=== PATIENT | male | born 1950 | race Caucasian/White ===

== ENCOUNTER → 2017-05-29 15:19 | Outpatient (CLI) | payer MEDICARE, OTHER, SELFPAY ==
[2017-05-29 15:28] LABS: Bacteria 0 SEEN /hpf (None Seen); Mucous, Urine 0 SEEN /hpf (<or=2+); Red Blood Cells-Urine 0 SEEN /hpf (0-5); Squamous Epithelial Cells - UA 0 SEEN /hpf (0-5); White Blood Cells 0 SEEN /hpf (0-5)
[2017-05-29 18:19] LABS: Absolute Lymphocyte Count 1.41 X10^3/ul (0.83-4.51); Absolute Neutrophil Count 3.8 X10^3/uL (2.0-7.7); Basophil# 0.02 X10^3/uL; Basophil% 0.3 % (0-1); Color, Urine Yellow (Yellow); Eosinophil# 0.41 X10^3/uL; Eosinophils% 6.4 % (0-5); Glucose, Dipstick Normal (Normal); Hemoglobin 14.5 g/dl (13.0-16.5); Ketone-Dipstick Negative (Negative); Leukocyte Esterase-Dipstick Negative /ul (Negative); Lymphocyte # 1.41 X10^3/ul (4.0); Lymphocyte % 22.1 % (19-41); Mean Corpuscular Hgb 32.4 pg (27.0-32.0); Mean Corpuscular Volume 98.4 fL (80-94); Mean Platelet Vol. 11.4 fl (6.2-12.0); Monocyte# 0.72 X10^3/uL; Monocyte% 11.3 % (0-10); Neutrophil # 3.81 X10^3/uL (2.7-7.7); Neutrophil % 59.9 % (47-70); Nitrite-Dipstick Negative (Negative); Occult Blood-Urine Negative /ul (Negative); Platelet Count 202 K/mm3 (150-450); Protein-Dipstick Negative (Negative); RBC Distribution Width CV 13.3 % (11.6-14.6); RBC Distribution Width SD 47.9 fl (35.1-43.9); Red Blood Count 4.47 M/mm3 (4.6-6.2); Urine Bilirubin Dipstick Negative (Negative); Urine Clarity Clear (Clear); Urine Urobilinogen Normal (Normal); White Blood Count 6.4 K/mm3 (4.4-11.0)
[2017-05-29 18:20] LABS: POSITIVE COUNT NO; POSITIVE DIFFERENTIAL NO; POSITIVE MORPHOLOGY NO
[2017-05-29 18:39] LABS: Hemoglobin A1c 5.4 % (4.2-6.3)
[2017-05-29 18:44] LABS: AST(SGOT) 35 U/L (15-37); Alanine Aminotransfer ALT/SGPT 39 U/L (16-61); Alkaline Phosphatase 79 U/L (45-117); Anion Gap 8 (5-15); BUN 19 mg/dL (7-18); BUN/Creat Ratio 15.8 RATIO (10-20); Calcium,Total 8.7 mg/dL (8.5-10.1); Chloride 100 mmol/L (98-107); Cholesterol 187 mg/dL (200); EST Glomerular Filtration Rate 65 mL/min (>60); Est Glom Filt Rate - Afr Amer 78 mL/min (>60); Glucose 112 mg/dL (74-106); High Density Lipoprotein 47 mg/dL; Sodium Level 135 mmol/L (136-145); Thyroid Stim Hormone (TSH) 3.41 uIU/mL (0.358-3.74); Triglycerides 184 mg/dL; Very Low Density Lipoprotein 37 mg/dL (5-40)
== END ==
PROVIDERS: Family Provider Family Medicine; PCP Family Medicine; Visit Provider Family Medicine
DX: I10 Essential (primary) hypertension (principal); F17.200 Nicotine dependence, unspecified, uncomplicated; Z83.3 Family history of diabetes mellitus; Z13.220 Encounter for screening for lipoid disorders
CPT/HCPCS: 36415; 80053; 80061; 81001; 83036; 84443; 85025

== ENCOUNTER → 2017-06-01 14:29 | Outpatient (CLI) | payer MEDICARE, OTHER, SELFPAY ==
[2017-06-01 16:00] LABS: Anion Gap 7 (5-15); BUN 15 mg/dL (7-18); BUN/Creat Ratio 12.7 RATIO (10-20); Calcium,Total 9.1 mg/dL (8.5-10.1); Chloride 102 mmol/L (98-107); Creatinine, Serum 1.18 mg/dL (0.70-1.30); EST Glomerular Filtration Rate 66 mL/min (>60); Est Glom Filt Rate - Afr Amer 80 mL/min (>60); Glucose 89 mg/dL (74-106); Sodium Level 136 mmol/L (136-145)
== END ==
PROVIDERS: Family Provider Family Medicine; PCP Family Medicine; Visit Provider Family Medicine
DX: I10 Essential (primary) hypertension (principal)
CPT/HCPCS: 36415; 80048

== ENCOUNTER → 2017-06-20 06:53 | Outpatient (CLI) | payer MEDICARE, OTHER, SELFPAY ==
--- NOTE | 2017-06-20 13:07 | PFT ---
INTRODUCTION: The patient is a 67-year-old male currently under the care of Dr. Diamond the presents for pulmonary function testing secondary to a diagnosis of chronic cough. Respiratory therapy reports good patient effort reports no other concerns. Bronchodilators were used during testing. INTERPRETATION: Forced expiration spirometry demonstrates no evidence of a large airways obstructive ventilatory defect. There was no significant response to aerosolized bronchodilators, based upon strict ATS criteria. Spirograms are of fair quality and plateau normally. Body plethysmography was performed and reveals lung volumes to be within normal limits. Diffusing capacity by single breath CO is within normal limits at 93% of predicted. IMPRESSION: These pulmonary function studies are essentially within normal limits. There are no previous PFTs available for comparison.
== END ==
PROVIDERS: Family Provider Family Medicine; PCP Family Medicine; Visit Provider Family Medicine
DX: R05 Cough (principal)
CPT/HCPCS: 94060; 94726; 94729

== ENCOUNTER → 2017-07-27 15:44 | Outpatient (CLI) | payer MEDICARE, OTHER, SELFPAY ==
[2017-07-27 18:39] LABS: PSA,Total - Annual Screen 1.53 ng/mL (0.00-4.00)
== END ==
PROVIDERS: Family Provider Family Medicine; PCP Family Medicine; Visit Provider Family Medicine
DX: Z12.5 Encounter for screening for malignant neoplasm of prostate (principal)
CPT/HCPCS: 36415; 84153; G0103

== ENCOUNTER 2018-04-18 21:23 | Observation (INO) | payer MEDICARE, SELFPAY ==
[2018-04-18 21:25] VITALS: BP 128/79; BP 131/87; PULSE 69; RESP 17; RESP 18; TEMP 36.8; O2SAT 95; O2SAT 96; BMI 32.3
--- NOTE | 2018-04-18 21:50 | EKG12_ITS ---
Test Reason : CP Blood Pressure : / mmHG Vent. Rate : 071 BPM Atrial Rate : 071 BPM P-R Int : 166 ms QRS Dur : 096 ms QT Int : 400 ms P-R-T Axes : 056 040 051 degrees QTc Int : 434 ms Normal sinus rhythm Septal infarct , age undetermined Abnormal ECG Confirmed by GONZALES BARBA, LOW ([id number]), web editor VELVET DICK ([id number]) on 04/22/2018 10:39:16 AM Referred By: STARLA Confirmed By:LOW ROLON MD
--- NOTE | 2018-04-18 21:50 | RAD_ITS ---
STUDY: X-RAY CHEST REASON FOR EXAM: Male, 67 years old. Chest pain. TECHNIQUE: Single AP portable view of the chest. COMPARISON: 04/24/2016. FINDINGS: The lungs are clear and expanded. There is no demonstrated pleural abnormality. Normal size heart. Normal mediastinum and iglesia. Normal visualized pulmonary arteries. There is atherosclerotic tortuosity of the aortic arch and descending thoracic aorta. The thoracic spine is suboptimally visualized. There are surgical pins overlying the right humeral head. There is no demonstrated abnormality of the visualized soft tissue structures of the upper abdomen. RAD/Chest 1 View (Portable) IMPRESSION: No active pulmonary disease. Electronically Signed: Gustavo Evans MD at 22:13 EST Tel , Service support ,
[2018-04-18] MEDS: Aspirin 81 MG TAB.CHEW 324 MG PO (22:05)
[2018-04-18] MEDS: Ondansetron 4 MG/2 ML Vial IV (22:05)
[2018-04-18] MEDS: Morphine 4 MG/ML Syringe IV (22:05)
[2018-04-18 22:25] LABS: Absolute Lymphocyte Count 2.07 X10^3/ul (0.83-4.51); Absolute Neutrophil Count 4.8 X10^3/uL (2.0-7.7); Basophil# 0.02 X10^3/uL; Basophil% 0.2 % (0-1); Eosinophil# 0.32 X10^3/uL; Eosinophils% 3.8 % (0-5); Hematocrit 42.5 % (40-54); Hemoglobin 14.4 g/dl (13.0-16.5); Lymphocyte # 2.07 X10^3/ul (4.0); Lymphocyte % 24.9 % (19-41); Mean Corp Hgb Conc 33.9 g/gl (32-36); Mean Corpuscular Hgb 32.4 pg (27.0-32.0); Mean Corpuscular Volume 95.5 fL (80-94); Mean Platelet Vol. 11.4 fl (6.2-12.0); Monocyte# 1.07 X10^3/uL; Monocyte% 12.9 % (0-10); Neutrophil # 4.83 X10^3/uL (2.7-7.7); Neutrophil % 58.1 % (47-70); POSITIVE COUNT NO; POSITIVE DIFFERENTIAL NO; POSITIVE MORPHOLOGY NO; Platelet Count 176 K/mm3 (150-450); RBC Distribution Width CV 13.3 % (11.6-14.6); RBC Distribution Width SD 46.7 fl (35.1-43.9); Red Blood Count 4.45 M/mm3 (4.6-6.2); White Blood Count 8.3 K/mm3 (4.4-11.0)
[2018-04-18 22:40] LABS: D-Dimer Quantitative (DVT/PE) 0.84 FEU/ug/m (0.27-0.49)
--- NOTE | 2018-04-18 22:40 | ED.RN ---
dr. solares aware of elevated ddimer 0.84
[2018-04-18 22:52] LABS: AST(SGOT) 28 U/L (15-37); Alanine Aminotransfer ALT/SGPT 36 U/L (16-61); Alkaline Phosphatase 60 U/L (45-117); Anion Gap 10 (5-15); BUN 11 mg/dL (7-18); BUN/Creat Ratio 9.6 RATIO (10-20); Bilirubin, Direct 0.17 mg/dL (0.00-0.30); Calcium,Total 8.5 mg/dL (8.5-10.1); Chloride 101 mmol/L (98-107); Creatinine, Serum 1.15 mg/dL (0.70-1.30); EST Glomerular Filtration Rate 68 mL/min (>60); Est Glom Filt Rate - Afr Amer 82 mL/min (>60); Estimated Creatinine Clearance 57.79 ml/min; Globulin 3.8 g/dL (2.2-4.2); Glucose 97 mg/dL (74-106); Lipase 299 U/L (73-393); Potassium 3.5 mmol/L (3.5-5.1); Protein, Total 7.8 g/dL (6.4-8.2); Sodium Level 132 mmol/L (136-145)
--- NOTE | 2018-04-18 22:59 | CT_ITS ---
STUDY: CTA CHEST REASON FOR EXAM: Male, 67 years old. Shortness of breath and elevated d-dimer. RADIATION DOSAGE (If Supplied By Facility): CTDIvol = ( 17.83 ) mGy, DLP = ( 728.39 ) mGycm TECHNIQUE: The examination was performed with the intravenous administration of 100 ml of Isovue 370 contrast material. Post-processing of the angiographic images was performed, with multiplanar reformation and 3D reconstruction. Individualized dose optimization techniques were used for this CT. COMPARISON: None. FINDINGS: Normal enhancement of the main pulmonary artery and right and left pulmonary arteries. Normal enhancement of the bilateral peripheral pulmonary arteries. There is no demonstrated pulmonary embolism. There is atherosclerotic calcification of the aortic arch with tortuosity. There is no demonstrated aortic dissection however there is suboptimal enhancement of the thoracic aorta.. Normal heart and pericardium. Normal mediastinum. Normal hilar regions. Normal visualized trachea and bronchi. The lungs are well expanded. There are no pulmonary infiltrates. There is minimal central bronchiectatic changes. There are no pleural effusions. Normal chest wall structures. There are healing fractures of the right sixth and seventh ribs. There are degenerative changes in the thoracic spine and Schmorl's nodes in the midthoracic vertebra. There is a lucency in the inferior aspect of T6 vertebra probably representing Schmorl's node. The visualized portions of the upper abdomen demonstrate no acute process. CT/CTA Chest W/WO Contrast IMPRESSION: 1. No evidence of pulmonary embolism. 2. No infiltrate is seen. Electronically Signed: Gustavo Evans MD at 23:48 EST Tel , Service support ,
[2018-04-18] MEDS: LORazepam 0.5 MG Tablet PO ×2 (23:06→23:59)
--- NOTE | 2018-04-18 23:36 | ED.VISSUMM ---
- ER Visit Summary Date of Service: 04/18/18 Chief Complaint: Chest pain History of Present Illness: The patient is a 67 M presenting with chest pain. Patient states this started 2 hours prior to arrival. It woke him from sleep. He has associated shortness of breath. He denies nausea or vomiting. Denies diaphoresis. He has not had these symptoms in the past. He has a history of hypertension. Denies PE/DVT risk factors. He is a smoker. Physical Examination: Vitals are stable. Patient is afebrile. Alert no acute distress. HEENT exam is unremarkable. Neck is supple. Lungs are clear and equal bilaterally. Heart is regular rate and rhythm. Abdomen is soft nontender nondistended. Extremities are unremarkable. Skin is warm and dry. No focal neurologic deficit. Remainder of exam is unremarkable. Emergency Department Course and Treatment: Patient was given aspirin, morphine, Zofran. EKG is sinus rate of 71. Chest x-ray shows no acute process. CBC, chemistries unremarkable. Liver lipase are normal. Troponin is negative. D-dimer elevated at 0.84. Due to elevated d-dimer, CTA chest is obtained and shows no PE. Patient is chest pain free on re-evaluation. Discussed with the hospitalist for observation. Disposition: Observation Impression: Chest pain This note was generated with simfy dictation software. It may contain incorrect words, spelling, and punctuation that were not noted in review of the chart prior to signing ED Disposition - Plan for ED Patient: Referrals: Artie Galvan MD [Primary Care Provider] -
--- NOTE | 2018-04-18 23:39 | ED.DCSUM_ITS ---
- ER Visit Summary Date of Service: 04/18/18 Chief Complaint: Chest pain History of Present Illness: The patient is a 67 M presenting with chest pain. Patient states this started 2 hours prior to arrival. It woke him from sleep. He has associated shortness of breath. He denies nausea or vomiting. Denies diaphoresis. He has not had these symptoms in the past. He has a history of hypertension. Denies PE/DVT risk factors. He is a smoker. Physical Examination: Vitals are stable. Patient is afebrile. Alert no acute distress. HEENT exam is unremarkable. Neck is supple. Lungs are clear and equal bilaterally. Heart is regular rate and rhythm. Abdomen is soft nontender nondistended. Extremities are unremarkable. Skin is warm and dry. No focal neurologic deficit. Remainder of exam is unremarkable. Emergency Department Course and Treatment: Patient was given aspirin, morphine, Zofran. EKG is sinus rate of 71. Chest x-ray shows no acute process. CBC, chemistries unremarkable. Liver lipase are normal. Troponin is negative. D- dimer elevated at 0.84. Due to elevated d-dimer, CTA chest is obtained and shows no PE. Patient is chest pain free on re-evaluation. Discussed with the hospitalist for observation. Disposition: Observation Impression: Chest pain This note was generated with Go[employer]arden dictation software. It may contain incorrect words, spelling, and punctuation that were not noted in review of the chart prior to signing ED Disposition - Plan for ED Patient: Referrals: Artie Galvan MD [Primary Care Provider] -
[2018-04-18 23:43] VITALS: BP 113/78; PULSE 67; RESP 18; O2SAT 94
--- NOTE | 2018-04-18 23:55 | PCM.HP.STD ---
Problem List (1) Chest pain Status: Acute (2) Alcohol use disorder Status: Acute (3) Tobacco abuse Status: Acute (4) Hyponatremia Status: Acute History of Present Illness Date of Admission: 04/18/18 Chief Complaint: chest pain The patient is a 67 year old M with a significant history of hypertension; alcohol use disorder; tobacco abuse who presented with excruciating episodic right-sided chest pain that started few hours before his admission. Patient reported that his chest pain woke him up from his sleep. His Chest pain is nonradiating. He denies any aggravating factor. He reported that walking helps improve his chest pain. Associated with symptoms is shortness of breath he denied any associated' nausea, vomiting or diaphoresis. At the emergency department d-dimer was elevated. Follow-up CTPA was unremarkable. His troponin was negative. His EKG showed Q waves in anterior leads. His mother had a triple bypass at age 66;and his father from massive heart attack at age 77. At emergency department patient was given full dose aspirin; Ativan; morphine; Zofran and nicotine patch. Patient reports stress test within the last year but he is unable to elaborate further. Past Medical History Medical History: Medical History (Last Updated 04/19/18 @ 01:18 by Fer Hernandez MD) HTN (hypertension) I10 Allergies No Known Allergies Allergy (Verified 04/18/18 21:24) Home Medications: Ambulatory Orders Medication Instructions Recorded Amlodipine [Norvasc] 10 mg PO DAILY 04/18/18 Lisinopril [Zestril] 20 mg PO DAILY 04/18/18 Surgical History: appendectomy, - - Rotator cuff surgery on the right Lives: Alone Smoking Status: Current every day smoker Alcohol: Heavy - *Family History Maternal Family History: Family History (Last Updated 04/19/18 @ 01:20 by Fer Hernandez MD) Other Bleeding ulcer Diabetes Hx of CABG Myocardial infarction Poliomyelitis Review of Systems Constitutional: Denies: Chills, Fever, Weight Change HEENT: Denies: Head Aches, Sinus Congestion, Sinus Drainage Cardiovascular: Reports: Chest Pain. Denies: Palpitations Respiratory: Reports: Shortness of Breath. Denies: Cough Gastrointestinal: Denies: Abdominal Pain, Nausea, Vomiting Genitourinary: Denies: Dysuria Musculoskeletal: Denies: Joint Pain, Joint Tenderness Skin: Denies: Rash, Wounds Neurological: Denies: Numbness, Tingling, Focal weakness Psychiatric: Denies: Anxiety, Depression, Homicidal Ideations, Suicidal Ideations Hematologic/ Lymphatic: Denies: Easy Bruising, Easy Bleeding VTE Information - Inpt Only VTE Present on Admission: No VTE Mechan Device Prophylaxis: None VTE Pharm Prophylaxis ordered?: Yes Patient Problems: Active and Suspected Problems Chest pain (Acute) Alcohol use disorder (Acute) Tobacco abuse (Acute) Hyponatremia (Acute) - Physical Exam General: Alert, Oriented x3, - - Reluctant to provide information HEENT: Atraumatic, PERRLA, EOMI, Normocephalic Neck: Supple, No JVD, Negative Carotid Bruits Lungs: - - Coarse -right upper posterior lung godfrey Cardiovascular: Regular rate, No murmurs Abdomen: Bowel Sounds Present, Soft, Non Tender Extremities: No edema, Capillary Refill Less than 3 Seconds Skin: No rashes, No breakdown Musculoskeletal: No Tenderness to Palpation of Joints or Extremities Neurological: Neuro grossly intact Psych/Mental Status: Normal Affect, Appropriate Vital Signs Temp Pulse Resp BP Pulse Ox 98.2 F 69 18 131/87 H 96 04/18/18 21:25 04/18/18 21:25 04/18/18 21:25 04/18/18 21:25 04/18/18 21:25 Oxygen Delivery Method Nasal Cannula Weight: 90.718 kg Body Mass Index (BMI) 32.3 Laboratory Tests Past 24 Hrs 04/18/18 04/18/18 04/18/18 21:45 21:45 21:45 WBC 8.3 RBC 4.45 L Hgb 14.4 Hct 42.5 MCV 95.5 H MCH 32.4 H MCHC 33.9 RDW 13.3 RDW Differential 46.7 H Plt Count 176 MPV 11.4 Immature Gran % (Auto) 0.100 Neut % (Auto) 58.1 Lymph % (Auto) 24.9 [place] % (Auto) 12.9 H Eos % (Auto) 3.8 Baso % (Auto) 0.2 Absolute Neuts (auto) 4.8 Absolute Lymphs (auto) 2.07 Total Counted Not Reportable D-Dimer Quant (PE/DVT) 0.84 H* Sodium 132 L Potassium 3.5 Chloride 101 Carbon Dioxide 21.0 Anion Gap 10 BUN 11 Creatinine 1.15 Estim Creat Clear Calc 57.79 Est GFR (MDRD) Af Amer 82 Est GFR (MDRD) Non-Af 68 BUN/Creatinine Ratio 9.6 L Glucose 97 Calcium 8.5 Total Bilirubin 0.60 Direct Bilirubin 0.17 AST 28 ALT 36 Alkaline Phosphatase 60 Troponin I < 0.015 Total Protein 7.8 Albumin 4.0 Globulin 3.8 Lipase 299 Assessment/Plan All Active Problems Chest pain (Acute) Alcohol use disorder (Acute) Tobacco abuse (Acute) Hyponatremia (Acute) The patient is a 67 year old M with a significant history of hypertension; alcohol use disorder; tobacco abuse who presented with excruciating episodic right-sided chest pain that started few hours before his admission. Chest pain Heart score is 4 points; moderate score (slightly suspicious; age 67; 3 risk factors of BMI more than 30; smoker and hypertension) Admit to a monitored bed on PCU CXR independently reviewed confirms no acute cardiopulmonary process. EKG independently reviewed confirms no ST or T wave abnormalities but with Q waves in leads V1 and V2. Old records reviewed showed Q waves in leads V1 and V2 on October 11, 2005. ASA 81 mg p.o. daily SL NTG 0.4 mg prn as needed for chest pain Morphine as needed for pain We will check lipid panel. High intensity statin x1 dose ordered. Serial cardiac enzymes Stat EKG as needed for chest pain Patient report that he is unable to run. Chemical Stress test in the AM if the cardiac enzymes are negative Differential diagnosis include musculoskeletal source of chest pain. Patient reports that in the past he had rotator cuff surgery on the right side. Tobacco abuse He reported that he smokes 2 packs/day. Received nicotine patch at emergency department. Nicotine patch continue. Emergency department doctor also ordered nicotine gum. The patient reported that he has dentures and he can not chew. Will not order nicotine gum. Patient was counseled Hyponatremia Likely due to be able to jose from drinking. Trend BMP. Alcohol use disorder Patient reports drinking 2-3 beers per day. Can not rule out minimization at this time. Patient appears apathetic and his reluctant to release information Will place patient on seizure protocol with Ativan, thiamine, folic acid and multivitamins. Ethanol level ordered. DVT prophylaxis: Subcutaneous ordered. Code Visit OBSV E&M: 28179 Initial observation care L3
[2018-04-19] VITALS (10 sets, daily range): BP systolic 120–152; BP diastolic 72–93; PULSE 65–88; RESP 16–18; TEMP 36.5–37.2; O2SAT 92–98; BMI 30.7; BMI 32.3
--- NOTE | 2018-04-19 00:56 | EKG12_ITS ---
Test Reason : ADMIT Blood Pressure : / mmHG Vent. Rate : 074 BPM Atrial Rate : 074 BPM P-R Int : 144 ms QRS Dur : 102 ms QT Int : 400 ms P-R-T Axes : 055 042 060 degrees QTc Int : 444 ms Normal sinus rhythm Normal ECG Confirmed by GONZALES BARBA, LOW ([id number]), book or script editor VELVET DICK ([id number]) on 04/25/2018 11:49:34 AM Referred By: ABELARDO Confirmed By:LOW ROLON MD
[2018-04-19] MEDS: Atorvastatin Calcium 80 MG Tablet PO (02:17)
[2018-04-19 04:47] LABS: Absolute Neutrophil Count 3.9 X10^3/uL (2.0-7.7); Basophil# 0.02 X10^3/uL; Basophil% 0.3 % (0-1); Eosinophils% 4.7 % (0-5); Hemoglobin 14.5 g/dl (13.0-16.5); Lymphocyte % 20.3 % (19-41); Mean Corp Hgb Conc 35.4 g/gl (32-36); Mean Corpuscular Hgb 33.9 pg (27.0-32.0); Mean Corpuscular Volume 95.8 fL (80-94); Mean Platelet Vol. 11.1 fl (6.2-12.0); Monocyte# 0.85 X10^3/uL; Monocyte% 13.3 % (0-10); Neutrophil # 3.92 X10^3/uL (2.7-7.7); Neutrophil % 61.2 % (47-70); Platelet Count 168 K/mm3 (150-450); RBC Distribution Width CV 13.3 % (11.6-14.6); RBC Distribution Width SD 44.7 fl (35.1-43.9); Red Blood Count 4.28 M/mm3 (4.6-6.2); White Blood Count 6.4 K/mm3 (4.4-11.0)
[2018-04-19 04:53] LABS: International Normalized Ratio 1.1; Prothrombin Time (Protime)PT. 13.8 SECONDS (11.7-14.9)
[2018-04-19 04:56] LABS: POSITIVE COUNT NO; POSITIVE DIFFERENTIAL NO; POSITIVE MORPHOLOGY NO
[2018-04-19 05:06] LABS: Anion Gap 12 (5-15); BUN 11 mg/dL (7-18); BUN/Creat Ratio 8.7 RATIO (10-20); Calcium,Total 8.5 mg/dL (8.5-10.1); Chloride 105 mmol/L (98-107); Cholesterol 157 mg/dL (200); Creatinine, Serum 1.26 mg/dL (0.70-1.30); EST Glomerular Filtration Rate 61 mL/min (>60); Est Glom Filt Rate - Afr Amer 74 mL/min (>60); Estimated Creatinine Clearance 52.74 ml/min; Glucose 93 mg/dL (74-106); High Density Lipoprotein 45 mg/dL; Potassium 3.8 mmol/L (3.5-5.1); Sodium Level 141 mmol/L (136-145); Triglycerides 167 mg/dL; Very Low Density Lipoprotein 33 mg/dL (5-40)
[2018-04-19] MEDS: Lisinopril 20 MG Tablet PO (06:16)
[2018-04-19] MEDS: Aspirin E.C. 81 MG Tablet PO (06:16)
[2018-04-19] MEDS: Thiamine Hydrochloride 100 MG Tablet PO (08:49)
[2018-04-19] MEDS: Multivitamins,Ther W-Minerals Tablet 1 TABLET PO (08:49)
[2018-04-19] MEDS: Folic Acid 1 MG Tablet PO (08:49)
[2018-04-19] MEDS: amLODIPine 10 MG Tablet PO (08:50)
[2018-04-19] MEDS: Morphine 2 MG/ML Syringe IV (08:50)
[2018-04-19] MEDS: 0.9% NaCl Peripheral Flush Adult/Peds IV (08:50)
--- NOTE | 2018-04-19 09:01 | STRESSREP ---
Stress Test Report Pharmacologic myocardial perfusion stress test. 67-year-old man with a history of atypical right-sided chest pain. Stress protocol: Resting EKG demonstrates normal sinus rhythm with a rate of 69 bpm normal intervals are noted nonspecific ST-T wave changes are noted resting blood pressure 148/84 mmHg. 0.4 mg of regadenoson was infused per usual protocol followed by rapid intravenous saline flush injection. Continuous EKG monitoring was performed. The patient maintained sinus rhythm throughout the recording. At rest there were nonspecific ST-T wave changes noted with mildly downsloping ST depression noted in lead II. At peak infusion the above changes persisted. The above does not appear to be suggestive of ischemia. The resting blood pressure 148/84 with a final blood pressure 138/80. Myocardial perfusion protocol. 14.1 mCi of technetium 99m sestamibi was injected at rest. 0.4 mg of regadenoson was infused per usual protocol. At peak infusion 44.4 mCi of technetium 99m sestamibi was injected stress images were obtained stress and rest images were reconstructed and compared in the short axis vertical long horizontal long axis. Gated images were also obtained Perfusion SPECT analysis: Review of the stress images demonstrate normal uptake of tracer noted in all areas of myocardium. There is mild inferior diaphragmatic attenuation noted. No obvious areas of reversibility are noted suggest ischemia. No obvious infarct is noted. Gated SPECT analysis: The gated ejection fraction is noted to be 58%. Conclusion: Normal pharmacologic myocardial perfusion stress test. Preserved ejection fraction.
--- NOTE | 2018-04-19 10:09 | DCINST_ITS ---
- Discharge Diagnoses Current Active Problems: Current Active and Chronic Problems (Last Updated 04/19/18 @ 01:18 by Fer Hernandez MD) Chest pain (Acute) Alcohol use disorder (Acute) Tobacco abuse (Acute) Hyponatremia (Acute) You will use the following diet at home:: Cardiac Your food should be the consistency of: Regular Discharge Activity: Return to Normal Activity Weight Bearing Status: Full weight bearing Call your doctor if you observe: Fever of 101 or Higher, Shortness of breath, Dizziness, Fainting spells, Chest pain, Increased palpitations (irregular heartbeat), Uncontrolled pain Allergies/Adverse Reactions: Allergies No Known Allergies Allergy (Verified 04/19/18 01:08) Medications to take at Discharge Amlodipine [Norvasc] 10 mg PO DAILY 04/18/18 Lisinopril [Zestril] 20 mg PO DAILY 04/18/18 Aspirin E.C. [Ecotrin] 81 mg PO DAILY@0800 #90 tab 04/19/18 The following prescriptions were given: Aspirin E.C. [Ecotrin] 81 mg PO DAILY@0800 #90 tab Primary Care Physician: Artie Galvan MD [Primary Care Provider] - Please follow up with your Primary Care Physician in: 2 weeks. Test Results: Test results from this visit will be discussed in further detail at your follow- up appointment, if applicable.
--- NOTE | 2018-04-19 15:55 | DS.PCM_ITS ---
Discharge Date and Diagnosis Date of Admission: 04/18/18 Date of Discharge: 04/19/18 - Primary Discharge Diagnosis Chest pain, ACS ruled out, likely due to musculoskeletal pain. Hospital Course and Treatment Imaging Results: Clinical Impression(s) from Imaging Studies Chest X-Ray 04/18/18 21:50 IMPRESSION: No active pulmonary disease. Electronically Signed: Gustavo Evans MD at 22:13 EST Tel , Service support , Chest CTA 04/18/18 22:59 IMPRESSION: 1. No evidence of pulmonary embolism. 2. No infiltrate is seen. Electronically Signed: Gustavo Evans MD at 23:48 EST Tel , Service support , Operations: None Procedures: EKG, Stress test Summary of Care Provided: Patient seen and examined on the day of discharge and appeared to be stable to be discharged home. He mentioned that his chest pain improved but still having intermittent discomfort upon movement. Denies shortness of breath, palpitation, dizziness or lightheadedness. His vital signs are stable. The patient is a 67 year old M admitted because of chest pain for evaluation. His initial EKG revealed no acute ischemic changes. Troponin was negative x3. Chest x-ray showed no acute findings. D-dimer was elevated for which CTA chest done and showed no PE or dissection. Routine blood work was unremarkable. His vital signs were stable, blood pressure was stable. Patient underwent nuclear stress test that showed no evidence of stress-induced myocardial ischemia with preserved ejection fraction. ACS ruled out. His pain is likely due to musculoskeletal pain. Patient discharged home in a stable medical condition, discharged on his home medications without any changes, started the baby aspirin, recommended follow-up with PCP in 2 weeks - Physical Exam General: Alert, Oriented x3, Cooperative, No apparent distress HEENT: Atraumatic, PERRLA, EOMI, Normocephalic Oral: Moist Mucosa, No Gingival or Mucosal Lesions/ Ulcerations Neck: Supple, No JVD, Negative Carotid Bruits, Trachea Midline, Thyroid Normal Size and Texture Lungs: Clear to auscultation, No rhonchi, No wheeze, No rales, Diminished Cardiovascular: Regular rate, Regular Rhythm, Normal S1, Normal S2, PMI Normal Abdomen: Bowel Sounds Present, Soft, Non Tender, Non-Distended, No Hepato- splenomegaly Extremities: No clubbing, No cyanosis, No edema Skin: No rashes, No breakdown Lymphatic: No Cervical, Supraclavicular, or Inguinal Adenopathy Neurological: Cranial nerves II-XII grossly intact, Neuro grossly intact Psych/Mental Status: Normal Affect, Appropriate Vital Signs Temp Pulse Resp BP Pulse Ox 97.7 F L 82 18 127/93 H 92 04/19/18 10:08 04/19/18 10:50 04/19/18 10:08 04/19/18 10:08 04/19/18 10:45 Oxygen Delivery Method Room Air Weight: 190 lb 4.143 oz Body Mass Index (BMI) 30.7 Laboratory Tests Past 24 Hrs 04/18/18 04/18/18 04/18/18 21:45 21:45 21:45 WBC 8.3 RBC 4.45 L Hgb 14.4 Hct 42.5 MCV 95.5 H MCH 32.4 H MCHC 33.9 RDW 13.3 RDW Differential 46.7 H Plt Count 176 MPV 11.4 Immature Gran % (Auto) 0.100 Neut % (Auto) 58.1 Lymph % (Auto) 24.9 [place] % (Auto) 12.9 H Eos % (Auto) 3.8 Baso % (Auto) 0.2 Absolute Neuts (auto) 4.8 Absolute Lymphs (auto) 2.07 Total Counted Not Reportable PT INR APTT D-Dimer Quant (PE/DVT) 0.84 H* Sodium 132 L Potassium 3.5 Chloride 101 Carbon Dioxide 21.0 Anion Gap 10 BUN 11 Creatinine 1.15 Estim Creat Clear Calc 57.79 Est GFR (MDRD) Af Amer 82 Est GFR (MDRD) Non-Af 68 BUN/Creatinine Ratio 9.6 L Glucose 97 Calcium 8.5 Total Bilirubin 0.60 Direct Bilirubin 0.17 AST 28 ALT 36 Alkaline Phosphatase 60 Troponin I < 0.015 Total Protein 7.8 Albumin 4.0 Globulin 3.8 Triglycerides Cholesterol LDL Cholesterol VLDL Cholesterol HDL Cholesterol Lipase 299 Ethyl Alcohol 04/18/18 04/19/18 04/19/18 21:45 01:13 04:22 WBC RBC Hgb Hct MCV MCH MCHC RDW RDW Differential Plt Count MPV Immature Gran % (Auto) Neut % (Auto) Lymph % (Auto) [place] % (Auto) Eos % (Auto) Baso % (Auto) Absolute Neuts (auto) Absolute Lymphs (auto) Total Counted PT 13.8 INR 1.1 APTT 32.0 D-Dimer Quant (PE/DVT) Sodium Potassium Chloride Carbon Dioxide Anion Gap BUN Creatinine Estim Creat Clear Calc Est GFR (MDRD) Af Amer Est GFR (MDRD) Non-Af BUN/Creatinine Ratio Glucose Calcium Total Bilirubin Direct Bilirubin AST ALT Alkaline Phosphatase Troponin I < 0.015 Total Protein Albumin Globulin Triglycerides Cholesterol LDL Cholesterol VLDL Cholesterol HDL Cholesterol Lipase Ethyl Alcohol 197.0 04/19/18 04/19/18 04:22 04:22 WBC 6.4 RBC 4.28 L Hgb 14.5 Hct 41.0 MCV 95.8 H MCH 33.9 H MCHC 35.4 RDW 13.3 RDW Differential 44.7 H Plt Count 168 MPV 11.1 Immature Gran % (Auto) 0.200 Neut % (Auto) 61.2 Lymph % (Auto) 20.3 [place] % (Auto) 13.3 H Eos % (Auto) 4.7 Baso % (Auto) 0.3 Absolute Neuts (auto) 3.9 Absolute Lymphs (auto) 1.30 Total Counted Not Reportable PT INR APTT D-Dimer Quant (PE/DVT) Sodium 141 Potassium 3.8 Chloride 105 Carbon Dioxide 24.0 Anion Gap 12 BUN 11 Creatinine 1.26 Estim Creat Clear Calc 52.74 Est GFR (MDRD) Af Amer 74 Est GFR (MDRD) Non-Af 61 BUN/Creatinine Ratio 8.7 L Glucose 93 Calcium 8.5 Total Bilirubin Direct Bilirubin AST ALT Alkaline Phosphatase Troponin I < 0.015 Total Protein Albumin Globulin Triglycerides 167 Cholesterol 157 LDL Cholesterol 79 VLDL Cholesterol 33 HDL Cholesterol 45 Lipase Ethyl Alcohol Discharge Activity: Return to Normal Activity Weight Bearing Status: Full weight bearing Call your doctor if you observe: Fever of 101 or Higher, Shortness of breath, Dizziness, Fainting spells, Chest pain, Increased palpitations (irregular heartbeat), Uncontrolled pain Home Medications: Medications to take at Discharge Amlodipine [Norvasc] 10 mg PO DAILY 04/18/18 Lisinopril [Zestril] 20 mg PO DAILY 04/18/18 Aspirin E.C. [Ecotrin] 81 mg PO DAILY@0800 #90 tab 04/19/18 Following Prescrptions Were Given to Patient: Aspirin E.C. [Ecotrin] 81 mg PO DAILY@0800 #90 tab Primary Care Physician: Artie Galvan MD [Primary Care Provider] - Please follow up with your Primary Care Physician in: 2 weeks. Disposition: Home Minutes spent on discharge:: 24 Patient Condition:: Stable Medical Necessity - Tobacco Use Smoking Status: Current every day smoker Meaningful Use Info Meaningful Use Diagnoses (Choose all that apply): None applicable Code Visit OBSV E&M: 11097 Observation care discharge
== END 2018-04-19 10:08 | disposition home or self-care (01) ==
LOC: ED 04-19 00:10 → PCU 04-19 00:19
PROVIDERS: Admitting Provider Hospitalist; Emergency Provider Emergency Medicine; Family Provider Family Medicine; PCP Family Medicine; Visit Provider Hospitalist
DX: R07.89 Other chest pain (principal); R06.02 Shortness of breath; I10 Essential (primary) hypertension; Z79.899 Other long term (current) drug therapy; E87.1 Hypo-osmolality and hyponatremia; F10.10 Alcohol abuse, uncomplicated; R94.31 Abnormal electrocardiogram [ECG] [EKG]; F17.210 Nicotine dependence, cigarettes, uncomplicated
CPT/HCPCS: 36415; 71045; 71275; 78452; 80048; 80061; 80076; 80320; 83690; 84484; 85025; 85379; 85610; 85730; 93005; 93017; 96374; 96375; 96376; 97802; 99218; 99285; 99406; A9500; Q9967; A4216; G0378; G0480; J2405; J2785

== ENCOUNTER 2018-09-17 19:30 | Emergency (ER) | payer OTHER, SELFPAY ==
[2018-04-19 01:06] VITALS: BMI 30.7
[2018-09-17 19:31] VITALS: BP 137/83; PULSE 76; RESP 18; TEMP 37.1; O2SAT 96; BMI 29.9
--- NOTE | 2018-09-17 19:53 | ED.DCSUM_ITS ---
- ER Visit Summary Date of Service: 09/17/18 Chief Complaint: Right shoulder pain History of Present Illness: The patient is a 68 M who presents with right shoulder pain that has been getting worse over the past 2 to 3 weeks. 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 Patient states that later in the week he tried to push something up and felt sharp pain in his shoulder. Patient has a history of a prior rotator cuff surgery. Patient thinks he messed up his rotator cuff. Patient describes the pain is aching and is worse with movement. Patient denies any paresthesias or weakness. Patient denies any other injuries. Physical Examination: Vital signs are stable. Patient is afebrile. Patient is in no acute distress. Muscular skeletal exam reveals tenderness over the right shoulder. Range of motion was limited in all motions of the right shoulder secondary to pain. There is no deformity noted. There is no edema or ecchymosis. Sensation was intact to light touch in the radial, median, ulnar, and axillary areas. Radial pulses are equal bilaterally. Strength is 5/5 in the radial, median, and ulnar areas. Test Results: X-rays of the right shoulder were obtained. There is no acute fr acture. There are some degenerative changes. There are bone anchors noted in the humeral head. Emergency Department Course and Treatment: Patient was given an injection of Toradol here. Patient was instructed to ice and elevate the right shoulder. Patient was instructed to follow-up with his primary care physician or [facility] in 5 to 7 days. Patient was given a prescription for a short course of [place]. Patient understood and was agreeable with the plan. All questions were answered. Disposition: Discharge home Impression: Right shoulder strain This note was generated with [employer] dictation software. It may contain incorrect words, spelling, and punctuation that were not noted in review of the chart prior to signing ED Disposition - Plan for ED Patient: Disposition: Home or Assisted Living Diagnosis: Right shoulder strain Instructions: Shoulder Sprain Prescriptions: Hydrocodone Bitart/Apap 5-325 [[facility] [place] 5MG-325MG] 1 tab PO Q6H PRN PRN 3 Days #10 tab PRN Reason: Pain Prescription Printed Referrals: Artie Galvan MD [Primary Care Provider] - 5-7 Days [facility] [GROUP OF PHYSICIANS] - 5-7 Days
--- NOTE | 2018-09-17 19:58 | RAD_ITS ---
STUDY: X-RAY - RIGHT SHOULDER REASON FOR EXAM: Male, 68 years old. Pain TECHNIQUE: 4 view(s) of the shoulder. COMPARISON: None. FINDINGS: There is no evidence of fracture or dislocation. Moderate degenerative changes of the right glenohumeral joint are present. Right shoulder anchors are present. There are no radiodense foreign bodies. RAD/Shoulder min 2 Views IMPRESSION: No fracture or dislocation. Moderate degenerative changes of the glenohumeral joint. Electronically Signed: Jadon Cruz, at 20:13 EDT Tel , Service support ,
[2018-09-17] MEDS: Ketorolac 30 MG/ML Syringe IM (20:05)
== END 2018-09-17 22:10 | disposition home or self-care (01) ==
PROVIDERS: Emergency Provider Emergency Medicine; Family Provider Family Medicine; PCP Family Medicine
DX: S46.911A Strain of unspecified muscle, fascia and tendon at shoulder and upper arm level, right arm, initial encounter (principal); X50.9XXA Other and unspecified overexertion or strenuous movements or postures, initial encounter; Y93.9 Activity, unspecified; Y92.89 Other specified places as the place of occurrence of the external cause; Y99.8 Other external cause status; I10 Essential (primary) hypertension; F17.210 Nicotine dependence, cigarettes, uncomplicated
CPT/HCPCS: 73030; 96372; 99283

== ENCOUNTER 2018-11-18 18:28 | Emergency (ER) | payer MEDICARE, SELFPAY ==
[2018-11-18 18:29] VITALS: BP 116/68; PULSE 89; RESP 16; TEMP 36.1; O2SAT 97; BMI 31.3
--- NOTE | 2018-11-18 19:01 | CT_ITS ---
STUDY: CT ABDOMEN AND PELVIS WITH CONTRAST REASON FOR EXAM: Male, 68 years old. RADIATION DOSAGE (If Supplied By Facility): CTDIvol = ( 18.65 ) mGy, DLP = ( 960.79 ) mGycm TECHNIQUE: Transaxial images were obtained from the dome of the diaphragm to the symphysis pubis without oral contrast. 100 IV Isovue 300 was administered. Sagittal and coronal images were reconstructed. Individualized dose optimization techniques were used for this CT. COMPARISON: None. FINDINGS: Minor atelectasis within the dependent portion of the lungs.. The visualized portions of the heart are within normal limits. Liver is fatty infiltrated. There is a small cyst in the right lobe. Bile ducts are not dilated. Normal gallbladder and extrahepatic biliary system. Normal spleen. Normal pancreas. Normal bilateral adrenal glands. No evidence for hydronephrosis or ureteral calculus. Tiny cortical cyst in the right kidney Normal visualized stomach. Normal small intestine. Normal colon. No evidence for acute appendicitis. Mild atherosclerotic changes of the aorta with focal aneurysm measuring 3.15 x 2.35 cm. There also appears to be an aneurysm of the right common iliac. Normal inferior vena cava. Normal retroperitoneum. Incompletely distended mildly thick-walled bladder. Small fat-containing umbilical hernia.. Lumbar spine demonstrates moderate spondylosis. Grade 1 spondylolisthesis at L4-[address]/Abdomen/Pelvis WITH Contrast IMPRESSION: Nonspecific fatty infiltration of the liver.. Atherosclerotic changes of the aorta with focal aneurysm measuring approximately 3.5 x 2.35 cm and mild aneurysmal dilatation of the right common iliac. No acute abnormalities Electronically Signed: Jadon Hickman MD at 20:33 EDT , Service support ,
--- NOTE | 2018-11-18 19:01 | CT_ITS ---
STUDY: CT CHEST WITH CONTRAST REASON FOR EXAM: Male, 68 years old. Trauma RADIATION DOSAGE (If Supplied By Facility): CTDIvol = ( 16.11 ) mGy, DLP = ( 577.33 ) mGycm TECHNIQUE: Transaxial imaging was performed following intravenous administration of 100 IV Isovue 300. Individualized dose optimization techniques were used for this CT. COMPARISON: None. FINDINGS: Mild nonspecific interstitial thickening.. There is mild atelectasis within the dependent portion of the lungs. There is no focal infiltration or pulmonary nodule There is no demonstrated pleural abnormality. Normal heart and pericardium. Normal mediastinum. Normal hilar regions. Normal enhanced pulmonary arteries. Normal aorta arch and descending thoracic aorta. Dorsal spine demonstrates moderate spondylosis There appears to be a hairline fracture of the axillary aspect of the left ninth rib only seen on the sagittal projection. Old healed fractures of the right sixth and seventh ribs. No definitive evidence for other acute fractures Nonspecific fatty infiltration of the liver. CT/Chest WITH Contrast IMPRESSION: Nonspecific interstitial thickening and minor atelectasis within the dependent portion of the lungs. Apparent hairline fracture of the axillary aspect of the left ninth rib only seen on sagittal projections. No other definite fractures are identified Electronically Signed: Jadon Hickman MD at 20:25 EDT , Service support ,
[2018-11-18] MEDS: Ondansetron 4 MG/2 ML Vial IV (19:16)
[2018-11-18] MEDS: Morphine 4 MG/ML Syringe IV (19:17)
[2018-11-18] MEDS: HYDROmorphone 1 MG/ML Syringe IV (21:00)
[2018-11-18 21:03] VITALS: BP 107/89; PULSE 74; RESP 20; O2SAT 97
--- NOTE | 2018-11-18 22:11 | ED.VISSUMM ---
- ER Visit Summary Date of Service: 11/18/18 Chief Complaint: Left side pain History of Present Illness: The patient is a 68 M presenting with left side pain. Patient states that he was pressure washing his house yesterday. He tripped over a hose and the nozzle went into his left side. He did not hit his head or lose consciousness. He is not on anticoagulants. He complains of persistent pain in his left side. Denies other complaints. Physical Examination: Vitals are stable. Patient is afebrile. Alert no acute distress. HEENT exam is unremarkable. Neck is nontender Lungs are clear and equal bilaterally. Left lower chest tenderness with no crepitus Heart is regular rate and rhythm. Abdomen is soft left upper quadrant tenderness with no rebound or guarding Extremities are unremarkable. Skin is warm and dry. No focal neurologic deficit. Remainder of exam is unremarkable. Emergency Department Course and Treatment: Patient was given morphine, Zofran IV. He continued to have pain was given Dilaudid. CT chest shows nonspecific interstitial thickening and minor atelectasis within the dependent portion of the lungs. Apparent hairline fracture of the axillary aspect of the left ninth rib only seen on sagittal projections. No other definite fractures are identified. CT abdomen/pelvis shows Nonspecific fatty infiltration of the liver. Atherosclerotic changes of the aorta with focal aneurysm measuring approximately 3.5 x 2.35 cm and mild aneurysmal dilatation of the right common iliac. No acute abnormalities. Patient was advised CT findings and need for follow-up. Patient was given an incentive spirometer. His pain is improved. He is given a prescription for short course of Percocet. Advised to follow-up with primary care physician. Advised return to ED for worsening complaints. Disposition: Discharge home Impression: Left ninth rib fracture This note was generated with [employer] dictation software. It may contain incorrect words, spelling, and punctuation that were not noted in review of the chart prior to signing ED Disposition - Plan for ED Patient: Instructions: FRACTURE, Rib Prescriptions: Oxycodone HCl/Acetaminophen [Percocet 5/325] 1 tab PO Q6H PRN PRN 3 Days #12 tab PRN Reason: Pain Prescription Printed Referrals: Artie Galvan MD [Primary Care Provider] -
--- NOTE | 2018-11-18 22:29 | ED.DEP ---
ED Disposition - Plan for ED Patient: Instructions: FRACTURE, Rib Prescriptions: Oxycodone HCl/Acetaminophen [Percocet 5/325] 1 tablet PO Q6H PRN PRN 3 Days #12 tablet PRN Reason: Pain Referrals: Artie Galvan MD [Primary Care Provider] -
[2018-11-18 22:56] VITALS: BP 117/69; PULSE 71; RESP 17; O2SAT 98
--- NOTE | 2018-11-18 22:56 | ED.RN ---
PT GIVEN WRITTEN AND VERBAL DISCHARGE INSTRUCTIONS AND HOME GOING PRESCRIPTIONS. PT EDUCATE NOT TO DRIVE WHEN TAKING NARCOTIC MEDICATION. PT VERBALIZES UNDERSTANDING. 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 PT AWAITING PRESCRIPTIONS FROM PHARMACY. IV D/C AND COVERED WITH 2X2 GAUZE AND PAPER TAPE.
== END 2018-11-18 22:58 | disposition home or self-care (01) ==
LOC: ED 19:07
PROVIDERS: Emergency Provider Emergency Medicine; Family Provider Family Medicine; PCP Family Medicine
DX: S22.32XA Fracture of one rib, left side, initial encounter for closed fracture (principal); W18.09XA Striking against other object with subsequent fall, initial encounter; Y93.9 Activity, unspecified; Y92.007 Garden or yard of unspecified non-institutional (private) residence as the place of occurrence of the external cause; Y99.9 Unspecified external cause status; I70.0 Atherosclerosis of aorta; I10 Essential (primary) hypertension; K76.0 Fatty (change of) liver, not elsewhere classified; Z72.0 Tobacco use
CPT/HCPCS: 71260; 74177; 99284; Q9967; A4216; J2405

== ENCOUNTER 2018-11-19 20:52 | Emergency (ER) | payer MEDICARE, SELFPAY ==
[2018-11-18 18:29] VITALS: BMI 31.3
[2018-11-19 20:52] VITALS: BP 127/68; PULSE 83; RESP 22; TEMP 36.9; O2SAT 98; BMI 31.3
[2018-11-19] MEDS: Ondansetron 4 MG/2 ML Vial IV (21:42)
[2018-11-19] MEDS: morphine 8 MG/ML Syringe IV (21:42)
--- NOTE | 2018-11-19 22:14 | ED.VIS.GEN ---
History of Present Illness Chief Complaint: Chest Other Detail of Chief Complaint: Rib pain secondary to fracture Informant: Patient Onset: Yesterday Context: Sudden Onset Timing: Continuous Quality: Pain Location: Left anterior/axillary lower ribs Current Severity: Mild Maximum Severity: Severe Worsened by: Breathing and movement Relieved by: Nothing Associated Symptoms: Nothing other than pain Narrative: 68-year-old male who was seen yesterday and diagnosed with fractured rib. Was discharged with Percocet. States the Percocet makes him nauseous. Has not taken Percocet since early this morning. He was asking for morphine and Dilaudid. Patient was informed all opiates make you nauseous. The reason he did was not nauseous yesterday he was given an antiemetic. He was informed what this meant. He was given antiemetic in the [facility] department as well as morphine. Will discharge with Zofran if his pain is under control. Prior similar symptoms: Yes Recent Illness/Hospitalization: Yes - Past Medical History (1) Left rib fracture Status: Acute (2) Alcohol use disorder Status: Acute (3) Chest pain Status: Acute (4) Hyponatremia Status: Acute (5) Tobacco abuse Status: Acute Past Medical History - Allergies and Home Meds Allergies/Adverse Reactions: Allergies acetaminophen [From Percocet] Adverse Reaction (Verified 11/19/18 20:56) Nausea oxycodone [From Percocet] Adverse Reaction (Verified 11/19/18 20:56) Nausea Primary Care Physician: Artie Galvan MD [Primary Care Provider] - Prior records reviewed: Yes Surgical History: appendectomy, - - Rotator cuff surgery on the right Lives: Spouse/ Significant Other Smoking Status: Current every day smoker Alcohol: Heavy Drugs: None Review of Systems General: Denies: Chills, Fever, Subjective, Sweats Cardiovascular: Reports: Chest pain. Denies: Palpitations, Heart racing Respiratory: Denies: Dyspnea, Cough, Dyspnea on exertion Gastrointestinal: Denies: Abdominal pain, Nausea, Vomiting, Diarrhea, Melena, Hematochezia Genitourinary: Denies: Dysuria, Hematuria, Frequency Musculoskeletal: Denies: Myalgias, Arthralgias, Neck pain, Back pain, Swelling, Extremity Pain Skin: Denies: Rash, Wounds Hematologic: Denies: Easy bruising, Easy bleeding Allergy: Denies: Uticaria, Swelling of the mouth Physical Exam Vital Signs/Narrative: Vital Signs Temp Pulse Resp BP Pulse Ox 11/19/18 20:52 98.5 F 83 22 H 127/68 H 98 Inital Vital Signs reviewed: Yes General: Well nourished, Well developed, Acute Distress Head: Normocephalic, Atraumatic Eyes: Perrl, EOMI ENT: Moist mucous membranes Neck: Supple, Nontender, No lymphadenopathy, No JVD Cardiovascular: Regular rate, Regular rhythm, No murmurs, Normal S1, Normal S2 Respiratory: No distress, CTA bilaterally, Chest tenderness. Negative for: Chest nontender Abdomen: Soft, Nontender, Nondistended, Normal bowel sounds. Negative for: Hepatomegaly, Splenomegaly Back: Nontender, Normal Inspection. Negative for: CVA tenderness Skin: Normal color, No rash Neurological: Alert, Oriented x3, Cranial nerves II-XII grossly intact, Normal Strength, Normal Sensation Psychological: Normal affect, Normal Mood Diagnostic/Tx/Re-eval - Medical Decision Making He was medicated with 8 mg of morphine IV push and 4 mg of Zofran IV push. He will be discharged prescription for Zofran. Patient requested different pain medicine. He was informed of opiate analgesia cause nausea. The medicine he was prescribed is appropriate analgesic for fractured ribs. He was given a prescription for Zofran. ED Disposition - Plan for ED Patient: Disposition: Home or Assisted Living Diagnosis: Left rib fracture, Adverse reaction to drug Instructions: FRACTURE, Rib Prescriptions: Ondansetron [Zofran Odt] 4 mg PO Q8H PRN PRN #10 tab PRN Reason: Nausea Prescription Printed Referrals: Artie Galvan MD [Primary Care Provider] - 3-5 Days
== END 2018-11-19 22:30 | disposition home or self-care (01) ==
PROVIDERS: Emergency Provider Emergency Medicine; Family Provider Family Medicine; PCP Family Medicine
DX: S22.32XG Fracture of one rib, left side, subsequent encounter for fracture with delayed healing (principal); F17.200 Nicotine dependence, unspecified, uncomplicated; Z88.5 Allergy status to narcotic agent; T50.995A Adverse effect of other drugs, medicaments and biological substances, initial encounter
CPT/HCPCS: 96374; 96375; 99283; A4216; J2405

== ENCOUNTER → 2019-02-15 08:47 | Outpatient (CLI) | payer MEDICARE, SELFPAY ==
--- NOTE | 2019-02-15 08:49 | CT_ITS ---
STUDY: LOW DOSE CT LUNG CANCER SCREENING REASON FOR EXAM: Male, 68 years old. 75 pack-year smoking history RADIATION DOSAGE (If Supplied By Facility): CTDIvol = ( 3.02 ) mGy, DLP = ( 100.43 ) mGycm TECHNIQUE: No contrast was administered. Low dose technique was utilized (average mAS-38 and kVp 120). 1.25 mm axial source images with a slice interval of 1.25-mm were reconstructed in lung windows. 2.5 mm axial source images with a slice interval of 2.5-mm were reconstructed in lung windows. 5.0 mm axial source images with a slice interval of 5.0-mm were reconstructed in soft tissue windows. Nodule measured using lung windows on PACS and/or independent workstation with automated measurement of minimum and maximum diameter. Nodule measurement reported as average diameter rounded to the nearest whole number. Growth is defined as an increase ins size of greater than 1.5 mm. COMPARISON: CT of the chest, November 18, 2018. NODULES: Total lung nodules (excluding granulomas): 0 Emphysema: None Endobronchial lesion: None Aorta: There is mild atherosclerotic tortuosity of the thoracic aorta without aneurysm. Coronary arteries: Coronary artery calcifications. Heart: Normal in size Pulmonary artery: Normal in size Mediastinal nodes: None Other chest and abdominal findings: Minimal degenerative changes of the thoracic spine. CT/Low Dose CT Lung Screening IMPRESSION: Lung-RADS category 1 - Continue annual screening with LDCT in 12 months. IMPORTANT NOTES FOR USE: ACR Lung-RADS Version 1.0 Assessment Categories Release Date: July 07, 2013 Category: Coded 0-4 bases on nodule(s) with highest degree of suspicion. Negative screen is defined as categories 1 and 2; a positive screen is defined as categories 3 and 4. Category 3 and 4A nodules that are unchanged on interval CT should be coded as category 2, and individuals returned to screening in 12 months. Category 4X: Category 3 or 4 nodules with additional imaging findings that increase the suspicion of lung cancer, such as spiculation, GGN that doubles in size in 1 year, enlarged lymph notes, etc. Category Modifiers: S (significant finding unrelated to lung cancer) and C (prior history of treated lung cancer) may be added to the 0-4 Lung-RADS Electronically Signed: Tadeo Cummings DO at 20:39 EST Tel [phone], Service support ,
== END ==
PROVIDERS: Family Provider Family Medicine; PCP Family Medicine; Referring Provider Family Medicine; Visit Provider Family Medicine
DX: F17.210 Nicotine dependence, cigarettes, uncomplicated (principal); Z12.2 Encounter for screening for malignant neoplasm of respiratory organs
CPT/HCPCS: G0297

== ENCOUNTER 2019-08-06 20:50 | Emergency (ER) | payer MEDICARE, SELFPAY ==
[2019-07-25 10:59] VITALS: BMI 31.3
[2019-08-06 20:52] VITALS: BP 143/112; PULSE 81; RESP 16; TEMP 36.1; O2SAT 96
--- NOTE | 2019-08-06 21:40 | RAD_ITS ---
STUDY: X-RAY - RIGHT FOOT CLINICAL: Male, 69 years old. Nontraumatic right foot pain. TECHNIQUE: 3 view(s) of the foot. COMPARISON: None. FINDINGS: Normal talus, calcaneus, and tarsal bones. Normal visualized subtalar, talonavicular, calcaneocuboid, tarsal and tarsometatarsal articulations. Normal metatarsi. There is degenerative arthrosis of the metatarsophalangeal joint of the hallux . Normal tibial and fibular sesamoid bones. Normal interphalangeal joint of the great toe. Normal phalanges of the great toe. Normal second through fifth metatarsophalangeal joints. Normal interphalangeal joints and phalanges of the lesser toes. The soft tissue structures are unremarkable. RAD/Foot min 3 Views IMPRESSION: Degenerative changes of the first metatarsophalangeal joint. Electronically Signed: Tadeo Cummings DO at 21:53 EDT Tel [phone], Service support ,
[2019-08-06] MEDS: Ibuprofen 600 MG Tablet PO (21:41)
[2019-08-06] MEDS: Morphine 4 MG/ML Syringe IM (21:41)
--- NOTE | 2019-08-06 22:28 | ED.DCSUM_ITS ---
History of Present Illness Chief Complaint: Lower Extremity Injury Informant: Patient Occurred: Weeks Onset: Weeks Context: Sudden Onset Timing: Intermittent Quality of Pain: Sharp, Burning Associated Symptoms: Negative for: Parasthesia, Weakness, Loss of Funtion Narrative: Patient is a 69-year-old male presenting with 3 weeks of intermittent right leg pain. He states it starts at the base of his right foot goes up his ankle and sometimes radiates all the way up his groin. He had a particularly bad episode tonight that kept him from sleeping. He is not training for pain prior to arrival. Patient states he has been having intermittent episodes over the past 3 weeks. 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 He also notes that he has had an ingrown toenail on his left great toe that is been bothering him for some time. He denies associated redness or drainage with it. Patient denies any other complaints at this time. He denies any symptoms consistent with cauda equina syndrome. He denies any associated back pain. He denies any urinary symptoms. He denies any associated weakness or numbness. No associated rash. Past Medical History - Allergies and Home Meds Allergies/Adverse Reactions: Allergies acetaminophen [From Percocet] Adverse Reaction (Verified 08/06/19 20:51) Nausea oxycodone [From Percocet] Adverse Reaction (Verified 08/06/19 20:51) Nausea Primary Care Physician: Artie Galvan MD [Primary Care Provider] - Jadon Freedman DPM [STAFF PHYSICIAN] - Past Medical History: - - Hypertension Surgical History: appendectomy, - - Rotator cuff surgery on the right Smoking Status: Current every day smoker Review of Systems General: Denies: Chills, Fever, Sweats Cardiovascular: Denies: Chest pain, Palpitations Respiratory: Denies: Dyspnea, Cough Gastrointestinal: Denies: Abdominal pain, Nausea, Vomiting, Diarrhea Genitourinary: Denies: Dysuria, Hematuria, Frequency Musculoskeletal: Reports: Extremity Pain - right foot. Denies: Back pain, Swelling Skin: Reports: - - IN Grown toenail?left great toe. Denies: Rash, Wounds Neurological: Denies: Headache, Weakness, Numbness Physical Exam Vital Signs/Narrative: Vital Signs Temp Pulse Resp BP Pulse Ox 08/06/19 20:52 97.0 F L 81 16 143/112 H 96 Inital Vital Signs reviewed: Yes - Extremity Exam Right Pelvis: Negative for: Deformity, Limited ROM Right Hip: Negative for: Deformity, Limited ROM Right Femur: Negative for: Deformity, Limited ROM Right Knee: Negative for: Deformity, Edema, Limited ROM Right Tib fib: Negative for: Deformity, Edema, Limited ROM Right Ankle: Negative for: Deformity, Edema, Limited ROM Right Foot: - - Pain to palpation of the medial midfoot, no tenderness over the plantar fascia. No associated rash. Negative for: Deformity, Edema, Limited ROM Left Foot: Negative for: Deformity, Edema, Limited ROM Right Toe: Negative for: Deformity, Edema, Limited ROM Left Toe: - - Tenderness to palpation of the medial aspect of the left great toenail. Mild ingrown toenail but no associated abscess or cellulitis.. Negative for: Deformity, Limited ROM General: Well nourished, Well developed, Unkempt, - - Patient pacing around the room Head: Normocephalic, Atraumatic Eyes: Perrl, EOMI ENT: No Trauma, Moist Mucous Membranes Neck: Nontender, Full ROM Cardiovascular: Regular rate, Regular rhythm, No murmurs Respiratory: No distress, CTA bilaterally, Chest nontender Back: Nontender. Negative for: CVA Tenderness - Right, CVA Tenderness - Left, Spinal Tenderness, Paraspinal Tenderness Skin: Normal color, No rash Neurological: Alert, Oriented x3, Cranial nerves II-XII grossly intact, Normal Strength, Normal Sensation Psychological: Normal affect Diagnostic/Tx/Re-eval Clinical Impression(s) from Imaging Studies Foot X-Ray 08/06/19 21:40 IMPRESSION: Degenerative changes of the first metatarsophalangeal joint. Electronically Signed: Tadeo Cummings DO at 21:53 EDT Tel [phone], Service support , - Medical Decision Making Patient evaluated for atraumatic pain of his right foot. It radiates intermittently all the way up to his groin. He insisted the pain is coming from his foot I am not his back. No obvious signs of trauma or deformity. X-ray does show some mild arthritic changes at the first metatarsal joint but this is not consistent with his pain. Patient is given 1 dose of morphine for pain control in the emergency room. As I suspect there might be some formation going on he started on NSAIDs and a short burst of steroids. He is given podiatry to follow-up with. Patient does have an ingrown toenail on the left side but does not require an emergent removal. There is no signs of infection. Podiatry can also follow-up with this as well. ED Disposition - Plan for ED Patient: Disposition: Home or Assisted Living Diagnosis: Right foot pain, Ingrown nail of great toe of left foot Instructions: ED FOOT CONTUSION, ED Ingrown Toenail Not Infected Home Treatment Prescriptions: Prednisone [Deltasone] 40 mg PO DAILY #10 tab Transmission Status: Received by [id number] Ibuprofen [Motrin] 800 mg PO TID PRN PRN #20 tab PRN Reason: Pain/Inflammation Transmission Status: Received by [id number] Referrals: Artie Galvan MD [Primary Care Provider] - Jadon Freedman DPM [STAFF PHYSICIAN] - Additional Instructions: You might have inflammation of the foot or arthritis that is causing your pain. No signs of infection. Please follow-up with podiatry for the foot pain as well as ingrown toenail. You been given an information today. Please take the medications prescribed.
== END 2019-08-06 22:35 | disposition home or self-care (01) ==
PROVIDERS: Emergency Provider Emergency Medicine; PCP Family Medicine
DX: L60.0 Ingrowing nail (principal); M79.671 Pain in right foot; I10 Essential (primary) hypertension; F17.200 Nicotine dependence, unspecified, uncomplicated; Z88.5 Allergy status to narcotic agent
CPT/HCPCS: 73630; 96372; 99282

== ENCOUNTER 2019-08-30 20:37 | Emergency (ER) | payer MEDICARE, SELFPAY ==
[2019-08-30 20:38] VITALS: BP 97/66; PULSE 81; RESP 16; TEMP 36.2; O2SAT 96; BMI 29.1
[2019-08-30 20:44] VITALS: BP 97/66; PULSE 81; RESP 16; RESP 18; TEMP 36.2; O2SAT 96
--- NOTE | 2019-08-30 20:57 | CT_ITS ---
HISTORY: PAIN AND SWELLING RIGHT ANKLE X 2 WEEKS, UNABLE TO WALK PROPERLY, HX HTN TECHNIQUE: CT angiogram images of the abdomen, pelvis and lower extremities were obtained with ml 100mL Isovue-370 IV contrast. Enteric contrast was not administered. 3D MIP images reviewed to aid in vascular evaluation. Number of images including paperwork: [phone]. A radiation dose optimization technique was used for this scan. COMPARISON: CT abdomen and pelvis 11/18/2018 FINDINGS: AORTA: Small saccular aneurysm is present arising from the right side of the aorta measuring approximately 1.2 x 1.5 cm, series 2 images 53 through 54. The aorta measures 2.5 x 3.0 cm in toto at this level. Ectatic distal abdominal aorta measuring 2.6 cm. VISCERAL ARTERIES: Unremarkable. 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 Small saccular aneurysm of the distal right common iliac artery measuring approximately 7 x 9 mm. Mild to moderate atherosclerotic plaque of the right lower extremity arteries. Multifocal stenosis of the right anterior tibial artery which is overall small in caliber but remains patent to the level of the ankle. No significant focal stenosis otherwise. 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 Mild to moderate atherosclerotic plaque of the left lower extremity arteries. Small caliber diffusely diseased left anterior tibial artery with opacification of the distal left anterior tibial artery and dorsalis pedis artery. VENOUS STRUCTURES: Limited evaluation due to phase of contrast but grossly unremarkable. CHEST BASE: No consolidation or pleural effusion. Minimal dependent atelectasis. LIVER AND BILIARY TRACT: Right lobe hepatic cyst. Decreased hepatic density compatible steatosis. No radiopaque calculi or biliary dilatation. SPLEEN: Unremarkable. PANCREAS: Unremarkable. ADRENAL GLANDS: Unremarkable. KIDNEYS/URETERS: 1.2 cm similar appearing right renal cyst. No further evaluation warranted based upon consensus guidelines. BOWEL: Unremarkable. LYMPH NODES: Unremarkable. FREE FLUID: No significant free fluid. FREE AIR: None. PELVIS: Unremarkable bladder. Mild prostate enlargement. OSSEOUS AND SOFT TISSUE STRUCTURES: No acute skeletal findings. CT/CTA Abd w/Runoff W/WO Contrast IMPRESSION: 1. No acute vascular abnormality. 2. No gross change in appearance of aortic and iliac artery aneurysms, as described above. 3. Diseased anterior tibial arteries bilaterally. Mild to moderate atherosclerotic disease of the lower extremities otherwise. 4. Additional findings above. Individualized dose optimization techniques were used for this CT. at 2253 Reported and signed by: Shahnaz Estrella MD Electronically Signed: Shahnaz Estrella MD at 22:52 EDT Tel , Service support ,
[2019-08-30 21:21] LABS: Absolute Lymphocyte Count 1.75 X10^3/uL (0.83-4.51); Absolute Neutrophil Count 3.6 X10^3/uL (2.0-7.7); Basophil# 0.04 X10^3/uL; Basophil% 0.6 % (0-1); Eosinophil# 0.41 X10^3/uL; Eosinophils% 6.1 % (0-5); Hematocrit 38.6 % (40-54); Hemoglobin 13.2 g/dL (13.0-16.5); Lymphocyte # 1.75 X10^3/ul (4.0); Lymphocyte % 26.2 % (19-41); Mean Corp Hgb Conc 34.2 g/dL (32-36); Mean Corpuscular Hgb 32.2 pg (27.0-32.0); Mean Corpuscular Volume 94.1 fL (80-94); Monocyte# 0.91 X10^3/uL; Monocyte% 13.6 % (0-10); NRBC Flagged by Analyzer 0 % (0-5); Neutrophil # 3.56 X10^3/uL (2.7-7.7); Neutrophil % 53.4 % (47-70); Platelet Count 252 K/mm3 (150-450); RBC Distribution Width CV 13.1 % (11.6-14.6); RBC Distribution Width SD 45.1 fl (35.1-43.9); White Blood Count 6.7 K/mm3 (4.4-11.0)
[2019-08-30] MEDS: Ondansetron 4 MG/2 ML Vial IV (21:22)
[2019-08-30] MEDS: 0.9% Normal Saline 1,000 ML 1000 ML IV (21:22)
[2019-08-30] MEDS: Morphine 4 MG/ML Syringe IV (21:22)
[2019-08-30 21:28] LABS: International Normalized Ratio 1.1; Prothrombin Time (Protime)PT. 13.3 SECONDS (11.7-14.9)
[2019-08-30 21:29] LABS: Partial Thromboplast Time 34.9 Seconds (24.1-36.2)
[2019-08-30 21:35] LABS: Anion Gap 9 (5-15); BUN 18 mg/dL (7-18); BUN/Creat Ratio 13.6 RATIO (10-20); Calcium,Total 8.4 mg/dL (8.5-10.1); Chloride 102 mmol/L (98-107); Creatinine, Serum 1.32 mg/dL (0.70-1.30); EST Glomerular Filtration Rate 58 mL/min (>60); Est Glom Filt Rate - Afr Amer 70 mL/min (>60); Estimated Creatinine Clearance 50.77 ml/min; Glucose 92 mg/dL (74-106); Potassium 3.9 mmol/L (3.5-5.1); Sodium Level 134 mmol/L (136-145)
[2019-08-30 21:43] LABS: Lactic Acid 1.5 mmol/L (0.4-1.9)
--- NOTE | 2019-08-30 22:32 | ED.DCSUM_ITS ---
- ER Visit Summary Date of Service: 08/30/19 Chief Complaint: Right foot pain History of Present Illness: The patient is a [address] Guerrero. He reports his right foot pain that began 3 weeks ago. It is an intermittent sharp pain is 1010 at worst 9-10 currently. Is worsened by nothing. Is relieved by walking. Denies any numbness or weakness. He denies any recent trauma. No fall, MVA, or change in activity. Review of systems: General: No fever, chills, cold sweats. Cardiovascular: No chest pain, palpitations. Respiratory: No cough, shortness of breath, dyspnea on exertion. Gastrointestinal: No abdominal pain, nausea, vomiting, diarrhea, melena, or hematochezia. Genitourinary: No dysuria, frequency, hematuria. Skin: No rash. Neuro: No headache, numbness, weakness. Physical Examination: Vitals: Stable. Afebrile. General: Well-nourished and well-developed. Head: Normocephalic atraumatic. Neck: Supple, no lymphadenopathy. No JVD. Nontender. Cardiovascular: Regular rate and rhythm. No murmurs. Respiratory: No respiratory distress. Clear to auscultation bilaterally. Abdominal: Soft, nontender, nondistended, normal bowel sounds. No guarding, rebound, or peritoneal signs. Back: Nontender. Extremities: Mild soft tissue swelling over his right foot. There is diffuse tenderness palpation that is moderate in severity over the entire top and bottom of his foot. He has 3 to 4-second capillary refill bilaterally. His foot is not cold or pale. However, he does not have a palpable or dopplerable DP dorsalis pedis pulse bilaterally. Is a 2+ femoral pulse bilaterally. He has minimal pain with movement of his ankle. Skin: Normal color, no rash. Neurologic: Alert and oriented ?3. Cranial nerves II through XII are intact. Normal strength and sensation. Psych: Normal affect. Test Results: CBC shows monocytes 14. Chem-7 shows a sodium 134, creatinine 1.32, calcium of 8.4. Coags are normal. Lactic acid is 1.5. Alcohol is 241. Clinical Impression(s) from Imaging Studies Abdomen/Pelvis CTA 08/30/19 20:57 IMPRESSION: 1. No acute vascular abnormality. 2. No gross change in appearance of aortic and iliac artery aneurysms, as described above. 3. Diseased anterior tibial arteries bilaterally. Mild to moderate atherosclerotic disease of the lower extremities otherwise. 4. Additional findings above. Individualized dose optimization techniques were used for this CT. at 2253 Reported and signed by: Shahnaz Estrella MD Electronically Signed: Shahnaz Estrella MD at 22:52 EDT Tel , Service support , Emergency Department Course and Treatment: Patient was treated morphine and Zof ran IV. He is resting comfortably. Treatment Plan: Discussed with the patient at this time I do not have an explanation for his pain. There is the possibility of gout. However this is certainly not a classic exam for this. He will be discharged instructions to follow-up with his primary care physician and Dr. Avila, who is on-call for podiatry, in 3 to 5 days for another exam. She given prescription for 10 Choudrant. Disposition: To home in improved and stable condition. Impression: 1. Right foot pain, uncertain cause. This note was generated with [employer] dictation software. It may contain incorrect words, spelling, and punctuation that were not noted in review of the chart prior to signing ED Disposition - Plan for ED Patient: Disposition: Home or Assisted Living Instructions: ED Sprain Foot Prescriptions: Hydrocodone Bitart/Apap 5-325 [Choudrant 5MG-325MG] 1 tab PO Q4H PRN PRN 2 Days #10 tab PRN Reason: Pain Prescription Printed Referrals: Artie Galvan MD [Primary Care Provider] - 3-5 Days Jaye Perez DPM [STAFF PHYSICIAN] - 3-5 Days
[2019-08-30 23:03] VITALS: BP 98/40; PULSE 71; RESP 16; O2SAT 98
== END 2019-08-30 23:04 | disposition home or self-care (01) ==
LOC: ED 21:13
PROVIDERS: Emergency Provider Emergency Medicine; PCP Family Medicine
DX: M79.671 Pain in right foot (principal); I10 Essential (primary) hypertension; F17.210 Nicotine dependence, cigarettes, uncomplicated; F10.20 Alcohol dependence, uncomplicated; Y90.8 Blood alcohol level of 240 mg/100 ml or more; M79.89 Other specified soft tissue disorders
CPT/HCPCS: 75635; 80048; 80320; 83605; 85025; 85610; 85730; 96361; 96374; 96375; 99282; J7030; Q9967; A4216; G0480; J2405

== ENCOUNTER → 2020-04-27 13:24 | Outpatient (CLI) | payer MEDICARE, SELFPAY ==
[2020-04-27 13:29] LABS: Mucous, Urine 0 SEEN /hpf (<or=2+); Red Blood Cells-Urine 0 SEEN /hpf (0-5); Squamous Epithelial Cells - UA 0 SEEN /hpf (0-5); White Blood Cells 0 SEEN /hpf (0-5)
[2020-04-27 15:19] LABS: Absolute Lymphocyte Count 1.04 X10^3/uL (0.83-4.51); Basophil# 0.04 X10^3/uL; Basophil% 0.8 % (0-1); Eosinophil# 0.21 X10^3/uL; Eosinophils% 4.2 % (0-5); Hemoglobin 14.7 g/dL (13.0-16.5); Lymphocyte # 1.04 X10^3/ul (4.0); Lymphocyte % 20.8 % (19-41); Mean Corp Hgb Conc 33.4 g/dL (32-36); Mean Corpuscular Hgb 32.2 pg (27.0-32.0); Mean Corpuscular Volume 96.5 fL (80-94); Monocyte# 0.73 X10^3/uL; Monocyte% 14.6 % (0-10); NRBC Flagged by Analyzer 0 % (0-5); Neutrophil # 2.98 X10^3/uL (2.7-7.7); Neutrophil % 59.4 % (47-70); Platelet Count 153 K/mm3 (150-450); RBC Distribution Width SD 49.5 fl (35.1-43.9); Red Blood Count 4.56 M/mm3 (4.6-6.2)
[2020-04-27 15:22] LABS: Color, Urine Yellow (Yellow); Glucose, Dipstick Normal (Normal); Ketone-Dipstick Negative (Negative); Leukocyte Esterase-Dipstick 25 /ul (Negative); Nitrite-Dipstick Negative (Negative); Occult Blood-Urine Negative /ul (Negative); Protein-Dipstick Negative (Negative); Urine Bilirubin Dipstick Negative (Negative); Urine Clarity Clear (Clear); Urine Urobilinogen 1 mg/dl (Normal)
[2020-04-27 15:36] LABS: Bacteria 1+ /hpf (None Seen)
[2020-04-27 15:39] LABS: ALB/GLOB Ratio 0.9 RATIO (0.9-2.4); AST(SGOT) 44 U/L (15-37); Alanine Aminotransfer ALT/SGPT 48 U/L (16-61); Alkaline Phosphatase 80 U/L (45-117); Anion Gap 6 (5-15); BUN 12 mg/dL (7-18); Calcium,Total 9.1 mg/dL (8.5-10.1); Chloride 103 mmol/L (98-107); Cholesterol 216 mg/dL (200); Creatinine, Serum 1.33 mg/dL (0.70-1.30); EST Glomerular Filtration Rate 57 mL/min (>60); Est Glom Filt Rate - Afr Amer 69 mL/min (>60); Globulin 4.4 g/dL (2.2-4.2); Glucose 100 mg/dL (74-106); High Density Lipoprotein 59 mg/dL; Potassium 3.9 mmol/L (3.5-5.1); Protein, Total 8.4 g/dL (6.4-8.2); Sodium Level 135 mmol/L (136-145); Thyroid Stim Hormone (TSH) 2.57 uIU/mL (0.358-3.74); Triglycerides 95 mg/dL; Very Low Density Lipoprotein 19 mg/dL (5-40)
== END ==
PROVIDERS: PCP Family Medicine; Referring Provider Family Medicine; Visit Provider Family Medicine
DX: I10 Essential (primary) hypertension (principal)
CPT/HCPCS: 36415; 80053; 80061; 81001; 84443; 85025

== ENCOUNTER → 2020-08-27 15:07 | Outpatient (CLI) | payer MEDICARE, SELFPAY ==
[2020-07-19 15:18] VITALS: BMI 29.1
[2020-08-27 15:11] LABS: Bacteria 0 SEEN /hpf (None Seen); Mucous, Urine 0 SEEN /hpf (<or=2+); Red Blood Cells-Urine 0 SEEN /hpf (0-5); Squamous Epithelial Cells - UA 0 SEEN /hpf (0-5); White Blood Cells 0 SEEN /hpf (0-5)
[2020-08-27 17:25] LABS: Absolute Lymphocyte Count 1.24 X10^3/uL (0.83-4.51); Basophil# 0.03 X10^3/uL; Basophil% 0.5 % (0-1); Eosinophil# 0.29 X10^3/uL; Eosinophils% 4.5 % (0-5); Hematocrit 40.8 % (40-54); Hemoglobin 13.5 g/dL (13.0-16.5); Lymphocyte # 1.24 X10^3/ul (0.83-4.51); Lymphocyte % 19.2 % (19-41); Mean Corp Hgb Conc 33.1 g/dL (32-36); Mean Corpuscular Hgb 30.7 pg (27.0-32.0); Mean Corpuscular Volume 92.7 fL (80-94); Mean Platelet Vol. 12.5 fl (6.2-12.0); Monocyte# 0.83 X10^3/uL; Monocyte% 12.9 % (0-10); NRBC Flagged by Analyzer 0 % (0-5); Neutrophil # 4.04 X10^3/uL (2.7-7.7); Neutrophil % 62.6 % (47-70); Platelet Count 179 K/mm3 (150-450); RBC Distribution Width CV 15.1 % (11.6-14.6); RBC Distribution Width SD 51.7 fl (35.1-43.9); White Blood Count 6.5 K/mm3 (4.4-11.0)
[2020-08-27 17:31] LABS: Color, Urine Yellow (Yellow); Glucose, Dipstick Normal (Normal); Ketone-Dipstick Negative (Negative); Leukocyte Esterase-Dipstick Negative /ul (Negative); Nitrite-Dipstick Negative (Negative); Occult Blood-Urine Negative /ul (Negative); Protein-Dipstick Negative (Negative); Specific Gravity, Urine 1.005 (1.002-1.030); Urine Bilirubin Dipstick Negative (Negative); Urine Clarity Clear (Clear); Urine Urobilinogen Normal (Normal)
[2020-08-27 17:41] LABS: Vitamin D,25 Hydroxy 24.8 ng/mL
[2020-08-27 17:44] LABS: ALB/GLOB Ratio 0.8 RATIO (0.9-2.4); AST(SGOT) 27 U/L (15-37); Alanine Aminotransfer ALT/SGPT 39 U/L (16-61); Albumin, Serum 3.7 g/dL (3.2-5.0); Alkaline Phosphatase 100 U/L (45-117); Anion Gap 7 (5-15); BUN 19 mg/dL (7-18); Calcium,Total 9.2 mg/dL (8.5-10.1); Chloride 101 mmol/L (98-107); Cholesterol 152 mg/dL (200); Creatinine, Serum 1.36 mg/dL (0.70-1.30); EST Glomerular Filtration Rate 55 mL/min (>60); Est Glom Filt Rate - Afr Amer 67 mL/min (>60); Globulin 4.4 g/dL (2.2-4.2); Glucose 80 mg/dL (74-106); High Density Lipoprotein 53 mg/dL; Phosphorus 3.2 mg/dL (2.5-4.9); Potassium 4.3 mmol/L (3.5-5.1); Protein, Total 8.1 g/dL (6.4-8.2); Sodium Level 134 mmol/L (136-145); Triglycerides 66 mg/dL; Very Low Density Lipoprotein 13 mg/dL (5-40)
[2020-08-27 17:49] LABS: Protein, Urine (Random) < 6.0 mg/dL (<11.9)
[2020-08-30 07:58] LABS: PTHIN 40.6 pg/mL (18.4-80.1)
== END ==
PROVIDERS: PCP Family Medicine; Referring Provider Family Medicine; Visit Provider Family Medicine
DX: I12.9 Hypertensive chronic kidney disease with stage 1 through stage 4 chronic kidney disease, or unspecified chronic kidney disease (principal); N18.30 Chronic kidney disease, stage 3 unspecified
CPT/HCPCS: 80053; 80061; 81001; 82306; 82570; 83970; 84100; 84156; 85025

== ENCOUNTER → 2020-08-31 13:25 | Outpatient (CLI) | payer MEDICARE, SELFPAY ==
[2020-07-19 15:18] VITALS: BMI 29.1
--- NOTE | 2020-08-31 13:27 | RAD_ITS ---
STUDY: X-RAY - RIGHT SHOULDER REASON FOR EXAM: Male, 70 years old. PAIN TECHNIQUE: 4 view(s) of the shoulder. COMPARISON: 09/17/2018. FINDINGS: Previous rotator cuff repair. No acute fracture, dislocation or osseous destruction. Healed right rib fractures. Severe glenohumeral joint arthrosis. Mild acromioclavicular joint arthrosis. No significant soft tissue swelling. RAD/Shoulder min 2 Views IMPRESSION: Right shoulder intact Severe glenohumeral arthrosis Electronically Signed: David Clark DO at 9:06 EDT Tel , Service support ,
== END ==
PROVIDERS: PCP Family Medicine; Referring Provider Family Medicine; Visit Provider Family Medicine
DX: S46.009A Unspecified injury of muscle(s) and tendon(s) of the rotator cuff of unspecified shoulder, initial encounter (principal)
CPT/HCPCS: 73030

== ENCOUNTER → 2021-02-18 11:04 | Outpatient (CLI) | payer MEDICARE, SELFPAY ==
--- NOTE | 2021-02-18 11:07 | RAD_ITS ---
STUDY: X-RAY - LEFT SHOULDER REASON FOR EXAM: Male, 70 years old. Left shoulder pain. TECHNIQUE: 4 view(s) of the shoulder. COMPARISON: None. FINDINGS: Osteopenia. Mild arthrosis of the glenohumeral joint. Mild arthrosis of the AC joint. Normal acromion. Normal humeral head and visualized proximal humerus. Left carotid calcification. Normal visualized pulmonary apex. RAD/Shoulder min 2 Views IMPRESSION: Osteopenia with mild arthrosis of the glenohumeral and acromioclavicular joints. No acute abnormality or erosive changes. Electronically Signed: Royce Cade MD at 11:48 EST , Service support ,
== END ==
PROVIDERS: PCP Family Medicine; Referring Provider Family Medicine; Visit Provider Family Medicine
DX: M19.019 Primary osteoarthritis, unspecified shoulder (principal)
CPT/HCPCS: 73030

== ENCOUNTER 2021-05-02 09:45 | Outpatient (CLI) | payer MEDICARE, SELFPAY ==
[2021-05-02 09:49] LABS: Bacteria 0 SEEN /hpf (None Seen); Mucous, Urine 0 SEEN /hpf (<or=2+); Red Blood Cells-Urine 0 SEEN /hpf (0-5); Squamous Epithelial Cells - UA 0 SEEN /hpf (0-5); White Blood Cells 0 SEEN /hpf (0-5)
[2021-05-02 12:12] LABS: Absolute Lymphocyte Count 0.94 X10^3/uL (0.83-4.51); Absolute Neutrophil Count 2.7 X10^3/uL (2.0-7.7); Basophil# 0.04 X10^3/uL; Basophil% 0.8 % (0-1); Eosinophil# 0.31 X10^3/uL; Eosinophils% 6.6 % (0-5); Hematocrit 39.6 % (40-54); Hemoglobin 12.8 g/dL (13.0-16.5); Lymphocyte # 0.94 X10^3/ul (0.83-4.51); Lymphocyte % 19.9 % (19-41); Mean Corp Hgb Conc 32.3 g/dL (32-36); Mean Corpuscular Volume 89.6 fL (80-94); Mean Platelet Vol. 11.8 fl (6.2-12.0); Monocyte# 0.69 X10^3/uL; Monocyte% 14.6 % (0-10); NRBC Flagged by Analyzer 0 % (0-5); Neutrophil # 2.72 X10^3/uL (2.7-7.7); Neutrophil % 57.5 % (47-70); Platelet Count 174 K/mm3 (150-450); RBC Distribution Width CV 17.9 % (11.6-14.6); RBC Distribution Width SD 58.7 fl (35.1-43.9); Red Blood Count 4.42 M/mm3 (4.6-6.2); White Blood Count 4.7 K/mm3 (4.4-11.0)
[2021-05-02 12:13] LABS: Color, Urine Yellow (Yellow); Glucose, Dipstick Normal (Normal); Ketone-Dipstick Negative (Negative); Leukocyte Esterase-Dipstick 25 /ul (Negative); Nitrite-Dipstick Negative (Negative); Occult Blood-Urine Negative /ul (Negative); Protein-Dipstick 30 mg/dl (Negative); Specific Gravity, Urine 1.015 (1.002-1.030); Urine Bilirubin Dipstick Negative (Negative); Urine Clarity Clear (Clear); Urine Urobilinogen Normal (Normal); Urine pH 6.5 (5.0 - 8.0)
[2021-05-02 12:31] LABS: ALB/GLOB Ratio 0.8 RATIO (0.9-2.4); AST(SGOT) 44 U/L (15-37); Alanine Aminotransfer ALT/SGPT 48 U/L (16-61); Albumin, Serum 3.5 g/dL (3.2-5.0); Alkaline Phosphatase 74 U/L (45-117); Anion Gap 5 (5-15); BUN 13 mg/dL (7-18); Chloride 105 mmol/L (98-107); Cholesterol 177 mg/dL (200); EST Glomerular Filtration Rate 58 mL/min (>60); Est Glom Filt Rate - Afr Amer 70 mL/min (>60); Globulin 4.4 g/dL (2.2-4.2); Glucose 93 mg/dL (74-106); High Density Lipoprotein 54 mg/dL; Phosphorus 3.2 mg/dL (2.5-4.9); Potassium 4.7 mmol/L (3.5-5.1); Protein, Total 7.9 g/dL (6.4-8.2); Sodium Level 134 mmol/L (136-145); Thyroid Stim Hormone (TSH) 1.77 uIU/mL (0.358-3.74); Triglycerides 93 mg/dL; Very Low Density Lipoprotein 19 mg/dL (5-40)
[2021-05-02 12:34] LABS: Vitamin D,25 Hydroxy 14.6 ng/mL
[2021-05-02 12:47] LABS: PTHIN 43.4 pg/mL (18.4-80.1)
[2021-05-02 12:51] LABS: Protein, Urine (Random) 9.9 mg/dL (<11.9); Protein:Creat Ratio 196 mg/g CRE (0-200)
[2021-05-03 09:24] LABS: Ferritin 23 ng/mL (26-388); Iron 32 ug/dL (65-175); Iron Binding Capacity,Total 416 ug/dL (250-450); PERCENT IRON SATURATION 7.7 % (15.0-55.0)
[2021-05-03 09:35] LABS: Vitamin B12 240 pg/mL (211-911)
== END 2021-05-02 23:59 | disposition home or self-care (01) ==
LOC: MFPLAB 09:45
PROVIDERS: PCP Family Medicine; Visit Provider Family Medicine
DX: I12.9 Hypertensive chronic kidney disease with stage 1 through stage 4 chronic kidney disease, or unspecified chronic kidney disease (principal); N18.30 Chronic kidney disease, stage 3 unspecified
CPT/HCPCS: 36415; 80053; 80061; 81001; 82306; 82570; 82607; 82728; 83540; 83550; 83970; 84100; 84156; 84443; 85025

== ENCOUNTER 2021-05-27 08:13 | Outpatient (CLI) | payer MEDICARE, SELFPAY ==
--- NOTE | 2021-05-27 08:16 | CT_ITS ---
STUDY: LOW DOSE CT LUNG CANCER SCREENING REASON FOR EXAM: Male, 70 years old. SMOKER. 1.5 PPD X 54 YEARS RADIATION DOSAGE (If Supplied By Facility): CTDIvol = ( 2.39 ) mGy, DLP = ( 71.17 ) mGycm TECHNIQUE: No contrast was administered. Low dose technique was utilized (average mAS-38 and kVp 120). 1.25 mm axial source images with a slice interval of 1.25-mm were reconstructed in lung windows. 2.5 mm axial source images with a slice interval of 2.5-mm were reconstructed in lung windows. 5.0 mm axial source images with a slice interval of 5.0-mm were reconstructed in soft tissue windows. Nodule measured using lung windows on PACS and/or independent workstation with automated measurement of minimum and maximum diameter. Nodule measurement reported as average diameter rounded to the nearest whole number. Growth is defined as an increase ins size of greater than 1.5 mm. COMPARISON: 02/15/2019 NODULES: Total lung nodules (excluding granulomas): 0 Emphysema: None Endobronchial lesion: None Aorta: Atherosclerosis Coronary arteries: Moderate atherosclerosis Heart: Normal size Pulmonary artery: Unremarkable for unopacified technique Mediastinal nodes: No adenopathy Other chest and abdominal findings: None requiring additional follow-up CT/Low Dose CT Lung Screening IMPRESSION: Lung-RADS category 1 - Continue annual screening with LDCT in 12 months. IMPORTANT NOTES FOR USE: ACR Lung-RADS Version 1.1 Assessment Categories Release Date: 2018 Category: Coded 0-4 bases on nodule(s) with highest degree of suspicion. Negative screen is defined as categories 1 and 2; a positive screen is defined as categories 3 and 4. Category 3 and 4A nodules that are unchanged on interval CT should be coded as category 2, and individuals returned to screening in 12 months. Category 4X: Category 3 or 4 nodules with additional imaging findings that increase the suspicion of lung cancer, such as spiculation, GGN that doubles in size in 1 year, enlarged lymph notes, etc. Category Modifiers: S (significant finding unrelated to lung cancer) Electronically Signed: Adilson Mora MD ([place]) at 9:17 EDT ,
== END 2021-05-27 23:59 | disposition home or self-care (01) ==
LOC: CT 08:14
PROVIDERS: PCP Family Medicine; Visit Provider Family Medicine
DX: Z87.891 Personal history of nicotine dependence (principal)
CPT/HCPCS: 71271

== ENCOUNTER 2021-06-14 15:32 | Outpatient (CLI) | payer MEDICARE, SELFPAY ==
--- NOTE | 2021-06-14 11:15 | LES_PTH ---
PATIENT: MARGO DODD LOC: [facility] U#:[id number] AGE/SX: 71/M ROOM: RE06/14/[address]: Dr. Adán Rucker MD : 1950 BED: DIS: 06/14/2021 SPEC #: [id number] RECD: 06/14/21 14:56 STATUS: IRMA TOMLINSON #: [id number] FRED: 06/14/21 11:[address]: Adán Rucker DEPT: SURGICAL PATHOLOGY RECD BY: Erin Mcclellan ENTERED: 06/15/21 11:06 SP TYPE: Lesion OTHR DR: Dr. Artie Galvan MD [facility] Tissues: A - Skin of external ear, NOS B - Skin of external ear, NOS Procedures: Surgery Specimen Level III Surgery Specimen Level IV HEADER OPERATION: Excision left ear lesions PRE-OP DIAGNOSIS: Neoplasm of skin TISSUE SUBMITTED: A ? Left superior helical lesion, B ? Left lower ear lesion MICROSCOPIC DIAGNOSIS A. Left superior helical lesion, shave biopsy: Acanthosis, hyperkeratosis and parakeratosis, suggestive of verrucous keratosis. Negative for malignancy. B. Left lower ear lesion, biopsy: Epidermal inclusion cyst. SAMARIA:vicki 06/16/2021 MICROSCOPIC DESCRIPTION Slides are reviewed. GROSS DESCRIPTION A - Received in fixative is one container labeled with the patient's name and designated left superior helical lesion. The specimen consists of a shave biopsy of nguyen-white skin measuring 0.5 x 0.5 x 0.1 cm. The specimen is inked, bisected and submitted entirely in one cassette. B - Received in fixative is one container labeled with the patient's name and designated left lower ear lesion. The specimen consists of a piece of nguyen-white skin measuring 0.7 x 0.3 x 0.4 cm. The specimen is inked, bisected and submitted entirely in one cassette. / SAMARIA:vicki 06/15/2021 TC:5 CPT: 52232, 75349
== END 2021-06-14 23:59 | disposition home or self-care (01) ==
LOC: LABSPEC 15:36
PROVIDERS: PCP Family Medicine; Referring Provider Otolaryngology; Visit Provider Otolaryngology
DX: D48.5 Neoplasm of uncertain behavior of skin (principal)
CPT/HCPCS: 88304; 88305

== ENCOUNTER → 2021-11-04 | Outpatient (CLI) | payer MEDICARE, SELFPAY ==
[2021-11-04 09:35] LABS: Bacteria 0 SEEN /hpf (None Seen); Mucous, Urine 0 SEEN /hpf (<or=2+); Red Blood Cells-Urine 0 SEEN /hpf (0-5); Squamous Epithelial Cells - UA 0 SEEN /hpf (0-5); White Blood Cells 0 SEEN /hpf (0-5)
[2021-11-04 10:19] LABS: Absolute Lymphocyte Count 1.17 X10^3/uL (0.83-4.51); Absolute Neutrophil Count 2.8 X10^3/uL (2.0-7.7); Basophil# 0.05 X10^3/uL; Eosinophil# 0.32 X10^3/uL; Eosinophils% 6.1 % (0-5); Hematocrit 39.4 % (40-54); Hemoglobin 13.5 g/dL (13.0-16.5); Lymphocyte # 1.17 X10^3/ul (0.83-4.51); Lymphocyte % 22.3 % (19-41); Mean Corp Hgb Conc 34.3 g/dL (32-36); Mean Corpuscular Hgb 31.9 pg (27.0-32.0); Mean Corpuscular Volume 93.1 fL (80-94); Monocyte# 0.89 X10^3/uL; NRBC Flagged by Analyzer 0 % (0-5); Neutrophil % 53.4 % (47-70); Platelet Count 183 K/mm3 (150-450); RBC Distribution Width SD 51.2 fl (35.1-43.9); Red Blood Count 4.23 M/mm3 (4.6-6.2); White Blood Count 5.2 K/mm3 (4.4-11.0)
[2021-11-04 10:22] LABS: Color, Urine Yellow (Yellow); Glucose, Dipstick Normal (Normal); Ketone-Dipstick Negative (Negative); Leukocyte Esterase-Dipstick Negative /ul (Negative); Nitrite-Dipstick Negative (Negative); Occult Blood-Urine Negative /ul (Negative); Protein-Dipstick Negative (Negative); Urine Bilirubin Dipstick Negative (Negative); Urine Clarity Clear (Clear); Urine Urobilinogen Normal (Normal)
[2021-11-04 10:31] LABS: Protein, Urine (Random) 8.8 mg/dL (<11.9); Protein:Creat Ratio 165 mg/g CRE (0-200)
[2021-11-04 10:37] LABS: ALB/GLOB Ratio 0.8 RATIO (0.9-2.4); AST(SGOT) 51 U/L (15-37); Alanine Aminotransfer ALT/SGPT 46 U/L (16-61); Albumin, Serum 3.7 g/dL (3.2-5.0); Alkaline Phosphatase 90 U/L (45-117); Anion Gap 6 (5-15); BUN 13 mg/dL (7-18); BUN/Creat Ratio 8.8 RATIO (10-20); Calcium,Total 9.6 mg/dL (8.5-10.1); Chloride 102 mmol/L (98-107); Cholesterol 163 mg/dL (200); Creatinine, Serum 1.48 mg/dL (0.70-1.30); EST Glomerular Filtration Rate 50 mL/min (>60); Est Glom Filt Rate - Afr Amer 61 mL/min (>60); Ferritin 34 ng/mL (26-388); Globulin 4.6 g/dL (2.2-4.2); Glucose 89 mg/dL (74-106); High Density Lipoprotein 47 mg/dL; Iron 29 ug/dL (65-175); Iron Binding Capacity,Total 391 ug/dL (250-450); Phosphorus 3.8 mg/dL (2.5-4.9); Potassium 4.5 mmol/L (3.5-5.1); Protein, Total 8.3 g/dL (6.4-8.2); Sodium Level 134 mmol/L (136-145); Triglycerides 85 mg/dL; Very Low Density Lipoprotein 17 mg/dL (5-40)
[2021-11-04 10:46] LABS: PTHIN 31.6 pg/mL (18.4-80.1)
== END | disposition home or self-care (01) ==
LOC: MFPLAB 09:32
PROVIDERS: PCP Family Medicine; Referring Provider Family Medicine; Visit Provider Family Medicine
DX: I12.9 Hypertensive chronic kidney disease with stage 1 through stage 4 chronic kidney disease, or unspecified chronic kidney disease (principal); N18.30 Chronic kidney disease, stage 3 unspecified; D50.9 Iron deficiency anemia, unspecified
CPT/HCPCS: 36415; 80053; 80061; 81001; 82570; 82728; 83540; 83550; 83970; 84100; 84156; 85025

== ENCOUNTER → 2021-11-30 | Outpatient (CLI) | payer MEDICARE, SELFPAY ==
--- NOTE | 2021-11-30 09:32 | ECHOCS_ITS ---
Reason For Study: Aortic Aneurysm Procedure This was a 2D Doppler, Color Flow transthoracic echocardiogram. The study was technically difficult. Contrast injection was performed. Exam performed in department. Left Ventricle Normal LV size. Left ventricular systolic function is normal. The estimated ejection fraction is 55 %. Stage 1 diastolic dysfunction. No regional wall motion abnormalities noted. Right Ventricle Normal RV size. Normal systolic function. Atria Normal left atrium. Normal right atrium. Mitral Valve Normal mitral valve. Tricuspid Valve Normal tricuspid valve. Aortic Valve Trisinus/trileaflet aortic valve. Moderate focal aortic valve thickening. Pulmonic Valve The pulmonic valve is not well visualized. Great Vessels Normal aortic root. The pulmonary artery is normal size. Normal inferior vena cava. Pericardium/Pleural No pericardial effusion. Medication 20 gauge I.V. with prn adaptor inserted into right arm. Diluted definity 2.5ml given slow IV push to enhance endocardial definition. MMode/2D Measurements & Calculations LVIDd: 5.0 cm IVSd: 1.1 cm Ao root diam: 4.0 cm LVIDs: 3.5 cm LVPWd: 1.2 cm LA dimension: 3.2 cm FS: 30.7 % LAV(MOD-bp): 33.6 ml LA A4 area: 15.5 cm2 RA A4 area: 12.4 cm2 LAV(MOD-bp) Indexed: 16.8 ml/m2 LAV(MOD-sp2): 26.4 ml LAV(MOD-sp4): 36.6 ml Time Measurements MV dec time: 0.22 sec Doppler Measurements & Calculations MV E max ajith: 65.1 cm/sec Lat Peak E' Ajith: 9.2 cm/sec Med Peak E' Ajith: 6.1 cm/sec MV A max ajith: 85.5 cm/sec E/E' lat: 7.1 E/E' med: 10.7 MV E/A: 0.76 MV V2 max: 105.1 cm/sec MV P1/2t max ajith: 72.4 cm/sec Ao V2 max: 96.1 cm/sec MV max P.4 mmHg MV P1/2t: 73.8 msec Ao max P.7 mmHg MV V2 mean: 56.2 cm/sec MV dec slope: 287.5 cm/sec2 MV mean P.5 mmHg MV V2 VTI: 26.6 cm MVA(P1/2t): 3.0 cm2 LV V1 max: 98.5 cm/sec PA V2 max: 121.6 cm/sec LV V1 max P.9 mmHg PA V2 mean: 83.8 cm/sec LV V1 mean P.3 mmHg LV V1 mean: 71.7 cm/sec LV V1 VTI: 20.4 cm ECHO/Echo Complete W/ Contrast Interpretation Summary Normal LV size. Left ventricular systolic function is normal. The estimated ejection fraction is 55 %. Stage 1 diastolic dysfunction. Moderate focal aortic valve thickening. Contrast injection was performed. Ordering Physician: Artie Galvan Referring Physician: Artie Galvan Performed By: Aydin Sultana RCS
== END | disposition home or self-care (01) ==
LOC: CVS 09:30
PROVIDERS: PCP Family Medicine; Referring Provider Family Medicine; Visit Provider Family Medicine
DX: I71.2 Thoracic aortic aneurysm, without rupture (principal)
CPT/HCPCS: 93306; Q9957; A4216; C8929

== ENCOUNTER → 2022-03-02 | Outpatient (CLI) | payer MEDICARE, SELFPAY ==
[2022-03-02 15:09] LABS: Absolute Lymphocyte Count 1.02 X10^3/uL (0.83-4.51); Absolute Neutrophil Count 4.8 X10^3/uL (2.0-7.7); Basophil# 0.06 X10^3/uL; Basophil% 0.8 % (0-1); Eosinophil# 0.23 X10^3/uL; Eosinophils% 3.3 % (0-5); Hematocrit 35.5 % (40-54); Lymphocyte # 1.02 X10^3/ul (0.83-4.51); Lymphocyte % 14.4 % (19-41); Mean Corp Hgb Conc 33.8 g/dL (32-36); Mean Corpuscular Hgb 30.9 pg (27.0-32.0); Mean Corpuscular Volume 91.5 fL (80-94); Mean Platelet Vol. 11.6 fl (6.2-12.0); Monocyte# 0.95 X10^3/uL; Monocyte% 13.5 % (0-10); NRBC Flagged by Analyzer 0 % (0-5); Neutrophil # 4.78 X10^3/uL (2.7-7.7); Neutrophil % 67.7 % (47-70); Platelet Count 207 K/mm3 (150-450); RBC Distribution Width CV 15.8 % (11.6-14.6); RBC Distribution Width SD 51.9 fl (35.1-43.9); Red Blood Count 3.88 M/mm3 (4.6-6.2); White Blood Count 7.1 K/mm3 (4.4-11.0)
[2022-03-02 15:42] LABS: PTHIN 28.9 pg/mL (18.4-80.1)
[2022-03-02 15:47] LABS: Vitamin B12 327 pg/mL (211-911)
[2022-03-02 16:06] LABS: ALB/GLOB Ratio 1.1 RATIO (0.9-2.4); AST(SGOT) 68 U/L (15-37); Alanine Aminotransfer ALT/SGPT 61 U/L (16-61); Alkaline Phosphatase 90 U/L (45-117); Anion Gap 6 (5-15); BUN 18 mg/dL (7-18); CRP < 2.90 mg/L (0.0-3.0); Calcium,Total 9.8 mg/dL (8.5-10.1); Chloride 102 mmol/L (98-107); Creatinine, Serum 1.38 mg/dL (0.70-1.30); EST Glomerular Filtration Rate 54 mL/min (>60); Est Glom Filt Rate - Afr Amer 66 mL/min (>60); Globulin 3.8 g/dL (2.2-4.2); Glucose 85 mg/dL (74-106); Magnesium 2.1 mg/dL (1.6-2.6); Potassium 5.1 mmol/L (3.5-5.1); Protein, Total 7.8 g/dL (6.4-8.2); Sodium Level 134 mmol/L (136-145); Thyroid Stim Hormone (TSH) 2.19 uIU/mL (0.358-3.74)
[2022-03-07 11:01] LABS: ANTINUCLEAR ANTIBODIES DIRECT Negative (Negative)
== END | disposition home or self-care (01) ==
LOC: MFPLAB 11:46
PROVIDERS: PCP Family Medicine; Visit Provider Family Medicine
DX: R27.0 Ataxia, unspecified (principal)
CPT/HCPCS: 36415; 80053; 82077; 82607; 82746; 83735; 83970; 84443; 85025; 86038; 86140

== ENCOUNTER → 2022-03-20 | Outpatient (CLI) | payer MEDICARE, SELFPAY ==
--- NOTE | 2022-03-20 07:08 | CT_ITS ---
STUDY: CT BRAIN WITHOUT CONTRAST REASON FOR EXAM: Male, 71 years old. subacute ataxia and tremor. Concern NPH RADIATION DOSAGE (If Supplied By Facility): CTDIvol = ( 44.99 ) mGy, DLP = ( 796.11 ) mGycm TECHNIQUE: Transaxial CT imaging of the brain was performed without administration of intravenous contrast material. Individualized dose optimization techniques were used for this CT. COMPARISON: No relevant priors. FINDINGS: Normal soft tissue structures. Normal calvarium. There is mild cerebral atrophy with widening of the extra-axial spaces and ventricular dilatation. Normal white matter tracts of the cerebral hemispheres. Normal basal ganglia and thalami. Normal brainstem. Normal cerebellum. There is no intracranial hemorrhage. There are no findings of an acute ischemic infarction. Atherosclerotic calcific plaques of the vertebral arteries and cavernous portions of the internal carotid arteries bilaterally. Normal visualized paranasal sinuses. CT/Brain/Head without Contrast IMPRESSION: Chronic involutional changes of the brain. Electronically Signed: Talha Lopez MD at 9:08 EST ,
== END | disposition home or self-care (01) ==
PROVIDERS: PCP Family Medicine; Visit Provider Family Medicine
DX: G31.9 Degenerative disease of nervous system, unspecified (principal); R27.0 Ataxia, unspecified; G93.89 Other specified disorders of brain; I67.2 Cerebral atherosclerosis
CPT/HCPCS: 70450

== ENCOUNTER → 2022-04-07 | Outpatient (CLI) | payer MEDICARE, SELFPAY ==
[2022-04-07 17:35] LABS: Absolute Lymphocyte Count 1.14 X10^3/uL (0.83-4.51); Absolute Neutrophil Count 3.7 X10^3/uL (2.0-7.7); Basophil# 0.04 X10^3/uL; Basophil% 0.7 % (0-1); Eosinophils% 4.9 % (0-5); Hematocrit 37.9 % (40-54); Hemoglobin 12.1 g/dL (13.0-16.5); Lymphocyte # 1.14 X10^3/ul (0.83-4.51); Lymphocyte % 18.6 % (19-41); Mean Corp Hgb Conc 31.9 g/dL (32-36); Mean Corpuscular Hgb 30.1 pg (27.0-32.0); Mean Corpuscular Volume 94.3 fL (80-94); Mean Platelet Vol. 11.7 fl (6.2-12.0); Monocyte% 14.7 % (0-10); NRBC Flagged by Analyzer 0 % (0-5); Neutrophil # 3.72 X10^3/uL (2.7-7.7); Neutrophil % 60.6 % (47-70); Platelet Count 235 K/mm3 (150-450); RBC Distribution Width CV 17.4 % (11.6-14.6); RBC Distribution Width SD 57.5 fl (35.1-43.9); Red Blood Count 4.02 M/mm3 (4.6-6.2); White Blood Count 6.1 K/mm3 (4.4-11.0)
[2022-04-07 17:57] LABS: Vitamin B12 355 pg/mL (211-911)
[2022-04-07 18:39] LABS: AST(SGOT) 95 U/L (15-37); Alanine Aminotransfer ALT/SGPT 69 U/L (16-61); Albumin, Serum 4.1 g/dL (3.2-5.0); Alkaline Phosphatase 71 U/L (45-117); Anion Gap 9 (5-15); BUN 13 mg/dL (7-18); BUN/Creat Ratio 8.8 RATIO (10-20); Calcium,Total 9.2 mg/dL (8.5-10.1); Chloride 102 mmol/L (98-107); Cholesterol 158 mg/dL (200); Creatinine, Serum 1.47 mg/dL (0.70-1.30); EST Glomerular Filtration Rate 50 mL/min (>60); Est Glom Filt Rate - Afr Amer 61 mL/min (>60); Glucose 68 mg/dL (74-106); High Density Lipoprotein 57 mg/dL; Protein, Total 8.1 g/dL (6.4-8.2); Sodium Level 135 mmol/L (136-145); Triglycerides 100 mg/dL; Very Low Density Lipoprotein 20 mg/dL (5-40)
[2022-04-14 21:25] LABS: Vitamin B1, Thiamine 119.4 nmol/L (66.5-200.0)
== END | disposition home or self-care (01) ==
LOC: MFPLAB 14:26
PROVIDERS: PCP Family Medicine; Referring Provider Family Medicine; Visit Provider Family Medicine
DX: I10 Essential (primary) hypertension (principal); F10.20 Alcohol dependence, uncomplicated
CPT/HCPCS: 36415; 80053; 80061; 82607; 82746; 84425; 84443; 85025

== ENCOUNTER → 2022-05-11 | Outpatient (CLI) | payer MEDICARE, SELFPAY ==
[2022-05-11 15:34] LABS: Absolute Neutrophil Count 4.9 X10^3/uL (2.0-7.7); Basophil# 0.08 X10^3/uL; Basophil% 1.1 % (0-1); Eosinophil# 0.23 X10^3/uL; Eosinophils% 3.2 % (0-5); Hematocrit 37.5 % (40-54); Hemoglobin 12.6 g/dL (13.0-16.5); Lymphocyte % 12.3 % (19-41); Mean Corp Hgb Conc 33.6 g/dL (32-36); Mean Corpuscular Hgb 32.4 pg (27.0-32.0); Mean Corpuscular Volume 96.4 fL (80-94); Mean Platelet Vol. 12.6 fl (6.2-12.0); Monocyte# 1.18 X10^3/uL; Monocyte% 16.2 % (0-10); NRBC Flagged by Analyzer 0 % (0-5); Neutrophil # 4.87 X10^3/uL (2.7-7.7); Neutrophil % 66.8 % (47-70); POSITIVE MORPHOLOGY YES; Platelet Count 157 K/mm3 (150-450); RBC Distribution Width CV 19.4 % (11.6-14.6); RBC Distribution Width SD 67.4 fl (35.1-43.9); Red Blood Count 3.89 M/mm3 (4.6-6.2); White Blood Count 7.3 K/mm3 (4.4-11.0)
[2022-05-11 15:41] LABS: Differential Indicated SCAN CRITERIA MET
[2022-05-11 16:07] LABS: ALB/GLOB Ratio 0.9 RATIO (0.9-2.4); AST(SGOT) 142 U/L (15-37); Alanine Aminotransfer ALT/SGPT 134 U/L (16-61); Albumin, Serum 3.9 g/dL (3.2-5.0); Alkaline Phosphatase 77 U/L (45-117); Anion Gap 10 (5-15); BUN 21 mg/dL (7-18); BUN/Creat Ratio 14.8 RATIO (10-20); Calcium,Total 9.6 mg/dL (8.5-10.1); Chloride 102 mmol/L (98-107); Creatinine, Serum 1.42 mg/dL (0.70-1.30); EST Glomerular Filtration Rate 52 mL/min (>60); Est Glom Filt Rate - Afr Amer 63 mL/min (>60); Ferritin 130 ng/mL (26-388); Globulin 4.2 g/dL (2.2-4.2); Glucose 70 mg/dL (74-106); Iron 174 ug/dL (65-175); Iron Binding Capacity,Total 358 ug/dL (250-450); Potassium 4.1 mmol/L (3.5-5.1); Protein, Total 8.1 g/dL (6.4-8.2); Sodium Level 136 mmol/L (136-145)
[2022-05-11 16:55] LABS: Anisocytosis 2+; Differential Comment SCANNED; Macrocytosis 1+; Microcytosis 1+
== END | disposition home or self-care (01) ==
LOC: MFPLAB 11:33
PROVIDERS: PCP Family Medicine; Referring Provider Family Medicine; Visit Provider Family Medicine
DX: N18.30 Chronic kidney disease, stage 3 unspecified (principal); D64.9 Anemia, unspecified
CPT/HCPCS: 36415; 80053; 82728; 83540; 83550; 85025

== ENCOUNTER 2022-05-25 08:06 | Inpatient (IN) | payer MEDICARE, SELFPAY ==
[2022-05-25] VITALS (31 sets, daily range): BP systolic 106–181; BP diastolic 69–101; PULSE 71–117; RESP 14–29; TEMP 36.3–38; O2SAT 89–100; BMI 26.5; BMI 25.0
[2022-05-25] MEDS: Etomidate 20 MG/10 ML Vial IV (08:15)
--- NOTE | 2022-05-25 08:21 | CT_ITS ---
EXAM: CT HEAD WITHOUT INTRAVENOUS CONTRAST CLINICAL INDICATION: altered LOC TECHNIQUE: Multiple axial images were obtained of the head without intravenous contrast. This CT exam was performed using one or more of the following dose reduction techniques: automated exposure control, adjustment of the mA and/or kV according to patient size, and/or use of iterative reconstruction technique. This report was created using [employer] report generation technology. RADIATION DOSE: CTDIvol = 47.06 mGy, DLP = 943.26 mGy-cm COMPARISON: CT head without contrast 03/20/2022. FINDINGS: ARTIFACTS: Motion degradation artifacts. BRAIN AND EXTRA-AXIAL SPACES: Unremarkable. No intra- or extra-axial hemorrhage. No evidence of acute infarct. No intracranial mass or mass effect. There is preservation of the harris/white matter interface. Posterior fossa structures are unremarkable. Ventricles are appropriate for age. No hydrocephalus. Basal cisterns are patent. BONES/JOINTS: Unremarkable. No discrete lytic or blastic abnormalities. VASCULATURE: Calcified plaques in the cavernous segments of both internal carotid arteries and intradural segment of the left vertebral artery were present previously. SINUSES: Unremarkable as visualized. Clear. MASTOID AIR CELLS: Unremarkable. Clear. ORBITS: Visualized globes, extraocular muscles, optic nerves and retrobulbar fat appear unremarkable. NASOPHARYNX: Air-fluid level in the nasopharynx are retained secretions due to intubation procedure. CT/Brain/Head without Contrast IMPRESSION: 1. No acute findings in the head/brain. 2. Air-fluid level retained secretions in the nasopharynx from intubation procedure. 3. No significant interval change when compared to 03/20/2022. Electronically Signed: Deepak Benson MD at 9:39 EDT ,
--- NOTE | 2022-05-25 08:22 | EKG12_ITS ---
Test Reason : Blood Pressure : / mmHG Vent. Rate : 110 BPM Atrial Rate : 110 BPM P-R Int : 152 ms QRS Dur : 100 ms QT Int : 340 ms P-R-T Axes : 059 055 062 degrees QTc Int : 460 ms Sinus tachycardia with occasional Premature ventricular complexes Nonspecific ST abnormality Abnormal ECG Confirmed by RONN BARBA, BRAXTON ([id number]), metropolitan editor MARC KING ([id number]) on 05/29/2022 12:12:11 P M Referred By: Confirmed By:ISIS BRODY MD
--- NOTE | 2022-05-25 08:25 | EX.ED.DYSGE1 ---
HPI History of Present Illness Chief Complaint: Unresponsive Informant: EMS Narrative Narrative: This patient apparently is in [place] [facility] for the past 48 hours since having had a right shoulder replacement. EMS states that retirement staff states that he has not been fully responsive since he has been there, has had no urine output recently, and is now he is gurgling, respiratory distress, hypoxic, worse. Very limited history available. No family available, family contact has no phone number in the EMR, and patient presents with accompanying paperwork that states he is a full code. EMS stated he has a history of alcoholism. [facility] Medical History CHF (congestive heart failure) GERD (gastroesophageal reflux disease) HTN (hypertension) Home Medications amlodipine 10 mg tablet 10 mg PO DAILY BLOOD PRESSURE 04/18/18 [History Last Taken 05/24/22] lisinopril 20 mg tablet (Zestril) 40 mg PO DAILY BLOOD PRESSURE 04/18/18 [History Last Taken 05/24/22] acetaminophen 500 mg tablet (Acetaminophen Extra Strength) 1,000 mg PO TID PAIN 05/25/22 [History Last Taken 05/25/22] aspirin 81 mg chewable tablet 81 mg PO BID HEART HEALTH 05/25/22 [History Last Taken 05/24/22] chlordiazepoxide HCl 25 mg capsule 50 mg PO Q8H PRN ALCOHOL WITHDRAWAL 05/25/22 [History Last Taken 05/24/22 08:00] chlordiazepoxide HCl 25 mg capsule 50 mg PO Q8H PRN ANXIETY 05/25/22 [History Last Taken 05/25/22 00:00] cholecalciferol (vitamin D3) 50 mcg (2,000 unit) capsule (Vitamin D3) 50 mcg PO DAILY SUPPLEMENT 05/25/22 [History Last Taken 05/24/22] docusate sodium 100 mg tablet 100 mg PO BID CONSTIPATION 05/25/22 [History Last Taken 05/24/22] famotidine 20 mg tablet 20 mg PO DAILY ACID REFLUX 05/25/22 [History Last Taken 05/24/22] ferrous sulfate 325 mg (65 mg iron) tablet (FeroSul) 325 mg PO DAILY SUPPLEMENT 05/25/22 [History Last Taken 05/24/22] folic acid 1 mg tablet 1 mg PO DAILY SUPPLEMENT 05/25/22 [History Last Taken 05/24/22] lorazepam 0.5 mg tablet 0.5 mg PO Q8H PRN ALCOHOL WITHDRAWAL 05/25/22 [History Last Taken Unknown] metoprolol succinate 25 mg tablet,extended release 24 hr 25 mg PO DAILY BLOOD PRESSURE 05/25/22 [History Last Taken 05/24/22] oxycodone 5 mg tablet 5 mg PO Q8H PRN PAIN 05/25/22 [History Last Taken Unknown] primidone 50 mg tablet 50 mg PO QHS SEIZURES 05/25/22 [History Last Taken 05/24/22] primidone 50 mg tablet 100 mg PO DAILY SEIZURES 05/25/22 [History Last Taken 05/24/22] Allergy/AdvReac Type Severity Reaction Status Date / Time acetaminophen [From Percocet] AdvReac Nausea Verified 05/25/22 08:12 oxycodone [From Percocet] AdvReac Nausea Verified 05/25/22 08:12 Family History (Updated 04/19/18 @ 01:[address] Fer Hernandez MD) Father Bleeding ulcer Poliomyelitis Myocardial infarction Mother Diabetes Hx of CABG Social History Smoking Status: Current every day smoker tobacco type: cigarettes ROS ROS ED Review of Systems ROS Unobtainable: due to mental status EXAM Physical Exam Const Vital Signs: 05/25/22 08:07 05/25/22 08:12 05/25/22 08:17 Temperature 97.4 F L Temperature Source Temporal Pulse Rate 95 102 H Respiratory Rate 26 H 14 Respiratory Effort Respiratory Depth Respiratory Pattern Normal Blood Pressure 129/101 H Blood Pressure Mean 110 Pulse Ox 92 89 92 Oxygen Delivery Method Non-Rebreather Room Air Fraction of Inspired Oxygen (FIO2) 55 05/25/22 08:20 05/25/22 09:45 05/25/22 09:47 Temperature Temperature Source Pulse Rate 105 H Respiratory Rate 16 Respiratory Effort Mechanically Ventilated Respiratory Depth Normal Respiratory Pattern Normal Blood Pressure 133/85 H Blood Pressure Mean 101 Pulse Ox 100 99 98 Oxygen Delivery Method Mechanical Ventilator Mechanical Ventilator Mechanical Ventilator Fraction of Inspired Oxygen (FIO2) 05/25/22 09:32 05/25/22 09:50 05/25/22 09:58 Temperature 100.4 F H Temperature Source Core Pulse Rate 117 H 100 Respiratory Rate 29 H 15 Respiratory Effort Respiratory Depth Respiratory Pattern Blood Pressure 123/81 H Blood Pressure Mean 95 Pulse Ox 100 97 Oxygen Delivery Method Mechanical Ventilator Fraction of Inspired Oxygen (FIO2) 80 70 05/25/22 10:11 Temperature 100.4 F H Temperature Source Core Pulse Rate 97 Respiratory Rate 15 Respiratory Effort Respiratory Depth Respiratory Pattern Blood Pressure 122/80 H Blood Pressure Mean 94 Pulse Ox 98 Oxygen Delivery Method Mechanical Ventilator Fraction of Inspired Oxygen (FIO2) Positive well nourished and well developed Constitutional Narrative: Respiratory distress. Stuporous. General Appearance ED: well developed HEENT Reports moist mucous membranes normocephalic and atraumatic Eyes PERRL Eyes Narrative: No forced deviation Neck no lymphadenopathy and supple Neck Narrative: No meningismus Chest Wall inspection of chest normal and palpation of chest normal Resp Resp Narrative: Tachypneic, rhonchorous breath sounds bilaterally but equal bilaterally with trachea midline Cardio regular rate, regular rhythm and no murmurs GI non-tender and non-distended Auscultation: normoactive bowel sounds Palpation: soft Extremity normal to inspection Extremity Narrative: Recent right shoulder anterior surgical incision clean dry with Steri-Strips intact, no signs of infection or dehiscence or bleeding/discharge General Extremety ED: Negative for edema or pulses abnormal General Extremity: Negative for edema or pulses abnormal Neuro CN's II-XII intact bilaterally and no sensory deficits noted Neuro Narrative: Stuporous. GCS 9 see below. Moving all 4 extremities, withdrawing to pain. No posturing. [place] Coma Scale: document GCS findings To Voice Withdraws to Pain Incomprehensible 9 Meningeal Signs: no meningeal signs Skin no rashes or lesions noted and no wounds Skin Narrative: Right anterior shoulder surgical wound benign-appearing MDM MDM MDM Narrative Medical decision making narrative: Given the clinical scenario, no hypoglycemia, vital signs that are relatively stable except for his respiratory rate, persistently hypoxic on a nonrebreather between 87-92%, I think the best course of action is to intubate him immediately which was done. See the procedure note. The patient that is officially full code and just had a shoulder replacement at this time is someone who needs to be resuscitated. See epic work-up obtained. Patient initially did not have a fever but later developed 1 at 100.4. I reviewed chest x-ray, 1 view shows good ETT placement, the OG tube needs to be advanced, which was done, I do not see any obvious infiltrates. We advanced the tube and obtained KUB, 1 view on my interpretation now shows now good OG tube placement in the stomach. AB.35/43.3/66.3/24. No changes made to my initial ventilator settings of AC 550/14, PEEP 5, titrating oxygen down. At this time I received a phone call from the son saying that he did not want him intubated and he would be here in 45 minutes. He states he has been an alcoholic since he was age 23, and since he had his shoulder surgery, he has been in withdrawal. I did not have a chance to speak to the son at this time, but since the patient will likely if we extubate him, I am leaving him intubated and sedated him with propofol until we can have an in person conversation. Family did arrive. These family members, 2 of them, are not healthcare power of insurance attorney's. They state that someone was designated as such, but no one has any paperwork and it was lost they state. The patient had his surgery about 2 weeks ago, the family states they want him extubated because he told them that he would not want any of this, and that if he needed to be on machines he wanted to be let go. However they confirm that none of this is in writing anywhere. Furthermore, I discussed with the nursing service director personally. She states there is no DNR paperwork that they have had, only has been at their facility for 2 days, and family requested a hospice consultation. Hospice refused to consult because they felt it was inappropriate and recommended that the patient be sent to the ER, that was yesterday. The patient was sent today. At this time, I see no major fixable pathology on his work-up, he is stabilized by being intubated. He was not protecting his airway as evidenced of secretions in his glottis and posterior oropharynx that he was not controlling. He is sedated as he was withdrawing on the ventilator, and now comfortable. Ativan was given. Wernicke's Korsakoff syndrome is in the differential diagnosis. Will discuss with hospitalist for admission. Lab Data Attestation: I reviewed the patient's lab results. Labs: Laboratory Results - last 24 hr 05/25/22 05/25/22 05/25/22 08:10 08:10 08:10 WBC 10.7 RBC 3.85 L Hgb 12.6 L Hct 38.0 L MCV 98.7 H MCH 32.7 H MCHC 33.2 D RDW Std Deviation 63.9 H RDW Coeff of Jerome 17.7 H Plt Count 396 MPV 10.9 Immature Gran % (Auto) 0.400 Neut % (Auto) 73.9 H Lymph % (Auto) 8.4 L [place] % (Auto) 15.5 H Eos % (Auto) 1.1 Baso % (Auto) 0.7 Absolute Neuts (auto) 7.9 H Absolute Lymphs (auto) 0.90 Nucleated RBC % 0 Differential Comment COMMENT PT INR APTT Sodium 143 Potassium 4.3 Chloride 109 H Carbon Dioxide 22.0 Anion Gap 12 BUN 37 H Creatinine 1.52 H Estim Creat Clear Calc 47.36 Est GFR (MDRD) Af Amer 59 L Est GFR (MDRD) Non-Af 48 L BUN/Creatinine Ratio 24.3 H Glucose 118 H Lactic Acid Cancelled Calcium 10.1 Total Bilirubin 0.40 AST 57 H ALT 60 Alkaline Phosphatase 90 Total Creatine Kinase Troponin I High Sens 12 Total Protein 8.4 H Albumin 3.4 Globulin 5.0 H Albumin/Globulin Ratio 0.7 L Triglycerides Urine Color Urine Clarity Urine pH Ur Specific [place] Urine Protein Urine Glucose (UA) Urine Ketones Urine Occult Blood Urine Nitrite Urine Bilirubin Urine Urobilinogen Ur Leukocyte Esterase Urine RBC Urine WBC Ur Squamous Epith Cells Urine Bacteria Urine Mucus 05/25/22 05/25/22 05/25/22 08:10 08:42 08:51 WBC RBC Hgb Hct MCV MCH MCHC RDW Std Deviation RDW Coeff of [place] Plt Count MPV Immature Gran % (Auto) Neut % (Auto) Lymph % (Auto) [place] % (Auto) Eos % (Auto) Baso % (Auto) Absolute Neuts (auto) Absolute Lymphs (auto) Nucleated RBC % Differential Comment PT 14.6 INR 1.2 APTT 31.8 Sodium Potassium Chloride Carbon Dioxide Anion Gap BUN Creatinine Estim Creat Clear Calc Est GFR (MDRD) Af Amer Est GFR (MDRD) Non-Af BUN/Creatinine Ratio Glucose Lactic Acid Calcium Total Bilirubin AST ALT Alkaline Phosphatase Total Creatine Kinase 38 L Troponin I High Sens Total Protein Albumin Globulin Albumin/Globulin Ratio Triglycerides 135 Urine Color Ирина Urine Clarity Sl. Cloudy Urine pH 5.0 Ur Specific [place] 1.025 Urine Protein 30 H Urine Glucose (UA) Normal Urine Ketones 50 H Urine Occult Blood 10 H Urine Nitrite Negative Urine Bilirubin 3 H Urine Urobilinogen 1 H Ur Leukocyte Esterase 25 H Urine RBC 0-5 SEEN Urine WBC 0-5 SEEN Ur Squamous Epith Cells 0-5 SEEN Urine Bacteria RARE Urine Mucus 1+ 05/25/22 08:51 WBC RBC Hgb Hct MCV MCH MCHC RDW Std Deviation RDW Coeff of [place] Plt Count MPV Immature Gran % (Auto) Neut % (Auto) Lymph % (Auto) [place] % (Auto) Eos % (Auto) Baso % (Auto) Absolute Neuts (auto) Absolute Lymphs (auto) Nucleated RBC % Differential Comment PT INR APTT Sodium Potassium Chloride Carbon Dioxide Anion Gap BUN Creatinine Estim Creat Clear Calc Est GFR (MDRD) Af Amer Est GFR (MDRD) Non-Af BUN/Creatinine Ratio Glucose Lactic Acid 1.0 Calcium Total Bilirubin AST ALT Alkaline Phosphatase Total Creatine Kinase Troponin I High Sens Total Protein Albumin Globulin Albumin/Globulin Ratio Triglycerides Urine Color Urine Clarity Urine pH Ur Specific [place] Urine Protein Urine Glucose (UA) Urine Ketones Urine Occult Blood Urine Nitrite Urine Bilirubin Urine Urobilinogen Ur Leukocyte Esterase Urine RBC Urine WBC Ur Squamous Epith Cells Urine Bacteria Urine Mucus ABG Data ABG results: ABG 05/25/22 08:55 Specimen Type ART Sample Site R Brach pH 7.35 Bicarbonate Actual 23.9 Total CO2 25 Base Excess -2 O2 Saturation 92 L O2 % 80 ABG pCO2 43.3 ABG pO2 66 L Alex Test Positive Respiration Rate 14 O2 Delivery Device Adult Vent Vent Mode AC Tidal Volume 450 POC PEEP 5 Radiography Diagnostic Testing: Clinical Impression(s) from Imaging Studies Brain CT 05/25/22 08:21 IMPRESSION: 1. No acute findings in the head/brain. 2. Air-fluid level retained secretions in the nasopharynx from intubation procedure. 3. No significant interval change when compared to 03/20/2022. Electronically Signed: Deeapk Benson MD at 9:39 EDT , Chest X-Ray 05/25/22 08:35 IMPRESSION: 1. No acute findings in the chest. 2. OG tube tip is in the distal esophagus/EG junction. Recommend distal repositioning. 3. Satisfactory placement of ET tube. 4. Right metallic shoulder arthroplasty, new since 04/18/2018. Electronically Signed: Deepak Benson MD at 9:14 EDT , KUB X-Ray 05/25/22 09:00 IMPRESSION: Distal repositioning of OG tube, tip and sidehole are inside the proximal gastric cavity. Electronically Signed: Deepak Benson MD at 9:24 EDT , Rhythm Strip Rhythm Strip: Sinus Rhythm Rate: 95 Ectopy: None EKG Initial EKG: Attestation: I personally reviewed and interpreted this EKG as follows: Interpretation: No Acute Injury Pattern and Sinus Tachycardia Procedures Intubations Intubation Method: orotracheal (RSI with etomidate and rocuronium; [place] scope MAC 4 used along with 8-0F ETT. Visualized passing tube through the cords after suctioning thin white secretions from the posterior oropharynx, proximal esophagus, and the glottis. Epiglottis normal appearing.) Intubation Verification: Positive color change Intubation Complications: O2 saturation decreased (But was only 88% on nonrebreather prior to giving medications) Critical Care Time Critical Care Time: Yes Critical care time (excluding procedures): 30-74 minutes (40 min, not including procedure time), Including time spent:, Discussing w/Consultants, Arranging Admission or Transfer and Performing Direct Patient Care at Bedside Discharge Plan Dx/Rx/DC Orders Clinical Impression: Acute respiratory failure with hypoxia, Alcohol withdrawal delirium, Acute encephalopathy Disposition Disposition: [facility]
[2022-05-25] MEDS: LORazepam 2 MG/ML Syringe IV (08:29)
--- NOTE | 2022-05-25 08:30 | ED.RN ---
PT FIGHTING THE VENT AT THIS TIME, SOFT RESTRAINTS PLACED TO BILATERAL WRISTS. DR VEGA AT THE BEDSIDE.
--- NOTE | 2022-05-25 08:35 | RAD_ITS ---
EXAM: XR CHEST, 1 VIEW CLINICAL INDICATION: ETT placement / sob TECHNIQUE: Frontal view of the chest. This report was created using [employer] report generation technology. COMPARISON: 04/18/2018. FINDINGS: LUNGS AND PLEURAL SPACES: Mild pulmonary hypoinflation. No pneumothorax. No effusion. No suspicious infiltrates. HEART: Unremarkable. Cardiac silhouette not enlarged. MEDIASTINUM: Central airways and mediastinal contour are unremarkable. BONES/JOINTS: Right metallic shoulder arthroplasty is new. SOFT TISSUES: Unremarkable. TUBES, LINES AND DEVICES: ET tube tip is 4 cm above the cleo. OG tube tip is at the distal esophagus/ EG junction. RAD/Chest 1 View (Portable) IMPRESSION: 1. No acute findings in the chest. 2. OG tube tip is in the distal esophagus/EG junction. Recommend distal repositioning. 3. Satisfactory placement of ET tube. 4. Right metallic shoulder arthroplasty, new since 04/18/2018. Electronically Signed: Deepak Benson MD at 9:14 EDT ,
--- NOTE | 2022-05-25 08:40 | ED.RN ---
RN TALKED WITH PT'S COUSIN, EMERGENCY CONTACT, WHO STATES HIMSELF AND MARGO'S OTHER EMERGENCY CONTACT, RITA, DO NOT WANT PT INTUBATED. THEY WILL COME TO HOSPITAL WITHIN 45 MINUTES.
[2022-05-25 08:41] LABS: Absolute Neutrophil Count 7.9 X10^3/uL (2.0-7.7); Basophil# 0.08 X10^3/uL; Basophil% 0.7 % (0-1); Eosinophil# 0.12 X10^3/uL; Eosinophils% 1.1 % (0-5); Hemoglobin 12.6 g/dL (13.0-16.5); Lymphocyte % 8.4 % (19-41); Mean Corp Hgb Conc 33.2 g/dL (32-36); Mean Corpuscular Hgb 32.7 pg (27.0-32.0); Mean Corpuscular Volume 98.7 fL (80-94); Mean Platelet Vol. 10.9 fl (6.2-12.0); Monocyte# 1.66 X10^3/uL; Monocyte% 15.5 % (0-10); NRBC Flagged by Analyzer 0 % (0-5); Neutrophil # 7.88 X10^3/uL (2.7-7.7); Neutrophil % 73.9 % (47-70); POSITIVE DIFFERENTIAL YES; Platelet Count 396 K/mm3 (150-450); RBC Distribution Width CV 17.7 % (11.6-14.6); RBC Distribution Width SD 63.9 fl (35.1-43.9); Red Blood Count 3.85 M/mm3 (4.6-6.2); White Blood Count 10.7 K/mm3 (4.4-11.0)
[2022-05-25 08:43] LABS: Differential Indicated SCAN CRITERIA MET
[2022-05-25 08:58] LABS: ALB/GLOB Ratio 0.7 RATIO (0.9-2.4); AST(SGOT) 57 U/L (15-37); Alanine Aminotransfer ALT/SGPT 60 U/L (16-61); Albumin, Serum 3.4 g/dL (3.2-5.0); Alkaline Phosphatase 90 U/L (45-117); Anion Gap 12 (5-15); BUN 37 mg/dL (7-18); BUN/Creat Ratio 24.3 RATIO (10-20); Calcium,Total 10.1 mg/dL (8.5-10.1); Chloride 109 mmol/L (98-107); Creatinine, Serum 1.52 mg/dL (0.70-1.30); EST Glomerular Filtration Rate 48 mL/min (>60); Est Glom Filt Rate - Afr Amer 59 mL/min (>60); Estimated Creatinine Clearance 47.36 ml/min; Glucose 118 mg/dL (74-106); Potassium 4.3 mmol/L (3.5-5.1); Protein, Total 8.4 g/dL (6.4-8.2); Sodium Level 143 mmol/L (136-145); Troponin-I HS 12 pg/mL (3.0-78.0)
--- NOTE | 2022-05-25 09:00 | RAD_ITS ---
EXAM: XR ABDOMEN, 1 VIEW CLINICAL INDICATION: OG PLACEMENT TECHNIQUE: Frontal supine view of the abdomen/pelvis. This report was created using [employer] report generation technology. COMPARISON: 05/25/2022 at 8:46 AM. FINDINGS: LOWER THORAX: No acute pathology. GASTROINTESTINAL TRACT: Unremarkable. Non-obstructive. No bowel or stomach distention. ORGANS: Unremarkable as visualized. No organomegaly. No abnormal calcifications. BONES/JOINTS: No acute pathology. SOFT TISSUES: No acute pathology. TUBES, LINES AND DEVICES: OG tube tip and sidehole of the advanced into the proximal gastric cavity. RAD/Abdomen Single View IMPRESSION: Distal repositioning of OG tube, tip and sidehole are inside the proximal gastric cavity. Electronically Signed: Deepak Benson MD at 9:24 EDT ,
[2022-05-25 09:01] LABS: Allen Test Positive; Base Excess -2 mmol/L (-2 to +2); Bicarbonate 23.9 mmol/L (22-26); Blood Gas Specimen Type ART; FI02 80; Mode AC; O2 Delivery Device Adult Vent; PEEP 5; PO2 66 mmHG (75-100); RR 14; SITE R Brach; SO2 92 % (95-99); Total Carbon Dioxide 25 mmol/L; Vt 450; pCO2 43.3 mmHg (35-45); pH 7.35 (7.35-7.45)
[2022-05-25] MEDS: Propofol 10MG/Ml 1,000 MG/100 ML Bottle 5 MG CONT INF (09:07)
[2022-05-25 09:10] LABS: Color, Urine Amber (Yellow); Glucose, Dipstick Normal (Normal); Ketone-Dipstick 50 mg/dl (Negative); Leukocyte Esterase-Dipstick 25 /ul (Negative); Nitrite-Dipstick Negative (Negative); Occult Blood-Urine 10 /ul (Negative); Protein-Dipstick 30 mg/dl (Negative); Specific Gravity, Urine 1.025 (1.002-1.030); Urine Bilirubin Dipstick 3 mg/dL (Negative); Urine Clarity Sl. Cloudy (Clear); Urine Urobilinogen 1 mg/dl (Normal)
[2022-05-25 09:13] LABS: International Normalized Ratio 1.2; Prothrombin Time (Protime)PT. 14.6 SECONDS (11.7-14.9)
[2022-05-25 09:14] LABS: Partial Thromboplast Time 31.8 Seconds (24.1-36.2)
[2022-05-25 09:15] LABS: Bacteria RARE /hpf (None Seen); Mucous, Urine 1+ /hpf (<or=2+); Red Blood Cells-Urine 0-5 SEEN /hpf (0-5); Squamous Epithelial Cells - UA 0-5 SEEN /hpf (0-5); White Blood Cells 0-5 SEEN /hpf (0-5)
[2022-05-25] MEDS: 0.9% Normal Saline 1,000 ML 150 ML IV ×3 (09:15→21:30)
--- NOTE | 2022-05-25 09:15 | ED.RN ---
EMERGENCY CONTACT LEONIDAS AT THE BEDSIDE WITH RITA, OTHER EMERGENCY CONTACT
--- NOTE | 2022-05-25 09:50 | ED.RN ---
DR VEGA AT BEDSIDE DISCUSS CODE STATUS WITH PT'S FAMILY MEMBERS. FAMILY IS UNABLE TO PROVIDE HEALTHCARE POA PAPERWORK OR LIVING WILL PAPERWORK.
--- NOTE | 2022-05-25 10:12 | ED.RN ---
ANNE-MARIE WHALEY CONTACTED TO GET CODE STATUS DOCUMENTATION. PT IS FULL CODE ON ALL PAPERWORK.
[2022-05-25 10:15] LABS: CPK Total, Creatine Kinase 38 U/L (39-308); Triglycerides 135 mg/dL
[2022-05-25 10:38] LABS: Alcohol, Blood (Medical)-Serum < 3.0 mg/dL
--- NOTE | 2022-05-25 11:34 | PCM.HP.STD ---
HPI - General General Date of Admission: 05/25/22 Date of Service: 05/25/22 Chief Complaint: confusion HPI Narrative MARGO DODD, is a 71 M who presents to ER with progressive confusion. On the seventh, patient underwent shoulder replacement at [facility]. History is primarily obtained through the patient's sister and cousin who are at bedside. They tell me that the plan was for the patient be discharged in a day or 2, however, had issues with progressive confusion during that hospitalization. Patient. Good the first day but then progressively got worse. 2 days ago, the patient was [facility] a [facility] facility where he had remained confused. Patient was not improving and so the patient was sent to the emergency room. Patient was placed on a nonrebreather but sats were ranging into the high 80s and low 90s. There is concern for patient not be able to adequately protect his airway. So through RSI, patient was intubated. Dr. Madrid, of the emergency room, spoke with patient's children who stated the patient would not want to be intubated. The patient's children are not present so I did speak with the patient's sister and cousin. Patient has been a heavy alcoholic and most recently, due to pain in his shoulder, was drinking about 1/5 of whiskey as well as beer with that. He thinks his last drink was right before he came into the hospital for his shoulder replacement. Patient's sister states that she is a power of environmental attorney but does not have any supporting paperwork with that as it is apparently lost. They deny the patient ever having a history of any seizures. They were not able to tell me why he was confused during that hospitalization and those papers are not currently available. Per discharge summary from the : Patient was admitted on the and following right reverse shoulder arthroplasty by Dr. Guerrero, patient started going through severe alcohol withdrawal. Patient was started on Librium last which would have been the , and was to continue scheduled Librium as well as as needed Ativan for severe agitation. [facility] Medical History (Updated 05/25/22 @ 11:[address] David Vega, DO) Alcohol use disorder CHF (congestive heart failure) GERD (gastroesophageal reflux disease) HTN (hypertension) Home Medications amlodipine 10 mg tablet 10 mg PO DAILY BLOOD PRESSURE 04/18/18 [History Last Taken 05/24/22] lisinopril 20 mg tablet (Zestril) 40 mg PO DAILY BLOOD PRESSURE 04/18/18 [History Last Taken 05/24/22] acetaminophen 500 mg tablet (Acetaminophen Extra Strength) 1,000 mg PO TID PAIN 05/25/22 [History Last Taken 05/25/22] aspirin 81 mg chewable tablet 81 mg PO BID HEART HEALTH 05/25/22 [History Last Taken 05/24/22] chlordiazepoxide HCl 25 mg capsule 50 mg PO Q8H PRN ALCOHOL WITHDRAWAL 05/25/22 [History Last Taken 05/24/22 08:00] chlordiazepoxide HCl 25 mg capsule 50 mg PO Q8H PRN ANXIETY 05/25/22 [History Last Taken 05/25/22 00:00] cholecalciferol (vitamin D3) 50 mcg (2,000 unit) capsule (Vitamin D3) 50 mcg PO DAILY SUPPLEMENT 05/25/22 [History Last Taken 05/24/22] docusate sodium 100 mg tablet 100 mg PO BID CONSTIPATION 05/25/22 [History Last Taken 05/24/22] famotidine 20 mg tablet 20 mg PO DAILY ACID REFLUX 05/25/22 [History Last Taken 05/24/22] ferrous sulfate 325 mg (65 mg iron) tablet (FeroSul) 325 mg PO DAILY SUPPLEMENT 05/25/22 [History Last Taken 05/24/22] folic acid 1 mg tablet 1 mg PO DAILY SUPPLEMENT 05/25/22 [History Last Taken 05/24/22] lorazepam 0.5 mg tablet 0.5 mg PO Q8H PRN ALCOHOL WITHDRAWAL 05/25/22 [History Last Taken Unknown] metoprolol succinate 25 mg tablet,extended release 24 hr 25 mg PO DAILY BLOOD PRESSURE 05/25/22 [History Last Taken 05/24/22] oxycodone 5 mg tablet 5 mg PO Q8H PRN PAIN 05/25/22 [History Last Taken Unknown] primidone 50 mg tablet 50 mg PO QHS SEIZURES 05/25/22 [History Last Taken 05/24/22] primidone 50 mg tablet 100 mg PO DAILY SEIZURES 05/25/22 [History Last Taken 05/24/22] Allergy/AdvReac Type Severity Reaction Status Date / Time acetaminophen [From Percocet] AdvReac Nausea Verified 05/25/22 08:12 oxycodone [From Percocet] AdvReac Nausea Verified 05/25/22 08:12 Family History Father Bleeding ulcer Poliomyelitis Myocardial infarction Mother Diabetes Hx of CABG Surgical History (Updated 05/25/22 @ 11:[address] David Vega DO) History of right shoulder replacement Social History (Updated 05/25/22 @ 11:[address] David Vega DO) Smoking Status: Current every day smoker tobacco type: cigarettes alcohol intake: current ROS ROS Narrative Unable to obtain as patient is intubated and sedated. Vital Signs Vital Signs Vital Signs: 05/25/22 08:07 05/25/22 08:12 05/25/22 08:17 Temperature 36.3 C L Temperature Source Temporal Pulse Rate 95 102 H Respiratory Rate 26 H 14 Respiratory Effort Respiratory Depth Respiratory Pattern Normal Blood Pressure 129/101 H Blood Pressure Mean 110 Pulse Ox 92 89 92 Oxygen Delivery Method Non-Rebreather Room Air Fraction of Inspired Oxygen (FIO2) 55 05/25/22 08:20 05/25/22 09:45 05/25/22 09:47 Temperature Temperature Source Pulse Rate 105 H Respiratory Rate 16 Respiratory Effort Mechanically Ventilated Respiratory Depth Normal Respiratory Pattern Normal Blood Pressure 133/85 H Blood Pressure Mean 101 Pulse Ox 100 99 98 Oxygen Delivery Method Mechanical Ventilator Mechanical Ventilator Mechanical Ventilator Fraction of Inspired Oxygen (FIO2) 05/25/22 09:32 05/25/22 09:50 05/25/22 09:58 Temperature 38.0 C H Temperature Source Core Pulse Rate 117 H 100 Respiratory Rate 29 H 15 Respiratory Effort Respiratory Depth Respiratory Pattern Blood Pressure 123/81 H Blood Pressure Mean 95 Pulse Ox 100 97 Oxygen Delivery Method Mechanical Ventilator Fraction of Inspired Oxygen (FIO2) 80 70 05/25/22 10:11 05/25/22 10:34 05/25/22 10:34 Temperature 38.0 C H 38.0 C H Temperature Source Core Core Pulse Rate 97 95 96 Respiratory Rate 15 15 15 Respiratory Effort Respiratory Depth Respiratory Pattern Blood Pressure 122/80 H 146/92 H 146/92 H Blood Pressure Mean 94 110 110 Pulse Ox 98 99 99 Oxygen Delivery Method Mechanical Ventilator Mechanical Ventilator Mechanical Ventilator Fraction of Inspired Oxygen (FIO2) 05/25/22 10:30 05/25/22 10:50 Temperature Temperature Source Pulse Rate Respiratory Rate Respiratory Effort Respiratory Depth Respiratory Pattern Blood Pressure Blood Pressure Mean Pulse Ox Oxygen Delivery Method Fraction of Inspired Oxygen (FIO2) 60 50 Weight Weight: 84 kg Body Mass Index (BMI) 26.5 Physical Exam Const Constitutional Narrative: Intubated and sedated. Afebrile. HEENT normocephalic and head/scalp atraumatic HEENT Narrative: ET tube in place Eyes Eyes Narrative: No icterus Neck no lymphadenopathy Neck Narrative: No thyromegaly Resp Resp Narrative: Coarse breath sounds bilaterally Cardio regular rate, regular rhythm, S1 normal heart sound and S2 normal heart sound GI normal to inspection, nondistended, normoactive bowel sounds, soft to palpation, non-tender and non-distended Extremity Extremity Narrative: Right shoulder incision is clean and intact and well approximated. Skin Skin Narrative: No rashes or lesions. Neuro Neuro Narrative: No asterixis. No clonus. Results Lab / Micro Data Attestation: I reviewed the patient's lab results. Result Diagrams: 05/25/22 08:10 05/25/22 08:10 Labs: Laboratory Results - last 24 hr 05/25/22 08:10: WBC 10.7, RBC 3.85 L, Hgb 12.6 L, Hct 38.0 L, MCV 98.7 H, MCH 32.7 H, MCHC 33.2 D, RDW Std Deviation 63.9 H, RDW Coeff of Jerome 17.7 H, Plt Count 396, MPV 10.9, Immature Gran % (Auto) 0.400, Neut % (Auto) 73.9 H, Lymph % (Auto) 8.4 L, [place] % (Auto) 15.5 H, Eos % (Auto) 1.1, Baso % (Auto) 0.7, Absolute Neuts (auto) 7.9 H, Absolute Lymphs (auto) 0.90, Nucleated RBC % 0, Differential Comment COMMENT 05/25/22 08:10: Sodium 143, Potassium 4.3, Chloride 109 H, Carbon Dioxide 22.0, Anion Gap 12, BUN 37 H, Creatinine 1.52 H, Estim Creat Clear Calc 47.36, Est GFR (MDRD) Af Amer 59 L, Est GFR (MDRD) Non-Af 48 L, BUN/Creatinine Ratio 24.3 H, Glucose 118 H, Calcium 10.1, Total Bilirubin 0.40, AST 57 H, ALT 60, Alkaline Phosphatase 90, Troponin I High Sens 12, Total Protein 8.4 H, Albumin 3.4, Globulin 5.0 H, Albumin/Globulin Ratio 0.7 L 05/25/22 08:10: Lactic Acid Cancelled 05/25/22 08:10: Total Creatine Kinase 38 L, Triglycerides 135 05/25/22 08:42: Urine Color Ирина, Urine Clarity Sl. Cloudy, Urine pH 5.0, Ur Specific [place] 1.025, Urine Protein 30 H, Urine Glucose (UA) Normal, Urine Ketones 50 H, Urine Occult Blood 10 H, Urine Nitrite Negative, Urine Bilirubin 3 H, Urine Urobilinogen 1 H, Ur Leukocyte Esterase 25 H, Urine RBC 0-5 SEEN, Urine WBC 0-5 SEEN, Ur Squamous Epith Cells 0-5 SEEN, Urine Bacteria RARE, Urine Mucus 1+ 05/25/22 08:51: PT 14.6, INR 1.2, APTT 31.8 05/25/22 08:51: Lactic Acid 1.0 05/25/22 09:52: Ethyl Alcohol < 3.[address] personally reviewed and showed no acute changes Chest x-ray reviewed and showed hypoinflation. ET tube approximately 4.5 cm above the cleo. Micro: Microbiology 05/25/22 08:35 Sputum, Induced/Lukens Gram Stain - Final 05/25/22 08:42 Nasal Secretion SARS-CoV-2 & FLU Antigen (Rapid) - Final ABG Data ABG results: ABG 05/25/22 08:55 Specimen Type ART Sample Site R Brach pH 7.35 Bicarbonate Actual 23.9 Total CO2 25 Base Excess -2 O2 Saturation 92 L O2 % 80 ABG pCO2 43.3 ABG pO2 66 L Alex Test Positive Respiration Rate 14 O2 Delivery Device Adult Vent Vent Mode AC Tidal Volume 450 POC PEEP 5 Rhythm Strip Rhythm Strip: Sinus Rhythm Rate: 95 Ectopy: None Radiology Impression Brain CT 05/25/22 08:21 IMPRESSION: 1. No acute findings in the head/brain. 2. Air-fluid level retained secretions in the nasopharynx from intubation procedure. 3. No significant interval change when compared to 03/20/2022. Electronically Signed: Deepak Benson MD at 9:39 EDT , Chest X-Ray 05/25/22 08:35 IMPRESSION: 1. No acute findings in the chest. 2. OG tube tip is in the distal esophagus/EG junction. Recommend distal repositioning. 3. Satisfactory placement of ET tube. 4. Right metallic shoulder arthroplasty, new since 04/18/2018. Electronically Signed: Deepak Benson MD at 9:14 EDT , KUB X-Ray 05/25/22 09:00 IMPRESSION: Distal repositioning of OG tube, tip and sidehole are inside the proximal gastric cavity. Electronically Signed: Deepak Benson MD at 9:24 EDT , Assessment & Plan Assessment/Plan (1) Acute respiratory failure with hypoxia: PLAN: Due to encephalopathy and inability to protect his airway. No obvious pulmonary etiology identified. Intubated in emergency room on May 25 Continue with ventilator management Suction per routine [facility] consultation for continued vent management (2) Encephalopathy: PLAN: Unclear etiology but, according to the family's history, got worse after his surgery. I am very concerned that this could be iatrogenic. From the discharge med rec on the , patient was to be on lorazepam 0.5 mg by mouth every 8 hours as needed for alcohol withdrawal and Librium 25 mg 2 caps every 8 hours with no taper. Patient is currently on primidone which she was on before hand and that was continued. This began as alcohol withdrawal and possibly alcohol withdrawal seizures We will hold off on lorazepam, Librium and primidone and monitor. We will check B12, folate and ammonia and TSH If no improvement, consider EEG. Request additional paperwork from Fredy Wan. (3) Alcohol use disorder: PLAN: Patient was a heavy drinker prior. I do not feel the patient is actively going through delirium tremens at this time but will hold off on the lorazepam and Librium. (4) History of right shoulder replacement: PLAN: Patient is to follow-up with Dr. Guerrero on the . Unless new issues arise during this hospitalization we will hold off on consulting orthopedics at this time. Incision looks clean and intact, will consult wound care for management and input. PLAN: Plan VTE prophylaxis: Low molecular weight heparin CODE STATUS: Full code and unverified. There has been talk that the patient would not want this type of situation but there is no definitive CODE STATUS of its been documented nor is there been a definitive power of environmental attorney. The patient's sister states that she has a power of environmental attorney but lacks the paperwork to support that saying that is lost. Encouraged her to look for the paperwork or contact the environmental attorney that performed the paperwork. Charges/Coding Visit Charges Inpatient E&M: 83100 Init Hosp L3
[2022-05-25 12:00] LABS: Allen Test Positive; Base Excess -1 mmol/L (-2 to +2); Blood Gas Specimen Type ART; FI02 28; Mode AC; O2 Delivery Device Adult Vent; PEEP 5; PO2 66 mmHG (75-100); RR 14; SITE R Radial; SO2 94 % (95-99); Total Carbon Dioxide 24 mmol/L; Vt 450; pCO2 33.3 mmHg (35-45); pH 7.45 (7.35-7.45)
[2022-05-25 13:11] LABS: Ammonia < 10.0 umol/L (11-32)
--- NOTE | 2022-05-25 13:23 | EX.PCM.CONCC ---
Assessment & Plan Assessment/Plan (1) Acute encephalopathy: (2) History of right shoulder replacement: PLAN: Plan RECOMMENDATIONS: 1. Continue mechanical ventilation without sedation of possible 2. Hold Librium. Monitor for withdrawal 3. Okay to start tube feeds 4. Monitor for refeeding syndrome 5. Clarification of CODE STATUS once family available IMPRESSIONS: 1. Acute metabolic encephalopathy Unclear etiology at this time. Patient was receiving some sedating medication secondary to his history of alcoholism. These will be held. We will attempt to hold off on any propofol or other sedation and monitor clinically. Warnicke Korsakoff syndrome would be a consideration. CT scan was relatively unremarkable, but MRI would be a better test for evaluation. EEG has been ordered. Information from [facility] has been requested. 2. Acute respiratory failure Unclear etiology. Patient did have some hypoxia noted on presentation, but was intubated more for airway protection. Patient with significant secretions noted in the posterior pharynx. Given marginal fever, will start patient on Unasyn therapy empirically pending culture results. ABG shows adequate oxygenation and ventilation on the current settings. Spontaneous breathing and awakening trials per protocol. However, extubation will require improvement in problem #1. We will attempt to clarify with the patient's family about goals of therapy when more information is available. 3. Reported alcoholism Patient reportedly was a very heavy drinker. Patient was on significant sedation with lorazepam and Librium. These will be held. We will have to watch for signs and symptoms of withdrawal. Propofol may be a better option moving forward as it will allow for better assessment of encephalopathy. 4. Recent shoulder replacement Patient with recent shoulder replacement by Dr. Guerrero. Patient does not have significant findings suggestive of an infected joint such as erythema, induration, leukocytosis or findings at the incision site. Patient does not appear to grimace with range of motion. Defer to primary service on whether orthopedics needs to be consulted. 5. Poor history/history of tobacco abuse/CKD Complicates care, management, recovery and prognosis. Baseline creatinine appears to be about 1.3. Patient does have a history of tobacco abuse, but previous pulmonary function test did not show any airway obstruction. Reasonable to just use bronchodilators. Would not recommend steroid therapy at this time. Would recommend tube feeds over IV fluids at this time. DVT and GI prophylaxis with Pepcid and daily Lovenox TIME: 35 minutes critical care time spent addressing patient's acute metabolic encephalopathy, respiratory failure, review of all data and collaboration with care team HPI Consult Data Date of Consult: 05/25/22 HPI Narrative Reason for Consultation: Obtundation HPI Narrative: MARGO DODD is a 71 M, with past medical history listed below, who presents to [facility] on 05/25/2022 secondary to decreased responsiveness and urinary output. Patient reportedly had EMS called secondary to decreased urinary output after being at an ECF for approximately 3 days. Patient reportedly has a history of alcoholism and was recently seen at [facility] for shoulder replacement surgery. These records are not available for review. Patient was not able to provide any additional history and family members were not available for questioning. In the ER, patient was afebrile, normotensive and slightly hypoxic. Patient initially had a respiratory rate of 26, but was intubated shortly after arrival secondary to concerns for protecting his airway. Patient did develop an elevated temperature of 100.4 ?F. Laboratory data showed a white blood cell count of 10.7, hemoglobin of 12.6 and platelet count of 396. Chemistry showed an elevated BUN of 37 and a creatinine of 1.52. Liver function studies were within normal limits. Coagulation studies, CK and triglycerides were all normal. UA was not suggestive of an acute infectious etiology and lactate was normal. ABG after intubation was relatively normal. A CT of the head showed no acute findings except for some possible sinusitis. Chest x-ray did not show any significant infiltrates, but OG was high. Subsequent KUB showed appropriate position of OG. While in the ER, patient reportedly had a phone call from his son that said he did not want to be intubated and that he would arrive in 45 minutes. There was some discussion among family members that the patient would not want to be intubated and patient had had hospice evaluation while at the ECF. Patient was felt inappropriate secondary to mental status. ER physician did note significant secretions in the glottis and posterior oropharynx upon intubation. Unable to obtain additional information secondary to family leaving and patient being intubated and unresponsive. [facility] Medical History Alcohol use disorder CHF (congestive heart failure) GERD (gastroesophageal reflux disease) HTN (hypertension) Home Medications amlodipine 10 mg tablet 10 mg PO DAILY BLOOD PRESSURE 04/18/18 [History Last Taken 05/24/22] lisinopril 20 mg tablet (Zestril) 40 mg PO DAILY BLOOD PRESSURE 04/18/18 [History Last Taken 05/24/22] acetaminophen 500 mg tablet (Acetaminophen Extra Strength) 1,000 mg PO TID PAIN 05/25/22 [History Last Taken 05/25/22] aspirin 81 mg chewable tablet 81 mg PO BID HEART HEALTH 05/25/22 [History Last Taken 05/24/22] chlordiazepoxide HCl 25 mg capsule 50 mg PO Q8H PRN ALCOHOL WITHDRAWAL 05/25/22 [History Last Taken 05/24/22 08:00] chlordiazepoxide HCl 25 mg capsule 50 mg PO Q8H PRN ANXIETY 05/25/22 [History Last Taken 05/25/22 00:00] cholecalciferol (vitamin D3) 50 mcg (2,000 unit) capsule (Vitamin D3) 50 mcg PO DAILY SUPPLEMENT 05/25/22 [History Last Taken 05/24/22] docusate sodium 100 mg tablet 100 mg PO BID CONSTIPATION 05/25/22 [History Last Taken 05/24/22] famotidine 20 mg tablet 20 mg PO DAILY ACID REFLUX 05/25/22 [History Last Taken 05/24/22] ferrous sulfate 325 mg (65 mg iron) tablet (FeroSul) 325 mg PO DAILY SUPPLEMENT 05/25/22 [History Last Taken 05/24/22] folic acid 1 mg tablet 1 mg PO DAILY SUPPLEMENT 05/25/22 [History Last Taken 05/24/22] lorazepam 0.5 mg tablet 0.5 mg PO Q8H PRN ALCOHOL WITHDRAWAL 05/25/22 [History Last Taken Unknown] metoprolol succinate 25 mg tablet,extended release 24 hr 25 mg PO DAILY BLOOD PRESSURE 05/25/22 [History Last Taken 05/24/22] oxycodone 5 mg tablet 5 mg PO Q8H PRN PAIN 05/25/22 [History Last Taken Unknown] primidone 50 mg tablet 50 mg PO QHS SEIZURES 05/25/22 [History Last Taken 05/24/22] primidone 50 mg tablet 100 mg PO DAILY SEIZURES 05/25/22 [History Last Taken 05/24/22] Allergy/AdvReac Type Severity Reaction Status Date / Time acetaminophen [From Percocet] AdvReac Nausea Verified 05/25/22 08:12 oxycodone [From Percocet] AdvReac Nausea Verified 05/25/22 08:12 Family History Father Bleeding ulcer Poliomyelitis Myocardial infarction Mother Diabetes Hx of CABG Surgical History History of right shoulder replacement Social History Smoking Status: Current every day smoker tobacco type: cigarettes alcohol intake: current ROS Review of Systems ROS Unobtainable: due to endotracheal tube and due to mental status Physical Exam Const Constitutional Narrative: Intubated and sedated. RASS -2 General Appearance: patient mechanically ventilated HEENT normocephalic and head/scalp atraumatic Eyes conjunctivae normal and no scleral icterus Neck no lymphadenopathy Resp Auscultation: rhonchi and diminished lung sounds; Negative for rales or wheezes Cardio regular rate, regular rhythm, S1 normal heart sound, S2 normal heart sound, no murmurs, no rub and no gallops GI normal to inspection, nondistended, normoactive bowel sounds, soft to palpation, non-tender and non-distended Extremity Extremity Narrative: Right shoulder incision is clean and intact and well approximated. General Extremity: Negative for clubbing or edema Skin no rashes or lesions noted Neuro Neuro Narrative: No asterixis. No clonus. Not cooperative with exam. Positive gag and cough reflex noted. Psych Mood & Affect: flat affect Medical Records Data Attestation: I reviewed the patient's medical records Medical records narrative: Patient was at [facility] for only 3 days, but was receiving Librium routinely. Patient reportedly has a history of alcoholism. Records from [facility] are not available for review. Patient did have a pulmonary function test several years ago that showed no airway obstruction. Lab / Micro Data Attestation: I reviewed the patient's lab results. Lab results narrative: Patient's baseline creatinine appears to be about 1.3. Result Diagrams: 05/25/22 08:10 05/25/22 08:10 Labs: Laboratory Results - last 24 hr 05/25/22 08:10: WBC 10.7, RBC 3.85 L, Hgb 12.6 L, Hct 38.0 L, MCV 98.7 H, MCH 32.7 H, MCHC 33.2 D, RDW Std Deviation 63.9 H, RDW Coeff of Jerome 17.7 H, Plt Count 396, MPV 10.9, Immature Gran % (Auto) 0.400, Neut % (Auto) 73.9 H, Lymph % (Auto) 8.4 L, Turner % (Auto) 15.5 H, Eos % (Auto) 1.1, Baso % (Auto) 0.7, Absolute Neuts (auto) 7.9 H, Absolute Lymphs (auto) 0.90, Nucleated RBC % 0, Differential Comment COMMENT 05/25/22 08:10: Sodium 143, Potassium 4.3, Chloride 109 H, Carbon Dioxide 22.0, Anion Gap 12, BUN 37 H, Creatinine 1.52 H, Estim Creat Clear Calc 47.36, Est GFR (MDRD) Af Amer 59 L, Est GFR (MDRD) Non-Af 48 L, BUN/Creatinine Ratio 24.3 H, Glucose 118 H, Calcium 10.1, Total Bilirubin 0.40, AST 57 H, ALT 60, Alkaline Phosphatase 90, Troponin I High Sens 12, Total Protein 8.4 H, Albumin 3.4, Globulin 5.0 H, Albumin/Globulin Ratio 0.7 L 05/25/22 08:10: Lactic Acid Cancelled 05/25/22 08:10: Total Creatine Kinase 38 L, Triglycerides 135 05/25/22 08:42: Urine Color Ирина, Urine Clarity Sl. Cloudy, Urine pH 5.0, Ur Specific [place] 1.025, Urine Protein 30 H, Urine Glucose (UA) Normal, Urine Ketones 50 H, Urine Occult Blood 10 H, Urine Nitrite Negative, Urine Bilirubin 3 H, Urine Urobilinogen 1 H, Ur Leukocyte Esterase 25 H, Urine RBC 0-5 SEEN, Urine WBC 0-5 SEEN, Ur Squamous Epith Cells 0-5 SEEN, Urine Bacteria RARE, Urine Mucus 1+ 05/25/22 08:51: PT 14.6, INR 1.2, APTT 31.8 05/25/22 08:51: Lactic Acid 1.0 05/25/22 09:52: Ethyl Alcohol < 3.0 05/25/22 12:32: Ammonia < 10.0 L Micro: Microbiology 05/25/22 08:35 Sputum, Induced/Lukens Gram Stain - Final 05/25/22 08:42 Nasal Secretion SARS-CoV-2 & FLU Antigen (Rapid) - Final ABG Data ABG results: ABG 05/25/22 05/25/22 08:55 11:54 Specimen Type ART ART Sample Site R Brach R Radial pH 7.35 7.45 Bicarbonate Actual 23.9 23.0 Total CO2 25 24 Base Excess -2 -1 O2 Saturation 92 L 94 L O2 % 80 28 ABG pCO2 43.3 33.3 L ABG pO2 66 L 66 L Alex Test Positive Positive Respiration Rate 14 14 O2 Delivery Device Adult Vent Adult Vent Vent Mode AC AC Tidal Volume 450 450 POC PEEP 5 5 Attestation: I personally reviewed and interpreted this ABG as follows: (Normal acid-base with slightly increased AA gradient) Rhythm Strip Rhythm Strip: Sinus Rhythm Rate: 92 Ectopy: None Radiology Impression Brain CT 05/25/22 08:21 IMPRESSION: 1. No acute findings in the head/brain. 2. Air-fluid level retained secretions in the nasopharynx from intubation procedure. 3. No significant interval change when compared to 03/20/2022. Electronically Signed: Deepak Benson MD at 9:39 EDT , Chest X-Ray 05/25/22 08:35 IMPRESSION: 1. No acute findings in the chest. 2. OG tube tip is in the distal esophagus/EG junction. Recommend distal repositioning. 3. Satisfactory placement of ET tube. 4. Right metallic shoulder arthroplasty, new since 04/18/2018. Electronically Signed: Deepak Benson MD at 9:14 EDT , KUB X-Ray 05/25/22 09:00 IMPRESSION: Distal repositioning of OG tube, tip and sidehole are inside the proximal gastric cavity. Electronically Signed: Deepak Benson MD at 9:24 EDT , Charges/Coding Procedures Hospitalists Procedures: [id number] [facility] H[facility]
[2022-05-25 13:28] LABS: Vitamin B12 818 pg/mL (211-911)
--- NOTE | 2022-05-25 13:34 | WOUNDNOTE ---
wound photo: right shoulder
[2022-05-25 13:51] LABS: Thyroid Stim Hormone (TSH) 1.11 uIU/mL (0.358-3.74)
[2022-05-25] MEDS: Ipratropium/Albuterol Sulfate 3 ML AMPUL.NEB INHALATION ×3 (14:28→22:25)
[2022-05-25] MEDS: Propofol 10MG/Ml 1,000 MG/100 ML Bottle 2.5 MG CONT INF (16:16)
--- NOTE | 2022-05-25 16:53 | CASEMGMT ---
Per RN patient's sister Bhargavi is stating she is patient's healthcare power of contracts attorney, patient is supposed to be Hospice, and a DNR. Per records [facility] received from [facility] patient is full code. Also, [facility] notified [facility] ED staff that patient did not qualify for Hospice. Patient's sister does not have any power of contracts attorney paperwork. AYUSH called [facility] and spoke with Elo. Patient did meet with Hospice, but she is not positive on the outcome. Elo does know patient is a full code. The information they received from [facility] said patient is a full code. Elo will find out what happened with Hospice and let AYUSH know. [facility] did have a phone number for patient's cousin, Artie Sanchez. Artie's number is [phone]. AYUSH called Artie and left him a message to call AYUSH back. Artie returned AYUSH's call. AYUSH explained situation and without paperwork patient's son's would be the decision makers. Artie said they have not been in patient's life for over 20 years. AYUSH let Artie know that by law we have to contact patient's son and ask if they would like to make medical decisions for patient. Artie does not have their phone numbers, but he knows where they live. Artie said he will go to their home tonight and speak with them about it. AYUSH gave Artie's direct number and told him he can leave a message with their numbers. AYUSH thanked him for the help. AYUSH updated MARIE Lama. At this time the legal next of kin would be patient's two sons Sriram and Gustavo Sanchez. Patient's cousin Artie plans on going to their home tonight. Alva Salomon MSW EVARISTO
[2022-05-25] MEDS: Chlorhexidine 15 ML PO (22:49)
[2022-05-25] MEDS: Aspirin 81 MG TAB.CHEW NG (22:54)
[2022-05-26] VITALS (38 sets, daily range): BP systolic 101–168; BP diastolic 62–92; PULSE 81–110; RESP 14–25; TEMP 37.5–38.6; O2SAT 92–97; BMI 25.3
[2022-05-26] MEDS: Ipratropium/Albuterol Sulfate 3 ML AMPUL.NEB INHALATION ×6 (03:25→22:58)
[2022-05-26 03:28] LABS: Absolute Lymphocyte Count 0.77 X10^3/uL (0.83-4.51); Absolute Neutrophil Count 10.2 X10^3/uL (2.0-7.7); Basophil# 0.08 X10^3/uL; Basophil% 0.6 % (0-1); Eosinophil# 0.04 X10^3/uL; Eosinophils% 0.3 % (0-5); Hematocrit 35.1 % (40-54); Hemoglobin 11.5 g/dL (13.0-16.5); Lymphocyte # 0.77 X10^3/ul (0.83-4.51); Lymphocyte % 6.1 % (19-41); Mean Corp Hgb Conc 32.8 g/dL (32-36); Mean Corpuscular Hgb 32.6 pg (27.0-32.0); Mean Corpuscular Volume 99.4 fL (80-94); Mean Platelet Vol. 9.8 fl (6.2-12.0); Monocyte# 1.38 X10^3/uL; NRBC Flagged by Analyzer 0 % (0-5); Neutrophil % 81.4 % (47-70); Platelet Count 327 K/mm3 (150-450); RBC Distribution Width CV 17.6 % (11.6-14.6); RBC Distribution Width SD 63.9 fl (35.1-43.9); Red Blood Count 3.53 M/mm3 (4.6-6.2); White Blood Count 12.6 K/mm3 (4.4-11.0)
[2022-05-26 03:44] LABS: ALB/GLOB Ratio 0.6 RATIO (0.9-2.4); AST(SGOT) 35 U/L (15-37); Alanine Aminotransfer ALT/SGPT 52 U/L (16-61); Albumin, Serum 2.9 g/dL (3.2-5.0); Alkaline Phosphatase 79 U/L (45-117); Anion Gap 7 (5-15); BUN 34 mg/dL (7-18); BUN/Creat Ratio 24.8 RATIO (10-20); Calcium,Total 9.4 mg/dL (8.5-10.1); Chloride 114 mmol/L (98-107); Creatinine, Serum 1.37 mg/dL (0.70-1.30); EST Glomerular Filtration Rate 55 mL/min (>60); Est Glom Filt Rate - Afr Amer 66 mL/min (>60); Estimated Creatinine Clearance 52.54 ml/min; Globulin 4.5 g/dL (2.2-4.2); Glucose 160 mg/dL (74-106); Potassium 4.1 mmol/L (3.5-5.1); Protein, Total 7.4 g/dL (6.4-8.2); Sodium Level 147 mmol/L (136-145)
[2022-05-26] MEDS: 0.9% Normal Saline 1,000 ML 150 ML IV (04:45)
--- NOTE | 2022-05-26 07:06 | PN.HOSP_ITS ---
Reason for Visit Reason for Visit: Diagnoses Alcohol use, unspecified, uncomplicated (05/25/22) Encephalopathy, unspecified (05/25/22) Acute respiratory failure with hypoxia (05/25/22) Presence of right artificial shoulder joint (05/25/22) Subjective Subjective Off sedation. Still with copious secretions Objective Data Objective Data Vital Signs: Vital Signs Temp Pulse Resp BP Pulse Ox O2 Del Method FiO2 38.0 C H 86 22 H 161/79 H 94 Mechanical Ventilator 21 05/26/22 04:00 05/26/22 06:47 05/26/22 06:47 05/26/22 06:00 05/26/22 06:47 05/26/22 06:00 05/26/22 06:00 Oxygen Delivery Method Mechanical Ventilator Weight: 80.2 kg Body Mass Index (BMI) 25.3 Intake & Output: Intake and Output for Last 24 Hours 05/24/22 05/25/22 05/26/22 23:59 23:59 23:59 Intake Total 2222.66 / 2225.16 995.0 / 995.0 Output Total 375 / 375 325 / 325 Balance 1847.66 / 1850.16 670.0 / 670.0 Lab / Micro Data Result Diagrams: 05/26/22 03:20 05/26/22 03:20 Labs: Laboratory Results - last 24 hr 05/25/22 08:10: WBC 10.7, RBC 3.85 L, Hgb 12.6 L, Hct 38.0 L, MCV 98.7 H, MCH 32.7 H, MCHC 33.2 D, RDW Std Deviation 63.9 H, RDW Coeff of Jerome 17.7 H, Plt Count 396, MPV 10.9, Immature Gran % (Auto) 0.400, Neut % (Auto) 73.9 H, Lymph % (Auto) 8.4 L, Rankin % (Auto) 15.5 H, Eos % (Auto) 1.1, Baso % (Auto) 0.7, Abs olute Neuts (auto) 7.9 H, Absolute Lymphs (auto) 0.90, Nucleated RBC % 0, Differential Comment COMMENT 05/25/22 08:10: Sodium 143, Potassium 4.3, Chloride 109 H, Carbon Dioxide 22.0, Anion Gap 12, BUN 37 H, Creatinine 1.52 H, Estim Creat Clear Calc 47.36, Est GFR (MDRD) Af Amer 59 L, Est GFR (MDRD) Non-Af 48 L, BUN/Creatinine Ratio 24.3 H, Glucose 118 H, Calcium 10.1, Total Bilirubin 0.40, AST 57 H, ALT 60, Alkaline Phosphatase 90, Troponin I High Sens 12, Total Protein 8.4 H, Albumin 3.4, Globulin 5.0 H, Albumin/Globulin Ratio 0.7 L 05/25/22 08:10: Lactic Acid Cancelled 05/25/22 08:10: Total Creatine Kinase 38 L, Triglycerides 135 05/25/22 08:42: Urine Color Ирина, Urine Clarity Sl. Cloudy, Urine pH 5.0, Ur Specific [place] 1.025, Urine Protein 30 H, Urine Glucose (UA) Normal, Urine Ketones 50 H, Urine Occult Blood 10 H, Urine Nitrite Negative, Urine Bilirubin 3 H, Urine Urobilinogen 1 H, Ur Leukocyte Esterase 25 H, Urine RBC 0-5 SEEN, Urine WBC 0-5 SEEN, Ur Squamous Epith Cells 0-5 SEEN, Urine Bacteria RARE, Urine Mucus 1+ 05/25/22 08:51: PT 14.6, INR 1.2, APTT 31.8 05/25/22 08:51: Lactic Acid 1.0 05/25/22 09:52: Ethyl Alcohol < 3.0 05/25/22 09:52: Vitamin B12 818 05/25/22 12:32: Ammonia < 10.0 L 05/25/22 12:32: Folate 22.50, TSH 1.11 05/26/22 03:20: WBC 12.6 H, RBC 3.53 L, Hgb 11.5 L, Hct 35.1 L, MCV 99.4 H, MCH 32.6 H, MCHC 32.8, RDW Std Deviation 63.9 H, RDW Coeff of Jerome 17.6 H, Plt Count 327, MPV 9.8, Immature Gran % (Auto) 0.600, Neut % (Auto) 81.4 H, Lymph % (Auto) 6.1 L, Rankin % (Auto) 11.0 H, Eos % (Auto) 0.3, Baso % (Auto) 0.6, Absolute Neuts (auto) 10.2 H, Absolute Lymphs (auto) 0.77 L, Nucleated RBC % 0 05/26/22 03:20: Sodium 147 H, Potassium 4.1, Chloride 114 H, Carbon Dioxide 26.0, Anion Gap 7, BUN 34 H, Creatinine 1.37 H, Estim Creat Clear Calc 52.54, Est GFR (MDRD) Af Amer 66, Est GFR (MDRD) Non-Af 55 L, BUN/Creatinine Ratio 24.8 H, Glucose 160 H, Calcium 9.4, Total Bilirubin 0.40, AST 35, ALT 52, Alkaline Phosphatase 79, Total Protein 7.4, Albumin 2.9 L, Globulin 4.5 H, Albumin/Globulin Ratio 0.6 L Micro: Microbiology 05/25/22 08:35 Sputum, Induced/Lukens Gram Stain - Final 05/25/22 08:42 Nasal Secretion SARS-CoV-2 & FLU Antigen (Rapid) - Final ABG Data ABG results: ABG 05/25/22 05/25/22 08:55 11:54 Specimen Type ART ART Sample Site R Brach R Radial pH 7.35 7.45 Bicarbonate Actual 23.9 23.0 Total CO2 25 24 Base Excess -2 -1 O2 Saturation 92 L 94 L O2 % 80 28 ABG pCO2 43.3 33.3 L ABG pO2 66 L 66 L Alex Test Positive Positive Respiration Rate 14 14 O2 Delivery Device Adult Vent Adult Vent Vent Mode AC AC Tidal Volume 450 450 POC PEEP 5 5 Radiography Diagnostic Testing: Radiology Impression Brain CT 05/25/22 08:21 IMPRESSION: 1. No acute findings in the head/brain. 2. Air-fluid level retained secretions in the nasopharynx from intubation procedure. 3. No significant interval change when compared to 03/20/2022. Electronically Signed: Deepak Benson MD at 9:39 EDT , Chest X-Ray 05/25/22 08:35 IMPRESSION: 1. No acute findings in the chest. 2. OG tube tip is in the distal esophagus/EG junction. Recommend distal repositioning. 3. Satisfactory placement of ET tube. 4. Right metallic shoulder arthroplasty, new since 04/18/2018. Electronically Signed: Deepak Benson MD at 9:14 EDT , KUB X-Ray 05/25/22 09:00 IMPRESSION: Distal repositioning of OG tube, tip and sidehole are inside the proximal gastric cavity. Electronically Signed: Deepak Benson MD at 9:24 EDT , Rhythm Strip Rhythm Strip: Sinus Rhythm Rate: 92 Ectopy: None Physical Exam Const no apparent distress Constitutional Narrative: Intubated and sedated. HEENT head/scalp atraumatic Eyes Eyes Narrative: No icterus. Clenches his eyes when he tried to prop them open to evaluate. Resp normal respiratory effort, no retractions, no use of accessory muscles and clear to auscultation bilaterally Cardio regular rate, regular rhythm, S1 normal heart sound and S2 normal heart sound GI normal to inspection, nondistended, normoactive bowel sounds, soft to palpation, non-tender and non-distended Extremity normal to inspection Neuro moves all extremities Neuro Narrative: No clonus Assessment & Plan Assessment/Plan (1) Acute respiratory failure with hypoxia: PLAN: Due to encephalopathy and inability to protect his airway. No obvious pulmonary etiology identified. Intubated in emergency room on May 25 Continue with ventilator management Suction per routine [facility] consultation for continued vent management Started on amp/SB for aspiration. (2) Encephalopathy: PLAN: Unclear etiology but, according to the family's history, got worse after his surgery. I am very concerned that this could be iatrogenic. From the discharge med rec on the , patient was to be on lorazepam 0.5 mg by mouth every 8 hours as needed for alcohol withdrawal and Librium 25 mg 2 caps every 8 hours with no taper. Patient is currently on primidone which she was on before hand and that was continued. This began as alcohol withdrawal and possibly alcohol withdrawal seizures We will hold off on lorazepam, Librium and primidone and monitor. We will check B12, folate and ammonia and TSH If no improvement, consider EEG. Request additional paperwork from [facility]. Patient's last dose of Librium was on the in the morning before he presented to the emergency room. (3) Alcohol use disorder: PLAN: Patient was a heavy drinker prior. I do not feel the patient is actively going through delirium tremens at this time but will hold off on the lorazepam and Librium. (4) History of right shoulder replacement: PLAN: Patient is to follow-up with Dr. Guerrero on the . Unless new issues arise during this hospitalization we will hold off on consulting orthopedics at this time. Incision looks clean and intact, will consult wound care for management and input. PLAN: Plan VTE prophylaxis: Low molecular weight heparin CODE STATUS: Full code and unverified. There has been talk that the patient would not want this type of situation but there is no definitive CODE STATUS of its been documented nor is there been a definitive power of admitted attorneys. The patient's sister states that she has a power of admitted attorneys but lacks the paperwork to support that saying that is lost. Encouraged her to look for the paperwork or contact the admitted attorneys that performed the paperwork. Discussed with the patient's sister and cousin again today. Updated on the current course. She try to reassure them that the patient is appearing slightly better though still not completely back to normal at this point in time. Would need additional time to see how he overall responds with holding the medications that may have precipitated this event. Charges/Coding Visit Charges Inpatient E&M: 88687 Subs Hosp L3
--- NOTE | 2022-05-26 07:33 | RAD_ITS ---
HISTORY: SOB. TECHNIQUE: XR Chest 1 View. COMPARISON: Prior day. FINDINGS: LINES/TUBES: Endotracheal tube tip 3 to 4 cm above the cleo. Nasogastric tube tip advanced into the stomach in the left upper quadrant. Reverse right shoulder arthroplasty again noted. CARDIOMEDIASTINAL BORDERS: Stable. LUNGS: Mild right basilar atelectasis or pneumonia again seen. PLEURA: No pleural effusion or pneumothorax. RAD/Chest 1 View (Portable) IMPRESSION: Satisfactory repositioning of nasogastric tube. Electronically Signed: Bernice Farrar MD at 8:25 EDT ,
[2022-05-26] MEDS: Enoxaparin 40 MG/0.4 ML Syringe SC (08:22)
[2022-05-26] MEDS: Famotidine 20 MG Tablet NG (08:22)
[2022-05-26] MEDS: Folic Acid 1 MG Tablet NG (08:22)
[2022-05-26] MEDS: Cholecalciferol (VIT D3) 25 MCG TABLET (1,000 UNITS) 50 MCG PO (08:22)
[2022-05-26] MEDS: Aspirin 81 MG TAB.CHEW NG ×2 (08:22→21:27)
[2022-05-26] MEDS: Chlorhexidine 15 ML PO ×2 (08:23→21:20)
--- NOTE | 2022-05-26 08:53 | PCM.PN.INT ---
Assessment & Plan Assessment/Plan (1) Acute respiratory failure with hypoxia: PLAN: Patient is not ready to extubate due to delayed clearance of librium, awaiting further awakening and improved self-management of secretions prior to extubation. (2) On mechanically assisted ventilation: PLAN: Currently on PS/PEEP wean, tolerating well. Cough is not yet strong enough to keep airwway clear. - support on vent for now. - ETT position acceptable on today's CXR at 22 cm at upper teeth. (3) Atelectasis of right lung: PLAN: Present on CXR today, and is febrile with increased WBC. - culture sputum and blood - bronchopulmonary hygiene - empiric abx to cover for aspiration/nosocomial pathogens - increase PEEP to 8 (4) Alcohol withdrawal delirium: PLAN: no signs/sx of withdrawal, remains quite sedated. RASS -2 off propofol. - monitor off all benzodiazepines (5) History of right shoulder replacement: PLAN: Incision clean & dry - start PT ROM today - advance once patient is off ventilator (6) Tobacco abuse: PLAN: Continue duoneb, COPD possible, no prior PFT - add treatment if indicated, currently the short-acting bronchodilator is adequate. PLAN: Plan as above. Subjective Subjective Intubated and comfortably sedated, propofol wearing off for weaning trial. Overnight: low grade febrile, propofol off Currently on PS9/PEEP 5 weaning trial with Ve 10L and tolerating well. Still groggy, good cough, copious clear secretions. Objective Data Objective Data CXR today, with ETT 22 cm at upper teeth: Chest 1 View (Portable) FINDINGS: LINES/TUBES: Endotracheal tube tip 3 to 4 cm above the cleo.? Nasogastric tube tip advanced into the stomach in the left upper quadrant.? Reverse right shoulder arthroplasty again noted. CARDIOMEDIASTINAL BORDERS: Stable. LUNGS: Mild right basilar atelectasis or pneumonia again seen. PLEURA: No pleural effusion or pneumothorax. RAD/Chest 1 View (Portable) IMPRESSION: Satisfactory repositioning of nasogastric tube. Vital Signs: Vital Signs Temp Pulse Resp BP Pulse Ox O2 Del Method FiO2 100.4 F H 86 22 H 161/79 H 94 Mechanical Ventilator 21 05/26/22 04:00 05/26/22 06:47 05/26/22 06:47 05/26/22 06:00 05/26/22 06:47 05/26/22 06:00 05/26/22 06:00 Oxygen Delivery Method Mechanical Ventilator Weight: 176 lb 12.972 oz Body Mass Index (BMI) 25.3 Intake & Output: Intake and Output for Last 24 Hours 05/24/22 05/25/22 05/26/22 23:59 23:59 23:59 Intake Total 2222.66 / 2225.16 1222.5 / 1222.5 Output Total 375 / 375 325 / 325 Balance 1847.66 / 1850.16 897.5 / 897.5 Lab / Micro Data Attestation: I reviewed the patient's lab results. Result Diagrams: 05/26/22 03:20 05/26/22 03:20 Labs: Laboratory Results - last 24 hr 05/25/22 08:10: Differential Comment COMMENT 05/25/22 08:10: Sodium 143, Potassium 4.3, Chloride 109 H, Carbon Dioxide 22.0, Anion Gap 12, BUN 37 H, Creatinine 1.52 H, Estim Creat Clear Calc 47.36, Est GFR (MDRD) Af Amer 59 L, Est GFR (MDRD) Non-Af 48 L, BUN/Creatinine Ratio 24.3 H, Glucose 118 H, Calcium 10.1, Total Bilirubin 0.40, AST 57 H, ALT 60, Alkaline Phosphatase 90, Troponin I High Sens 12, Total Protein 8.4 H, Albumin 3.4, Globulin 5.0 H, Albumin/Globulin Ratio 0.7 L 05/25/22 08:10: Total Creatine Kinase 38 L, Triglycerides 135 05/25/22 08:42: Urine Color Ирина, Urine Clarity Sl. Cloudy, Urine pH 5.0, Ur Specific [place] 1.025, Urine Protein 30 H, Urine Glucose (UA) Normal, Urine Ketones 50 H, Urine Occult Blood 10 H, Urine Nitrite Negative, Urine Bilirubin 3 H, Urine Urobilinogen 1 H, Ur Leukocyte Esterase 25 H, Urine RBC 0-5 SEEN, Urine WBC 0-5 SEEN, Ur Squamous Epith Cells 0-5 SEEN, Urine Bacteria RARE, Urine Mucus 1+ 05/25/22 08:51: PT 14.6, INR 1.2, APTT 31.8 05/25/22 08:51: Lactic Acid 1.0 05/25/22 09:52: Ethyl Alcohol < 3.0 05/25/22 09:52: Vitamin B12 818 05/25/22 12:32: Ammonia < 10.0 L 05/25/22 12:32: Folate 22.50, TSH 1.11 05/26/22 03:20: WBC 12.6 H, RBC 3.53 L, Hgb 11.5 L, Hct 35.1 L, MCV 99.4 H, MCH 32.6 H, MCHC 32.8, RDW Std Deviation 63.9 H, RDW Coeff of Jerome 17.6 H, Plt Count 327, MPV 9.8, Immature Gran % (Auto) 0.600, Neut % (Auto) 81.4 H, Lymph % (Auto) 6.1 L, [place] % (Auto) 11.0 H, Eos % (Auto) 0.3, Baso % (Auto) 0.6, Absolute Neuts (auto) 10.2 H, Absolute Lymphs (auto) 0.77 L, Nucleated RBC % 0 05/26/22 03:20: Sodium 147 H, Potassium 4.1, Chloride 114 H, Carbon Dioxide 26.0, Anion Gap 7, BUN 34 H, Creatinine 1.37 H, Estim Creat Clear Calc 52.54, Est GFR (MDRD) Af Amer 66, Est GFR (MDRD) Non-Af 55 L, BUN/Creatinine Ratio 24.8 H, Glucose 160 H, Calcium 9.4, Total Bilirubin 0.40, AST 35, ALT 52, Alkaline Phosphatase 79, Total Protein 7.4, Albumin 2.9 L, Globulin 4.5 H, Albumin/Globulin Ratio 0.6 L Micro: Microbiology 05/25/22 08:35 Sputum, Induced/Lukens Gram Stain - Final 05/25/22 08:42 Nasal Secretion SARS-CoV-2 & FLU Antigen (Rapid) - Final ABG Data ABG results: ABG 05/25/22 05/25/22 08:55 11:54 Specimen Type ART ART Sample Site R Brach R Radial pH 7.35 7.45 Bicarbonate Actual 23.9 23.0 Total CO2 25 24 Base Excess -2 -1 O2 Saturation 92 L 94 L O2 % 80 28 ABG pCO2 43.3 33.3 L ABG pO2 66 L 66 L Alex Test Positive Positive Respiration Rate 14 14 O2 Delivery Device Adult Vent Adult Vent Vent Mode AC AC Tidal Volume 450 450 POC PEEP 5 5 Radiography Diagnostic Testing: Radiology Impression Brain CT 05/25/22 08:21 IMPRESSION: 1. No acute findings in the head/brain. 2. Air-fluid level retained secretions in the nasopharynx from intubation procedure. 3. No significant interval change when compared to 03/20/2022. Electronically Signed: Deepak Benson MD at 9:39 EDT , Chest X-Ray 05/25/22 08:35 IMPRESSION: 1. No acute findings in the chest. 2. OG tube tip is in the distal esophagus/EG junction. Recommend distal repositioning. 3. Satisfactory placement of ET tube. 4. Right metallic shoulder arthroplasty, new since 04/18/2018. Electronically Signed: Deepak Benson MD at 9:14 EDT , KUB X-Ray 05/25/22 09:00 IMPRESSION: Distal repositioning of OG tube, tip and sidehole are inside the proximal gastric cavity. Electronically Signed: Deepak Benson MD at 9:24 EDT , Chest X-Ray 05/26/22 07:33 IMPRESSION: Satisfactory repositioning of nasogastric tube. Electronically Signed: Bernice Farrar MD at 8:25 EDT , Rhythm Strip Rhythm Strip: Sinus Rhythm Rate: 92 Ectopy: None Physical Exam Narrative Sedated man in no acute distress, no eye-opening with voice or stimulation. Extraocular is rolling, pupils reactive. ET tube is at 22 cm at the upper teeth, copious clear secretions suctioned. Good cough with suctioning. Neck is supple, no lines present. Chest has few rhonchi in all lung godfrey, clear with suctioning. No consolidation wheezes or crackles. Heart normal S1-S2 sinus rhythm on monitor, no murmurs. Abdomen is soft, nontender, positive bowel sounds. : Small amount of blood at the meatus, and faintly blood-tinged urine in the Prakash. Mildly cloudy. Extremities have no clubbing cyanosis or edema. Peripheral IVs are in good position, functioning well, with no erythema or purulence. Neuro: Moves all 4, nonfocal, too sedated for exam. Withdrawal is appropriate. Skin is warm and dry. Charges/Coding Procedures Hospitalists Procedures: 88618 Critial Care 1st Hr (critical care time spent with patient at bedside, review of documentation, lab results, radiology and other test results, discussion with colleagues and ancillary staff, clinical management of patient, and updating family if applicable, was 60 minutes. This time does not include any pr)
--- NOTE | 2022-05-26 11:58 | CASEMGMT ---
Social Work SW attended ICU rounds with pt's sister Bhargavi and Cousin Adilson in attendance. Pt continues to be intubated. Bhargavi and Artie stating that they do not feel pt would want to be intubated and would want to be DNR. Family confirms pt does not have a health care POA, he has no spouse and has two sons. SW explained that legal decision makers are pt's two sons Sriram and Gustavo Sanchez. Bhargavi and Artie state that sons have been estranged from pt for the last 25 years and have not spoke to him. Artie did speak to Sriram and Gustavo's last evening and asked them to call into the hospital. SW received message from Sriram Sanchez stating, I give authority to Bhargavi Sanchez to make medical decisions. AYUSH did not receive call from Gustavo at this time. SW updated Artie that SW is waiting on return call from Gustavo. SW placed call to medical records at [facility] [place]. Paperwork was faxed and placed in pt's chart with FULL CODE status indicated while pt was in [facility] for surgery. Surgery was on 05/16/22. Pt discharged from [place] to [facility] on 05/22/22. Pt sister and cousin state pt has been an alcoholic most of his life. Pt stopped working 3 months ago due to shoulder and has been drinking beer and whiskey from morning until night every day since that time. Prior to hospitalization pt lived alone and was independent with care needs and was driving. ANA ROSA Montgomery
[2022-05-26] MEDS: Vital AF 1.2 Cal Liquid 1,000 ML 25 ML GT (12:05)
--- NOTE | 2022-05-26 12:20 | CASEMGMT ---
Social Work Pt is admitted from [facility]. Clinical updates sent via [facility] to [facility] in anticipation of eventual return. ANA ROSA Hdez
[2022-05-26] MEDS: Acetaminophen 650 MG/20 ML UDC 325 MG GT ×2 (14:00→19:33)
--- NOTE | 2022-05-26 18:45 | CASEMGMT ---
Social Work Collaboration with [facility] this date on patient's care and decision making needs. Chart reviewed. Concern present today due to patient being intubated, and family present at hospital stating patient would not want intubation and would want to be DNR. Last confirmed code status, from records obtained from [facility] where patient recently had surgery (prior to admission to [facility]) indicated patient as a full code status. No code change in code status since patient was admitted to the SNF, and no documents have been produced giving authority to any particular family members to make decisions. It is known that patient has 2 adult sons in the area, who have reportedly been estranged from the patient for over 20 years. Decision making order in the [facility] is as follows: Guardian, if any, Spouse, Adult children - or majority of the children if more than one, Parents of the patient, Adult sibling - or majority of the siblings if more than one. Received voicemail from a man identifying self as as son, Sriram Sanchez ([phone]), leaving message that would relinquish rights for patient's decision making needs over to patient's sister Bhargavi. Collaboration with Director of hospital Risk Management, Britt Reyes, regarding this situation including no paperwork/advanced directives being produced, Sister's reported insistence that patient would not want to be intubated, patient currently intubated but breathing on own and last verified code status appearing to be a full code by [facility], and then known estranged children to be living and in the area, as well as message from one son so far indicating agreement to give the patient's sister authority for decision making. As it stands, the children are the decision makers despite estrangement. Discussed with Britt that if both sons call in with same stance/view point, then having the sons come in and produce ID's as well as sign a statement relinquishing decision making rights to patient's sister. Britt confirms thought that patient should remain a full code at present time. Received message from a man identifying self as son Gustavo Sanchez ([phone] on caller ID), who also left message stating agreement to relinquish rights to decision making to patient's sister Bhargavi. Called patient's son Sriram, as Sriram left his number to discuss any concerns. Introduced to self and role, as well as reason for call. Sriram talkative, expressing that feels it appropriate for Bhargavi to be making decisions for patient, that both Sriram and Gustavo are in agreement with this. It was initially difficult for this teletypewriter installer to fully express intent of this teletypewriter installer's call, as Sriram talkative and wanting to ensure understanding that children are not trying to be difficult. Sriram made a comment about power of cat operator paperwork being present for patient so appropriate for Bhargavi to be decision maker. Once Sriram was able to have time to express his thoughts on the matter, this teletypewriter installer offered verbal support, reinforcement there are no judgements by this teletypewriter installer and only wanting to do what is legally and ethically right. Educated Sriram there is no power or cat operator paperwork in place, what the law states as far as decision making surrogate, that from this teletypewriter installer's understanding patient was recently a full code at another hospital and most recently at the alf. Educated then that the family present currently insisting on a DNR status and extubation, that patient would not want to be intubated which is opposite to the known code status patient had at the prior hospital and SNF. Explained to Sriram that the hospital wants to do the right thing and and really must go through the children at this point due to no paperwork in place. Explained if the children will come in to sign a statement deferring decision to the patient's sister, then can get this into the medical record to proceed with Bhargavi being the decision maker. Per Sriram, Gustavo is out of town this weekend so would not be until at least Sunday. Sriram also mentioned having cat operator who could draw paperwork up deferring to Bhargavi. Let Sriram know the hospital would need to call Sriram/Gustavo in the meantime for decisions. Let Sriram know if the children would want to work with patient's sister in the meantime for determining patient's wishes, the family could do this, but ultimately the sons would be the ones making the decisions. After the situation was clarified, and Sriram understood there are no POA documents in place, Sriram asked to speak to a physician when the doctor has time to do so. Sriram expressed wanting to understand patient's condition to help with moving forward. This teletypewriter installer agreed to send a message to doctor with request. Message to Dr. Vega via [employer] asking for physician to call the son Sriram salmon and if not viky then tomorrow for an update. Left this teletypewriter installer's number to call back as well if further information was needed. Handofff to protective services social worker covering the medical floors on 05.27.22 and 05.29.22. Plan: At this time the children are the legal decision makers, with sons expressing on voicemail to defer to the patient's sister. Would need the sons to put this in writing, especially due to the sister's expressed thought on code status being different than patient's last code status prior to recent surgery. Should the sons decide to come in to sign paperwork deferring to patient's sisterm then SW can assist as indicated. Will monitor for patient to wake up and have conversation on wishes for advanced directives and decision making authority. Social work to follow and assist as needs arise. -WAYNE Hall, ENGRAVING OPERATOR
[2022-05-26] MEDS: 0.9% Normal Saline 1,000 ML 100 ML IV (22:30)
[2022-05-27] VITALS (35 sets, daily range): BP systolic 101–194; BP diastolic 64–108; PULSE 69–105; RESP 14–22; TEMP 37.5–38.2; O2SAT 90–100; BMI 25.5
[2022-05-27] MEDS: Ipratropium/Albuterol Sulfate 3 ML AMPUL.NEB INHALATION ×6 (03:12→22:55)
[2022-05-27 04:13] LABS: Phosphorus 2.9 mg/dL (2.5-4.9)
[2022-05-27] MEDS: CHLORHEXIDINE GLUC 2% CLOTH 1 EACH TOWELETTE TOPICAL (05:14)
[2022-05-27] MEDS: 0.9% Saline Lock 10 ML Syringe IV ×2 (05:14→06:14)
[2022-05-27 06:25] LABS: Absolute Lymphocyte Count 1.16 X10^3/uL (0.83-4.51); Absolute Neutrophil Count 9.9 X10^3/uL (2.0-7.7); Basophil# 0.07 X10^3/uL; Basophil% 0.6 % (0-1); Eosinophil# 0.27 X10^3/uL; Eosinophils% 2.1 % (0-5); Hematocrit 35.2 % (40-54); Hemoglobin 11.1 g/dL (13.0-16.5); Lymphocyte # 1.16 X10^3/ul (0.83-4.51); Lymphocyte % 9.2 % (19-41); Mean Corp Hgb Conc 31.5 g/dL (32-36); Mean Corpuscular Hgb 32.4 pg (27.0-32.0); Mean Corpuscular Volume 102.6 fL (80-94); Mean Platelet Vol. 12.5 fl (6.2-12.0); Monocyte# 1.17 X10^3/uL; Monocyte% 9.3 % (0-10); NRBC Flagged by Analyzer 0 % (0-5); Neutrophil % 78.3 % (47-70); POSITIVE MORPHOLOGY YES; Platelet Count 269 K/mm3 (150-450); RBC Distribution Width CV 18.2 % (11.6-14.6); RBC Distribution Width SD 67.7 fl (35.1-43.9); Red Blood Count 3.43 M/mm3 (4.6-6.2); White Blood Count 12.6 K/mm3 (4.4-11.0)
[2022-05-27 06:28] LABS: Differential Indicated SCAN CRITERIA MET
[2022-05-27 06:36] LABS: International Normalized Ratio 1.2; Prothrombin Time (Protime)PT. 15.1 SECONDS (11.7-14.9)
--- NOTE | 2022-05-27 06:41 | PCM.RX.CS ---
Consult Pharmacy has been consulted to manage selected antiobiotic: Vancomycin Type of Consult: New start Prior Doses of Antibiotics Received/Current Regimen: Medications Vancomycin HCl 1,500 mg/ (Sodium Chloride) 530 mls @ 250 mls/hr IV Q24H ROBBIE Vancomycin HCl 1,250 mg/ (Sodium Chloride) 275 mls @ 167 mls/hr IV X1 ONE Stop: 05/27/22 08:08 Last Admin: 05/27/22 06:35 Dose: 167 mls/hr Microbiology: Microbiology 05/25/22 08:35 Sputum, Induced/Lukens Gram Stain - Final 05/25/22 08:35 Sputum, Induced/Lukens Respiratory Culture - Final Klebsiella oxytoca 05/25/22 08:42 Urine Catheter - Prakash Urine Culture - Preliminary Culture exhibits no growth. 05/25/22 08:42 Nasal Secretion SARS-CoV-2 & FLU Antigen (Rapid) - Final Weight used for dosin.9 kg Estimated Creatinine Clearance: 53 Goal Trough: 10-15 mcg/mL Pharmacy Plan for Drug Dosing: Pharmacy Service will continue to monitor and adjust dosing as required. Follow-Up Labs: Trough Vancomycin Labs to be done on [date and time ordered]: 05/29/22 @0600
--- NOTE | 2022-05-27 06:55 | PCM.PN.HOSP ---
Reason for Visit Reason for Visit: Diagnoses Alcohol use, unspecified, uncomplicated (05/25/22) Alcohol use, unspecified with withdrawal delirium (05/25/22) Encephalopathy, unspecified (05/25/22) Acute respiratory failure with hypoxia (05/25/22) Atelectasis (05/25/22) Tobacco use (05/25/22) Presence of right artificial shoulder joint (05/25/22) Dependence on respirator [ventilator] status (05/25/22) Subjective Subjective Waking up more, but still confused. Objective Data Objective Data Vital Signs: Vital Signs Temp Pulse Resp BP Pulse Ox O2 Del Method FiO2 37.6 C H 94 19 H 169/98 H 96 Mechanical Ventilator 21 05/27/22 06:00 05/27/22 06:00 05/27/22 06:00 05/27/22 06:00 05/27/22 06:00 05/27/22 06:00 05/27/22 06:00 Oxygen Delivery Method Mechanical Ventilator Weight: 80.9 kg Body Mass Index (BMI) 25.5 Intake & Output: Intake and Output for Last 24 Hours 05/25/22 05/26/22 05/27/22 23:59 23:59 23:59 Intake Total 2222.66 / 2225.16 2827.33 / 2952.33 1503.91 / 1503.91 Output Total 375 / 375 710 / 910 500 / 500 Balance 1847.66 / 1850.16 2117.33 / 2042.33 1003.91 / 1003.91 Lab / Micro Data Result Diagrams: 05/27/22 03:55 05/27/22 03:55 Labs: Laboratory Results - last 24 hr 05/27/22 03:55: Phosphorus 2.9, Magnesium 2.0 05/27/22 03:55: Phosphorus Cancelled, Magnesium Cancelled 05/27/22 03:55: WBC 12.6 H, RBC 3.43 L, Hgb 11.1 L, Hct 35.2 L, MCV 102.6 H, MCH 32.4 H, MCHC 31.5 L, RDW Std Deviation 67.7 H, RDW Coeff of Jerome 18.2 H, Plt Count 269, MPV 12.5 H, Immature Gran % (Auto) 0.500, Neut % (Auto) 78.3 H, Lymph % (Auto) 9.2 L, [place] % (Auto) 9.3, Eos % (Auto) 2.1, Baso % (Auto) 0.6, Absolute Neuts (auto) 9.9 H, Absolute Lymphs (auto) 1.16, Nucleated RBC % 0 05/27/22 06:15: PT 15.1 H, INR 1.2, APTT 39.0 H Micro: Microbiology 05/25/22 08:35 Sputum, Induced/Lukens Gram Stain - Final 05/25/22 08:35 Sputum, Induced/Lukens Respiratory Culture - Final Klebsiella oxytoca 05/25/22 08:42 Urine Catheter - Prakash Urine Culture - Preliminary Culture exhibits no growth. 05/25/22 08:42 Nasal Secretion SARS-CoV-2 & FLU Antigen (Rapid) - Final Radiography Diagnostic Testing: Radiology Impression Chest X-Ray 05/26/22 07:33 IMPRESSION: Satisfactory repositioning of nasogastric tube. Electronically Signed: Bernice Farrar MD at 8:25 EDT , Rhythm Strip Rhythm Strip: Sinus Rhythm Rate: 92 Ectopy: None Physical Exam Const Constitutional Narrative: intubated sedated. opens eyes to voice. HEENT head/scalp atraumatic and moist oral mucous membranes Resp normal respiratory effort and no retractions Cardio regular rate, regular rhythm, S1 normal heart sound and S2 normal heart sound GI normal to inspection, nondistended, normoactive bowel sounds, soft to palpation, non-tender and non-distended Extremity normal to inspection and full ROM Assessment & Plan Assessment/Plan (1) Acute respiratory failure with hypoxia: PLAN: Due to encephalopathy and inability to protect his airway. No obvious pulmonary etiology identified. Intubated in emergency room on May 25 Continue with ventilator management Suction per routine [facility] consultation for continued vent management Started on amp/SB for aspiration. (2) Encephalopathy: PLAN: Unclear etiology but, according to the family's history, got worse after his surgery. I am very concerned that this could be iatrogenic. From the discharge med rec on the , patient was to be on lorazepam 0.5 mg by mouth every 8 hours as needed for alcohol withdrawal and Librium 25 mg 2 caps every 8 hours with no taper. Patient is currently on primidone which she was on before hand and that was continued. This began as alcohol withdrawal and possibly alcohol withdrawal seizures We will hold off on lorazepam, Librium and primidone and monitor. We will check B12, folate and ammonia and TSH If no improvement, consider EEG. Request additional paperwork from [facility]. Patient's last dose of Librium was on the 16 in the morning before he presented to the emergency room. (3) Alcohol use disorder: PLAN: Patient was a heavy drinker prior. I do not feel the patient is actively going through delirium tremens at this time but will hold off on the lorazepam and Librium. (4) History of right shoulder replacement: PLAN: Patient is to follow-up with Dr. Guerrero on the . Unless new issues arise during this hospitalization we will hold off on consulting orthopedics at this time. Incision looks clean and intact, will consult wound care for management and input. PLAN: Plan VTE prophylaxis: Low molecular weight heparin CODE STATUS: Full code and unverified. There has been talk that the patient would not want this type of situation but there is no definitive CODE STATUS of its been documented nor is there been a definitive power of ophthalmologist retina specialist. The patient's sister states that she has a power of ophthalmologist retina specialist but lacks the paperwork to support that saying that is lost. Encouraged her to look for the paperwork or contact the ophthalmologist retina specialist that performed the paperwork. Discussed with the patient's sister and cousin again today. Updated on the current course. She try to reassure them that the patient is appearing slightly better though still not completely back to normal at this point in time. Would need additional time to see how he overall responds with holding the medications that may have precipitated this event. Charges/Coding Visit Charges Inpatient E&M: 90220 Subs Hosp L2
[2022-05-27 07:10] LABS: ALB/GLOB Ratio 0.6 RATIO (0.9-2.4); AST(SGOT) 63 U/L (15-37); Alanine Aminotransfer ALT/SGPT 64 U/L (16-61); Albumin, Serum 2.8 g/dL (3.2-5.0); Alkaline Phosphatase 87 U/L (45-117); Anion Gap 11 (5-15); BUN 26 mg/dL (7-18); BUN/Creat Ratio 18.3 RATIO (10-20); Calcium,Total 9.2 mg/dL (8.5-10.1); Chloride 113 mmol/L (98-107); Creatinine, Serum 1.42 mg/dL (0.70-1.30); EST Glomerular Filtration Rate 52 mL/min (>60); Est Glom Filt Rate - Afr Amer 63 mL/min (>60); Estimated Creatinine Clearance 50.69 ml/min; Globulin 4.7 g/dL (2.2-4.2); Glucose 151 mg/dL (74-106); Potassium 3.5 mmol/L (3.5-5.1); Protein, Total 7.5 g/dL (6.4-8.2); Sodium Level 147 mmol/L (136-145); Troponin-I HS 24 pg/mL (3.0-78.0)
[2022-05-27 07:11] LABS: Anisocytosis 2+
[2022-05-27 08:21] LABS: Allen Test Positive; Base Excess 0 mmol/L (-2 to +2); Bicarbonate 23.4 mmol/L (22-26); Blood Gas Specimen Type ART; FI02 21; Mode CPAP/PS; O2 Delivery Device Adult Vent; PEEP 8; PO2 70 mmHG (75-100); PS 5; SITE R Radial; SO2 95 % (95-99); Total Carbon Dioxide 24 mmol/L; pCO2 31.1 mmHg (35-45); pH 7.49 (7.35-7.45)
--- NOTE | 2022-05-27 08:40 | RAD_ITS ---
STUDY: X-RAY CHEST REASON FOR EXAM: Male, 71 years old. Pneumonia. Follow-up. TECHNIQUE: Single frontal view of the chest. COMPARISON: May 26, 2022. FINDINGS: Stable endotracheal and NG tube with tip of endotracheal tube proximal 4.2 cm above the cleo. Low volume inspiration. Stable cardiomegaly with aortic tortuosity and calcification. Interval clearing of patchy opacities at both bases noted on the prior study. There is no demonstrated abnormality of the visualized soft tissue structures of the upper abdomen. RAD/Chest 1 View (Portable) IMPRESSION: Stable cardiomegaly, aortic tortuosity and low volume inspiration. Clearing of the previously described patchy opacities at both bases. No acute or emergent finding. Electronically Signed: Royce Cade, at 10:58 EDT ,
--- NOTE | 2022-05-27 09:32 | PCM.PN.INT ---
Assessment & Plan Assessment/Plan (1) Atelectasis of right lung: PLAN: Resolved on PEEP of 8. Patient is positive for Klebsiella oxytocin in the sputum. Still producing copious sputum. Switch antibiotics from Vanco Zosyn to meropenem today for possible ESBL Klebsiella. (2) On mechanically assisted ventilation: PLAN: Plan to extubate as soon as he awakens a little more. He is not cooperative, barely opens his eyes with voice, not tracking. He will not cough on command, which is important to extubation since he is still producing moderate sputum. - Wean and extubate when able - Await is awakening (3) Encephalopathy: PLAN: Await further metabolic clearance of Librium, given prior to admission. The patient has not been on sedation here while awaiting his awakening. We will add back analgesia and sedation medications if needed before he is ready to extubate. Nursing is observing him very closely. He is still RASS of -2 to -1. (4) Alcohol use disorder: PLAN: Alcohol withdrawal has resolved. (5) Tobacco abuse: PLAN: Chronic (6) Hyponatremia: PLAN: Resolved (7) Acute respiratory failure with hypoxia: PLAN: As above PLAN: Plan In addition to the above, ventilator bundle including elevated head of bed, cough deep breathe, turn every 2, suction as needed, DVT prophylaxis, PPI. Chlorhexidine. Subjective Subjective Comfortable without having had additional sedation or pain medication while in ICU, on mechanical ventilation We are awaiting his full awakening and cooperation prior to extubation, today or tomorrow most likely. He is starting to wake up, does not follow commands, opens eyes to voice occasionally, insufficient cough. Sputum culture growing Klebsiella, awaiting sensitivities, switching from Zosyn to meropenem for better coverage of possible ESBL. ABG shows mild respiratory alkalosis from patient overbreathing the vent on his pressure support wean. Secretions are diminishing but still nguyen and thick. Still low-grade febrile. Objective Data Objective Data Vital Signs: Vital Signs Temp Pulse Resp BP Pulse Ox O2 Del Method O2 Flow Rate 100.2 F H 101 H 22 H 142/88 H 95 Mechanical Ventilator 05/27/22 08:00 05/27/22 08:00 05/27/22 08:00 05/27/22 08:00 05/27/22 08:00 05/27/22 08:00 03/18/23 08:00 FiO2 21 05/27/22 08:00 Oxygen Flow Rate (L/min) 21 Oxygen Delivery Method Mechanical Ventilator Weight: 178 lb 5.663 oz Body Mass Index (BMI) 25.5 Intake & Output: Intake and Output for Last 24 Hours 05/25/22 05/26/22 05/27/22 23:59 23:59 23:59 Intake Total 2222.66 / 2225.16 2827.33 / 2952.33 1503.91 / 1503.91 Output Total 375 / 375 710 / 910 500 / 500 Balance 1847.66 / 1850.16 2117.33 / 2042.33 1003.91 / 1003.91 N.p.o. while on weaning trial, tube feeds at night. Lab / Micro Data Result Diagrams: 05/27/22 03:55 05/27/22 03:55 Labs: Laboratory Results - last 24 hr 05/27/22 03:55: Phosphorus 2.9, Magnesium 2.0 05/27/22 03:55: Sodium 147 H, Potassium 3.5, Chloride 113 H, Carbon Dioxide 23.0, Anion Gap 11, BUN 26 H, Creatinine 1.42 H, Estim Creat Clear Calc 50.69, Est GFR (MDRD) Af Amer 63, Est GFR (MDRD) Non-Af 52 L, BUN/Creatinine Ratio 18.3, Glucose 151 H, Calcium 9.2, Phosphorus Cancelled, Magnesium Cancelled, Total Bilirubin 0.30, AST 63 H, ALT 64 H, Alkaline Phosphatase 87, Troponin I High Sens 24, Total Protein 7.5, Albumin 2.8 L, Globulin 4.7 H, Albumin/Globulin Ratio 0.6 L 05/27/22 03:55: WBC 12.6 H, RBC 3.43 L, Hgb 11.1 L, Hct 35.2 L, MCV 102.6 H, MCH 32.4 H, MCHC 31.5 L, RDW Std Deviation 67.7 H, RDW Coeff of Jerome 18.2 H, Plt Count 269, MPV 12.5 H, Immature Gran % (Auto) 0.500, Neut % (Auto) 78.3 H, Lymph % (Auto) 9.2 L, [place] % (Auto) 9.3, Eos % (Auto) 2.1, Baso % (Auto) 0.6, Absolute Neuts (auto) 9.9 H, Absolute Lymphs (auto) 1.16, Nucleated RBC % 0, Anisocytosis 2+ 05/27/22 06:15: PT 15.1 H, INR 1.2, APTT 39.0 H Micro: Microbiology 05/25/22 08:10 Blood Culture (Wb) - Anticubital Right Blood Culture - Preliminary No growth in 48 hours. 05/25/22 08:10 Blood Culture (Wb) - Anticubital Left Blood Culture - Preliminary No growth in 48 hours. 05/26/22 11:30 Sputum, Induced/Lukens Respiratory Culture - Preliminary GNR lactose maintenance planner 05/25/22 08:42 Urine Catheter - Prakash Urine Culture - Final Culture exhibits no growth. 05/25/22 08:35 Sputum, Induced/Lukens Gram Stain - Final 05/25/22 08:35 Sputum, Induced/Lukens Respiratory Culture - Final Klebsiella oxytoca 05/25/22 08:42 Nasal Secretion SARS-CoV-2 & FLU Antigen (Rapid) - Final ABG Data ABG results: ABG 05/27/22 08:16 Specimen Type ART Sample Site R Radial pH 7.49 H Bicarbonate Actual 23.4 Total CO2 24 Base Excess 0 O2 Saturation 95 O2 % 21 ABG pCO2 31.1 L ABG pO2 70 L Alex Test Positive O2 Delivery Device Adult Vent Vent Mode CPAP/PS POC PEEP 8 POC Pressure Suppt 5 ABG adequate on weaning trial above. Risby is 48. Radiography Diagnostic Testing: TECHNIQUE: XR Chest 1 View. COMPARISON: Prior day. FINDINGS: LINES/TUBES: Endotracheal tube tip 3 to 4 cm above the cleo.? Nasogastric tube tip advanced into the stomach in the left upper quadrant.? Reverse right shoulder arthroplasty again noted. CARDIOMEDIASTINAL BORDERS: Stable. LUNGS: Mild right basilar atelectasis or pneumonia again seen. PLEURA: No pleural effusion or pneumothorax. RAD/Chest 1 View (Portable) IMPRESSION: ? Satisfactory repositioning of nasogastric tube. ? Electronically Signed: Bernice Farrar MD at 8:25 EDT CXR today portable image personally reviewed. No acute I/E. Fullness in L hilum not present 05/2021. ETT in adequate position. Rhythm Strip Rhythm Strip: Sinus Rhythm Rate: 92 Ectopy: None Physical Exam Narrative Well-developed stated (residual) with no exogenous sedation given since admission, eye-opening to voice, some grimacing, fair cough, no acute distress. On mechanical ventilation. HEENT: Normocephalic atraumatic extraoculars are intact eyes are dry. Mucous membranes moist. He was suctioned for moderate amounts of thick nguyen?yellow sputum with no hemoptysis. Fair cough. Neck is supple with no JVD thyromegaly or mass Lungs are diminished but clear bilaterally with no wheezes rales or rhonchi (after suctioning), no consolidation.. Cardiac normal S1-S2 with no murmurs rubs or gallops Abdomen is soft, nontender Extremities have no clubbing cyanosis or edema Neuro is nonfocal Skin is warm and dry Charges/Coding Procedures Hospitalists Procedures: [id number] Critial Care 1st Hr
[2022-05-27] MEDS: Chlorhexidine 15 ML PO ×2 (09:55→21:07)
[2022-05-27] MEDS: Folic Acid 1 MG Tablet NG (09:55)
[2022-05-27] MEDS: Enoxaparin 40 MG/0.4 ML Syringe SC (09:55)
[2022-05-27] MEDS: Aspirin 81 MG TAB.CHEW NG ×2 (09:55→21:07)
[2022-05-27] MEDS: Famotidine 20 MG Tablet NG (09:55)
[2022-05-27] MEDS: Cholecalciferol (VIT D3) 25 MCG TABLET (1,000 UNITS) 50 MCG PO (09:55)
[2022-05-27] MEDS: Acetaminophen 650 MG/20 ML UDC 325 MG GT (09:58)
[2022-05-27] MEDS: Propofol 10MG/Ml 1,000 MG/100 ML Bottle 5 MG CONT INF ×2 (11:30→21:00)
[2022-05-27] MEDS: 0.9% Normal Saline 1,000 ML 100 ML IV (14:00)
[2022-05-27] MEDS: Vital AF 1.2 Cal Liquid 1,000 ML 65 ML GT (21:07)
[2022-05-28] VITALS (32 sets, daily range): BP systolic 131–204; BP diastolic 76–106; PULSE 74–96; RESP 14–24; TEMP 37.1–37.6; O2SAT 94–100; BMI 26.5
[2022-05-28] MEDS: Ipratropium/Albuterol Sulfate 3 ML AMPUL.NEB INHALATION ×5 (02:02→23:11)
[2022-05-28] MEDS: 0.9% Saline Lock 10 ML Syringe IV (03:21)
[2022-05-28 03:25] LABS: Absolute Neutrophil Count 8.3 X10^3/uL (2.0-7.7); Basophil# 0.07 X10^3/uL; Basophil% 0.6 % (0-1); Eosinophil# 0.43 X10^3/uL; Eosinophils% 3.9 % (0-5); Hematocrit 29.5 % (40-54); Lymphocyte % 9.9 % (19-41); Mean Corp Hgb Conc 30.5 g/dL (32-36); Mean Corpuscular Hgb 31.9 pg (27.0-32.0); Mean Corpuscular Volume 104.6 fL (80-94); Mean Platelet Vol. 10.6 fl (6.2-12.0); Monocyte# 1.16 X10^3/uL; Monocyte% 10.4 % (0-10); NRBC Flagged by Analyzer 0 % (0-5); Neutrophil # 8.29 X10^3/uL (2.7-7.7); Neutrophil % 74.6 % (47-70); POSITIVE MORPHOLOGY YES; Platelet Count 342 K/mm3 (150-450); RBC Distribution Width CV 18.2 % (11.6-14.6); RBC Distribution Width SD 69.5 fl (35.1-43.9); Red Blood Count 2.82 M/mm3 (4.6-6.2); White Blood Count 11.1 K/mm3 (4.4-11.0)
[2022-05-28 03:38] LABS: Differential Indicated SCAN CRITERIA MET
[2022-05-28 03:43] LABS: International Normalized Ratio 1.1; Prothrombin Time (Protime)PT. 14.3 SECONDS (11.7-14.9)
[2022-05-28 03:44] LABS: Partial Thromboplast Time 31.2 Seconds (24.1-36.2)
[2022-05-28 04:18] LABS: ALB/GLOB Ratio 0.6 RATIO (0.9-2.4); AST(SGOT) 88 U/L (15-37); Alanine Aminotransfer ALT/SGPT 85 U/L (16-61); Albumin, Serum 2.5 g/dL (3.2-5.0); Alkaline Phosphatase 77 U/L (45-117); Anion Gap 6 (5-15); BUN 24 mg/dL (7-18); BUN/Creat Ratio 22.4 RATIO (10-20); Calcium,Total 8.8 mg/dL (8.5-10.1); Chloride 116 mmol/L (98-107); Creatinine, Serum 1.07 mg/dL (0.70-1.30); EST Glomerular Filtration Rate 73 mL/min (>60); Est Glom Filt Rate - Afr Amer 88 mL/min (>60); Estimated Creatinine Clearance 67.28 ml/min; Globulin 4.4 g/dL (2.2-4.2); Glucose 133 mg/dL (74-106); Potassium 3.6 mmol/L (3.5-5.1); Protein, Total 6.9 g/dL (6.4-8.2); Sodium Level 147 mmol/L (136-145)
[2022-05-28 04:52] LABS: Anisocytosis 2+; Macrocytosis 2+
--- NOTE | 2022-05-28 07:34 | PCM.PN.HOSP ---
Reason for Visit Reason for Visit: Diagnoses Hypo-osmolality and hyponatremia (05/25/22) Alcohol use, unspecified, uncomplicated (05/25/22) Alcohol use, unspecified with withdrawal delirium (05/25/22) Encephalopathy, unspecified (05/25/22) Acute respiratory failure with hypoxia (05/25/22) Atelectasis (05/25/22) Tobacco use (05/25/22) Presence of right artificial shoulder joint (05/25/22) Dependence on respirator [ventilator] status (05/25/22) Subjective Subjective Extubated today. Pt more awake, but minimally verbal. Objective Data Objective Data Vital Signs: Vital Signs Temp Pulse Resp BP Pulse Ox O2 Del Method O2 Flow Rate 37.3 C 84 18 189/101 H 98 Mechanical Ventilator 21 05/28/22 05:00 05/28/22 07:15 05/28/22 07:15 05/28/22 05:00 05/28/22 07:15 05/28/22 05:00 05/27/22 08:00 FiO2 21 05/28/22 05:00 Oxygen Flow Rate (L/min) 21 Oxygen Delivery Method Mechanical Ventilator Weight: 84.2 kg Body Mass Index (BMI) 26.5 Intake & Output: Intake and Output for Last 24 Hours 05/26/22 05/27/22 05/28/22 23:59 23:59 23:59 Intake Total 2827.33 / 2952.33 2796.83 / 3801.83 2405.60 / 2405.60 Output Total 710 / 910 1000 / 1175 375 / 375 Balance 2117.33 / 2042.33 1796.83 / 2626.83 2030.60 / 2030.60 Lab / Micro Data Result Diagrams: 05/28/22 03:15 05/28/22 03:15 Labs: Laboratory Results - last 24 hr 05/28/22 03:15: WBC 11.1 H, RBC 2.82 L, Hgb 9.0 L, Hct 29.5 L, MCV 104.6 H, MCH 31.9, MCHC 30.5 L, RDW Std Deviation 69.5 H, RDW Coeff of Jerome 18.2 H, Plt Count 342, MPV 10.6, Immature Gran % (Auto) 0.600, Neut % (Auto) 74.6 H, Lymph % (Auto) 9.9 L, [place] % (Auto) 10.4 H, Eos % (Auto) 3.9, Baso % (Auto) 0.6, Absolute Neuts (auto) 8.3 H, Absolute Lymphs (auto) 1.10, Nucleated RBC % 0, Anisocytosis 2+, Macrocytosis 2+ 05/28/22 03:15: PT 14.3, INR 1.1, APTT 31.2 05/28/22 03:15: Sodium 147 H, Potassium 3.6, Chloride 116 H, Carbon Dioxide 25.0, Anion Gap 6, BUN 24 H, Creatinine 1.07, Estim Creat Clear Calc 67.28, Est GFR (MDRD) Af Amer 88, Est GFR (MDRD) Non-Af 73, BUN/Creatinine Ratio 22.4 H, Glucose 133 H, Calcium 8.8, Total Bilirubin 0.30, AST 88 H, ALT 85 H, Alkaline Phosphatase 77, Total Protein 6.9, Albumin 2.5 L, Globulin 4.4 H, Albumin/Globulin Ratio 0.6 L Micro: Microbiology 05/26/22 11:30 Sputum, Induced/Lukens Gram Stain - Final 05/26/22 11:30 Sputum, Induced/Lukens Respiratory Culture - Preliminary GNR lactose frame polisher 05/25/22 08:10 Blood Culture (Wb) - Anticubital Right Blood Culture - Preliminary No growth in 48 hours. 05/25/22 08:10 Blood Culture (Wb) - Anticubital Left Blood Culture - Preliminary No growth in 48 hours. 05/25/22 08:42 Urine Catheter - Prakash Urine Culture - Final Culture exhibits no growth. 05/25/22 08:35 Sputum, Induced/Lukens Gram Stain - Final 05/25/22 08:35 Sputum, Induced/Lukens Respiratory Culture - Final Klebsiella oxytoca 05/25/22 08:42 Nasal Secretion SARS-CoV-2 & FLU Antigen (Rapid) - Final ABG Data ABG results: ABG 05/27/22 08:16 Specimen Type ART Sample Site R Radial pH 7.49 H Bicarbonate Actual 23.4 Total CO2 24 Base Excess 0 O2 Saturation 95 O2 % 21 ABG pCO2 31.1 L ABG pO2 70 L Alex Test Positive O2 Delivery Device Adult Vent Vent Mode CPAP/PS POC PEEP 8 POC Pressure Suppt 5 Radiography Diagnostic Testing: Radiology Impression Chest X-Ray 05/27/22 08:40 IMPRESSION: Stable cardiomegaly, aortic tortuosity and low volume inspiration. Clearing of the previously described patchy opacities at both bases. No acute or emergent finding. Electronically Signed: Royce Cade, at 10:58 EDT Reading Location ID and State: [facility] / [place] , Service support , Rhythm Strip Rhythm Strip: Sinus Rhythm Rate: 92 Ectopy: None Physical Exam Const Constitutional Narrative: awake, mumbles some words. Neck no lymphadenopathy and supple Resp normal respiratory effort and no retractions Resp Narrative: coarse breath sounds bilaterally. Cardio regular rate, regular rhythm, S1 normal heart sound and S2 normal heart sound GI normal to inspection, nondistended, normoactive bowel sounds and soft to palpation Assessment & Plan Assessment/Plan (1) Acute respiratory failure with hypoxia: PLAN: Due to encephalopathy and inability to protect his airway. No obvious pulmonary etiology identified. Intubated in emergency room on May 25. Extubated the . Started on amp/SB for aspiration. (2) Pneumonia: PLAN: 2/2 Klebsiella On Vanc and meropenem pulmonary toilet (3) Encephalopathy: PLAN: Improving. Most likely from Librium that he was discharged from [facility] for alcohol withdrawal. He was on 50 TID and received a dose the day of admission. Given the long half-life (24-48h), high dosing and probable some underlying liver disease (given chronic acoholism) (4) Alcohol use disorder: PLAN: Patient was a heavy drinker prior. I do not feel the patient is actively going through delirium tremens at this time but will hold off on the lorazepam and Librium. (5) History of right shoulder replacement: PLAN: Patient is to follow-up with Dr. Guerrero on the . Unless new issues arise during this hospitalization we will hold off on consulting orthopedics at this time. Incision looks clean and intact, will consult wound care for management and input. PLAN: Plan VTE prophylaxis: Low molecular weight heparin CODE STATUS: Full code and unverified. There has been talk that the patient would not want this type of situation but there is no definitive CODE STATUS of its been documented nor is there been a definitive power of claim attorney. The patient's sister states that she has a power of claim attorney but lacks the paperwork to support that saying that is lost. Encouraged her to look for the paperwork or contact the claim attorney that performed the paperwork. Discussed with the patient's sister and cousin again today. Updated on the current course. She try to reassure them that the patient is appearing slightly better though still not completely back to normal at this point in time. Would need additional time to see how he overall responds with holding the medications that may have precipitated this event. Charges/Coding Visit Charges Inpatient E&M: 65651 Subs Hosp L2
[2022-05-28 07:40] LABS: Allen Test Positive; Base Excess -1 mmol/L (-2 to +2); Bicarbonate 23.1 mmol/L (22-26); Blood Gas Specimen Type ART; FI02 21; Mode CPAP/PS; O2 Delivery Device Adult Vent; PEEP 8; PO2 73 mmHG (75-100); PS 5; SITE R Radial; SO2 96 % (95-99); Total Carbon Dioxide 24 mmol/L; pCO2 31.5 mmHg (35-45); pH 7.47 (7.35-7.45)
[2022-05-28] MEDS: TITRATION PARAMETER CHANGE 1 EACH IV (08:27)
--- NOTE | 2022-05-28 09:07 | PN.CC_ITS ---
Assessment & Plan Assessment/Plan (1) Pneumonia: PLAN: Improving, SpO2 98% on room air.Sputum culture x2 showed Klebsiella/Raoultella (a subset of Klebs). CXR was cleared yesterday. Needs encouragement to cough, not able to expectorate completely, needs oral suctioning. WOuld keep overnight in ICU until he is able to manage his respi ratory secretions better. - continue Meropenem until 05/30 (2) On mechanically assisted ventilation: PLAN: extubated today (3) History of right shoulder replacement: PLAN: patient is on vanco empirically for pneumonia with a new prosthetic R shoulder, cultures neg to date - stop vanco today (4) Encephalopathy: PLAN: Improving. Awaiting further recovery. - CT head today - PT, OT -valsartan and PRN hydralazine started today. - neuro consult if patient's mental status does not improve. - social media specialist consult to clarify who is the legal POA (sister and older male cousin both say it is them; children are estranged and have not visited). - patient may need placement in light of his altered mental status. (5) Alcohol use disorder: PLAN: chronic; detoxed. (6) Acute respiratory failure with hypoxia: PLAN: Resolved/ Subjective Subjective Remains confused after extubation, not following commands, is lethargic, good cough, not verbal, grunting. No complaints. Opens eyes, does not know family members. Not oriented, would not say his name. Overnight: BP elevated, no improvement after extubation; antihypertensive started. Extubated uneventfully this AM after passing SBT with RSBI in 20s. Objective Data Objective Data Vital Signs: Vital Signs Temp Pulse Resp BP Pulse Ox O2 Del Method O2 Flow Rate 99.3 F H 84 18 198/95 H 98 Mechanical Ventilator 05/28/22 06:00 05/28/22 07:15 05/28/22 07:15 05/28/22 07:00 05/28/22 07:15 05/28/22 08:00 05/27/22 08:00 FiO2 05/28/22 08:00 Oxygen Flow Rate (L/min) 21 Oxygen Delivery Method Mechanical Ventilator Weight: 185 lb 10.067 oz Body Mass Index (BMI) 26.5 Intake & Output: Intake and Output for Last 24 Hours 05/26/22 05/27/22 05/28/22 23:59 23:59 23:59 Intake Total 2827.33 / 2952.33 2796.83 / 3801.83 3180.60 / 3180.60 Output Total 710 / 910 1000 / 1175 375 / 375 Balance 2117.33 / 2042.33 1796.83 / 2626.83 2805.60 / 2805.60 Lab / Micro Data Attestation: I reviewed the patient's lab results. Result Diagrams: 05/28/22 03:15 05/28/22 03:15 Labs: Laboratory Results - last 24 hr 05/28/22 03:15: WBC 11.1 H, RBC 2.82 L, Hgb 9.0 L, Hct 29.5 L, MCV 104.6 H, MCH 31.9, MCHC 30.5 L, RDW Std Deviation 69.5 H, RDW Coeff of Jerome 18.2 H, Plt Count 342, MPV 10.6, Immature Gran % (Auto) 0.600, Neut % (Auto) 74.6 H, Lymph % (Auto) 9.9 L, [place] % (Auto) 10.4 H, Eos % (Auto) 3.9, Baso % (Auto) 0.6, Absolute Neuts (auto) 8.3 H, Absolute Lymphs (auto) 1.10, Nucleated RBC % 0, Anisocytosis 2+, Macrocytosis 2+ 05/28/22 03:15: PT 14.3, INR 1.1, APTT 31.2 05/28/22 03:15: Sodium 147 H, Potassium 3.6, Chloride 116 H, Carbon Dioxide 25.0, Anion Gap 6, BUN 24 H, Creatinine 1.07, Estim Creat Clear Calc 67.28, Est GFR (MDRD) Af Amer 88, Est GFR (MDRD) Non-Af 73, BUN/Creatinine Ratio 22.4 H, Glucose 133 H, Calcium 8.8, Total Bilirubin 0.30, AST 88 H, ALT 85 H, Alkaline Phosphatase 77, Total Protein 6.9, Albumin 2.5 L, Globulin 4.4 H, Albumin/Globulin Ratio 0.6 L Micro: Microbiology 05/26/22 11:30 Sputum, Induced/Lukens Gram Stain - Final 05/26/22 11:30 Sputum, Induced/Lukens Respiratory Culture - Final Raoultella ornithinolytica 05/25/22 08:10 Blood Culture (Wb) - Anticubital Right Blood Culture - Preliminary No growth in 48 hours. 05/25/22 08:10 Blood Culture (Wb) - Anticubital Left Blood Culture - Preliminary No growth in 48 hours. 05/25/22 08:42 Urine Catheter - Prakash Urine Culture - Final Culture exhibits no growth. 05/25/22 08:35 Sputum, Induced/Lukens Gram Stain - Final 05/25/22 08:35 Sputum, Induced/Lukens Respiratory Culture - Final Klebsiella oxytoca 05/25/22 08:42 Nasal Secretion SARS-CoV-2 & FLU Antigen (Rapid) - Final ABG Data ABG results: ABG 05/28/22 07:35 Specimen Type ART Sample Site R Radial pH 7.47 H Bicarbonate Actual 23.1 Total CO2 24 Base Excess -1 O2 Saturation 96 O2 % 21 ABG pCO2 31.5 L ABG pO2 73 L Alex Test Positive O2 Delivery Device Adult Vent Vent Mode CPAP/PS POC PEEP 8 POC Pressure Suppt 5 Attestation: I personally reviewed and interpreted this ABG as follows: Radiography Diagnostic Testing: Radiology Impression Chest X-Ray 05/27/22 08:40 IMPRESSION: Stable cardiomegaly, aortic tortuosity and low volume inspiration. Clearing of the previously described patchy opacities at both bases. No acute or emergent finding. Electronically Signed: Royce Cade, at 10:58 EDT Reading Location ID and State: [facility] / [place] , Service support , Rhythm Strip Rhythm Strip: Sinus Rhythm Rate: 92 Ectopy: None Physical Exam Narrative Awake, lethargic/sedated, NAD, good cough, needs assistance raising sputum from back of throat with oral suctioning. HEENT: garbled speech, mmm with thick secretions, neck supple. Chest coarse BS but clear bilaterally. Cor normal s1s2 no murmurs Abd soft, NT, +BS ext no cce. Neuro: nonfocal. Difficult exam due to not cooperating with requests. Charges/Coding Procedures Hospitalists Procedures: [id number] Critial Care 1st Hr
[2022-05-28] MEDS: Enoxaparin 40 MG/0.4 ML Syringe SC (09:51)
[2022-05-28] MEDS: 0.9% Normal Saline 1,000 ML 100 ML IV ×2 (11:41)
--- NOTE | 2022-05-28 14:05 | CT_ITS ---
STUDY: CT BRAIN WITHOUT CONTRAST REASON FOR EXAM: Male, 71 years old. Confusion Individualized dose optimization techniques were used for this CT. TECHNIQUE: Transaxial CT imaging of the brain was performed without administration of intravenous contrast material. COMPARISON: 05.25.22 FINDINGS: There are calcifications around the carotid artery. These are noted in the cavernous carotid arteries. Normal calvarium. Normal soft tissues. There is mild cerebral atrophy with widening of the extra-axial spaces and ventricular dilatation. There are areas of decreased attenuation within the white matter tracts of the supratentorial brain, consistent with microvascular disease changes. Normal basal ganglia and thalami. Normal brainstem. There is mild cerebellar atrophy. There is no intracranial hemorrhage. There are no findings of an acute ischemic infarction. Normal visualized paranasal sinuses. ASPECTS Score for Acute Strokes: 10/10 CT/Brain/Head without Contrast IMPRESSION: There are no acute findings. Chronic involutional changes of the brain. Electronically Signed: Artur Mullen MD at 15:55 EDT ,
[2022-05-28] MEDS: Enalaprilat 1.25 MG/ML Vial 0.625 MG IV ×3 (14:12→23:53)
[2022-05-28] MEDS: 0.45% Normal Saline 1,000 ML 75 ML IV (14:15)
--- NOTE | 2022-05-28 20:00 | NURSING ---
Pt's mouth sxn'd for copious amt thick clear ropy secretions.
--- NOTE | 2022-05-28 20:45 | NURSING ---
Pt's mouth sxn'd for mod amt thick ropy clear secretions; asked where's my sister? Informed pt that his sister was here today earlier to visit, pt replied no she wasn't, my sister is .
--- NOTE | 2022-05-28 21:40 | NURSING ---
Pt sxn'd for lg amt white frothy secretions in pharyngeal area.
--- NOTE | 2022-05-28 22:47 | NURSING ---
Pt sxn'd for mod amt frothy white secretions from pharyngeal area. Pt encouraged to cough and swallow secretions as he clamped his mouth closed to prevent sxn, but did not swallow secretions. Mouth care provided, lip and mouth moisturizer used.
[2022-05-29] VITALS (23 sets, daily range): BP systolic 112–174; BP diastolic 72–100; PULSE 63–89; RESP 16–26; TEMP 36.7–37.4; O2SAT 94–98; BMI 26.8; BMI 26.2
--- NOTE | 2022-05-29 00:05 | NURSING ---
Pt sxn'd for sm amt thick frothy white secretions from pharyngeal airway.
--- NOTE | 2022-05-29 02:05 | NURSING ---
Pt sxn'd for lg amt frothy thick white secretions from pharyngeal area. Mouthcare provided. Face cleaned, as pt was letting frothy secretions drip from corner of his mouth.
[2022-05-29] MEDS: Ipratropium/Albuterol Sulfate 3 ML AMPUL.NEB INHALATION ×5 (03:29→19:04)
[2022-05-29] MEDS: 0.45% Normal Saline 1,000 ML 75 ML IV ×2 (04:16→12:20)
[2022-05-29] MEDS: Enalaprilat 1.25 MG/ML Vial 0.625 MG IV ×3 (05:30→18:17)
[2022-05-29 05:54] LABS: Absolute Lymphocyte Count 0.97 X10^3/uL (0.83-4.51); Absolute Neutrophil Count 6.9 X10^3/uL (2.0-7.7); Basophil# 0.05 X10^3/uL; Basophil% 0.5 % (0-1); Eosinophil# 0.51 X10^3/uL; Eosinophils% 5.4 % (0-5); Hematocrit 33.6 % (40-54); Hemoglobin 10.8 g/dL (13.0-16.5); Lymphocyte # 0.97 X10^3/ul (0.83-4.51); Lymphocyte % 10.3 % (19-41); Mean Corpuscular Hgb 32.6 pg (27.0-32.0); Mean Corpuscular Volume 101.5 fL (80-94); Mean Platelet Vol. 10.6 fl (6.2-12.0); Monocyte# 0.87 X10^3/uL; Monocyte% 9.3 % (0-10); NRBC Flagged by Analyzer 0 % (0-5); Neutrophil # 6.94 X10^3/uL (2.7-7.7); Neutrophil % 74.1 % (47-70); Platelet Count 302 K/mm3 (150-450); RBC Distribution Width CV 17.2 % (11.6-14.6); Red Blood Count 3.31 M/mm3 (4.6-6.2); White Blood Count 9.4 K/mm3 (4.4-11.0)
[2022-05-29 06:07] LABS: Magnesium 1.7 mg/dL (1.6-2.6); Phosphorus 3.2 mg/dL (2.5-4.9)
[2022-05-29 06:18] LABS: Anion Gap 9 (5-15); BUN 15 mg/dL (7-18); BUN/Creat Ratio 17.8 RATIO (10-20); Calcium,Total 9.2 mg/dL (8.5-10.1); Chloride 110 mmol/L (98-107); Creatinine, Serum 0.84 mg/dL (0.70-1.30); EST Glomerular Filtration Rate 96 mL/min (>60); Est Glom Filt Rate - Afr Amer 116 mL/min (>60); Glucose 94 mg/dL (74-106); Potassium 3.7 mmol/L (3.5-5.1); Sodium Level 142 mmol/L (136-145)
--- NOTE | 2022-05-29 06:31 | PN.CC_ITS ---
Assessment & Plan Assessment/Plan (1) Acute respiratory failure with hypoxia: PLAN: Plan RECOMMENDATIONS: 1. Continue aggressive bronchopulmonary hygiene with frequent suctioning, if needed. 2. Okay to de-escalate antibiotics to complete treatment course. 3. Speech therapy evaluation. 4. PT/OT evaluations. 5. Continue bronchodilators. 6. Continue appropriate DVT prophylaxis. 7. The patient is medically stable for transfer out of the intensive care unit. IMPRESSIONS: 1. Acute hypoxemic respiratory failure secondary to Klebsiella pneumonia The patient was notably successfully extubated and is doing well from a respirat ory perspective on room air. However, he does still have significant oral secretions, which will need to be aggressively suctioned. Recommend maintaining aspiration precautions along with aggressive bronchopulmonary hygiene. Antibiotics can be de-escalated per orders. 2. Encephalopathy Most likely metabolic in etiology. Continue to avoid sedating medications. Continue supportive measures noted above. 3. History of alcohol dependency No current signs of acute alcohol withdrawal. We will continue to monitor clinically. 4. History of hypertension/GERD/recent right shoulder replacement surgery Complicates care, management, recovery and prognosis. Okay to utilize IV Lopressor for blood pressure control, in light of patient's n.p.o. status. This note was generated with Ornis dictation software. It may contain incorrect words, spelling, and punctuation that were not noted in checking the note before signing. Subjective Subjective The patient was seen and examined at the bedside this morning. Events from the last 24 hours have been reviewed. The patient is currently afebrile, hemodynamically stable and maintaining appropriate oxygen saturations on room air. The patient was initially admitted to the hospital on May 25 after presenting with altered mentation. According to documentation, the patient had underwent a shoulder replacement surgery at [facility] on May 16. The patient was discharged from the hospital on the and was noted during his hospitalization stay to have symptoms concerning for alcohol withdrawal. He was subsequently placed on Librium and as needed Ativan. The patient was ultimately intubated in the emergency department over concerns for airway protection. He was placed on empiric antimicrobials, due to underlying Klebsiella pneumonia. The patient was able to be extubated on the morning of May 28. Objective Data Objective Data The patient's most recent lab work, culture data and imaging studies have all been personally reviewed. Sputum culture dated May 25 was positive for 2+ pansensitive Klebsiella. Vital Signs: Vital Signs Temp Pulse Resp BP Pulse Ox O2 Del Method O2 Flow Rate 98.7 F 73 21 H 174/93 H 96 Room Air 21 05/29/22 05:00 05/29/22 06:00 05/29/22 06:00 05/29/22 06:00 05/29/22 06:00 05/29/22 06:00 05/27/22 08:00 FiO2 21 05/28/22 14:00 Oxygen Flow Rate (L/min) 21 Oxygen Delivery Method Room Air Weight: 187 lb 2.759 oz Body Mass Index (BMI) 26.8 Intake & Output: Intake and Output for Last 24 Hours 05/27/22 05/28/22 05/29/22 23:59 23:59 23:59 Intake Total 2796.83 / 3801.83 4092.27 / 4092.27 1180 / 1180 Output Total 1000 / 1175 1700 / 2100 650 / 650 Balance 1796.83 / 2626.83 2392.27 / 1991.27 530 / 530 Lab / Micro Data Attestation: I reviewed the patient's lab results. Result Diagrams: 05/29/22 05:35 05/29/22 05:35 Labs: Laboratory Results - last 24 hr 05/29/22 05:35: Phosphorus 3.2, Magnesium 1.7 05/29/22 05:35: Sodium 142, Potassium 3.7, Chloride 110 H, Carbon Dioxide 23.0, Anion Gap 9, BUN 15, Creatinine 0.84, Estim Creat Clear Calc 85.70, Est GFR (MDRD) Af Amer 116, Est GFR (MDRD) Non-Af 96, BUN/Creatinine Ratio 17.8, Glucose 94, Calcium 9.2 Micro: Microbiology 05/26/22 10:45 Blood Culture (Wb) - Right Wrist Blood Culture - Preliminary No growth in 48 hours. 05/26/22 10:30 Blood Culture (Wb) - Anticubital Left Blood Culture - Preliminary No growth in 48 hours. 05/26/22 11:30 Sputum, Induced/Lukens Gram Stain - Final 05/26/22 11:30 Sputum, Induced/Lukens Respiratory Culture - Final Raoultella ornithinolytica 05/25/22 08:10 Blood Culture (Wb) - Anticubital Right Blood Culture - Preliminary No growth in 48 hours. 05/25/22 08:10 Blood Culture (Wb) - Anticubital Left Blood Culture - Preliminary No growth in 48 hours. 05/25/22 08:42 Urine Catheter - Prakash Urine Culture - Final Culture exhibits no growth. 05/25/22 08:35 Sputum, Induced/Lukens Gram Stain - Final 05/25/22 08:35 Sputum, Induced/Lukens Respiratory Culture - Final Klebsiella oxytoca 05/25/22 08:42 Nasal Secretion SARS-CoV-2 & FLU Antigen (Rapid) - Final ABG Data ABG results: ABG 05/28/22 07:35 Specimen Type ART Sample Site R Radial pH 7.47 H Bicarbonate Actual 23.1 Total CO2 24 Base Excess -1 O2 Saturation 96 O2 % 21 ABG pCO2 31.5 L ABG pO2 73 L Alex Test Positive O2 Delivery Device Adult Vent Vent Mode CPAP/PS POC PEEP 8 POC Pressure Suppt 5 Radiography Diagnostic Testing: Radiology Impression Brain CT 05/28/22 14:05 IMPRESSION: There are no acute findings. Chronic involutional changes of the brain. Electronically Signed: Artur Mullen MD at 15:55 EDT , Rhythm Strip Rhythm Strip: Sinus Rhythm Rate: 92 Ectopy: None Physical Exam Const alert and no apparent distress Constitutional Narrative: The patient remains lethargic this morning. General Appearance: cooperative HEENT normocephalic and head/scalp atraumatic Teeth and Gingiva: poor dentition Eyes PERRL and EOMs intact bilaterally Neck supple General: trachea midline Chest inspection of chest normal Resp normal respiratory effort Auscultation: rhonchi and diminished lung sounds Cardio regular rate and regular rhythm GI normal to inspection, nondistended, normoactive bowel sounds Extremity no clubbing, cyanosis or edema Skin no rashes or lesions noted Neuro CN's II-XII intact bilaterally and no focal motor deficits Psych Mood & Affect: flat affect Charges/Coding Visit Charges Inpatient E&M: 76726 Subs Hosp L3
[2022-05-29 06:59] LABS: Mean Corp Hgb Conc 32.1 g/dL (32-36)
--- NOTE | 2022-05-29 07:58 | PN.HOSP_ITS ---
Reason for Visit Reason for Visit: Diagnoses Hypo-osmolality and hyponatremia (05/25/22) Alcohol use, unspecified, uncomplicated (05/25/22) Alcohol use, unspecified with withdrawal delirium (05/25/22) Encephalopathy, unspecified (05/25/22) Pneumonia, unspecified organism (05/25/22) Acute respiratory failure with hypoxia (05/25/22) Atelectasis (05/25/22) Tobacco use (05/25/22) Presence of right artificial shoulder joint (05/25/22) Dependence on respirator [ventilator] status (05/25/22) Subjective Subjective Patient is a 71-year-old gentleman with recent reverse shoulder arthroplasty at [facility] on 05/16/2022 who presented to the emergency department with altered mental status. Patient was intubated for airway protection and subsequently extubated. Sputum culture so far positive for Klebsiella as well as Raoultella Objective Data Objective Data Vital Signs: Vital Signs Temp Pulse Resp BP Pulse Ox O2 Del Method O2 Flow Rate 99.1 F 78 20 H 160/89 H 96 Room Air 21 05/29/22 07:00 05/29/22 07:00 05/29/22 07:00 05/29/22 07:00 05/29/22 07:00 05/29/22 07:00 05/27/22 08:00 FiO2 21 05/28/22 14:00 Oxygen Flow Rate (L/min) 21 Oxygen Delivery Method Room Air Weight: 84.9 kg Body Mass Index (BMI) 26.8 Intake & Output: Intake and Output for Last 24 Hours 05/27/22 05/28/22 05/29/22 23:59 23:59 23:59 Intake Total 2796.83 / 3801.83 4092.27 / 4092.27 1180 / 1180 Output Total 1000 / 1175 1700 / 2100 650 / 650 Balance 1796.83 / 2626.83 2392.27 / 1992.27 530 / 530 Lab / Micro Data Result Diagrams: 05/29/22 05:35 05/29/22 05:35 Labs: Laboratory Results - last 24 hr 05/29/22 05:35: Phosphorus 3.2, Magnesium 1.7 05/29/22 05:35: WBC 9.4, RBC 3.31 L, Hgb 10.8 L, Hct 33.6 L, MCV 101.5 H, MCH 32.6 H, MCHC 32.1 D, RDW Std Deviation 65.0 H, RDW Coeff of Jerome 17.2 H, Plt Count 302, MPV 10.6, Immature Gran % (Auto) 0.400, Neut % (Auto) 74.1 H, Lymph % (Auto) 10.3 L, [place] % (Auto) 9.3, Eos % (Auto) 5.4 H, Baso % (Auto) 0.5, Absolute Neuts (auto) 6.9, Absolute Lymphs (auto) 0.97, Nucleated RBC % 0 05/29/22 05:35: Sodium 142, Potassium 3.7, Chloride 110 H, Carbon Dioxide 23.0, Anion Gap 9, BUN 15, Creatinine 0.84, Estim Creat Clear Calc 85.70, Est GFR (MDRD) Af Amer 116, Est GFR (MDRD) Non-Af 96, BUN/Creatinine Ratio 17.8, Glucose 94, Calcium 9.2 Micro: Microbiology 05/26/22 10:45 Blood Culture (Wb) - Right Wrist Blood Culture - Preliminary No growth in 48 hours. 05/26/22 10:30 Blood Culture (Wb) - Anticubital Left Blood Culture - Preliminary No growth in 48 hours. 05/26/22 11:30 Sputum, Induced/Lukens Gram Stain - Final 05/26/22 11:30 Sputum, Induced/Lukens Respiratory Culture - Final Raoultella ornithinolytica 05/25/22 08:10 Blood Culture (Wb) - Anticubital Right Blood Culture - Preliminary No growth in 48 hours. 05/25/22 08:10 Blood Culture (Wb) - Anticubital Left Blood Culture - Preliminary No growth in 48 hours. 05/25/22 08:42 Urine Catheter - Prakash Urine Culture - Final Culture exhibits no growth. 05/25/22 08:35 Sputum, Induced/Lukens Gram Stain - Final 05/25/22 08:35 Sputum, Induced/Lukens Respiratory Culture - Final Klebsiella oxytoca 05/25/22 08:42 Nasal Secretion SARS-CoV-2 & FLU Antigen (Rapid) - Final Radiography Diagnostic Testing: Radiology Impression Brain CT 05/28/22 14:05 IMPRESSION: There are no acute findings. Chronic involutional changes of the brain. Electronically Signed: Artur Mullen MD at 15:55 EDT , Rhythm Strip Rhythm Strip: Sinus Rhythm Rate: 92 Ectopy: None Physical Exam Narrative GENERAL: Patient is awake but not engaging in any conversation HEENT: Atraumatic; normocephalic EYES; Anicteric, Normal Conjunctiva NECK; supple, normal thyroid, RESPIRATORY: Diminished to auscultation CARDIOVASCULAR: Regular S1 S2, GI: soft, normoactive bowel sounds, : No Renal angle tenderness; EXTREMITIES: No edema, no clubbing, MUSCULOSKELETAL: no muscle wasting NEURO: Moving all extremities spontaneously SKIN: No Rash PSYCH; Flat affect Assessment & Plan Assessment/Plan (1) Pneumonia: PLAN: Plan Patient is a 71-year-old gentleman with recent reverse shoulder arthroplasty at [facility] on 05/16/2022 who presented to the emergency department with altered mental status. Patient was intubated for airway protection and subsequently extubated. Sputum culture so far positive for Klebsiella as well as Raoultella . Acute metabolic encephalopathy ? Secondary to a combination of factors including suspected alcohol withdrawal as well as acute hypoxia from respiratory failure plan is to treat underlying condition 2. Acute respiratory failure with hypoxia ? Secondary to patient being encephalopathic and inability to protect his airway was intubated on 05/25/2022 and extubated on 05/28/2022. 3. Aspiration pneumonia with gram-negative organisms (Klebsiella as well as Raoultella) ? Cultures came back positive for Klebsiella as well as Raoultella. Patient remains on broad-spectrum antibiotic therapy plan is for patient to undergo speech and swallow eval 4. Chronic alcohol dependence ? Recently managed for acute alcohol withdrawal. Patient was not started on benzos on admission we will continue with monitoring 5. Recent history of right shoulder replacement ? Patient is due to follow-up with Dr. Guerrero on 05/29/2021 6. Hypertension - Blood pressure controlled, home medications continued with dose adjustment as needed 7. COPD ? Aerosol treatments as needed 8. Anemia - Secondary to chronic disorder monitoring H&H and transfuse if patient becomes symptomatic or hemoglobin falls below 7 9. Acute kidney injury ? Resolved with rehydration 10. DVT prophylaxis - On enoxaparin Time spent in the patient's overall evaluation,decision-making process, review of diagnostic data, adjustment of management, discussion with other providers, nursing nursing and ancillary staff involved in patient's care documentation,60 Minutes Charges/Coding Visit Charges Inpatient E&M: 10924 Subs Hosp L3
[2022-05-29] MEDS: Enoxaparin 40 MG/0.4 ML Syringe SC (11:17)
[2022-05-29] MEDS: 0.9% Saline Lock 10 ML Syringe IV ×3 (12:22→18:16)
[2022-05-29] MEDS: Metoprolol Tartrate 5 MG/5 ML Vial IV ×2 (12:23→18:16)
[2022-05-29] MEDS: Cefazolin 2 GM in 0.9% Normal Saline 100 ML IV ×2 (14:51→22:18)
--- NOTE | 2022-05-29 16:24 | CASEMGMT ---
Social Work SW received VM from pt son Gustavo Sanchez stating, I relinquish my rights of health care decision maker to Bhargavi Hercules. Neither son Gustavo nor Sriram have been in to see pt. Pt has been extubated but continues to be confused. AYUSH will continue to follow to address HCPOA with pt once confusion clears. ANA ROSA Montgomery
[2022-05-30] VITALS (17 sets, daily range): BP systolic 111–145; BP diastolic 61–88; PULSE 75–85; RESP 18–24; TEMP 36.6–37.6; O2SAT 89–99; BMI 26.3
[2022-05-30] MEDS: 0.45% Normal Saline 1,000 ML 75 ML IV ×2 (01:33→14:13)
--- NOTE | 2022-05-30 04:24 | CPS ---
Pt is unable to swallow or cough his secretions up to clear airway.
--- NOTE | 2022-05-30 04:48 | MDS.RN ---
patient remains unable to swallow or manage oral secretions. patient oral suctioned multiple times throughout shift.
[2022-05-30] MEDS: Cefazolin 2 GM in 0.9% Normal Saline 100 ML IV ×3 (05:31→21:35)
[2022-05-30] MEDS: Atropine Sulfate 1% 2 ml Bottle 2 DRP PO (05:37)
[2022-05-30 06:26] LABS: Absolute Lymphocyte Count 0.77 X10^3/uL (0.83-4.51); Absolute Neutrophil Count 8.3 X10^3/uL (2.0-7.7); Basophil# 0.04 X10^3/uL; Basophil% 0.4 % (0-1); Eosinophil# 0.28 X10^3/uL; Eosinophils% 2.7 % (0-5); Hematocrit 33.3 % (40-54); Hemoglobin 10.6 g/dL (13.0-16.5); Lymphocyte # 0.77 X10^3/ul (0.83-4.51); Lymphocyte % 7.5 % (19-41); Mean Corp Hgb Conc 31.8 g/dL (32-36); Mean Corpuscular Hgb 31.8 pg (27.0-32.0); Monocyte# 0.75 X10^3/uL; Monocyte% 7.4 % (0-10); NRBC Flagged by Analyzer 0 % (0-5); Neutrophil # 8.31 X10^3/uL (2.7-7.7); Neutrophil % 81.5 % (47-70); Platelet Count 309 K/mm3 (150-450); RBC Distribution Width CV 16.8 % (11.6-14.6); RBC Distribution Width SD 62.5 fl (35.1-43.9); Red Blood Count 3.33 M/mm3 (4.6-6.2); White Blood Count 10.2 K/mm3 (4.4-11.0)
[2022-05-30] MEDS: Enalaprilat 1.25 MG/ML Vial 0.625 MG IV ×4 (06:39→23:25)
[2022-05-30] MEDS: Metoprolol Tartrate 5 MG/5 ML Vial IV ×4 (06:40→23:24)
[2022-05-30 06:46] LABS: Anion Gap 9 (5-15); BUN 24 mg/dL (7-18); BUN/Creat Ratio 23.8 RATIO (10-20); Calcium,Total 9.3 mg/dL (8.5-10.1); Chloride 107 mmol/L (98-107); Creatinine, Serum 1.01 mg/dL (0.70-1.30); EST Glomerular Filtration Rate 78 mL/min (>60); Est Glom Filt Rate - Afr Amer 94 mL/min (>60); Estimated Creatinine Clearance 70.27 ml/min; Glucose 87 mg/dL (74-106); Magnesium 1.8 mg/dL (1.6-2.6); Phosphorus 3.3 mg/dL (2.5-4.9); Potassium 3.5 mmol/L (3.5-5.1); Sodium Level 138 mmol/L (136-145)
[2022-05-30] MEDS: Ipratropium/Albuterol Sulfate 3 ML AMPUL.NEB INHALATION ×4 (07:17→23:01)
--- NOTE | 2022-05-30 07:44 | PN.HOSP_ITS ---
Reason for Visit Reason for Visit: Diagnoses Hypo-osmolality and hyponatremia (05/25/22) Alcohol use, unspecified, uncomplicated (05/25/22) Alcohol use, unspecified with withdrawal delirium (05/25/22) Encephalopathy, unspecified (05/25/22) Pneumonia, unspecified organism (05/25/22) Acute respiratory failure with hypoxia (05/25/22) Atelectasis (05/25/22) Tobacco use (05/25/22) Presence of right artificial shoulder joint (05/25/22) Dependence on respirator [ventilator] status (05/25/22) Subjective Subjective Seen still remains lethargic however much more responsive compared to the day prior. Patient was assessed by speech therapy recommendation is for patient to be kept n.p.o. till he is able to participate in any swallowing test. Objective Data Objective Data Vital Signs: Vital Signs Temp Pulse Resp BP Pulse Ox O2 Del Method O2 Flow Rate 97.9 F 78 21 H 122/86 H 95 Nasal Cannula 2 05/30/22 07:00 05/30/22 07:30 05/30/22 07:30 05/30/22 07:00 05/30/22 07:42 05/30/22 07:42 05/30/22 07:42 FiO2 21 05/28/22 14:00 Oxygen Flow Rate (L/min) 2 Oxygen Delivery Method Nasal Cannula Weight: 83.5 kg Body Mass Index (BMI) 26.3 Intake & Output: Intake and Output for Last 24 Hours 05/28/22 05/29/22 05/30/22 23:59 23:59 23:59 Intake Total 4092.27 / 4092.27 2137.5 / 2137.5 1101.25 / 1101.25 Output Total 1700 / 2100 1350 / 1550 450 / 450 Balance 2392.27 / 1992.27 787.5 / 587.5 651.25 / 651.25 Lab / Micro Data Result Diagrams: 05/30/22 05:22 05/30/22 05:22 Labs: Laboratory Results - last 24 hr 05/30/22 05:22: WBC 10.2, RBC 3.33 L, Hgb 10.6 L, Hct 33.3 L, MCV 100.0 H, MCH 31.8, MCHC 31.8 L, RDW Std Deviation 62.5 H, RDW Coeff of Jerome 16.8 H, Plt Count 309, MPV 12.0, Immature Gran % (Auto) 0.500, Neut % (Auto) 81.5 H, Lymph % (Auto) 7.5 L, [place] % (Auto) 7.4, Eos % (Auto) 2.7, Baso % (Auto) 0.4, Absolute Neuts (auto) 8.3 H, Absolute Lymphs (auto) 0.77 L, Nucleated RBC % 0 05/30/22 05:22: Sodium 138, Potassium 3.5, Chloride 107, Carbon Dioxide 22.0, Anion Gap 9, BUN 24 H, Creatinine 1.01, Estim Creat Clear Calc 70.27, Est GFR (MDRD) Af Amer 94, Est GFR (MDRD) Non-Af 78, BUN/Creatinine Ratio 23.8 H, Glucose 87, Calcium 9.3, Phosphorus 3.3, Magnesium 1.8 Micro: Microbiology 05/26/22 10:45 Blood Culture (Wb) - Right Wrist Blood Culture - Preliminary No growth in 48 hours. 05/26/22 10:30 Blood Culture (Wb) - Anticubital Left Blood Culture - Preliminary No growth in 48 hours. 05/26/22 11:30 Sputum, Induced/Lukens Gram Stain - Final 05/26/22 11:30 Sputum, Induced/Lukens Respiratory Culture - Final Raoultella ornithinolytica 05/25/22 08:10 Blood Culture (Wb) - Anticubital Right Blood Culture - Preliminary No growth in 48 hours. 05/25/22 08:10 Blood Culture (Wb) - Anticubital Left Blood Culture - Preliminary No growth in 48 hours. 05/25/22 08:42 Urine Catheter - Prakash Urine Culture - Final Culture exhibits no growth. 05/25/22 08:35 Sputum, Induced/Lukens Gram Stain - Final 05/25/22 08:35 Sputum, Induced/Lukens Respiratory Culture - Final Klebsiella oxytoca 05/25/22 08:42 Nasal Secretion SARS-CoV-2 & FLU Antigen (Rapid) - Final Rhythm Strip Rhythm Strip: Sinus Rhythm Rate: 92 Ectopy: None Physical Exam Narrative GENERAL: Patient is awake but not engaging in any conversation HEENT: Atraumatic; normocephalic EYES; Anicteric, Normal Conjunctiva NECK; supple, normal thyroid, RESPIRATORY: Diminished to auscultation CARDIOVASCULAR: Regular S1 S2, GI: soft, normoactive bowel sounds, : No Renal angle tenderness; EXTREMITIES: No edema, no clubbing, MUSCULOSKELETAL: no muscle wasting NEURO: Moving all extremities spontaneously SKIN: No Rash PSYCH; Flat affect Assessment & Plan Assessment/Plan (1) Pneumonia: PLAN: Plan Patient is a 71-year-old gentleman with recent reverse shoulder arthroplasty at [facility] on 05/16/2022 who presented to the emergency department with altered mental status. Patient was intubated for airway protection and subsequently extubated. Sputum culture so far positive for Klebsiella as well as Raoultella . Acute metabolic encephalopathy ? Secondary to a combination of factors including suspected alcohol withdrawal as well as acute hypoxia from respiratory failure plan is to treat underlying condition 2. Acute respiratory failure with hypoxia ? Secondary to patient being encephalopathic and inability to protect his airway was intubated on 05/25/2022 and extubated on 05/28/2022. 3. Aspiration pneumonia with gram-negative organisms (Klebsiella as well as Raoultella) ? Cultures came back positive for Klebsiella as well as Raoultella. Patient remains on broad-spectrum antibiotic therapy plan is for patient to undergo speech and swallow eval 4. Chronic alcohol dependence ? Recently managed for acute alcohol withdrawal. Patient was not started on benzos on admission we will continue with monitoring 5. Recent history of right shoulder replacement ? Patient is due to follow-up with Dr. Guerrero on 05/29/2021 6. Hypertension - Blood pressure controlled, home medications continued with dose adjustment as needed 7. COPD ? Aerosol treatments as needed 8. Anemia - Secondary to chronic disorder monitoring H&H and transfuse if patient becomes symptomatic or hemoglobin falls below 7 9. Acute kidney injury ? Resolved with rehydration 10. DVT prophylaxis - On enoxaparin Time spent in the patient's overall evaluation,decision-making process, review of diagnostic data, adjustment of management, discussion with other providers, nursing nursing and ancillary staff involved in patient's care documentation,40 Minutes Charges/Coding Visit Charges Inpatient E&M: 87841 Subs Hosp L2
--- NOTE | 2022-05-30 10:44 | CASEMGMT ---
AYUSH called patient's son Sriram and left him a voice mail requesting a return call regarding decision making for patient. Alva Salomon BIBLE READERRaman LOERA
[2022-05-30] MEDS: Enoxaparin 40 MG/0.4 ML Syringe SC (11:13)
[2022-05-30] MEDS: 0.9% Saline Lock 10 ML Syringe IV ×3 (11:13→23:25)
--- NOTE | 2022-05-30 11:40 | CASEMGMT ---
AYUSH received a return phone call from patient's son Sriram. AYUSH asked if Sriram???and his brother have talked any more about decision making. Sriram reports has not yet received a call from a physician.?AYUSH let Sriram know SW will ask the physician to give him a phone call. AYUSH then sent Dr Bautista a message via backline to call patient's son. ? Dr Bautista called SW back and he was not aware of situation. AYUSH explained that patient has 2 sons who are the legal next of kin so the children would be the decision makers.?AYUSH explained the sons?wanted to speak with the physician to make sure they are doing the right thing in handing over decision making to patient's sister. Physician was not comfortable talking with Sriram over the phone as he and patient have been estranged for over 20 years. Patient's son Sriram will be in to the hospital. ? Sriram arrived at [facility]. AYUSH notified physician. This AYUSH and AYUSH Mcgowan accompanied physician to speak with Sriram. Physician asked Sriram if he would like to see patient. This appeared to irritate Sriram as evidenced by Sriram expressing belief/perception the physician was? ??passing judgement on Sriram?and making Sriram come to the hospital to talk with they physician. Sriram said he is trying to help the hospital and do what he was asked, but this is a very awkward situation for Sriram Physician did concur with Sriram that this is an awkward situation and?was sorry Sriram felt he was passing judgement on Sriram. Sriram explained he just wanted a medical update on patient before signing?off and giving patient's sister the authority to make decisions. Physician did let Sriram know medically patient is slowly getting better.?Overall the conversation remained tense, with visit ending by Sriram stating he was leaving. Sriram asked about the form the hospital wanted him to sign to sign off on decision making for patient. AYUSH let Sriram know AYUSH did not have this paper yet. Sriram was clear he did not want to make any medical decisions for patient. Sriram told SW it can be brought to him or it can be emailed. Sriram said, I am not coming back in here. AYUSH did talk with Sriram and apologized that the meeting did not go well. Alva Salomon [employer]
--- NOTE | 2022-05-30 12:52 | PN.CC_ITS ---
Assessment & Plan Assessment/Plan (1) Acute respiratory failure with hypoxia: PLAN: Plan RECOMMENDATIONS: 1. Continue aggressive bronchopulmonary hygiene with frequent suctioning, if needed. 2. Continue antimicrobials to complete treatment course. 3. Speech therapy to work with the patient. 4. Continue bronchodilators. 5. Continue appropriate DVT prophylaxis. 6. We will sign off from a critical care perspective. Please call with any additional questions. IMPRESSIONS: 1. Acute hypoxemic respiratory failure secondary to Klebsiella pneumonia The patient was notably successfully extubated and is doing well from a respira tory perspective on room air. However, he does still have significant oral secretions, which will need to be aggressively suctioned. Recommend maintaining aspiration precautions along with aggressive bronchopulmonary hygiene. Antibiotics will be continued to complete treatment course. 2. Encephalopathy Most likely metabolic in etiology. Continue to avoid sedating medications. Continue supportive measures noted above. Obtain arterial blood gas if mentation worsens. 3. History of alcohol dependency No current signs of acute alcohol withdrawal. We will continue to monitor clinically. 4. History of hypertension/GERD/recent right shoulder replacement surgery Complicates care, management, recovery and prognosis. Okay to utilize IV Lopressor for blood pressure control, in light of patient's n.p.o. status. This note was generated with [employer] dictation software. It may contain incorrect words, spelling, and punctuation that were not noted in checking the note before signing. Subjective Subjective The patient was seen and examined at the bedside this morning. Events from the last 24 hours have been reviewed. The patient is currently afebrile, hemodynamically stable and maintaining appropriate oxygen saturations on room air. Patient still remains significantly encephalopathic. Morning labs are stable. Objective Data Objective Data The patient's most recent lab work, culture data and imaging studies have all been personally reviewed. Sputum culture dated May 25 was positive for 2+ pansensitive Klebsiella. Vital Signs: Vital Signs Temp Pulse Resp BP Pulse Ox O2 Del Method O2 Flow Rate 99.1 F 83 19 H 116/80 95 Room Air 2 05/30/22 11:06 05/30/22 11:12 05/30/22 11:06 05/30/22 11:06 05/30/22 11:06 05/30/22 11:06 05/30/22 07:42 FiO2 05/28/22 14:00 Oxygen Flow Rate (L/min) 2 Oxygen Delivery Method Room Air Weight: 184 lb 1.376 oz Body Mass Index (BMI) 26.3 Intake & Output: Intake and Output for Last 24 Hours 05/28/22 05/29/22 05/30/22 23:59 23:59 23:59 Intake Total 4092.27 / 4092.27 2137.5 / 2137.5 1101.25 / 1101.25 Output Total 1700 / 2100 1350 / 1550 650 / 650 Balance 2392.27 / 1992.27 787.5 / 587.5 451.25 / 451.25 Lab / Micro Data Attestation: I reviewed the patient's lab results. Result Diagrams: 05/31/22 04:09 05/31/22 04:09 Labs: Laboratory Results - last 24 hr 05/30/22 05:22: WBC 10.2, RBC 3.33 L, Hgb 10.6 L, Hct 33.3 L, MCV 100.0 H, MCH 31.8, MCHC 31.8 L, RDW Std Deviation 62.5 H, RDW Coeff of Jerome 16.8 H, Plt Count 309, MPV 12.0, Immature Gran % (Auto) 0.500, Neut % (Auto) 81.5 H, Lymph % (Auto) 7.5 L, [place] % (Auto) 7.4, Eos % (Auto) 2.7, Baso % (Auto) 0.4, Absolute Neuts (auto) 8.3 H, Absolute Lymphs (auto) 0.77 L, Nucleated RBC % 0 05/30/22 05:22: Sodium 138, Potassium 3.5, Chloride 107, Carbon Dioxide 22.0, Anion Gap 9, BUN 24 H, Creatinine 1.01, Estim Creat Clear Calc 70.27, Est GFR (MDRD) Af Amer 94, Est GFR (MDRD) Non-Af 78, BUN/Creatinine Ratio 23.8 H, Glucose 87, Calcium 9.3, Phosphorus 3.3, Magnesium 1.8 Micro: Microbiology 05/25/22 08:10 Blood Culture (Wb) - Anticubital Right Blood Culture - Final No growth in 5 days. 05/25/22 08:10 Blood Culture (Wb) - Anticubital Left Blood Culture - Final No growth in 5 days. 05/26/22 10:45 Blood Culture (Wb) - Right Wrist Blood Culture - Preliminary No growth in 48 hours. 05/26/22 10:30 Blood Culture (Wb) - Anticubital Left Blood Culture - Preliminary No growth in 48 hours. 05/26/22 11:30 Sputum, Induced/Lukens Gram Stain - Final 05/26/22 11:30 Sputum, Induced/Lukens Respiratory Culture - Final Raoultella ornithinolytica 05/25/22 08:42 Urine Catheter - Prakash Urine Culture - Final Culture exhibits no growth. 05/25/22 08:35 Sputum, Induced/Lukens Gram Stain - Final 05/25/22 08:35 Sputum, Induced/Lukens Respiratory Culture - Final Klebsiella oxytoca 05/25/22 08:42 Nasal Secretion SARS-CoV-2 & FLU Antigen (Rapid) - Final ABG Data ABG results: ABG 05/28/22 07:35 Specimen Type ART Sample Site R Radial pH 7.47 H Bicarbonate Actual 23.1 Total CO2 24 Base Excess -1 O2 Saturation 96 O2 % 21 ABG pCO2 31.5 L ABG pO2 73 L Alex Test Positive O2 Delivery Device Adult Vent Vent Mode CPAP/PS POC PEEP 8 POC Pressure Suppt 5 Radiography Diagnostic Testing: Radiology Impression Brain CT 05/28/22 14:05 IMPRESSION: There are no acute findings. Chronic involutional changes of the brain. Electronically Signed: Artur Mullen MD at 15:55 EDT Reading Location ID and State: [facility] / [place] , Service support , Rhythm Strip Rhythm Strip: Sinus Rhythm Rate: 92 Ectopy: None Physical Exam Const Constitutional Narrative: The patient remains lethargic this morning, with minimal responsiveness during my interaction with him. HEENT normocephalic and head/scalp atraumatic Teeth and Gingiva: poor dentition Eyes PERRL and EOMs intact bilaterally Neck supple General: trachea midline Chest inspection of chest normal Resp normal respiratory effort Auscultation: rhonchi and diminished lung sounds Cardio regular rate and regular rhythm GI normal to inspection, nondistended, normoactive bowel sounds Extremity no clubbing, cyanosis or edema Skin no rashes or lesions noted Neuro CN's II-XII intact bilaterally and no focal motor deficits Psych Mood & Affect: flat affect Charges/Coding Visit Charges Inpatient E&M: 34678 Subs Hosp L2
[2022-05-31] VITALS (17 sets, daily range): BP systolic 120–172; BP diastolic 62–88; PULSE 62–89; RESP 18–24; TEMP 36.6–37.3; O2SAT 93–99; BMI 26.4
[2022-05-31] MEDS: Ipratropium/Albuterol Sulfate 3 ML AMPUL.NEB INHALATION ×6 (02:33→23:03)
[2022-05-31] MEDS: 0.45% Normal Saline 1,000 ML 75 ML IV ×2 (03:33→17:13)
[2022-05-31] MEDS: Metoprolol Tartrate 5 MG/5 ML Vial IV ×4 (05:00→22:37)
[2022-05-31] MEDS: Enalaprilat 1.25 MG/ML Vial 0.625 MG IV ×4 (05:00→22:37)
[2022-05-31] MEDS: Cefazolin 2 GM in 0.9% Normal Saline 100 ML IV ×3 (05:00→21:08)
[2022-05-31 05:01] LABS: Absolute Lymphocyte Count 0.71 X10^3/uL (0.83-4.51); Absolute Neutrophil Count 6.2 X10^3/uL (2.0-7.7); Basophil# 0.02 X10^3/uL; Basophil% 0.2 % (0-1); Eosinophil# 0.42 X10^3/uL; Eosinophils% 5.1 % (0-5); Hematocrit 31.6 % (40-54); Hemoglobin 9.9 g/dL (13.0-16.5); Lymphocyte # 0.71 X10^3/ul (0.83-4.51); Lymphocyte % 8.6 % (19-41); Mean Corp Hgb Conc 31.3 g/dL (32-36); Mean Corpuscular Hgb 31.9 pg (27.0-32.0); Mean Corpuscular Volume 101.9 fL (80-94); Mean Platelet Vol. 11.4 fl (6.2-12.0); Monocyte# 0.85 X10^3/uL; Monocyte% 10.3 % (0-10); NRBC Flagged by Analyzer 0 % (0-5); Neutrophil # 6.22 X10^3/uL (2.7-7.7); Neutrophil % 75.3 % (47-70); Platelet Count 288 K/mm3 (150-450); RBC Distribution Width CV 16.3 % (11.6-14.6); RBC Distribution Width SD 60.9 fl (35.1-43.9); White Blood Count 8.3 K/mm3 (4.4-11.0)
[2022-05-31 05:21] LABS: Anion Gap 9 (5-15); BUN 26 mg/dL (7-18); BUN/Creat Ratio 26.4 RATIO (10-20); Calcium,Total 8.3 mg/dL (8.5-10.1); Chloride 108 mmol/L (98-107); Creatinine, Serum 0.98 mg/dL (0.70-1.30); EST Glomerular Filtration Rate 80 mL/min (>60); Est Glom Filt Rate - Afr Amer 97 mL/min (>60); Estimated Creatinine Clearance 72.42 ml/min; Glucose 81 mg/dL (74-106); Potassium 3.5 mmol/L (3.5-5.1); Sodium Level 139 mmol/L (136-145)
--- NOTE | 2022-05-31 08:03 | PCM.PN.HOSP ---
Reason for Visit Reason for Visit: Diagnoses Hypo-osmolality and hyponatremia (05/25/22) Alcohol use, unspecified, uncomplicated (05/25/22) Alcohol use, unspecified with withdrawal delirium (05/25/22) Encephalopathy, unspecified (05/25/22) Pneumonia, unspecified organism (05/25/22) Acute respiratory failure with hypoxia (05/25/22) Atelectasis (05/25/22) Tobacco use (05/25/22) Presence of right artificial shoulder joint (05/25/22) Dependence on respirator [ventilator] status (05/25/22) Subjective Subjective Patient seen level of sensorium continues to improve Objective Data Objective Data Vital Signs: Vital Signs Temp Pulse Resp BP Pulse Ox O2 Del Method O2 Flow Rate 97.9 F 70 18 145/88 H 95 Nasal Cannula 2 05/31/22 04:57 05/31/22 07:11 05/31/22 07:11 05/31/22 04:57 05/31/22 07:10 05/31/22 07:10 05/31/22 07:10 FiO2 21 05/28/22 14:00 Oxygen Flow Rate (L/min) 2 Oxygen Delivery Method Nasal Cannula Weight: 83.9 kg Body Mass Index (BMI) 26.4 Intake & Output: Intake and Output for Last 24 Hours 05/29/22 05/30/22 05/31/22 23:59 23:59 23:59 Intake Total 2137.5 / 2137.5 2299.75 / 2299.75 1110 / 1110 Output Total 1350 / 1550 1050 / 1050 250 / 250 Balance 787.5 / 587.5 1249.75 / 1249.75 860 / 860 Lab / Micro Data Result Diagrams: 05/31/22 04:09 05/31/22 04:09 Labs: Laboratory Results - last 24 hr 05/31/22 04:09: WBC 8.3, RBC 3.10 L, Hgb 9.9 L, Hct 31.6 L, MCV 101.9 H, MCH 31.9, MCHC 31.3 L, RDW Std Deviation 60.9 H, RDW Coeff of Jerome 16.3 H, Plt Count 288, MPV 11.4, Immature Gran % (Auto) 0.500, Neut % (Auto) 75.3 H, Lymph % (Auto) 8.6 L, [place] % (Auto) 10.3 H, Eos % (Auto) 5.1 H, Baso % (Auto) 0.2, Absolute Neuts (auto) 6.2, Absolute Lymphs (auto) 0.71 L, Nucleated RBC % 0 05/31/22 04:09: Sodium 139, Potassium 3.5, Chloride 108 H, Carbon Dioxide 22.0, Anion Gap 9, BUN 26 H, Creatinine 0.98, Estim Creat Clear Calc 72.42, Est GFR (MDRD) Af Amer 97, Est GFR (MDRD) Non-Af 80, BUN/Creatinine Ratio 26.4 H, Glucose 81, Calcium 8.3 L Micro: Microbiology 05/25/22 08:10 Blood Culture (Wb) - Anticubital Right Blood Culture - Final No growth in 5 days. 05/25/22 08:10 Blood Culture (Wb) - Anticubital Left Blood Culture - Final No growth in 5 days. 05/26/22 10:45 Blood Culture (Wb) - Right Wrist Blood Culture - Preliminary No growth in 48 hours. 05/26/22 10:30 Blood Culture (Wb) - Anticubital Left Blood Culture - Preliminary No growth in 48 hours. 05/26/22 11:30 Sputum, Induced/Lukens Gram Stain - Final 05/26/22 11:30 Sputum, Induced/Lukens Respiratory Culture - Final Raoultella ornithinolytica 05/25/22 08:42 Urine Catheter - Prakash Urine Culture - Final Culture exhibits no growth. 05/25/22 08:35 Sputum, Induced/Lukens Gram Stain - Final 05/25/22 08:35 Sputum, Induced/Lukens Respiratory Culture - Final Klebsiella oxytoca 05/25/22 08:42 Nasal Secretion SARS-CoV-2 & FLU Antigen (Rapid) - Final Rhythm Strip Rhythm Strip: Sinus Rhythm Rate: 92 Ectopy: None Physical Exam Narrative GENERAL: Patient is awake but not engaging in any conversation HEENT: Atraumatic; normocephalic EYES; Anicteric, Normal Conjunctiva NECK; supple, normal thyroid, RESPIRATORY: Diminished to auscultation CARDIOVASCULAR: Regular S1 S2, GI: soft, normoactive bowel sounds, : No Renal angle tenderness; EXTREMITIES: No edema, no clubbing, MUSCULOSKELETAL: no muscle wasting NEURO: Moving all extremities spontaneously SKIN: No Rash PSYCH; Flat affect Assessment & Plan Assessment/Plan (1) Pneumonia: PLAN: Plan Patient is a 71-year-old gentleman with recent reverse shoulder arthroplasty at [facility] on 05/16/2022 who presented to the emergency department with altered mental status. Patient was intubated for airway protection and subsequently extubated. Sputum culture so far positive for Klebsiella as well as Raoultella 1. Acute metabolic encephalopathy ? Secondary to a combination of factors including suspected alcohol withdrawal as well as acute hypoxia from respiratory failure plan is to treat underlying condition -05/31/2022; patient encephalopathy resolving 2. Acute respiratory failure with hypoxia ? Secondary to patient being encephalopathic and inability to protect his airway was intubated on 05/25/2022 and extubated on 05/28/2022. 3. Aspiration pneumonia with gram-negative organisms (Klebsiella as well as Raoultella) ? Cultures came back positive for Klebsiella as well as Raoultella. Patient remains on broad-spectrum antibiotic therapy plan is for patient to undergo speech and swallow eval 4. Chronic alcohol dependence ? Recently managed for acute alcohol withdrawal. Patient was not started on benzos on admission we will continue with monitoring 5. Recent history of right shoulder replacement ? Patient is due to follow-up with Dr. Guerrero on 05/29/2021 6. Hypertension - Blood pressure controlled, home medications continued with dose adjustment as needed 7. COPD ? Aerosol treatments as needed 8. Anemia - Secondary to chronic disorder monitoring H&H and transfuse if patient becomes symptomatic or hemoglobin falls below 7 9. Acute kidney injury ? Resolved with rehydration 10. DVT prophylaxis - On enoxaparin Time spent in the patient's overall evaluation,decision-making process, review of diagnostic data, adjustment of management, discussion with other providers, nursing nursing and ancillary staff involved in patient's care documentation,40 Minutes Charges/Coding Visit Charges Inpatient E&M: 87718 Subs Hosp L2
[2022-05-31] MEDS: Enoxaparin 40 MG/0.4 ML Syringe SC (08:42)
[2022-05-31] MEDS: Atropine Sulfate 1% 2 ml Bottle 2 DRP PO (08:42)
[2022-05-31] MEDS: 0.9% Saline Lock 10 ML Syringe IV ×2 (11:01→22:37)
[2022-06-01] VITALS (17 sets, daily range): BP systolic 115–181; BP diastolic 69–90; PULSE 65–96; RESP 16–26; TEMP 36.6–37.4; O2SAT 92–98; BMI 26.4
[2022-06-01] MEDS: Ipratropium/Albuterol Sulfate 3 ML AMPUL.NEB INHALATION ×6 (03:41→23:10)
[2022-06-01] MEDS: 0.45% Normal Saline 1,000 ML 75 ML IV ×2 (04:43→17:55)
[2022-06-01] MEDS: Cefazolin 2 GM in 0.9% Normal Saline 100 ML IV ×3 (05:00→21:16)
[2022-06-01] MEDS: Metoprolol Tartrate 5 MG/5 ML Vial IV ×4 (05:15→23:56)
[2022-06-01] MEDS: 0.9% Saline Lock 10 ML Syringe IV ×3 (05:15→18:00)
[2022-06-01] MEDS: Enalaprilat 1.25 MG/ML Vial 0.625 MG IV ×4 (05:15→23:49)
[2022-06-01 05:47] LABS: Absolute Lymphocyte Count 0.73 X10^3/uL (0.83-4.51); Absolute Neutrophil Count 7.1 X10^3/uL (2.0-7.7); Basophil# 0.03 X10^3/uL; Basophil% 0.3 % (0-1); Eosinophil# 0.51 X10^3/uL; Eosinophils% 5.3 % (0-5); Hematocrit 30.1 % (40-54); Hemoglobin 9.5 g/dL (13.0-16.5); Lymphocyte # 0.73 X10^3/ul (0.83-4.51); Lymphocyte % 7.6 % (19-41); Mean Corp Hgb Conc 31.6 g/dL (32-36); Mean Corpuscular Volume 101.3 fL (80-94); Mean Platelet Vol. 11.7 fl (6.2-12.0); Monocyte# 1.22 X10^3/uL; Monocyte% 12.6 % (0-10); NRBC Flagged by Analyzer 0 % (0-5); Neutrophil # 7.12 X10^3/uL (2.7-7.7); Neutrophil % 73.8 % (47-70); Platelet Count 295 K/mm3 (150-450); RBC Distribution Width CV 15.9 % (11.6-14.6); RBC Distribution Width SD 59.1 fl (35.1-43.9); Red Blood Count 2.97 M/mm3 (4.6-6.2); White Blood Count 9.7 K/mm3 (4.4-11.0)
[2022-06-01 06:23] LABS: Anion Gap 12 (5-15); BUN 17 mg/dL (7-18); BUN/Creat Ratio 20.1 RATIO (10-20); Calcium,Total 8.7 mg/dL (8.5-10.1); Chloride 107 mmol/L (98-107); Creatinine, Serum 0.84 mg/dL (0.70-1.30); EST Glomerular Filtration Rate 95 mL/min (>60); Est Glom Filt Rate - Afr Amer 115 mL/min (>60); Estimated Creatinine Clearance 84.49 ml/min; Glucose 75 mg/dL (74-106); Potassium 3.5 mmol/L (3.5-5.1); Sodium Level 138 mmol/L (136-145)
--- NOTE | 2022-06-01 08:46 | PCM.PN.HOSP ---
Reason for Visit Reason for Visit: Diagnoses Hypo-osmolality and hyponatremia (05/25/22) Alcohol use, unspecified, uncomplicated (05/25/22) Alcohol use, unspecified with withdrawal delirium (05/25/22) Encephalopathy, unspecified (05/25/22) Pneumonia, unspecified organism (05/25/22) Acute respiratory failure with hypoxia (05/25/22) Atelectasis (05/25/22) Tobacco use (05/25/22) Presence of right artificial shoulder joint (05/25/22) Dependence on respirator [ventilator] status (05/25/22) Subjective Subjective Patient seen. Level of sensorium continues to improve. Ordered ammonia levels. Objective Data Objective Data Vital Signs: Vital Signs Temp Pulse Resp BP Pulse Ox O2 Del Method O2 Flow Rate 98.7 F 77 20 H 139/78 H 94 Room Air 2 06/01/22 03:10 06/01/22 07:57 06/01/22 07:57 06/01/22 05:12 06/01/22 07:57 06/01/22 07:57 05/31/22 14:00 FiO2 21 05/28/22 14:00 Oxygen Flow Rate (L/min) 2 Oxygen Delivery Method Room Air Weight: 83.6 kg Body Mass Index (BMI) 26.4 Intake & Output: Intake and Output for Last 24 Hours 05/30/22 05/31/22 06/01/22 23:59 23:59 23:59 Intake Total 2299.75 / 2299.75 2330 / 2330 972.5 / 972.5 Output Total 1050 / 1050 1550 / 1550 600 / 600 Balance 1249.75 / 1249.75 780 / 780 372.5 / 372.5 Lab / Micro Data Result Diagrams: 06/01/22 04:47 06/01/22 04:47 Labs: Laboratory Results - last 24 hr 06/01/22 04:47: WBC 9.7, RBC 2.97 L, Hgb 9.5 L, Hct 30.1 L, MCV 101.3 H, MCH 32.0, MCHC 31.6 L, RDW Std Deviation 59.1 H, RDW Coeff of Jerome 15.9 H, Plt Count 295, MPV 11.7, Immature Gran % (Auto) 0.400, Neut % (Auto) 73.8 H, Lymph % (Auto) 7.6 L, [place] % (Auto) 12.6 H, Eos % (Auto) 5.3 H, Baso % (Auto) 0.3, Absolute Neuts (auto) 7.1, Absolute Lymphs (auto) 0.73 L, Nucleated RBC % 0 06/01/22 04:47: Sodium 138, Potassium 3.5, Chloride 107, Carbon Dioxide 19.0 L, Anion Gap 12, BUN 17, Creatinine 0.84, Estim Creat Clear Calc 84.49, Est GFR (MDRD) Af Amer 115, Est GFR (MDRD) Non-Af 95, BUN/Creatinine Ratio 20.1 H, Glucose 75, Calcium 8.7 Micro: Microbiology 05/26/22 10:45 Blood Culture (Wb) - Right Wrist Blood Culture - Final No growth in 5 days. 05/26/22 10:30 Blood Culture (Wb) - Anticubital Left Blood Culture - Final No growth in 5 days. 05/25/22 08:10 Blood Culture (Wb) - Anticubital Right Blood Culture - Final No growth in 5 days. 05/25/22 08:10 Blood Culture (Wb) - Anticubital Left Blood Culture - Final No growth in 5 days. 05/26/22 11:30 Sputum, Induced/Lukens Gram Stain - Final 05/26/22 11:30 Sputum, Induced/Lukens Respiratory Culture - Final Raoultella ornithinolytica 05/25/22 08:42 Urine Catheter - Prakash Urine Culture - Final Culture exhibits no growth. 05/25/22 08:35 Sputum, Induced/Lukens Gram Stain - Final 05/25/22 08:35 Sputum, Induced/Lukens Respiratory Culture - Final Klebsiella oxytoca 05/25/22 08:42 Nasal Secretion SARS-CoV-2 & FLU Antigen (Rapid) - Final Rhythm Strip Rhythm Strip: Sinus Rhythm Rate: 92 Ectopy: None Physical Exam Narrative GENERAL: Patient is awake but not engaging in any conversation HEENT: Atraumatic; normocephalic EYES; Anicteric, Normal Conjunctiva NECK; supple, normal thyroid, RESPIRATORY: Diminished to auscultation CARDIOVASCULAR: Regular S1 S2, GI: soft, normoactive bowel sounds, : No Renal angle tenderness; EXTREMITIES: No edema, no clubbing, MUSCULOSKELETAL: no muscle wasting NEURO: Moving all extremities spontaneously SKIN: No Rash PSYCH; Flat affect Assessment & Plan Assessment/Plan (1) Pneumonia: PLAN: Plan Patient is a 71-year-old gentleman with recent reverse shoulder arthroplasty at [facility] on 05/16/2022 who presented to the emergency department with altered mental status. Patient was intubated for airway protection and subsequently extubated. Sputum culture so far positive for Klebsiella as well as Raoultella 1. Acute metabolic encephalopathy ? Secondary to a combination of factors including suspected alcohol withdrawal as well as acute hypoxia from respiratory failure plan is to treat underlying condition -05/31/2022; patient encephalopathy resolving ? 06/01/2022; ordered ammonia levels 2. Acute respiratory failure with hypoxia ? Secondary to patient being encephalopathic and inability to protect his airway was intubated on 05/25/2022 and extubated on 05/28/2022. 3. Aspiration pneumonia with gram-negative organisms (Klebsiella as well as Raoultella) ? Cultures came back positive for Klebsiella as well as Raoultella. Patient remains on broad-spectrum antibiotic therapy plan is for patient to undergo speech and swallow eval 4. Chronic alcohol dependence ? Recently managed for acute alcohol withdrawal. Patient was not started on benzos on admission we will continue with monitoring 5. Recent history of right shoulder replacement ? Patient is due to follow-up with Dr. Guerrero on 05/29/2021 6. Hypertension - Blood pressure controlled, home medications continued with dose adjustment as needed 7. COPD ? Aerosol treatments as needed 8. Anemia - Secondary to chronic disorder monitoring H&H and transfuse if patient becomes symptomatic or hemoglobin falls below 7 9. Acute kidney injury ? Resolved with rehydration 10. DVT prophylaxis - On enoxaparin Time spent in the patient's overall evaluation,decision-making process, review of diagnostic data, adjustment of management, discussion with other providers, nursing nursing and ancillary staff involved in patient's care documentation 35 Minutes Charges/Coding Visit Charges Inpatient E&M: 15815 Subs Hosp L2
--- NOTE | 2022-06-01 09:16 | NURSING ---
gerard Colin in to see patient patient did know who he was
[2022-06-01] MEDS: Enoxaparin 40 MG/0.4 ML Syringe SC (11:04)
[2022-06-01 11:05] LABS: Ammonia < 10.0 umol/L (11-32)
--- NOTE | 2022-06-01 13:48 | CASEMGMT ---
SW went to patient's room to possibly talk with patient. RN was in the room as well. Patient was awake, but was mumbling unintelligible things. SW will check back again tomorrow. Alva LOERA
[2022-06-01] MEDS: Aspirin 81 MG TAB.CHEW NG (15:10)
[2022-06-01] MEDS: Famotidine 20 MG Tablet PO (15:10)
[2022-06-01] MEDS: Folic Acid 1 MG Tablet NG (15:10)
[2022-06-01] MEDS: Cholecalciferol (VIT D3) 25 MCG TABLET (1,000 UNITS) 50 MCG PO (15:11)
[2022-06-01 21:40] LABS: Bedside Glucose 75 mg/dL (74-106)
[2022-06-02] VITALS (14 sets, daily range): BP systolic 143–156; BP diastolic 73–96; PULSE 72–91; RESP 16–24; TEMP 36.8–37.4; O2SAT 89–96; BMI 26.1
[2022-06-02] MEDS: Ipratropium/Albuterol Sulfate 3 ML AMPUL.NEB INHALATION ×5 (02:52→19:06)
[2022-06-02] MEDS: Cefazolin 2 GM in 0.9% Normal Saline 100 ML IV ×3 (04:59→22:17)
[2022-06-02] MEDS: 0.45% Normal Saline 1,000 ML 75 ML IV (04:59)
[2022-06-02] MEDS: 0.9% Saline Lock 10 ML Syringe IV (04:59)
[2022-06-02] MEDS: Enalaprilat 1.25 MG/ML Vial 0.625 MG IV (04:59)
[2022-06-02] MEDS: Metoprolol Tartrate 5 MG/5 ML Vial IV (04:59)
[2022-06-02] MEDS: Cholecalciferol (VIT D3) 25 MCG TABLET (1,000 UNITS) 50 MCG PO (08:13)
[2022-06-02] MEDS: Folic Acid 1 MG Tablet NG (08:13)
[2022-06-02] MEDS: Enoxaparin 40 MG/0.4 ML Syringe SC (08:13)
[2022-06-02] MEDS: Famotidine 20 MG Tablet PO (08:13)
[2022-06-02] MEDS: Aspirin 81 MG TAB.CHEW NG (08:13)
[2022-06-02] MEDS: Acetaminophen 650 MG/20 ML UDC 325 MG GT (08:19)
--- NOTE | 2022-06-02 08:37 | PCM.PN.HOSP ---
Reason for Visit Reason for Visit: Diagnoses Hypo-osmolality and hyponatremia (05/25/22) Alcohol use, unspecified, uncomplicated (05/25/22) Alcohol use, unspecified with withdrawal delirium (05/25/22) Encephalopathy, unspecified (05/25/22) Pneumonia, unspecified organism (05/25/22) Acute respiratory failure with hypoxia (05/25/22) Atelectasis (05/25/22) Tobacco use (05/25/22) Presence of right artificial shoulder joint (05/25/22) Dependence on respirator [ventilator] status (05/25/22) Subjective Subjective Patient much more awake however still remains delirious. Plan is for patient to undergo repeat speech and swallow eval Objective Data Objective Data Vital Signs: Vital Signs Temp Pulse Resp BP Pulse Ox O2 Del Method O2 Flow Rate 98.6 F 86 20 H 151/74 H 96 Room Air 2 06/02/22 04:54 06/02/22 07:22 06/02/22 07:22 06/02/22 04:59 06/02/22 04:54 06/02/22 08:08 05/31/22 14:00 FiO2 21 05/28/22 14:00 Oxygen Flow Rate (L/min) 2 Oxygen Delivery Method Room Air Weight: 82.8 kg Body Mass Index (BMI) 26.1 Intake & Output: Intake and Output for Last 24 Hours 05/31/22 06/01/22 06/02/22 23:59 23:59 23:59 Intake Total 2330 / 2330 2182.5 / 2182.5 940 / 940 Output Total 1550 / 1550 1750 / 1750 250 / 250 Balance 780 / 780 432.5 / 432.5 690 / 690 Lab / Micro Data Result Diagrams: 06/02/22 09:10 06/01/22 04:47 Labs: Laboratory Results - last 24 hr 06/01/22 10:10: Ammonia < 10.0 L 06/01/22 21:09: POC Glucose 75 Micro: Microbiology 05/26/22 10:45 Blood Culture (Wb) - Right Wrist Blood Culture - Final No growth in 5 days. 05/26/22 10:30 Blood Culture (Wb) - Anticubital Left Blood Culture - Final No growth in 5 days. 05/25/22 08:10 Blood Culture (Wb) - Anticubital Right Blood Culture - Final No growth in 5 days. 05/25/22 08:10 Blood Culture (Wb) - Anticubital Left Blood Culture - Final No growth in 5 days. 05/26/22 11:30 Sputum, Induced/Lukens Gram Stain - Final 05/26/22 11:30 Sputum, Induced/Lukens Respiratory Culture - Final Raoultella ornithinolytica 05/25/22 08:42 Urine Catheter - Prakash Urine Culture - Final Culture exhibits no growth. 05/25/22 08:35 Sputum, Induced/Lukens Gram Stain - Final 05/25/22 08:35 Sputum, Induced/Lukens Respiratory Culture - Final Klebsiella oxytoca 05/25/22 08:42 Nasal Secretion SARS-CoV-2 & FLU Antigen (Rapid) - Final Rhythm Strip Rhythm Strip: Sinus Rhythm Rate: 92 Ectopy: None Physical Exam Narrative GENERAL: Patient is awake but not engaging in any conversation HEENT: Atraumatic; normocephalic EYES; Anicteric, Normal Conjunctiva NECK; supple, normal thyroid, RESPIRATORY: Diminished to auscultation CARDIOVASCULAR: Regular S1 S2, GI: soft, normoactive bowel sounds, : No Renal angle tenderness; EXTREMITIES: No edema, no clubbing, MUSCULOSKELETAL: no muscle wasting NEURO: Moving all extremities spontaneously SKIN: No Rash PSYCH; Flat affect Assessment & Plan Assessment/Plan (1) Pneumonia: PLAN: Plan Patient is a 71-year-old gentleman with recent reverse shoulder arthroplasty at [facility] on 05/16/2022 who presented to the emergency department with altered mental status. Patient was intubated for airway protection and subsequently extubated. Sputum culture so far positive for Klebsiella as well as Raoultella 1. Acute metabolic encephalopathy ? Secondary to a combination of factors including suspected alcohol withdrawal as well as acute hypoxia from respiratory failure plan is to treat underlying condition -05/31/2022; patient encephalopathy resolving ? 06/01/2022; ordered ammonia levels ? 06/02/2022; Patient much more awake however still remains delirious. Plan is for patient to undergo repeat speech and swallow ev 2. Acute respiratory failure with hypoxia ? Secondary to patient being encephalopathic and inability to protect his airway was intubated on 05/25/2022 and extubated on 05/28/2022. 3. Aspiration pneumonia with gram-negative organisms (Klebsiella as well as Raoultella) ? Cultures came back positive for Klebsiella as well as Raoultella. Patient remains on broad-spectrum antibiotic therapy plan is for patient to undergo speech and swallow eval 4. Chronic alcohol dependence ? Recently managed for acute alcohol withdrawal. Patient was not started on benzos on admission we will continue with monitoring 5. Recent history of right shoulder replacement ? Patient is due to follow-up with Dr. Guerrero on 05/29/2021 6. Hypertension - Blood pressure controlled, home medications continued with dose adjustment as needed 7. COPD ? Aerosol treatments as needed 8. Anemia - Secondary to chronic disorder monitoring H&H and transfuse if patient becomes symptomatic or hemoglobin falls below 7 9. Acute kidney injury ? Resolved with rehydration 10. DVT prophylaxis - On enoxaparin Time spent in the patient's overall evaluation,decision-making process, review of diagnostic data, adjustment of management, discussion with other providers, nursing nursing and ancillary staff involved in patient's care documentation 35 Minutes Charges/Coding Visit Charges Inpatient E&M: 61668 Subs Hosp L2
[2022-06-02 09:32] LABS: Absolute Lymphocyte Count 0.81 X10^3/uL (0.83-4.51); Absolute Neutrophil Count 6.4 X10^3/uL (2.0-7.7); Basophil# 0.05 X10^3/uL; Basophil% 0.6 % (0-1); Eosinophil# 0.48 X10^3/uL; Eosinophils% 5.4 % (0-5); Hematocrit 29.7 % (40-54); Hemoglobin 9.7 g/dL (13.0-16.5); Lymphocyte # 0.81 X10^3/ul (0.83-4.51); Lymphocyte % 9.1 % (19-41); Mean Corp Hgb Conc 32.7 g/dL (32-36); Mean Corpuscular Hgb 31.7 pg (27.0-32.0); Mean Corpuscular Volume 97.1 fL (80-94); Mean Platelet Vol. 10.9 fl (6.2-12.0); Monocyte# 1.09 X10^3/uL; Monocyte% 12.3 % (0-10); NRBC Flagged by Analyzer 0 % (0-5); Neutrophil # 6.41 X10^3/uL (2.7-7.7); Neutrophil % 72.1 % (47-70); Platelet Count 318 K/mm3 (150-450); RBC Distribution Width CV 15.6 % (11.6-14.6); RBC Distribution Width SD 56.1 fl (35.1-43.9); Red Blood Count 3.06 M/mm3 (4.6-6.2); White Blood Count 8.9 K/mm3 (4.4-11.0)
[2022-06-02 09:57] LABS: Anion Gap 10 (5-15); BUN 12 mg/dL (7-18); BUN/Creat Ratio 14.4 RATIO (10-20); Calcium,Total 8.9 mg/dL (8.5-10.1); Chloride 107 mmol/L (98-107); Creatinine, Serum 0.84 mg/dL (0.70-1.30); EST Glomerular Filtration Rate 97 mL/min (>60); Est Glom Filt Rate - Afr Amer 117 mL/min (>60); Estimated Creatinine Clearance 84.49 ml/min; Glucose 101 mg/dL (74-106); Magnesium 1.6 mg/dL (1.6-2.6); Phosphorus 2.5 mg/dL (2.5-4.9); Potassium 3.2 mmol/L (3.5-5.1); Sodium Level 139 mmol/L (136-145)
[2022-06-02] MEDS: Magnesium Sulfate 4gm/100mL 4 GM/100 ML IV.SOLN. IV (11:23)
[2022-06-02] MEDS: Potassium Chloride 10mEq/100mL 10 MEQ/100 ML IV.SOLN. 100 MEQ IV BOLUS ×4 (11:23→15:30)
--- NOTE | 2022-06-02 11:24 | SP.MBSS_ITS ---
Modified Barium Swallow - Patient Information Study Date: 06/02/22 Study Time: 10:15 Direct Billable Minutes: 200 Total Minutes procedure & reportin Diagnosis: PNEUMONIA (J18.9), ATELECTASIS OF R LUNG (J98.11) Referring Physician: Terrance Bautista Reason for Referral: Objectively assess swallow function, risk for aspiration, and determine recommendations for least restrictive diet textures and compensatory strategies to improve safety of swallow. Medical History: Adilson Sanchez is a 72-year-old male with a history of alcohol use disorder, CHF (congestive heart failure), GERD (gastroesophageal reflux disease), and HTN (hypertension). See [facility] for full report. The patient was admitted to [facility] ED on May 25 after presenting with altered mental status. According to documentation, the patient had underwent a shoulder replacement surgery at [facility] on May 16. The patient was discharged from the hospital on the and was noted during his hospitalization stay to have symptoms concerning for alcohol withdrawal. He was subsequently placed on Librium and as needed Ativan. The patient was ultimately intubated in the ED over concerns for airway protection. He was placed on empiric antimicrobials, due to underlying Klebsiella pneumonia. The patient was able to be extubated on the morning of May 28. The patient was notably successfully extubated and is doing well from a respiratory perspective on room air. However, he does still have significant oral secretions, which will need to be aggressively suctioned. Patient referred for speech evaluation due to swallowing difficulty and poor control of oral secretions. Current Diet Ordered: NPO Dentition: Edentulous, Upper Dentures, Lower Dentures Mental Status: Impaired Respiratory Status: Oxygenating on Room Air - Penetration-Aspiration Scale Penetration-Aspiration Scale: OBJECTIVE ASSESSMENT OF SWALLOW FUNCTION (QUANTITATIVE ? PER TRIAL): PENETRATION / ASPIRATION SCALE (MÉNDEZ): 1 = does not enter airway 2 = enters airway/above vocal folds/ejected 3 = enters airway/above vocal folds/not ejected 4 = enters airway/contacts vocal folds/ejected 5 = enters airway/contacts vocal folds/not ejected 6 = enters airway/below vocal folds/ejected 7 = enters airway/below vocal folds/not ejected despite effort 8 = enters airway/below vocal folds/no effort VIDEOFLOROSCOPIC SCALE SCORE (MÉNDEZ): Grade I = aspiration of material that has penetrated into the laryngeal vestibule, intact cough reflex Grade II = aspiration < 10 % of the bolus, intact cough reflex Grade III = aspiration of < 10 % of the bolus, reduced cough reflex or aspiration of > 10 % of the bolus, intact cough reflex Grade IV = aspiration of > 10 % of the bolus, reduced cough reflex - Penetration-Aspiration Scale Score Thin Liquid via teaspoon Result: 1= does not enter airway Thin Liquid via teaspoon Trial 2 Result: 1= does not enter airway Thin Liquid via small single sip from cup Result: 1= does not enter airway Comment: [employer] controlling sip size Thin Liquid via single sip from straw Result: 1= does not enter airway [place] Thick Liquid via small single sip from cup Result: 1= does not enter airway [place] Thick Liquid via teaspoon Result: 1= does not enter airway Pudding Result: 1= does not enter airway 1/4 Cookie Result: 3= enters airways/above vocal folds/not ejected Thin Liquid via small single sip from cup Trial 2 Result: 2= enter airway/above vocal folds/ejected Comment: Patient controlled sip Thin Liquid via small single sip from cup Trial 3 Result: 1= does not enter airway Comment: Patient controlled sip - Oral Phase Labial Seal: Escape progressing to mid-chin Tongue Control During Bolus Hold: Posterior escape of greater than half of bolus Bolus Preparation/Mastication: Disorganized chewing/mashing with solid pieces of bolus unchewed Bolus Transport/Lingual Motion: Slowed tongue motion Oral Residue: Residue collection on oral structures - Pharyngeal Phase Initiation of Pharyngeal Swallow: Bolus head in valleculae Soft Palate Elevation: No bolus between soft palate and pharyngeal wall Laryngeal Elevation: Comp. Superior move thyroid cart w/comp. apprx arytenoid cart-epig pet Anterior Hyoid Excursion: Complete anterior movement Epiglottic Movement: Complete inversion Laryngeal Vestibule Closure at Height of Swallow: Complete; no air/contrast in laryngeal vestibule Pharyngeal Stripping Wave: Present - diminished Pharyngoesophageal Segment Opening: Complete distension and complete duration; no obstruction of flow Tongue Base Retraction: Narrow column of contrast between tongue base & post. pharyngeal wall Pharyngeal Residue: Collection of residue within or on pharyngeal structures - Treatment Strategies Effects of treatment strategies attemped:: double swallow = somewhat effective to clear pharyngeal residue - Diagnosis/Impression Diagnosis: moderate oral phase dysphagia (R13.11), mild pharyngeal dysphagia (R13.13) Impression: Patient presents w/ moderate oral phase dysphagia characterized by... - moderate mastication insufficiency secondary to dentition, altered mental status and generalized weakness. - suboptimal lingual control contributing to poor oral clearance. Mild oral residue present post deglutition. - swallow onset delay resulting in premature bolus loss of >1/2 cookie. - insufficient labial control resulting in anterior loss w/ all PO trials. Patient presents w/ mild pharyngeal phase dysphagia characterized by... - poor pharyngeal motility attributed to reduced tongue base retraction and reduced posterior pharyngeal stripping wave action resulting in pharyngeal retention within the valleculae. Able to somewhat clear w/ verbal prompt to double swallow. D/t patient's altered mental status, will need consistent verbal prompt to double swallow. - trace penetration observed w/ lg sip of thin liquid via cup that was controlled by patient (PAS=2), suspect d/t patient's body habitus. - no other penetration or aspiration observed w/ thin liquids via tsp, cup or straw, NTL, HTL or pudding. Patient's alertness plays significant role in ability to swallow safely. Patient's alertness and cooperation fluctuates hourly. Recommending puree textures / thin liquids if patient is able to fully participate. - Recommendations Diet: Puree Textures, Thin Liquids Compensatory Strategies: Small Bites, Small Sips, Feed only when alert, Multiple Swallows, Alternate bites/solids and sips/liquids, Sitting upright, Minimize/decrease distractions, Assist with verbal cues to use recommended strategies Supervision: Total Feed, 1:1 Close Supervision Recommend Repeat Modified Barium Swallow: No Need for Skilled Speech Therapy Services: Yes Comment: Will recommend the patient for dysphagia therapy to address deficits in oropharyngeal swallow function. Would consider the patient for oropharyngeal strengthening to improve lingual coordination, tongue base retraction and pharyngeal stripping wave. The patient and caregivers would benefit from thorough education regarding diet recommendations and recommended compensatory strategies. Education Completed: 1. Described result of evaluation., 4. Family/caregivers understand evaluation & agree w/ goals & tx plan. - Status Active ST Patient: Active - Contact Information [facility] Speech Therapy:: Sola Cutler M.A. [facility] Speech-Language Pathologist [facility] [address] [place] [address] [email or web address] [phone] 06/02/22 11:50
--- NOTE | 2022-06-02 12:01 | CASEMGMT ---
Updates were sent to [facility] via [facility]. SW let CC know patient is not medically ready for discharge. Alva LOERA
[2022-06-02] MEDS: Metoprolol(XL)Succ 25 MG Tablet PO (12:02)
[2022-06-02] MEDS: Lisinopril 40 MG Tablet PO (12:03)
[2022-06-02] MEDS: amLODIPine 10 MG Tablet PO (12:03)
[2022-06-02] MEDS: Acetaminophen 325 MG Tablet 650 MG PO (18:27)
--- NOTE | 2022-06-02 19:00 | NURSING ---
emergency documentation starting at this time
--- NOTE | 2022-06-02 19:05 | CPS ---
Pt being combative, vest not done at this time.
[2022-06-03] MEDS: 0.45% Normal Saline 1,000 ML 75 ML IV ×2 (02:49→16:40)
[2022-06-03 03:39] VITALS: BP 159/103; PULSE 69; RESP 18; TEMP 37.1; O2SAT 93
[2022-06-03] MEDS: Cefazolin 2 GM in 0.9% Normal Saline 100 ML IV ×3 (05:09→23:19)
[2022-06-03 05:12] VITALS: BMI 26.2
[2022-06-03 06:23] LABS: Absolute Lymphocyte Count 0.69 X10^3/uL (0.83-4.51); Absolute Neutrophil Count 5.4 X10^3/uL (2.0-7.7); Basophil# 0.03 X10^3/uL; Basophil% 0.4 % (0-1); Eosinophil# 0.46 X10^3/uL; Eosinophils% 6.1 % (0-5); Hematocrit 30.1 % (40-54); Hemoglobin 9.9 g/dL (13.0-16.5); Lymphocyte # 0.69 X10^3/ul (0.83-4.51); Lymphocyte % 9.2 % (19-41); Mean Corp Hgb Conc 32.9 g/dL (32-36); Mean Corpuscular Hgb 31.4 pg (27.0-32.0); Mean Corpuscular Volume 95.6 fL (80-94); Mean Platelet Vol. 12.3 fl (6.2-12.0); Monocyte# 0.91 X10^3/uL; Monocyte% 12.1 % (0-10); NRBC Flagged by Analyzer 0 % (0-5); Neutrophil # 5.39 X10^3/uL (2.7-7.7); Neutrophil % 71.9 % (47-70); Platelet Count 263 K/mm3 (150-450); RBC Distribution Width CV 15.6 % (11.6-14.6); RBC Distribution Width SD 54.6 fl (35.1-43.9); Red Blood Count 3.15 M/mm3 (4.6-6.2); White Blood Count 7.5 K/mm3 (4.4-11.0)
[2022-06-03 06:47] LABS: Anion Gap 8 (5-15); BUN 8 mg/dL (7-18); BUN/Creat Ratio 9.9 RATIO (10-20); Calcium,Total 8.8 mg/dL (8.5-10.1); Chloride 108 mmol/L (98-107); Creatinine, Serum 0.81 mg/dL (0.70-1.30); EST Glomerular Filtration Rate 101 mL/min (>60); Est Glom Filt Rate - Afr Amer 122 mL/min (>60); Estimated Creatinine Clearance 87.62 ml/min; Glucose 103 mg/dL (74-106); Potassium 3.2 mmol/L (3.5-5.1); Sodium Level 139 mmol/L (136-145)
[2022-06-03 09:40] VITALS: BP 162/96; PULSE 80; RESP 18; TEMP 37.4; O2SAT 95
[2022-06-03] MEDS: Atropine Sulfate 1% 2 ml Bottle 2 DRP PO (09:43)
[2022-06-03 09:46] VITALS: PULSE 80
[2022-06-03] MEDS: Lisinopril 40 MG Tablet PO (09:46)
[2022-06-03] MEDS: Aspirin 81 MG TAB.CHEW NG (09:46)
[2022-06-03] MEDS: Famotidine 20 MG Tablet PO (09:46)
[2022-06-03] MEDS: Enoxaparin 40 MG/0.4 ML Syringe SC (09:46)
[2022-06-03] MEDS: Metoprolol(XL)Succ 25 MG Tablet PO (09:46)
[2022-06-03] MEDS: Folic Acid 1 MG Tablet NG (09:46)
[2022-06-03] MEDS: amLODIPine 10 MG Tablet PO (09:46)
[2022-06-03] MEDS: Cholecalciferol (VIT D3) 25 MCG TABLET (1,000 UNITS) 50 MCG PO (09:47)
[2022-06-03] MEDS: Acetaminophen 325 MG Tablet 650 MG PO (09:51)
[2022-06-03 15:40] VITALS: BP 166/89; PULSE 79; RESP 18; TEMP 36.3; O2SAT 94
--- NOTE | 2022-06-03 15:55 | PN.HOSP_ITS ---
Reason for Visit Reason for Visit: Diagnoses Hypo-osmolality and hyponatremia (05/25/22) Alcohol use, unspecified, uncomplicated (05/25/22) Alcohol use, unspecified with withdrawal delirium (05/25/22) Encephalopathy, unspecified (05/25/22) Pneumonia, unspecified organism (05/25/22) Acute respiratory failure with hypoxia (05/25/22) Atelectasis (05/25/22) Tobacco use (05/25/22) Presence of right artificial shoulder joint (05/25/22) Dependence on respirator [ventilator] status (05/25/22) Subjective Subjective Was seen and examined today, I talked with his cousin who was at the bedside during the time my examination. Patient remains confused at this time, he is alert, he is currently on room air Objective Data Objective Data Vital Signs: Vital Signs Temp Pulse Resp BP Pulse Ox O2 Del Method O2 Flow Rate 97.4 F L 79 18 166/89 H 94 Room Air 2 06/03/22 15:40 06/03/22 15:40 06/03/22 15:40 06/03/22 15:40 06/03/22 15:40 06/03/22 15:40 05/31/22 14:00 FiO2 21 05/28/22 14:00 Oxygen Flow Rate (L/min) 2 Oxygen Delivery Method Room Air Weight: 83.1 kg Body Mass Index (BMI) 26.2 Intake & Output: Intake and Output for Last 24 Hours 06/01/22 06/02/22 06/03/22 23:59 23:59 23:59 Intake Total 2182.5 / 2182.5 2148.75 / 2148.75 831.25 / 831.25 Output Total 1750 / 1750 1850 / 1850 400 / 400 Balance 432.5 / 432.5 298.75 / 298.75 431.25 / 431.25 Lab / Micro Data Result Diagrams: 06/03/22 05:46 06/03/22 05:46 Labs: Laboratory Results - last 24 hr 06/03/22 05:46: WBC 7.5, RBC 3.15 L, Hgb 9.9 L, Hct 30.1 L, MCV 95.6 H, MCH 31.4, MCHC 32.9, RDW Std Deviation 54.6 H, RDW Coeff of Jerome 15.6 H, Plt Count 263, MPV 12.3 H, Immature Gran % (Auto) 0.300, Neut % (Auto) 71.9 H, Lymph % (Auto) 9.2 L, [place] % (Auto) 12.1 H, Eos % (Auto) 6.1 H, Baso % (Auto) 0.4, Absolute Neuts (auto) 5.4, Absolute Lymphs (auto) 0.69 L, Nucleated RBC % 0 06/03/22 05:46: Sodium 139, Potassium 3.2 L, Chloride 108 H, Carbon Dioxide 23.0, Anion Gap 8, BUN 8, Creatinine 0.81, Estim Creat Clear Calc 87.62, Est GFR (MDRD) Af Amer 122, Est GFR (MDRD) Non-Af 101, BUN/Creatinine Ratio 9.9 L, Glucose 103, Calcium 8.8 Micro: Microbiology 05/26/22 10:45 Blood Culture (Wb) - Right Wrist Blood Culture - Final No growth in 5 days. 05/26/22 10:30 Blood Culture (Wb) - Anticubital Left Blood Culture - Final No growth in 5 days. 05/25/22 08:10 Blood Culture (Wb) - Anticubital Right Blood Culture - Final No growth in 5 days. 05/25/22 08:10 Blood Culture (Wb) - Anticubital Left Blood Culture - Final No growth in 5 days. 05/26/22 11:30 Sputum, Induced/Lukens Gram Stain - Final 05/26/22 11:30 Sputum, Induced/Lukens Respiratory Culture - Final Raoultella ornithinolytica 05/25/22 08:42 Urine Catheter - Prakash Urine Culture - Final Culture exhibits no growth. 05/25/22 08:35 Sputum, Induced/Lukens Gram Stain - Final 05/25/22 08:35 Sputum, Induced/Lukens Respiratory Culture - Final Klebsiella oxytoca 05/25/22 08:42 Nasal Secretion SARS-CoV-2 & FLU Antigen (Rapid) - Final Rhythm Strip Rhythm Strip: Sinus Rhythm Rate: 92 Ectopy: None Physical Exam Const alert and no apparent distress Constitutional Narrative: Patient appears older than his stated age, he exhibits confusion HEENT head/scalp atraumatic and moist oral mucous membranes Neck supple and no JVD Resp no retractions and no use of accessory muscles Resp Narrative: Occasional expiratory rhonchi are noted bilaterally Cardio regular rate, regular rhythm, S1 normal heart sound and S2 normal heart sound GI normal to inspection, nondistended, normoactive bowel sounds, soft to palpation and non-tender Extremity normal to inspection Neuro Neuro Narrative: Alert but confused Psych Psych Narrative: Patient appears confused Assessment & Plan Assessment/Plan (1) Pneumonia: PLAN: Plan 1. Acute metabolic encephalopathy-continue to provide supportive care, patient will need short-term placement in a group home facility #2 acute hypoxic respiratory failure-resolved at this time, patient is on room air #3 aspiration pneumonia with Klebsiella and Raoultella-patient remains on cefazolin #4 essential hypertension-patient is on metoprolol, amlodipine, and Zestril #5 chronic alcohol abuse-I do not think the patient is undergoing DTs at this time, continue to observe patient #6 acute debility-patient will need placement in a group home facility for short-term rehab services Total clinical time spent by myself addressing the patient's medical issues, reviewing all of the data, and collaborating with patient's care team: 35 ludy michael Charges/Coding Visit Charges Inpatient E&M: 99522 Subs Hosp L2
--- NOTE | 2022-06-03 16:43 | NURSING ---
This RN took over at this time.
[2022-06-03 19:05] VITALS: PULSE 84; RESP 22
[2022-06-03] MEDS: Ipratropium/Albuterol Sulfate 3 ML AMPUL.NEB INHALATION (19:05)
[2022-06-03 23:18] VITALS: BP 169/93; PULSE 80; RESP 20; TEMP 37; O2SAT 97
[2022-06-04] VITALS (7 sets, daily range): BP systolic 127–173; BP diastolic 67–93; PULSE 71–88; RESP 16–20; TEMP 36.8–37.7; O2SAT 94–97; BMI 26.0
[2022-06-04] MEDS: 0.45% Normal Saline 1,000 ML 75 ML IV ×2 (05:28→17:24)
[2022-06-04] MEDS: Cefazolin 2 GM in 0.9% Normal Saline 100 ML IV (05:28)
[2022-06-04] MEDS: Aspirin 81 MG TAB.CHEW NG ×2 (08:47→20:49)
[2022-06-04] MEDS: Cholecalciferol (VIT D3) 25 MCG TABLET (1,000 UNITS) 50 MCG PO (08:47)
[2022-06-04] MEDS: Lisinopril 40 MG Tablet PO (08:47)
[2022-06-04] MEDS: amLODIPine 10 MG Tablet PO (08:47)
[2022-06-04] MEDS: Metoprolol(XL)Succ 25 MG Tablet PO (08:47)
[2022-06-04] MEDS: Famotidine 20 MG Tablet PO (08:47)
[2022-06-04] MEDS: Enoxaparin 40 MG/0.4 ML Syringe SC (08:48)
[2022-06-04] MEDS: Folic Acid 1 MG Tablet PO (08:48)
[2022-06-04] MEDS: Acetaminophen 325 MG Tablet 650 MG PO ×2 (08:50→20:48)
[2022-06-04 10:00] LABS: Anion Gap 8 (5-15); BUN 8 mg/dL (7-18); BUN/Creat Ratio 11.1 RATIO (10-20); Calcium,Total 8.9 mg/dL (8.5-10.1); Chloride 107 mmol/L (98-107); Creatinine, Serum 0.72 mg/dL (0.70-1.30); EST Glomerular Filtration Rate 115 mL/min (>60); Est Glom Filt Rate - Afr Amer 139 mL/min (>60); Estimated Creatinine Clearance 70.97 ml/min; Glucose 87 mg/dL (74-106); Potassium 3.2 mmol/L (3.5-5.1); Sodium Level 139 mmol/L (136-145)
--- NOTE | 2022-06-04 13:43 | PN.HOSP_ITS ---
Reason for Visit Reason for Visit: Diagnoses Hypo-osmolality and hyponatremia (05/25/22) Alcohol use, unspecified, uncomplicated (05/25/22) Alcohol use, unspecified with withdrawal delirium (05/25/22) Encephalopathy, unspecified (05/25/22) Pneumonia, unspecified organism (05/25/22) Acute respiratory failure with hypoxia (05/25/22) Atelectasis (05/25/22) Tobacco use (05/25/22) Presence of right artificial shoulder joint (05/25/22) Dependence on respirator [ventilator] status (05/25/22) Subjective Subjective Patient was seen and examined today, he does follow simple commands, he remains confused however. Patient remains on room air at this time, patient is afebrile. Objective Data Objective Data Vital Signs: Vital Signs Temp Pulse Resp BP Pulse Ox O2 Del Method O2 Flow Rate 98.4 F 88 16 127/85 H 97 Room Air 2 06/04/22 11:19 06/04/22 11:19 06/04/22 11:19 06/04/22 11:19 06/04/22 11:19 06/04/22 11:19 05/31/22 14:00 FiO2 21 05/28/22 14:00 Oxygen Flow Rate (L/min) 2 Oxygen Delivery Method Room Air Weight: 82.6 kg Body Mass Index (BMI) 26.0 Intake & Output: Intake and Output for Last 24 Hours 06/02/22 06/03/22 06/04/22 23:59 23:59 23:59 Intake Total 2148.75 / 2148.75 1831.25 / 1831.25 1180 / 1180 Output Total 1850 / 1850 2300 / 2300 425 / 425 Balance 298.75 / 298.75 -468.75 / -468.75 755 / 755 Lab / Micro Data Result Diagrams: 06/03/22 05:46 06/04/22 09:17 Labs: Laboratory Results - last 24 hr 06/04/22 09:17: Sodium 139, Potassium 3.2 L, Chloride 107, Carbon Dioxide 24.0, Anion Gap 8, BUN 8, Creatinine 0.72, Estim Creat Clear Calc 70.97, Est GFR (MDRD) Af Amer 139, Est GFR (MDRD) Non-Af 115, BUN/Creatinine Ratio 11.1, Glucose 87, Calcium 8.9 Micro: Microbiology 05/26/22 10:45 Blood Culture (Wb) - Right Wrist Blood Culture - Final No growth in 5 days. 05/26/22 10:30 Blood Culture (Wb) - Anticubital Left Blood Culture - Final No growth in 5 days. 05/25/22 08:10 Blood Culture (Wb) - Anticubital Right Blood Culture - Final No growth in 5 days. 05/25/22 08:10 Blood Culture (Wb) - Anticubital Left Blood Culture - Final No growth in 5 days. 05/26/22 11:30 Sputum, Induced/Lukens Gram Stain - Final 05/26/22 11:30 Sputum, Induced/Lukens Respiratory Culture - Final Raoultella ornithinolytica 05/25/22 08:42 Urine Catheter - Prakash Urine Culture - Final Culture exhibits no growth. 05/25/22 08:35 Sputum, Induced/Lukens Gram Stain - Final 05/25/22 08:35 Sputum, Induced/Lukens Respiratory Culture - Final Klebsiella oxytoca 05/25/22 08:42 Nasal Secretion SARS-CoV-2 & FLU Antigen (Rapid) - Final Rhythm Strip Rhythm Strip: Sinus Rhythm Rate: 92 Ectopy: None Physical Exam Narrative alert and no apparent distress Constitutional Narrative: Patient appears older than his stated age, he exhibits confusion HEENT head/scalp atraumatic and moist oral mucous membranes Neck supple and no JVD Resp no retractions and no use of accessory muscles Resp Narrative: Occasional expiratory rhonchi are noted bilaterally Cardio regular rate, regular rhythm, S1 normal heart sound and S2 normal heart sound GI normal to inspection, nondistended, normoactive bowel sounds, soft to palpation and non-tender Extremity normal to inspection Neuro Neuro Narrative: Alert but confused Psych Psych Narrative: Patient appears confused Assessment & Plan Assessment/Plan (1) Pneumonia: PLAN: Plan 1. Acute metabolic encephalopathy-continue to provide supportive care, patient will need short-term placement in a senior care facility #2 acute hypoxic respiratory failure-resolved at this time, patient is on room air #3 aspiration pneumonia with Klebsiella and Raoultella-the patient has been on antibiotics long enough at this point, I have decided to discontinue his Ancef #4 essential hypertension-patient is on metoprolol, amlodipine, and Zestril #5 chronic alcohol abuse-I do not think the patient is undergoing DTs at this time, continue to observe patient #6 acute debility-patient will need placement in a senior care facility for short-term rehab services Total clinical time spent by myself addressing the patient's medical issues, reviewing all of the data, and collaborating with patient's care team: 35 minutes Charges/Coding Visit Charges Inpatient E&M: 64661 Subs Hosp L2
[2022-06-04] MEDS: Potassium Chloride Oral Tablet 20 MEQ 40 MEQ PO (14:14)
--- NOTE | 2022-06-04 19:00 | CPS ---
Pt refused to let tech apply chest vest on and also refused to take aerosol tx.
[2022-06-05] VITALS (10 sets, daily range): BP systolic 131–170; BP diastolic 57–99; PULSE 61–88; RESP 16–24; TEMP 36.2–37.3; O2SAT 93–98; BMI 26.2
[2022-06-05] MEDS: 0.45% Normal Saline 1,000 ML 75 ML IV ×2 (05:18→17:29)
[2022-06-05] MEDS: Enoxaparin 40 MG/0.4 ML Syringe SC (07:39)
[2022-06-05] MEDS: Folic Acid 1 MG Tablet PO (07:39)
[2022-06-05] MEDS: Aspirin 81 MG TAB.CHEW NG ×2 (07:39→20:12)
[2022-06-05] MEDS: Cholecalciferol (VIT D3) 25 MCG TABLET (1,000 UNITS) 50 MCG PO (07:40)
[2022-06-05] MEDS: amLODIPine 10 MG Tablet PO (07:40)
[2022-06-05] MEDS: Famotidine 20 MG Tablet PO (07:40)
[2022-06-05] MEDS: Lisinopril 40 MG Tablet PO (07:41)
[2022-06-05] MEDS: Metoprolol(XL)Succ 50 MG Tablet PO (07:45)
[2022-06-05] MEDS: Ipratropium/Albuterol Sulfate 3 ML AMPUL.NEB INHALATION ×4 (07:50→19:01)
--- NOTE | 2022-06-05 14:49 | CASEMGMT ---
AYUSH called patient's sister Bhargavi as SW was informed family does not want patient to return to [facility]. Bhargavi confirmed that is the plan. Bhargavi asked about [facility], but SW let her know if patient needs longer term care he would have to go to a different care home after TCU. Bhargavi did not want patient to have to move more than once. Her choices were [facility], [place], [place], and [place]. AYUSH will send out referrals. AYUSH sent referrals to all four facilities. Await responses. Alva Salomon MSW EVARISTO
--- NOTE | 2022-06-05 18:56 | PN.HOSP_ITS ---
Reason for Visit Reason for Visit: Diagnoses Hypo-osmolality and hyponatremia (05/25/22) Alcohol use, unspecified, uncomplicated (05/25/22) Alcohol use, unspecified with withdrawal delirium (05/25/22) Encephalopathy, unspecified (05/25/22) Pneumonia, unspecified organism (05/25/22) Acute respiratory failure with hypoxia (05/25/22) Atelectasis (05/25/22) Tobacco use (05/25/22) Presence of right artificial shoulder joint (05/25/22) Dependence on respirator [ventilator] status (05/25/22) Subjective Subjective Patient was seen and examined today, he still remains confused, I talked with his cousin who was in the room at the time of my visit. Patient remains on room air, vital signs remained stable at this point. Objective Data Objective Data Vital Signs: Vital Signs Temp Pulse Resp BP Pulse Ox O2 Del Method O2 Flow Rate 97.2 F L 78 18 131/99 H 94 Room Air 2 06/05/22 18:00 06/05/22 18:00 06/05/22 18:00 06/05/22 18:00 06/05/22 18:00 06/05/22 18:00 05/31/22 14:00 FiO2 21 05/28/22 14:00 Oxygen Flow Rate (L/min) 2 Oxygen Delivery Method Room Air Weight: 83.1 kg Body Mass Index (BMI) 26.2 Intake & Output: Intake and Output for Last 24 Hours 06/03/22 06/04/22 06/05/22 23:59 23:59 23:59 Intake Total 1831.25 / 1831.25 2432.5 / 2492.5 1866.25 / 1866.25 Output Total 2300 / 2300 1575 / 1875 1825 / 1825 Balance -468.75 / -468.75 857.5 / 617.5 41.25 / 41.25 Lab / Micro Data Result Diagrams: 06/03/22 05:46 06/04/22 09:17 Micro: Microbiology 05/26/22 10:45 Blood Culture (Wb) - Right Wrist Blood Culture - Final No growth in 5 days. 05/26/22 10:30 Blood Culture (Wb) - Anticubital Left Blood Culture - Final No growth in 5 days. 05/25/22 08:10 Blood Culture (Wb) - Anticubital Right Blood Culture - Final No growth in 5 days. 05/25/22 08:10 Blood Culture (Wb) - Anticubital Left Blood Culture - Final No growth in 5 days. 05/26/22 11:30 Sputum, Induced/Lukens Gram Stain - Final 05/26/22 11:30 Sputum, Induced/Lukens Respiratory Culture - Final Raoultella ornithinolytica 05/25/22 08:42 Urine Catheter - Prakash Urine Culture - Final Culture exhibits no growth. 05/25/22 08:35 Sputum, Induced/Lukens Gram Stain - Final 05/25/22 08:35 Sputum, Induced/Lukens Respiratory Culture - Final Klebsiella oxytoca 05/25/22 08:42 Nasal Secretion SARS-CoV-2 & FLU Antigen (Rapid) - Final Rhythm Strip Rhythm Strip: Sinus Rhythm Rate: 92 Ectopy: None Physical Exam Narrative alert and no apparent distress Constitutional Narrative: Patient appears older than his stated age, he exhibits confusion, he does not carry on a conversation with this examiner, he only speaks a few words HEENT head/scalp atraumatic and moist oral mucous membranes Neck supple and no JVD Resp no retractions and no use of accessory muscles Resp Narrative: Occasional expiratory rhonchi are noted bilaterally Cardio regular rate, regular rhythm, S1 normal heart sound and S2 normal heart sound GI normal to inspection, nondistended, normoactive bowel sounds, soft to palpation and non-tender Extremity normal to inspection Neuro Neuro Narrative: Alert but confused Psych Psych Narrative: Patient appears confused Assessment & Plan Assessment/Plan (1) Acute encephalopathy: (2) Pneumonia: PLAN: Plan 1. Acute metabolic encephalopathy-continue to provide supportive care, patient will need short-term placement in a group home facility #2 acute hypoxic respiratory failure-resolved at this time, patient is on room air #3 aspiration pneumonia with Klebsiella and Raoultella-patient completed a course of antibiotics #4 essential hypertension-patient is on metoprolol, amlodipine, and Zestril #5 chronic alcohol abuse-I do not think the patient is undergoing DTs at this time, continue to observe patient #6 acute debility-patient will need placement in a group home facility for short-term rehab services Total clinical time spent by myself addressing the patient's medical issues, reviewing all of the data, and collaborating with patient's care team: 35 minutes Charges/Coding Visit Charges Inpatient E&M: [id number] Subs Hosp L2
--- NOTE | 2022-06-05 19:41 | CPS ---
pt kept pulling off mask -pt refused vest
[2022-06-05] MEDS: Acetaminophen 325 MG Tablet 650 MG PO (20:12)
[2022-06-06] VITALS (12 sets, daily range): BP systolic 148–179; BP diastolic 68–111; PULSE 60–90; RESP 18–20; TEMP 36.5–36.8; O2SAT 93–96; BMI 26.2
[2022-06-06] MEDS: 0.45% Normal Saline 1,000 ML 75 ML IV ×2 (06:12→19:55)
[2022-06-06] MEDS: Ipratropium/Albuterol Sulfate 3 ML AMPUL.NEB INHALATION ×4 (06:51→20:24)
--- NOTE | 2022-06-06 10:31 | CASEMGMT ---
SW received a call from [facility] and someone will be coming to [facility] to do an onsite with patient. [facility] already responded they are not accepting patient. Still waiting on [place] and [place]. Alva Salomon DUCT LAYER HELPER EVARISTO
--- NOTE | 2022-06-06 10:45 | CASEMGMT ---
AYUSH spoke with patient's cousin, Artie per his request. AYUSH let Artie know that Josh will be coming to see patient to evaluate patient. Artie said he would stick around to talk with the person. Artie asked AYUSH to call him when Josh gives an answer. Alva LOERA
--- NOTE | 2022-06-06 10:46 | CASEMGMT ---
Josh is at [facility] to see patient. SW received a message via [employer] [place] is declining patient. Alva LOERA
[2022-06-06] MEDS: Lisinopril 40 MG Tablet PO (11:15)
[2022-06-06] MEDS: Famotidine 20 MG Tablet PO (11:16)
[2022-06-06] MEDS: amLODIPine 10 MG Tablet PO (11:16)
[2022-06-06] MEDS: Folic Acid 1 MG Tablet PO (11:16)
[2022-06-06] MEDS: Aspirin 81 MG TAB.CHEW NG ×2 (11:16→22:47)
[2022-06-06] MEDS: Metoprolol(XL)Succ 50 MG Tablet PO (11:16)
[2022-06-06] MEDS: Cholecalciferol (VIT D3) 25 MCG TABLET (1,000 UNITS) 50 MCG PO (11:16)
[2022-06-06] MEDS: Enoxaparin 40 MG/0.4 ML Syringe SC (11:16)
--- NOTE | 2022-06-06 11:30 | CASEMGMT ---
AYUSH called Stacy with [facility] and left her a message asking her if she received referral. Alva Salomon SOLUTIONS ENGINEER EVARISTO
--- NOTE | 2022-06-06 12:00 | CASEMGMT ---
Addendum entered by Alva Salomon 06/06/22 12:02: Artie did mention to SW to send a referral to [facility]. Alva LOERA Original Note: SW called Artie and let him know [place] is not able to take patient nor is [place]. AYUSH explained [facility] still has not notified [facility]. Alva LOERA
--- NOTE | 2022-06-06 14:40 | CASEMGMT ---
AYUSH received a message from Stacy with [facility]. She will be in to do an onsite with patient. Alva Salomon EVAPORATOR OPERATOR EVARISTO
--- NOTE | 2022-06-06 14:58 | CASEMGMT ---
AYUSH called [facility] and spoke with Rosalba, camera storage clerk. AYUSH asked her about the referrals. Rosalba said she would get someone to print out the information from [facility] and she will review the referrals. AYUSH gave her SW's direct number. Alva LOERA
--- NOTE | 2022-06-06 16:19 | CASEMGMT ---
SW received a voice mail from patient's sister Bhargavi. She asked SW to send a referral to [facility] ([facility]). SW sent a referral to [facility] via [email or web address]. Alva LOERA
--- NOTE | 2022-06-06 16:20 | CASEMGMT ---
SW spoke with sister, Bhargavi, regarding SW receiving her voicemail and referred patient to [facility] per her request. Sister also notified that a list of providers including quality and resource use data and consistent with patient?s preferred geographic region, medical needs, and insurance network were provided from the [employer]Port Guide and would be in the patient's room. Roslyn Jackson MSW, BURLAP WORKER
--- NOTE | 2022-06-06 16:46 | CASEMGMT ---
AYUSH returned Artie Daniel's phone call. He wanted to see if any other nursing homes got back to . AYUSH let him know is waiting on [facility]. AYUSH spoke with Bhargavi and made a referral to [facility] per Bhargavi's request. AYUSH also let him know a list of [facility] facilities will be in patient's room. Alva LOERA
--- NOTE | 2022-06-06 18:52 | PN.HOSP_ITS ---
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 Objective Data Objective Data Vital Signs: Vital Signs Temp Pulse Resp BP Pulse Ox O2 Del Method O2 Flow Rate 98.3 F 81 18 148/68 H 96 Room Air 2 06/06/22 18:09 06/06/22 18:09 06/06/22 18:09 06/06/22 18:09 06/06/22 18:09 06/06/22 18:09 05/31/22 14:00 FiO2 21 05/28/22 14:00 Oxygen Flow Rate (L/min) 2 Oxygen Delivery Method Room Air Weight: 82.9 kg Body Mass Index (BMI) 26.2 Intake & Output: Intake and Output for Last 24 Hours 06/04/22 06/05/22 06/06/22 23:59 23:59 23:59 Intake Total 2432.5 / 2492.5 1866.25 / 1966.25 1413.75 / 1413.75 Output Total 1575 / 1875 1825 / 2825 2950 / 2950 Balance 857.5 / 617.5 41.25 / -858.75 -1536.25 / -1536.25 Lab / Micro Data Result Diagrams: 06/03/22 05:46 06/04/22 09:17 Micro: Microbiology 05/26/22 10:45 Blood Culture (Wb) - Right Wrist Blood Culture - Final No growth in 5 days. 05/26/22 10:30 Blood Culture (Wb) - Anticubital Left Blood Culture - Final No growth in 5 days. 05/25/22 08:10 Blood Culture (Wb) - Anticubital Right Blood Culture - Final No growth in 5 days. 05/25/22 08:10 Blood Culture (Wb) - Anticubital Left Blood Culture - Final No growth in 5 days. 05/26/22 11:30 Sputum, Induced/Lukens Gram Stain - Final 05/26/22 11:30 Sputum, Induced/Lukens Respiratory Culture - Final Raoultella ornithinolytica 05/25/22 08:42 Urine Catheter - Prakash Urine Culture - Final Culture exhibits no growth. 05/25/22 08:35 Sputum, Induced/Lukens Gram Stain - Final 05/25/22 08:35 Sputum, Induced/Lukens Respiratory Culture - Final Klebsiella oxytoca 05/25/22 08:42 Nasal Secretion SARS-CoV-2 & FLU Antigen (Rapid) - Final Rhythm Strip Rhythm Strip: Sinus Rhythm Rate: 92 Ectopy: None Physical Exam Narrative alert and no apparent distress Constitutional Narrative: Patient appears older than his stated age, he exhibits confusion, he does not carry on a conversation with this examiner, he only speaks a few words HEENT head/scalp atraumatic and moist oral mucous membranes Neck supple and no JVD Resp no retractions and no use of accessory muscles Resp Narrative: Occasional expiratory rhonchi are noted bilaterally Cardio regular rate, regular rhythm, S1 normal heart sound and S2 normal heart sound GI normal to inspection, nondistended, normoactive bowel sounds, soft to palpation and non-tender Extremity normal to inspection Neuro Neuro Narrative: Alert but confused Psych Psych Narrative: Patient appears confused Assessment & Plan Assessment/Plan (1) Pneumonia: (2) Acute encephalopathy: PLAN: Plan 1. Acute metabolic encephalopathy-continue to provide supportive care, patient will need short-term placement in a long-term facility #2 acute hypoxic respiratory failure-resolved at this time, patient is on room air #3 aspiration pneumonia with Klebsiella and Raoultella-patient completed a course of antibiotics #4 essential hypertension-patient is on metoprolol, amlodipine, and Zestril #5 chronic alcohol abuse-I do not think the patient is undergoing DTs at this time, continue to observe patient #6 acute debility-patient will need placement in a long-term facility for short-term rehab services Total clinical time spent by myself addressing the patient's medical issues, reviewing all of the data, and collaborating with patient's care team: 35 minutes Charges/Coding Visit Charges Inpatient E&M: 64661 Subs Hosp L2
[2022-06-06] MEDS: Acetaminophen 325 MG Tablet 650 MG PO (22:49)
[2022-06-07] VITALS (8 sets, daily range): BP systolic 147–181; BP diastolic 84–97; PULSE 66–89; RESP 18–20; TEMP 36.4–37.2; O2SAT 94–97; BMI 26.1
--- NOTE | 2022-06-07 06:38 | NURSING ---
pt pulled out vincent catheter. MD notified and aware, ok to leave it off.
[2022-06-07] MEDS: Ipratropium/Albuterol Sulfate 3 ML AMPUL.NEB INHALATION ×2 (07:00→11:11)
--- NOTE | 2022-06-07 09:40 | CASEMGMT ---
Per physician patient's cousin Artie said [facility] in [place] would be fine. A referral was sent to [facility]. Alva LOERA
--- NOTE | 2022-06-07 09:40 | CASEMGMT ---
Per physician, patient's cousin requested referral be sent to [facility]. Referral sent to [facility] via [facility]. Roslyn Jackson TOWER CRANE OPERATOR, COLLECTIONS CLERK
[2022-06-07] MEDS: Famotidine 20 MG Tablet PO (10:36)
[2022-06-07] MEDS: Folic Acid 1 MG Tablet PO (10:36)
[2022-06-07] MEDS: Metoprolol(XL)Succ 50 MG Tablet PO (10:36)
[2022-06-07] MEDS: Aspirin 81 MG TAB.CHEW NG ×2 (10:36→21:23)
[2022-06-07] MEDS: amLODIPine 10 MG Tablet PO (10:36)
[2022-06-07] MEDS: Lisinopril 40 MG Tablet PO (10:37)
[2022-06-07] MEDS: Cholecalciferol (VIT D3) 25 MCG TABLET (1,000 UNITS) 50 MCG PO (10:37)
[2022-06-07] MEDS: Enoxaparin 40 MG/0.4 ML Syringe SC (10:41)
[2022-06-07] MEDS: 0.45% Normal Saline 1,000 ML 75 ML IV ×2 (10:42→21:24)
--- NOTE | 2022-06-07 10:55 | CASEMGMT ---
AYUSH received a call from Demario with [facility] and they plan on sending someone in to do an onsite visit with patient. Demario said it will be Natalie that comes to [facility]. Alva LOERA
--- NOTE | 2022-06-07 11:59 | CASEMGMT ---
Patient's sister Bhargavi came to SW about the SNF list. SW let Bhargavi know that Artie asked a referral be sent to [facility]. Bhargavi said that is fine, but not her first choice. AYUSH explained [facility] and [facility] are both coming to [facility] to assess patient this am. SW asked if those facilities say no which one would be next. Bhargavi was open to [facility]. Bhargavi also said that at this point she would just like SW to find someone that can take patient. SW told her we will continue to work on this. Alva Salomon LINE SERVICE TECHNICIAN EVARISTO
--- NOTE | 2022-06-07 13:23 | PCM.PN.HOSP ---
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 Patient pulled out his Prakash catheter today have elected to keep his Prakash out at this time. I talked to his cousin who was in the room, we are still awaiting approval for him to go to a nursing facility. Objective Data Objective Data Vital Signs: Vital Signs Temp Pulse Resp BP Pulse Ox O2 Del Method O2 Flow Rate 97.8 F 79 20 H 181/94 H 94 Room Air 2 06/07/22 10:15 06/07/22 11:11 06/07/22 11:11 06/07/22 10:36 06/07/22 10:15 06/07/22 10:30 05/31/22 14:00 FiO2 21 05/28/22 14:00 Oxygen Flow Rate (L/min) 2 Oxygen Delivery Method Room Air Weight: 82.7 kg Body Mass Index (BMI) 26.1 Intake & Output: Intake and Output for Last 24 Hours 06/05/22 06/06/22 06/07/22 23:59 23:59 23:59 Intake Total 1866.25 / 1966.25 2413.75 / 2413.75 1120 / 1120 Output Total 1825 / 2825 3550 / 3550 700 / 700 Balance 41.25 / -858.75 -1136.25 / -1136.25 420 / 420 Lab / Micro Data Result Diagrams: 06/03/22 05:46 06/04/22 09:17 Micro: Microbiology 05/26/22 10:45 Blood Culture (Wb) - Right Wrist Blood Culture - Final No growth in 5 days. 05/26/22 10:30 Blood Culture (Wb) - Anticubital Left Blood Culture - Final No growth in 5 days. 05/25/22 08:10 Blood Culture (Wb) - Anticubital Right Blood Culture - Final No growth in 5 days. 05/25/22 08:10 Blood Culture (Wb) - Anticubital Left Blood Culture - Final No growth in 5 days. 05/26/22 11:30 Sputum, Induced/Lukens Gram Stain - Final 05/26/22 11:30 Sputum, Induced/Lukens Respiratory Culture - Final Raoultella ornithinolytica 05/25/22 08:42 Urine Catheter - Prakash Urine Culture - Final Culture exhibits no growth. 05/25/22 08:35 Sputum, Induced/Lukens Gram Stain - Final 05/25/22 08:35 Sputum, Induced/Lukens Respiratory Culture - Final Klebsiella oxytoca 05/25/22 08:42 Nasal Secretion SARS-CoV-2 & FLU Antigen (Rapid) - Final Rhythm Strip Rhythm Strip: Sinus Rhythm Rate: 92 Ectopy: None Physical Exam Narrative alert and no apparent distress Constitutional Narrative: Patient appears older than his stated age, he exhibits confusion, he does not carry on a conversation with this examiner, he only speaks a few words HEENT head/scalp atraumatic and moist oral mucous membranes Neck supple and no JVD Resp no retractions and no use of accessory muscles Resp Narrative: Occasional expiratory rhonchi are noted bilaterally Cardio regular rate, regular rhythm, S1 normal heart sound and S2 normal heart sound GI normal to inspection, nondistended, normoactive bowel sounds, soft to palpation and non-tender Extremity normal to inspection Neuro Neuro Narrative: Alert but confused Psych Psych Narrative: Patient appears confused Assessment & Plan Assessment/Plan (1) Encephalopathy: (2) Pneumonia: (3) Acute encephalopathy: PLAN: Plan 1. Acute metabolic encephalopathy-continue to provide supportive care, patient will need short-term placement in a senior care facility #2 acute hypoxic respiratory failure-resolved at this time, patient is on room air #3 aspiration pneumonia with Klebsiella and Raoultella-patient completed a course of antibiotics #4 essential hypertension-patient is on metoprolol, amlodipine, and Zestril #5 chronic alcohol abuse-I do not think the patient is undergoing DTs at this time, continue to observe patient #6 acute debility-patient will need placement in a senior care facility for short-term rehab services Total clinical time spent by myself addressing the patient's medical issues, reviewing all of the data, and collaborating with patient's care team: 35 minutes Charges/Coding Visit Charges Inpatient E&M: 56396 Subs Hosp L2
--- NOTE | 2022-06-07 14:41 | CASEMGMT ---
AYUSH sent a message to [facility] asking if they are able to take patient. They asked AYUSH to send updates. Updates sent via [employer]. Alva LOERA
--- NOTE | 2022-06-07 15:53 | CASEMGMT ---
AYUSH sent a referral to [facility] and [facility] via [facility]. AYUSH is still waiting on [facility]. Alva Salomon MARRIAGE COUNSELOR EVARISTO
[2022-06-07] MEDS: hydroCHLOROthiazide 25 MG Tablet PO (18:25)
[2022-06-08 04:05] VITALS: BP 153/84; PULSE 72; RESP 18; TEMP 36.6; O2SAT 95
[2022-06-08 06:00] VITALS: BMI 26.0
[2022-06-08] MEDS: hydroCHLOROthiazide 25 MG Tablet PO (10:02)
[2022-06-08] MEDS: Aspirin 81 MG TAB.CHEW NG ×2 (10:02→22:29)
[2022-06-08] MEDS: Enoxaparin 40 MG/0.4 ML Syringe SC (10:03)
[2022-06-08] MEDS: amLODIPine 10 MG Tablet PO (10:03)
[2022-06-08 10:04] VITALS: PULSE 88
[2022-06-08] MEDS: Famotidine 20 MG Tablet PO (10:04)
[2022-06-08] MEDS: Lisinopril 40 MG Tablet PO (10:04)
[2022-06-08] MEDS: Folic Acid 1 MG Tablet PO (10:04)
[2022-06-08] MEDS: Metoprolol(XL)Succ 50 MG Tablet PO (10:04)
[2022-06-08 10:05] VITALS: BP 150/80; PULSE 74; RESP 18; TEMP 36.6; O2SAT 98
[2022-06-08] MEDS: Cholecalciferol (VIT D3) 25 MCG TABLET (1,000 UNITS) 50 MCG PO (10:05)
--- NOTE | 2022-06-08 13:58 | CASEMGMT ---
AYUSH called Stacy with [facility] to see if they are able to take patient. Stacy said they were waiting on more clinicals. AYUSH let Stacy know AYUSH sent updates yesterday after their request. Stacy will check and get back to AYUSH. Alva Salomon INDUSTRIAL GAS SERVICER SUPERVISOR EVARISTO
--- NOTE | 2022-06-08 14:47 | CASEMGMT ---
Stacy called AYUSH back and left a message. Stacy was asking if any medications will be added to help with patient's agitation. AYUSH sent physician a message. Alva LOERA
--- NOTE | 2022-06-08 14:48 | CASEMGMT ---
[facility] accepted patient. [facility] will be in to do an onsite today. AYUSH will talk with patient's sister. Alva LOERA
[2022-06-08 15:45] VITALS: BP 142/99; PULSE 88; RESP 16; TEMP 36.8; O2SAT 98
[2022-06-08] MEDS: 0.45% Normal Saline 1,000 ML 75 ML IV (15:49)
[2022-06-08] MEDS: QUEtiapine 25 MG Tablet PO ×2 (16:24→22:29)
--- NOTE | 2022-06-08 16:35 | CASEMGMT ---
AYUSH spoke with patient's sister Bhargavi. AYUSH let Bhargavi know that [facility] said they would take patient. AYUSH let her know [facility] [place] are still pending. AYUSH also spoke with Bhargavi about patient needing to apply for Medicaid. Bhargavi is going to see an real estate associate attorney and she is going to discuss some of these issues. She thanked AYUSH for the update. AYUSH called patient's cousin Artie and left him a voice mail letting him know this information as well. Alva Salomon MSW EVARISTO
[2022-06-08 19:04] VITALS: PULSE 89; RESP 24
[2022-06-08] MEDS: Ipratropium/Albuterol Sulfate 3 ML AMPUL.NEB INHALATION (19:04)
--- NOTE | 2022-06-08 19:08 | PN.HOSP_ITS ---
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 Objective Data Objective Data Vital Signs: Vital Signs Temp Pulse Resp BP Pulse Ox O2 Del Method O2 Flow Rate 98.2 F 88 16 142/99 H 98 Room Air 2 06/08/22 15:45 06/08/22 15:45 06/08/22 15:45 06/08/22 15:45 06/08/22 15:45 06/08/22 15:45 05/31/22 14:00 FiO2 21 05/28/22 14:00 Oxygen Flow Rate (L/min) 2 Oxygen Delivery Method Room Air Weight: 82.6 kg Body Mass Index (BMI) 26.0 Intake & Output: Intake and Output for Last 24 Hours 06/06/22 06/07/22 06/08/22 23:59 23:59 23:59 Intake Total 2413.75 / 2413.75 2042.5 / 2042.5 1000 / 1000 Output Total 3550 / 3550 800 / 800 Balance -1136.25 / -1136.25 1242.5 / 1242.5 1000 / 1000 Lab / Micro Data Result Diagrams: 06/03/22 05:46 06/04/22 09:17 Micro: Microbiology 05/26/22 10:45 Blood Culture (Wb) - Right Wrist Blood Culture - Final No growth in 5 days. 05/26/22 10:30 Blood Culture (Wb) - Anticubital Left Blood Culture - Final No growth in 5 days. 05/25/22 08:10 Blood Culture (Wb) - Anticubital Right Blood Culture - Final No growth in 5 days. 05/25/22 08:10 Blood Culture (Wb) - Anticubital Left Blood Culture - Final No growth in 5 days. 05/26/22 11:30 Sputum, Induced/Lukens Gram Stain - Final 05/26/22 11:30 Sputum, Induced/Lukens Respiratory Culture - Final Raoultella ornithinolytica 05/25/22 08:42 Urine Catheter - Prakash Urine Culture - Final Culture exhibits no growth. 05/25/22 08:35 Sputum, Induced/Lukens Gram Stain - Final 05/25/22 08:35 Sputum, Induced/Lukens Respiratory Culture - Final Klebsiella oxytoca 05/25/22 08:42 Nasal Secretion SARS-CoV-2 & FLU Antigen (Rapid) - Final Rhythm Strip Rhythm Strip: Sinus Rhythm Rate: 92 Ectopy: None Physical Exam Narrative alert and no apparent distress Constitutional Narrative: Patient appears older than his stated age, he exhibits confusion, he does not carry on a conversation with this examiner, he only speaks a few words HEENT head/scalp atraumatic and moist oral mucous membranes Neck supple and no JVD Resp no retractions and no use of accessory muscles Resp Narrative: Occasional expiratory rhonchi are noted bilaterally Cardio regular rate, regular rhythm, S1 normal heart sound and S2 normal heart sound GI normal to inspection, nondistended, normoactive bowel sounds, soft to palpation and non-tender Extremity normal to inspection Neuro Neuro Narrative: Alert but confused Psych Psych Narrative: Patient appears confused Assessment & Plan Assessment/Plan (1) Pneumonia: (2) Encephalopathy: (3) Acute encephalopathy: PLAN: Plan 1. Acute metabolic encephalopathy-continue to provide supportive care, patient will need short-term placement in a intermediate facility. Again I placed the patient on Seroquel for mood stabilization at this time #2 acute hypoxic respiratory failure-resolved at this time, patient is on room air #3 aspiration pneumonia with Klebsiella and Raoultella-patient completed a course of antibiotics #4 essential hypertension-patient is on metoprolol, amlodipine, and Zestril #5 chronic alcohol abuse-I do not think the patient is undergoing DTs at this time, continue to observe patient #6 acute debility-patient will need placement in a intermediate facility for short-term rehab services Total clinical time spent by myself addressing the patient's medical issues, reviewing all of the data, and collaborating with patient's care team: 35 minutes Charges/Coding Visit Charges Inpatient E&M: 56791 Subs Hosp L2
[2022-06-08 21:45] VITALS: BP 150/80; PULSE 74; RESP 18; TEMP 37; O2SAT 95
[2022-06-08] MEDS: Menthol/Lanolin/Calamine/Znox 113 GM Tube 1 APPLIC TOPICAL (22:30)
[2022-06-09] VITALS (9 sets, daily range): BP systolic 140–156; BP diastolic 70–80; PULSE 66–78; RESP 18–22; TEMP 36.2–36.6; O2SAT 95–100; BMI 25.6
[2022-06-09] MEDS: 0.45% Normal Saline 1,000 ML 75 ML IV ×2 (05:17→16:49)
[2022-06-09] MEDS: Menthol/Lanolin/Calamine/Znox 113 GM Tube 1 APPLIC TOPICAL ×2 (05:18→21:06)
[2022-06-09] MEDS: Ipratropium/Albuterol Sulfate 3 ML AMPUL.NEB INHALATION ×4 (07:05→19:59)
[2022-06-09] MEDS: Enoxaparin 40 MG/0.4 ML Syringe SC (08:54)
[2022-06-09] MEDS: amLODIPine 10 MG Tablet PO (08:55)
[2022-06-09] MEDS: Famotidine 20 MG Tablet PO (08:55)
[2022-06-09] MEDS: Folic Acid 1 MG Tablet PO (08:55)
[2022-06-09] MEDS: hydroCHLOROthiazide 25 MG Tablet PO (08:55)
[2022-06-09] MEDS: Lisinopril 40 MG Tablet PO (08:56)
[2022-06-09] MEDS: QUEtiapine 25 MG Tablet PO ×2 (08:56→21:06)
[2022-06-09] MEDS: Cholecalciferol (VIT D3) 25 MCG TABLET (1,000 UNITS) 50 MCG PO (08:56)
[2022-06-09] MEDS: Metoprolol(XL)Succ 50 MG Tablet PO (08:56)
[2022-06-09] MEDS: Aspirin 81 MG TAB.CHEW NG (08:56)
--- NOTE | 2022-06-09 09:50 | CASEMGMT ---
SW received a response in [facility] from [employer] and they are declining patient. SW will notify patient's family. Alva Salomon MSW EVARISTO
--- NOTE | 2022-06-09 10:00 | CASEMGMT ---
AYUSH called Stacy with [facility] and let her know patient was started on a scheduled dose of Seroquel. Stacy said she will talk with AYUSH on Sunday and review notes. AYUSH spoke with patient's cousin Artie. AYUSH let Artie know that [facility] said they would take patient. [facility] came to see patient yesterday, but they have not called AYUSH yet. [facility] is concerned about patient's agitation so patient was started on a medication and they want to see how he does on Sunday. Plan: SNF. Currently [facility] accepted, [facility] will re-evaluate Sunday, and [facility] is still undecided. Alva Salomon FLOOR RUNNER HISTORICAL SITE GUIDE
--- NOTE | 2022-06-09 10:15 | CASEMGMT ---
SW received a response in [facility]Port from [employer] and they are declining patient. SW will notify patient's family. Alva Salomon MSW EVARISTO
--- NOTE | 2022-06-09 16:26 | PCM.PN.HOSP ---
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 Objective Data Objective Data Vital Signs: Vital Signs Temp Pulse Resp BP Pulse Ox O2 Del Method O2 Flow Rate 97.1 F L 72 18 140/70 H 96 Room Air 2 06/09/22 15:29 06/09/22 15:29 06/09/22 15:29 06/09/22 15:29 06/09/22 15:29 06/09/22 15:29 05/31/22 14:00 FiO2 21 05/28/22 14:00 Oxygen Flow Rate (L/min) 2 Oxygen Delivery Method Room Air Weight: 81.2 kg Body Mass Index (BMI) 25.6 Intake & Output: Intake and Output for Last 24 Hours 06/07/22 06/08/22 06/09/22 23:59 23:59 23:59 Intake Total 2042.5 / 2042.5 1000 / 1000 1400 / 1400 Output Total 800 / 800 Balance 1242.5 / 1242.5 1000 / 1000 1400 / 1400 Lab / Micro Data Result Diagrams: 06/03/22 05:46 06/04/22 09:17 Micro: Microbiology 05/26/22 10:45 Blood Culture (Wb) - Right Wrist Blood Culture - Final No growth in 5 days. 05/26/22 10:30 Blood Culture (Wb) - Anticubital Left Blood Culture - Final No growth in 5 days. 05/25/22 08:10 Blood Culture (Wb) - Anticubital Right Blood Culture - Final No growth in 5 days. 05/25/22 08:10 Blood Culture (Wb) - Anticubital Left Blood Culture - Final No growth in 5 days. 05/26/22 11:30 Sputum, Induced/Lukens Gram Stain - Final 05/26/22 11:30 Sputum, Induced/Lukens Respiratory Culture - Final Raoultella ornithinolytica 05/25/22 08:42 Urine Catheter - Prakash Urine Culture - Final Culture exhibits no growth. 05/25/22 08:35 Sputum, Induced/Lukens Gram Stain - Final 05/25/22 08:35 Sputum, Induced/Lukens Respiratory Culture - Final Klebsiella oxytoca 05/25/22 08:42 Nasal Secretion SARS-CoV-2 & FLU Antigen (Rapid) - Final Rhythm Strip Rhythm Strip: Sinus Rhythm Rate: 92 Ectopy: None Physical Exam Narrative alert and no apparent distress Constitutional Narrative: Patient appears older than his stated age, he exhibits confusion, he does not carry on a conversation with this examiner, he only speaks a few words HEENT head/scalp atraumatic and moist oral mucous membranes Neck supple and no JVD Resp no retractions and no use of accessory muscles Resp Narrative: Occasional expiratory rhonchi are noted bilaterally Cardio regular rate, regular rhythm, S1 normal heart sound and S2 normal heart sound GI normal to inspection, nondistended, normoactive bowel sounds, soft to palpation and non-tender Extremity normal to inspection Neuro Neuro Narrative: Alert but confused Psych Psych Narrative: Patient appears confused Assessment & Plan Assessment/Plan (1) Encephalopathy: (2) Pneumonia: (3) Acute encephalopathy: PLAN: Plan 1. Acute metabolic encephalopathy-continue to provide supportive care, patient will need short-term placement in a residential facility. Patient is currently on Seroquel. #2 acute hypoxic respiratory failure-resolved at this time, patient is on room air #3 aspiration pneumonia with Klebsiella and Raoultella-patient completed a course of antibiotics #4 essential hypertension-patient is on metoprolol, amlodipine, and Zestril #5 chronic alcohol abuse-I do not think the patient is undergoing DTs at this time, continue to observe patient #6 acute debility-patient will need placement in a residential facility for short-term rehab services, acceptance at a residential facility is pending at this time and will not happen until next week. Total clinical time spent by myself addressing the patient's medical issues, reviewing all of the data, and collaborating with patient's care team: 35 minutes Charges/Coding Visit Charges Inpatient E&M: 58907 Subs Hosp L2
--- NOTE | 2022-06-09 17:24 | CASEMGMT ---
AYUSH spoke with patient's sister Bhargavi. AYUSH let her know [facility] has declined patient. AYUSH let Bhargavi know that [facility] would like to evaluate patient Sunday after he has been on medication for a little bit. AYUSH let Bhargavi know that at this point [facility] accepted patient and [facility] will re-evaluate Sunday. Alva Salomon PRINTER'S DEVIL EVARISTO
[2022-06-09] MEDS: Aspirin 81 MG TAB.CHEW PO (21:06)
--- NOTE | 2022-06-10 01:30 | NURSING ---
This RN took over patient care at this time.
[2022-06-10 03:00] VITALS: BP 150/95; PULSE 74; RESP 18; TEMP 36.2; O2SAT 100
[2022-06-10 06:00] VITALS: BMI 25.0
[2022-06-10] MEDS: Menthol/Lanolin/Calamine/Znox 113 GM Tube 1 APPLIC TOPICAL ×2 (06:06→22:09)
[2022-06-10] MEDS: 0.45% Normal Saline 1,000 ML 75 ML IV ×2 (06:07→18:20)
[2022-06-10 07:20] VITALS: PULSE 72; RESP 17
[2022-06-10] MEDS: Ipratropium/Albuterol Sulfate 3 ML AMPUL.NEB INHALATION (07:30)
[2022-06-10 11:23] VITALS: BP 152/84; PULSE 89; RESP 16; TEMP 37.1; O2SAT 96
[2022-06-10 11:26] VITALS: BP 152/84; PULSE 89
[2022-06-10] MEDS: QUEtiapine 25 MG Tablet PO ×2 (11:26→22:09)
[2022-06-10] MEDS: Metoprolol(XL)Succ 50 MG Tablet PO (11:26)
[2022-06-10] MEDS: amLODIPine 10 MG Tablet PO (11:27)
[2022-06-10] MEDS: Enoxaparin 40 MG/0.4 ML Syringe SC (11:27)
[2022-06-10] MEDS: Lisinopril 40 MG Tablet PO (11:27)
[2022-06-10] MEDS: Aspirin 81 MG TAB.CHEW PO ×2 (11:27→22:09)
[2022-06-10] MEDS: hydroCHLOROthiazide 25 MG Tablet PO (11:27)
[2022-06-10] MEDS: Cholecalciferol (VIT D3) 25 MCG TABLET (1,000 UNITS) 50 MCG PO (11:27)
[2022-06-10] MEDS: Folic Acid 1 MG Tablet PO (11:27)
[2022-06-10] MEDS: Famotidine 20 MG Tablet PO (11:27)
[2022-06-10] MEDS: Haloperidol Lactate 5 MG/ML Vial IM (16:45)
--- NOTE | 2022-06-10 17:13 | PN.HOSP_ITS ---
Reason for Visit Reason for Visit: Diagnoses Hypo-osmolality and hyponatremia (05/25/22) Alcohol use, unspecified, uncomplicated (05/25/22) Alcohol use, unspecified with withdrawal delirium (05/25/22) Encephalopathy, unspecified (05/25/22) Pneumonia, unspecified organism (05/25/22) Acute respiratory failure with hypoxia (05/25/22) Atelectasis (05/25/22) Tobacco use (05/25/22) Presence of right artificial shoulder joint (05/25/22) Dependence on respirator [ventilator] status (05/25/22) Subjective Subjective Was seen and examined today, he remains confused, this afternoon I gave him an IM injection of Haldol due to agitation. Objective Data Objective Data Vital Signs: Vital Signs Temp Pulse Resp BP Pulse Ox O2 Del Method O2 Flow Rate 98.7 F 89 16 152/84 H 96 Room Air 2 06/10/22 11:23 06/10/22 11:26 06/10/22 11:23 06/10/22 11:26 06/10/22 11:23 06/10/22 11:23 05/31/22 14:00 FiO2 21 05/28/22 14:00 Oxygen Flow Rate (L/min) 2 Oxygen Delivery Method Room Air Weight: 79.4 kg Body Mass Index (BMI) 25.0 Intake & Output: Intake and Output for Last 24 Hours 06/08/22 06/09/22 06/10/22 23:59 23:59 23:59 Intake Total 1000 / 1000 2765 / 2795 1027.5 / 1027.5 Balance 1000 / 1000 2765 / 2795 1027.5 / 1027.5 Lab / Micro Data Result Diagrams: 06/03/22 05:46 06/04/22 09:17 Micro: Microbiology 05/26/22 10:45 Blood Culture (Wb) - Right Wrist Blood Culture - Final No growth in 5 days. 05/26/22 10:30 Blood Culture (Wb) - Anticubital Left Blood Culture - Final No growth in 5 days. 05/25/22 08:10 Blood Culture (Wb) - Anticubital Right Blood Culture - Final No growth in 5 days. 05/25/22 08:10 Blood Culture (Wb) - Anticubital Left Blood Culture - Final No growth in 5 days. 05/26/22 11:30 Sputum, Induced/Lukens Gram Stain - Final 05/26/22 11:30 Sputum, Induced/Lukens Respiratory Culture - Final Raoultella ornithinolytica 05/25/22 08:42 Urine Catheter - Prakash Urine Culture - Final Culture exhibits no growth. 05/25/22 08:35 Sputum, Induced/Lukens Gram Stain - Final 05/25/22 08:35 Sputum, Induced/Lukens Respiratory Culture - Final Klebsiella oxytoca 05/25/22 08:42 Nasal Secretion SARS-CoV-2 & FLU Antigen (Rapid) - Final Rhythm Strip Rhythm Strip: Sinus Rhythm Rate: 92 Ectopy: None Physical Exam Narrative alert and no apparent distress Constitutional Narrative: Patient appears older than his stated age, he exhibits confusion, he does not carry on a conversation with this examiner, he only speaks a few words HEENT head/scalp atraumatic and moist oral mucous membranes Neck supple and no JVD Resp no retractions and no use of accessory muscles Resp Narrative: Occasional expiratory rhonchi are noted bilaterally Cardio regular rate, regular rhythm, S1 normal heart sound and S2 normal heart sound GI normal to inspection, nondistended, normoactive bowel sounds, soft to palpation and non-tender Extremity normal to inspection Neuro Neuro Narrative: Alert but confused Psych Psych Narrative: Patient appears confused Assessment & Plan Assessment/Plan (1) Encephalopathy: (2) Pneumonia: (3) Acute encephalopathy: PLAN: Plan 1. Acute metabolic encephalopathy-continue to provide supportive care, patient will need short-term placement in a senior living facility. Patient is cur rently on Seroquel. The exact etiology of the encephalopathy is unknown at this time, this may be chronic in nature. #2 acute hypoxic respiratory failure-resolved at this time, patient is on room air #3 aspiration pneumonia with Klebsiella and Raoultella-patient completed a course of antibiotics #4 essential hypertension-patient is on metoprolol, amlodipine, and Zestril #5 chronic alcohol abuse-patient had no documented DTs here #6 acute debility-patient will need placement in a senior living facility for short-term rehab services, acceptance at a senior living facility is pending at this time and will not happen until next week. Total clinical time spent by myself addressing the patient's medical issues, reviewing all of the data, and collaborating with patient's care team: 35 minutes Charges/Coding Visit Charges Inpatient E&M: 11751 Subs Hosp L2
[2022-06-10 18:08] VITALS: BP 152/88; PULSE 82; RESP 16; TEMP 36.6; O2SAT 95
[2022-06-10] MEDS: NYSTATIN 500,000 UNIT/5 ML UDC 250000 UNIT PO ×2 (18:10→22:09)
[2022-06-10 22:30] VITALS: BP 157/76; PULSE 72; RESP 18; TEMP 36.4; O2SAT 97
[2022-06-11] MEDS: Menthol/Lanolin/Calamine/Znox 113 GM Tube 1 APPLIC TOPICAL ×3 (04:16→20:19)
[2022-06-11 04:24] VITALS: BP 139/72; PULSE 65; RESP 16; TEMP 36.4; O2SAT 94
[2022-06-11 04:49] VITALS: BMI 24.7
[2022-06-11] MEDS: 0.45% Normal Saline 1,000 ML 75 ML IV ×2 (05:35→18:28)
[2022-06-11 08:23] VITALS: BP 148/78; PULSE 80; RESP 18; TEMP 36.3; O2SAT 95
[2022-06-11] MEDS: Folic Acid 1 MG Tablet PO (08:37)
[2022-06-11] MEDS: Enoxaparin 40 MG/0.4 ML Syringe SC (08:38)
[2022-06-11] MEDS: hydroCHLOROthiazide 25 MG Tablet PO (08:38)
[2022-06-11] MEDS: amLODIPine 10 MG Tablet PO (08:38)
[2022-06-11] MEDS: Aspirin 81 MG TAB.CHEW PO ×2 (08:38→20:19)
[2022-06-11 08:39] VITALS: BP 148/78; PULSE 80
[2022-06-11] MEDS: Famotidine 20 MG Tablet PO (08:39)
[2022-06-11] MEDS: Metoprolol(XL)Succ 50 MG Tablet PO (08:39)
[2022-06-11] MEDS: QUEtiapine 25 MG Tablet PO ×2 (08:39→20:19)
[2022-06-11] MEDS: Cholecalciferol (VIT D3) 25 MCG TABLET (1,000 UNITS) 50 MCG PO (08:39)
[2022-06-11] MEDS: Lisinopril 40 MG Tablet PO (08:40)
[2022-06-11] MEDS: NYSTATIN 500,000 UNIT/5 ML UDC 250000 UNIT PO ×2 (14:55→20:19)
[2022-06-11 15:03] VITALS: BP 137/95; PULSE 83; RESP 16; TEMP 36.4; O2SAT 100
--- NOTE | 2022-06-11 18:25 | PCM.PN.HOSP ---
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 Objective Data Objective Data Vital Signs: Vital Signs Temp Pulse Resp BP Pulse Ox O2 Del Method O2 Flow Rate 97.5 F L 83 16 137/95 H 100 Room Air 2 06/11/22 15:03 06/11/22 15:03 06/11/22 15:03 06/11/22 15:03 06/11/22 15:03 06/11/22 15:03 05/31/22 14:00 FiO2 21 05/28/22 14:00 Oxygen Flow Rate (L/min) 2 Oxygen Delivery Method Room Air Weight: 78.5 kg Body Mass Index (BMI) 24.7 Intake & Output: Intake and Output for Last 24 Hours 06/09/22 06/10/22 06/11/22 23:59 23:59 23:59 Intake Total 2765 / 2795 2243.75 / 2293.75 953.75 / 953.75 Balance 2765 / 2795 2243.75 / 2293.75 953.75 / 953.75 Lab / Micro Data Result Diagrams: 06/03/22 05:46 06/04/22 09:17 Micro: Microbiology 05/26/22 10:45 Blood Culture (Wb) - Right Wrist Blood Culture - Final No growth in 5 days. 05/26/22 10:30 Blood Culture (Wb) - Anticubital Left Blood Culture - Final No growth in 5 days. 05/25/22 08:10 Blood Culture (Wb) - Anticubital Right Blood Culture - Final No growth in 5 days. 05/25/22 08:10 Blood Culture (Wb) - Anticubital Left Blood Culture - Final No growth in 5 days. 05/26/22 11:30 Sputum, Induced/Lukens Gram Stain - Final 05/26/22 11:30 Sputum, Induced/Lukens Respiratory Culture - Final Raoultella ornithinolytica 05/25/22 08:42 Urine Catheter - Prakash Urine Culture - Final Culture exhibits no growth. 05/25/22 08:35 Sputum, Induced/Lukens Gram Stain - Final 05/25/22 08:35 Sputum, Induced/Lukens Respiratory Culture - Final Klebsiella oxytoca 05/25/22 08:42 Nasal Secretion SARS-CoV-2 & FLU Antigen (Rapid) - Final Rhythm Strip Rhythm Strip: Sinus Rhythm Rate: 92 Ectopy: None Physical Exam Narrative alert and no apparent distress Constitutional Narrative: Patient appears older than his stated age, he exhibits confusion, he does not carry on a conversation with this examiner, he only speaks a few words HEENT head/scalp atraumatic and moist oral mucous membranes Neck supple and no JVD Resp no retractions and no use of accessory muscles Resp Narrative: Occasional expiratory rhonchi are noted bilaterally Cardio regular rate, regular rhythm, S1 normal heart sound and S2 normal heart sound GI normal to inspection, nondistended, normoactive bowel sounds, soft to palpation and non-tender Extremity normal to inspection Neuro Neuro Narrative: Alert but confused Psych Psych Narrative: Patient appears confused Assessment & Plan Assessment/Plan (1) Encephalopathy: (2) Pneumonia: (3) Acute encephalopathy: PLAN: Plan 1. Acute metabolic encephalopathy-continue to provide supportive care, patient will need short-term placement in a senior care facility. Patient is currently on Seroquel. The exact etiology of the encephalopathy is unknown at this time, this may be chronic in nature. #2 acute hypoxic respiratory failure-resolved at this time, patient is on room air #3 aspiration pneumonia with Klebsiella and Raoultella-patient completed a course of antibiotics #4 essential hypertension-patient is on metoprolol, amlodipine, and Zestril #5 chronic alcohol abuse-patient had no documented DTs here #6 acute debility-patient will need placement in a senior care facility for short-term rehab services, acceptance at a senior care facility is pending at this time and will not happen until next week. Total clinical time spent by myself addressing the patient's medical issues, reviewing all of the data, and collaborating with patient's care team: 25 minutes Charges/Coding Visit Charges Inpatient E&M: 80431 Subs Hosp L1
[2022-06-11 21:10] VITALS: BP 157/80; PULSE 80; RESP 18; TEMP 36.8; O2SAT 96
[2022-06-12 03:00] VITALS: BP 160/90; PULSE 72; RESP 18; TEMP 36.6; O2SAT 97
[2022-06-12 03:49] VITALS: BMI 24.7
[2022-06-12] MEDS: 0.45% Normal Saline 1,000 ML 75 ML IV ×2 (05:46→17:07)
[2022-06-12 09:08] VITALS: BP 153/91; PULSE 83; RESP 16; TEMP 36.6; O2SAT 99
[2022-06-12] MEDS: NYSTATIN 500,000 UNIT/5 ML UDC 250000 UNIT PO ×2 (09:14→14:30)
[2022-06-12] MEDS: Aspirin 81 MG TAB.CHEW PO ×2 (09:14→20:57)
[2022-06-12] MEDS: Famotidine 20 MG Tablet PO (09:14)
[2022-06-12 09:15] VITALS: BP 153/91; PULSE 83
[2022-06-12] MEDS: Lisinopril 40 MG Tablet PO (09:15)
[2022-06-12] MEDS: Enoxaparin 40 MG/0.4 ML Syringe SC (09:15)
[2022-06-12] MEDS: Metoprolol(XL)Succ 50 MG Tablet PO (09:15)
[2022-06-12] MEDS: Folic Acid 1 MG Tablet PO (09:15)
[2022-06-12] MEDS: hydroCHLOROthiazide 25 MG Tablet PO (09:16)
[2022-06-12] MEDS: amLODIPine 10 MG Tablet PO (09:16)
[2022-06-12] MEDS: Cholecalciferol (VIT D3) 25 MCG TABLET (1,000 UNITS) 50 MCG PO (09:16)
[2022-06-12] MEDS: QUEtiapine 25 MG Tablet PO ×2 (09:16→21:00)
--- NOTE | 2022-06-12 10:27 | CASEMGMT ---
Addendum entered by Katie Pepe 06/12/22 12:38: SW sent a second message to [facility] via [employer], and also attempted to call but nobody answers. SW will continue to follow. ANDREA Tsang Original Note: Social Work SW spoke w/pt's cousin Artie, explained [facility] accepted and acceptance is pending at [facility]. Artie states they would prefer [facility] as it is closer. SW explained to pt and cousin we will send updates and let them know. SW called [facility], updates sent via [employer]. SW will continue to follow, await response from [facility]. ANDREA Tsang
--- NOTE | 2022-06-12 13:14 | CASEMGMT ---
Social Work Pt's sister here asking about plan. SW let her know we are still waiting for an answer from [facility]. SW explained if we do not hear back by the end of the day we will need to go with [facility]. Pt's sister states understanding. ANDREA Tsang
--- NOTE | 2022-06-12 13:15 | CASEMGMT ---
SW called [place] for an update on referral. Message left and asked for a return call. Roslyn Jackson CARTRIDGE FEEDER, SATELLITE COMMUNICATIONS OPERATOR
--- NOTE | 2022-06-12 13:20 | PN.HOSP_ITS ---
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 Patient's cousin is in the room and I talked with him during the time my examination. We are currently awaiting approval from his insurance carrier for a intermediate to take the patient for skilled needs. Objective Data Objective Data Vital Signs: Vital Signs Temp Pulse Resp BP Pulse Ox O2 Del Method O2 Flow Rate 97.9 F 83 16 153/91 H 99 Room Air 2 06/12/22 09:08 06/12/22 09:15 06/12/22 09:08 06/12/22 09:15 06/12/22 09:08 06/12/22 09:10 05/31/22 14:00 FiO2 21 05/28/22 14:00 Oxygen Flow Rate (L/min) 2 Oxygen Delivery Method Room Air Weight: 78.5 kg Body Mass Index (BMI) 24.7 Intake & Output: Intake and Output for Last 24 Hours 06/10/22 06/11/22 06/12/22 23:59 23:59 23:59 Intake Total 2243.75 / 2293.75 2019. / 2019. 847.5 / 847.5 Output Total 250 / 250 Balance 2243.75 / 2293.75 1770.00 / 1770.00 847.5 / 847.5 Lab / Micro Data Result Diagrams: 06/03/22 05:46 06/04/22 09:17 Micro: Microbiology 05/26/22 10:45 Blood Culture (Wb) - Right Wrist Blood Culture - Final No growth in 5 days. 05/26/22 10:30 Blood Culture (Wb) - Anticubital Left Blood Culture - Final No growth in 5 days. 05/25/22 08:10 Blood Culture (Wb) - Anticubital Right Blood Culture - Final No growth in 5 days. 05/25/22 08:10 Blood Culture (Wb) - Anticubital Left Blood Culture - Final No growth in 5 days. 05/26/22 11:30 Sputum, Induced/Lukens Gram Stain - Final 05/26/22 11:30 Sputum, Induced/Lukens Respiratory Culture - Final Raoultella ornithinolytica 05/25/22 08:42 Urine Catheter - Prakash Urine Culture - Final Culture exhibits no growth. 05/25/22 08:35 Sputum, Induced/Lukens Gram Stain - Final 05/25/22 08:35 Sputum, Induced/Lukens Respiratory Culture - Final Klebsiella oxytoca 05/25/22 08:42 Nasal Secretion SARS-CoV-2 & FLU Antigen (Rapid) - Final Rhythm Strip Rhythm Strip: Sinus Rhythm Rate: 92 Ectopy: None Physical Exam Narrative alert and no apparent distress Constitutional Narrative: Patient appears older than his stated age, he exhibits confusion, he does not carry on a conversation with this examiner, he only speaks a few words and tries to string sentences together HEENT head/scalp atraumatic and moist oral mucous membranes Neck supple and no JVD Resp no retractions and no use of accessory muscles Resp Narrative: Occasional expiratory rhonchi are noted bilaterally Cardio regular rate, regular rhythm, S1 normal heart sound and S2 normal heart sound GI normal to inspection, nondistended, normoactive bowel sounds, soft to palpation and non-tender Extremity normal to inspection Neuro Neuro Narrative: Alert but confused Psych Psych Narrative: Patient appears confused Assessment & Plan Assessment/Plan (1) Pneumonia: (2) Encephalopathy: (3) Acute encephalopathy: PLAN: Plan 1. Acute metabolic encephalopathy-continue to provide supportive care, patient will need short-term placement in a shelter facility. Patient is currently on Seroquel. The exact etiology of the encephalopathy is unknown at this time, this may be chronic in nature. #2 acute hypoxic respiratory failure-resolved at this time, patient is on room air #3 aspiration pneumonia with Klebsiella and Raoultella-patient completed a course of antibiotics #4 essential hypertension-patient is on metoprolol, amlodipine, and Zestril #5 chronic alcohol abuse-patient had no documented DTs here #6 acute debility-patient will need placement in a shelter facility for short-term rehab services, acceptance at a shelter facility is pending at this time and will not happen until this week. Total clinical time spent by myself addressing the patient's medical issues, reviewing all of the data, and collaborating with patient's care team: 25 minutes Charges/Coding Visit Charges Inpatient E&M: 73147 [facility] Hosp L1
--- NOTE | 2022-06-12 13:35 | CASEMGMT ---
Addendum entered by Katie Pepe 06/12/22 14:35: Social Work SW spoke w/pt's sister, she is asking about guardianship. She states they are meeting w/an attorney lawyer on Sunday. SW explained to speak w/the attorney lawyer, they shoulc be able to guide family through the process, but that it will go through probate court. ANDREA Tsang Original Note: Social Work SW spoke w/[facility], they will take pt and will start precert. However they did not receive the updates, SW resent them through [facility]. SW will continue to follow. ANDREA Tsang
--- NOTE | 2022-06-12 13:41 | CASEMGMT ---
[facility] called to report they can accept the patient pending precert. AYUSH called sister and cousin to update them on placement status. Roslyn Jackson EXHIBIT DESIGNER, PLASTERER HELPER
[2022-06-12] MEDS: Menthol/Lanolin/Calamine/Znox 113 GM Tube 1 APPLIC TOPICAL (14:30)
--- NOTE | 2022-06-12 14:47 | NURSING ---
This RN called report to MARIE Baez on [facility].
[2022-06-12 15:10] VITALS: BP 141/83; PULSE 77; RESP 18; TEMP 36.7; O2SAT 96
--- NOTE | 2022-06-12 15:14 | NURSING ---
pt arrived to room 309 via bed from PCU
[2022-06-12 15:16] VITALS: PULSE 77
--- NOTE | 2022-06-12 16:16 | NURSING ---
instrumentation supervisor kenna SALAZAR notified of need for pt sling (none currently on this unit)
[2022-06-12 20:50] VITALS: BP 138/90; PULSE 79; RESP 18; TEMP 36.8; O2SAT 95
[2022-06-13 05:45] VITALS: BP 142/92; PULSE 72; RESP 18; TEMP 36.7; O2SAT 96
[2022-06-13 06:00] VITALS: BMI 24.5
[2022-06-13] MEDS: Menthol/Lanolin/Calamine/Znox 113 GM Tube 1 APPLIC TOPICAL ×3 (06:03→20:44)
[2022-06-13] MEDS: 0.45% Normal Saline 1,000 ML 75 ML IV ×2 (06:04→19:40)
--- NOTE | 2022-06-13 08:18 | CASEMGMT ---
Addendum entered by Ирина Acevedo 06/13/22 13:41: SW received message from AYUSH Calle that [facility] was not sure if [facility] had been updated that pt has chose another facility. SW checked referral and notified [facility] of this information via [facility] as they had not been notified before pt transferred to [facility]. Original Note: Social Work SW received message in [facility] from Stacy Holcomb, from [facility]. Stacy requesting PT/OT notes from 06/12 and current med list. AYUSH sent these documents at this time and requested precert be started if it was not done yesterday when pt was accepted. PLAN: [facility], pending precert ANA ROSA López
[2022-06-13 08:46] VITALS: BP 143/80; PULSE 74; RESP 18; TEMP 36.3; O2SAT 100
[2022-06-13] MEDS: Folic Acid 1 MG Tablet PO (08:49)
[2022-06-13] MEDS: Aspirin 81 MG TAB.CHEW PO ×2 (08:49→20:43)
[2022-06-13] MEDS: hydroCHLOROthiazide 25 MG Tablet PO (08:50)
[2022-06-13] MEDS: amLODIPine 10 MG Tablet PO (08:51)
[2022-06-13] MEDS: NYSTATIN 500,000 UNIT/5 ML UDC 250000 UNIT PO ×4 (08:51→20:43)
[2022-06-13] MEDS: Famotidine 20 MG Tablet PO (08:52)
[2022-06-13] MEDS: Lisinopril 40 MG Tablet PO (08:53)
[2022-06-13] MEDS: QUEtiapine 25 MG Tablet PO ×2 (08:53→20:43)
[2022-06-13] MEDS: Cholecalciferol (VIT D3) 25 MCG TABLET (1,000 UNITS) 50 MCG PO (08:55)
[2022-06-13 08:59] VITALS: PULSE 74
[2022-06-13] MEDS: Metoprolol(XL)Succ 50 MG Tablet PO (08:59)
[2022-06-13] MEDS: Enoxaparin 40 MG/0.4 ML Syringe SC (08:59)
--- NOTE | 2022-06-13 10:41 | PCM.PN.HOSP ---
Subjective Subjective No issues overnight, appears to be at baseline. He does have significant mumbled speech but was able to figure out what he was asking Objective Data Objective Data Vital Signs: Vital Signs Temp Pulse Resp BP Pulse Ox O2 Del Method O2 Flow Rate 97.3 F L 74 18 143/80 H 100 Room Air 2 06/13/22 08:46 06/13/22 08:59 06/13/22 08:46 06/13/22 08:46 06/13/22 08:46 06/13/22 08:46 05/31/22 14:00 FiO2 21 05/28/22 14:00 Oxygen Flow Rate (L/min) 2 Oxygen Delivery Method Room Air Weight: 173 lb 1.006 oz Body Mass Index (BMI) 24.7 Intake & Output: Intake and Output for Last 24 Hours 06/12/22 06/13/22 06/14/22 03:59 03:59 03:59 Intake Total 1970.00 / 1970.00 2518.75 / 2518.75 1021.25 / 1021.25 Output Total 250 / 250 400 / 400 Balance 1720.00 / 1720.00 2518.75 / 2518.75 621.25 / 621.25 Lab / Micro Data Result Diagrams: 06/03/22 05:46 06/04/22 09:17 Micro: Microbiology 05/26/22 10:45 Blood Culture (Wb) - Right Wrist Blood Culture - Final No growth in 5 days. 05/26/22 10:30 Blood Culture (Wb) - Anticubital Left Blood Culture - Final No growth in 5 days. 05/25/22 08:10 Blood Culture (Wb) - Anticubital Right Blood Culture - Final No growth in 5 days. 05/25/22 08:10 Blood Culture (Wb) - Anticubital Left Blood Culture - Final No growth in 5 days. 05/26/22 11:30 Sputum, Induced/Lukens Gram Stain - Final 05/26/22 11:30 Sputum, Induced/Lukens Respiratory Culture - Final Raoultella ornithinolytica 05/25/22 08:42 Urine Catheter - Prakash Urine Culture - Final Culture exhibits no growth. 05/25/22 08:35 Sputum, Induced/Lukens Gram Stain - Final 05/25/22 08:35 Sputum, Induced/Lukens Respiratory Culture - Final Klebsiella oxytoca 05/25/22 08:42 Nasal Secretion SARS-CoV-2 & FLU Antigen (Rapid) - Final Rhythm Strip Rhythm Strip: Sinus Rhythm Rate: 92 Ectopy: None Physical Exam Narrative General: Alert, significant mumbled speech, Cooperative, No apparent distress HEENT: Atraumatic, PERRLA, EOMI, Normocephalic Oral: Moist Mucosa Neck: Supple, No JVD Lungs: Diminished, Normal air movement, No rhonchi, No wheeze, No rales Cardiovascular: Regular rate, Regular Rhythm, Normal S1, Normal S2, No murmurs Abdomen: Soft, Non Tender, Non-Distended, No Hepato-splenomegaly Extremities: No edema, Capillary Refill Less than 3 Seconds Skin: Incision right shoulder is clean dry and intact Musculoskeletal: No Tenderness to Palpation of Joints or Extremities Neurological: Moves all extremities, sensation intact Psych/Mental Status: Flat affect, Appropriate Assessment & Plan Assessment/Plan (1) Pneumonia: (2) Encephalopathy: (3) Acute encephalopathy: PLAN: Plan 1. Acute metabolic encephalopathy/acute debility status post right shoulder surgery ? He did answer questions appropriately today though he does have significantly mumbled speech ? It is difficult to determine whether or not he is oriented as understanding his speech is difficult ? He is currently on Seroquel ? Awaiting placement ? He will need to follow-up with orthopedic surgery as an outpatient for his right shoulder surgery that was performed on 05/16/2022 2. Acute hypoxic respiratory failure secondary to aspiration pneumonia with Klebsiella ? Keep did complete his antibiotic course and he is really not requiring surgeon as his respiratory failure has resolved 3. HTN ? Blood pressures are stable ? Resume Norvasc and lisinopril as well as metoprolol ? Hydrochlorothiazide was added secondary to elevated systolics 4. Chronic alcohol abuse ? Part of his encephalopathy could be due to long-term complications from alcohol abuse continue with his folate acid DVT: Lovenox Charges/Coding Visit Charges Inpatient E&M: 80449 Subs Hosp L2
[2022-06-13 10:45] LABS: Magnesium 1.1 mg/dL (1.6-2.6); Phosphorus 3.4 mg/dL (2.5-4.9)
[2022-06-13] MEDS: Potassium Chloride Oral Tablet 20 MEQ 40 MEQ PO (11:45)
[2022-06-13] MEDS: Magnesium Sulfate 4gm/100mL 4 GM/100 ML IV.SOLN. IV (11:45)
[2022-06-13 14:00] VITALS: BP 153/87; PULSE 74; RESP 16; TEMP 36.7; O2SAT 98
[2022-06-13 20:35] VITALS: BP 140/84; PULSE 69; RESP 18; TEMP 36.7; O2SAT 94
[2022-06-14 03:11] VITALS: BP 148/73; PULSE 76; RESP 16; TEMP 36.6; O2SAT 97
[2022-06-14] MEDS: Menthol/Lanolin/Calamine/Znox 113 GM Tube 1 APPLIC TOPICAL ×3 (05:28→22:40)
[2022-06-14 05:41] VITALS: BMI 25.0
[2022-06-14 06:46] LABS: Absolute Lymphocyte Count 1.11 X10^3/uL (0.83-4.51); Absolute Neutrophil Count 4.4 X10^3/uL (2.0-7.7); Basophil# 0.05 X10^3/uL; Basophil% 0.7 % (0-1); Eosinophils% 8.5 % (0-5); Hematocrit 39.7 % (40-54); Hemoglobin 12.7 g/dL (13.0-16.5); Lymphocyte # 1.11 X10^3/ul (0.83-4.51); Lymphocyte % 15.7 % (19-41); Mean Corpuscular Hgb 30.8 pg (27.0-32.0); Mean Corpuscular Volume 96.1 fL (80-94); Mean Platelet Vol. 11.5 fl (6.2-12.0); Monocyte# 0.86 X10^3/uL; Monocyte% 12.2 % (0-10); NRBC Flagged by Analyzer 0 % (0-5); Neutrophil # 4.42 X10^3/uL (2.7-7.7); Neutrophil % 62.5 % (47-70); Platelet Count 309 K/mm3 (150-450); RBC Distribution Width CV 14.6 % (11.6-14.6); RBC Distribution Width SD 50.8 fl (35.1-43.9); Red Blood Count 4.13 M/mm3 (4.6-6.2); White Blood Count 7.1 K/mm3 (4.4-11.0)
[2022-06-14 07:06] LABS: Anion Gap 11 (5-15); BUN 7 mg/dL (7-18); BUN/Creat Ratio 7.4 RATIO (10-20); Chloride 102 mmol/L (98-107); Creatinine, Serum 0.94 mg/dL (0.70-1.30); EST Glomerular Filtration Rate 84 mL/min (>60); Est Glom Filt Rate - Afr Amer 102 mL/min (>60); Glucose 93 mg/dL (74-106); Magnesium 1.3 mg/dL (1.6-2.6); Potassium 3.2 mmol/L (3.5-5.1); Sodium Level 137 mmol/L (136-145)
--- NOTE | 2022-06-14 08:34 | CASEMGMT ---
Social Work SW received call from pt cousin, Artie. Artie asking for update on pt going to [facility]. AYUSH explained still waiting on insurance authorization and this may take a day or two. Artie voiced understanding, shared that he will update the rest of pt's family with this news. AYUSH shared intent to call pt's sister, Bhargavi, with news of insurance auth when it is obtained. Artie voiced understanding. ANA ROSA López
[2022-06-14] MEDS: Magnesium Sulfate 4gm/100mL 4 GM/100 ML IV.SOLN. IV (08:39)
[2022-06-14 08:50] VITALS: BP 149/98; PULSE 83; RESP 16; TEMP 36.8; O2SAT 93
[2022-06-14 08:52] VITALS: PULSE 83
[2022-06-14] MEDS: Metoprolol(XL)Succ 50 MG Tablet PO (08:52)
[2022-06-14] MEDS: Famotidine 20 MG Tablet PO (08:52)
[2022-06-14] MEDS: QUEtiapine 25 MG Tablet PO ×2 (08:52→22:39)
--- NOTE | 2022-06-14 08:52 | PN.HOSP_ITS ---
Subjective Subjective Some more hallucinations overnight this morning knows that he is in [place] knows it is 2022. Feels okay no issues Objective Data Objective Data Vital Signs: Vital Signs Temp Pulse Resp BP Pulse Ox O2 Del Method O2 Flow Rate 98.2 F 83 16 149/98 H 93 Room Air 2 06/14/22 08:50 06/14/22 08:50 06/14/22 08:50 06/14/22 08:50 06/14/22 08:50 06/14/22 08:50 05/31/22 14:00 FiO2 21 05/28/22 14:00 Oxygen Flow Rate (L/min) 2 Oxygen Delivery Method Room Air Weight: 175 lb 0.752 oz Body Mass Index (BMI) 25.0 Intake & Output: Intake and Output for Last 24 Hours 06/13/22 06/14/22 06/15/22 03:59 03:59 03:59 Intake Total 2518.75 / 2518.75 2121.25 / 2121.25 50 / 50 Output Total 400 / 400 Balance 2518.75 / 2518.75 1721.25 / 1721.25 50 / 50 Lab / Micro Data Result Diagrams: 06/14/22 05:40 06/14/22 05:40 Labs: Laboratory Results - last 24 hr 06/13/22 09:10: Phosphorus 3.4, Magnesium 1.1 L 06/14/22 05:40: WBC 7.1, RBC 4.13 L, Hgb 12.7 L, Hct 39.7 L, MCV 96.1 H, MCH 30.8, MCHC 32.0, RDW Std Deviation 50.8 H, RDW Coeff of Jerome 14.6, Plt Count 309, MPV 11.5, Immature Gran % (Auto) 0.400, Neut % (Auto) 62.5, Lymph % (Auto) 15.7 L, [place] % (Auto) 12.2 H, Eos % (Auto) 8.5 H, Baso % (Auto) 0.7, Absolute Neuts (auto) 4.4, Absolute Lymphs (auto) 1.11, Nucleated RBC % 0 06/14/22 05:40: Sodium 137, Potassium 3.2 L, Chloride 102, Carbon Dioxide 24.0, Anion Gap 11, BUN 7, Creatinine 0.94, Estim Creat Clear Calc 75.50, Est GFR (MDRD) Af Amer 102, Est GFR (MDRD) Non-Af 84, BUN/Creatinine Ratio 7.4 L, Glucose 93, Calcium 10.0, Magnesium 1.3 L Micro: Microbiology 05/26/22 10:45 Blood Culture (Wb) - Right Wrist Blood Culture - Final No growth in 5 days. 05/26/22 10:30 Blood Culture (Wb) - Anticubital Left Blood Culture - Final No growth in 5 days. 05/25/22 08:10 Blood Culture (Wb) - Anticubital Right Blood Culture - Final No growth in 5 days. 05/25/22 08:10 Blood Culture (Wb) - Anticubital Left Blood Culture - Final No growth in 5 days. 05/26/22 11:30 Sputum, Induced/Lukens Gram Stain - Final 05/26/22 11:30 Sputum, Induced/Lukens Respiratory Culture - Final Raoultella ornithinolytica 05/25/22 08:42 Urine Catheter - Prakash Urine Culture - Final Culture exhibits no growth. 05/25/22 08:35 Sputum, Induced/Lukens Gram Stain - Final 05/25/22 08:35 Sputum, Induced/Lukens Respiratory Culture - Final Klebsiella oxytoca 05/25/22 08:42 Nasal Secretion SARS-CoV-2 & FLU Antigen (Rapid) - Final Rhythm Strip Rhythm Strip: Sinus Rhythm Rate: 92 Ectopy: None Physical Exam Narrative General: Alert, significant mumbled speech, Cooperative, No apparent distress HEENT: Atraumatic, PERRLA, EOMI, Normocephalic Oral: Moist Mucosa Neck: Supple, No JVD Lungs: Diminished, Normal air movement, No rhonchi, No wheeze, No rales Cardiovascular: Regular rate, Regular Rhythm, Normal S1, Normal S2, No murmurs Abdomen: Soft, Non Tender, Non-Distended, No Hepato-splenomegaly Extremities: No edema, Capillary Refill Less than 3 Seconds Skin: Incision right shoulder is clean dry and intact Musculoskeletal: No Tenderness to Palpation of Joints or Extremities Neurological: Moves all extremities, sensation intact Psych/Mental Status: Flat affect, Appropriate Assessment & Plan Assessment/Plan (1) Pneumonia: (2) Encephalopathy: (3) Acute encephalopathy: PLAN: Plan 1. Acute metabolic encephalopathy/acute debility status post right shoulder surgery ? He did answer questions appropriately today though he does have significantly mumbled speech ? He is currently on Seroquel ? Awaiting placement ? He will need to follow-up with orthopedic surgery as an outpatient for his right shoulder surgery that was performed on 05/16/2022 2. Acute hypoxic respiratory failure secondary to aspiration pneumonia with Klebsiella ? Keep did complete his antibiotic course and he is not requiring any oxygen 3. HTN ? Blood pressures are stable ? Resume Norvasc and lisinopril as well as metoprolol ? Hydrochlorothiazide was added secondary to elevated systolics 4. Chronic alcohol abuse ? Part of his encephalopathy could be due to long-term complications from alcohol abuse continue with his folate acid DVT: Lovenox Charges/Coding Visit Charges Inpatient E&M: 96072 Subs Hosp L2
[2022-06-14] MEDS: Potassium Chloride Oral Tablet 20 MEQ 40 MEQ PO (08:53)
[2022-06-14] MEDS: Lisinopril 40 MG Tablet PO (08:53)
[2022-06-14] MEDS: Cholecalciferol (VIT D3) 25 MCG TABLET (1,000 UNITS) 50 MCG PO (08:53)
[2022-06-14] MEDS: hydroCHLOROthiazide 25 MG Tablet PO (08:53)
[2022-06-14] MEDS: Aspirin 81 MG TAB.CHEW PO ×2 (08:53→22:39)
[2022-06-14] MEDS: Enoxaparin 40 MG/0.4 ML Syringe SC (08:54)
[2022-06-14] MEDS: amLODIPine 10 MG Tablet PO (08:54)
[2022-06-14] MEDS: Folic Acid 1 MG Tablet PO (08:54)
[2022-06-14] MEDS: 0.45% Normal Saline 1,000 ML 75 ML IV ×2 (09:05→22:40)
--- NOTE | 2022-06-14 13:53 | CASEMGMT ---
Social Work SW checked with Steffany via [facility] to see if precert has been obtained this AM. Steffany responded this afternoon and informed precert is still pending and they will update when they have the auth. PLAN: Steffany, pending precert ANA ROSA López
[2022-06-14] MEDS: NYSTATIN 500,000 UNIT/5 ML UDC 250000 UNIT PO ×3 (14:03→22:40)
[2022-06-14 14:05] VITALS: BP 134/78; PULSE 71; RESP 16; TEMP 36.7; O2SAT 92
--- NOTE | 2022-06-14 14:40 | CASEMGMT ---
Social Work SW in to pt room to assess mentation of pt and competency in being able to complete HCPOA paperwork. SW asked pt questions, pt not able to answer most. Pt somewhat alert to self but could not answer questions related to place or time. Pt struggled to speak and had garbled speech. ANA ROSA López
[2022-06-14 22:40] VITALS: BP 146/82; PULSE 72; RESP 16; TEMP 36.8; O2SAT 97
[2022-06-15 05:30] VITALS: BP 142/76; PULSE 86; RESP 16; TEMP 36.7; O2SAT 97
[2022-06-15] MEDS: Menthol/Lanolin/Calamine/Znox 113 GM Tube 1 APPLIC TOPICAL ×3 (05:40→21:37)
[2022-06-15 06:00] VITALS: BMI 23.1
[2022-06-15 07:28] LABS: Anion Gap 11 (5-15); BUN 6 mg/dL (7-18); BUN/Creat Ratio 6.8 RATIO (10-20); Calcium,Total 9.7 mg/dL (8.5-10.1); Chloride 100 mmol/L (98-107); Creatinine, Serum 0.88 mg/dL (0.70-1.30); EST Glomerular Filtration Rate 91 mL/min (>60); Est Glom Filt Rate - Afr Amer 110 mL/min (>60); Estimated Creatinine Clearance 80.65 ml/min; Glucose 92 mg/dL (74-106); Magnesium 1.5 mg/dL (1.6-2.6); Potassium 3.4 mmol/L (3.5-5.1); Sodium Level 136 mmol/L (136-145)
--- NOTE | 2022-06-15 08:26 | PCM.PN.HOSP ---
Subjective Subjective No issues overnight, doing well Objective Data Objective Data Vital Signs: Vital Signs Temp Pulse Resp BP Pulse Ox O2 Del Method O2 Flow Rate 98.1 F 86 16 142/76 H 97 Room Air 2 06/15/22 05:30 06/15/22 05:30 06/15/22 05:30 06/15/22 05:30 06/15/22 05:30 06/15/22 05:30 05/31/22 14:00 FiO2 21 05/28/22 14:00 Oxygen Flow Rate (L/min) 2 Oxygen Delivery Method Room Air Weight: 161 lb 13.109 oz Body Mass Index (BMI) 23.1 Intake & Output: Intake and Output for Last 24 Hours 06/14/22 06/15/22 06/16/22 03:59 03:59 03:59 Intake Total 2121.25 / 2121.25 2150 / 2150 100 / 100 Output Total 400 / 400 Balance 1721.25 / 1721.25 2150 / 2150 100 / 100 Lab / Micro Data Result Diagrams: 06/14/22 05:40 06/15/22 06:30 Labs: Laboratory Results - last 24 hr 06/15/22 06:30: Sodium 136, Potassium 3.4 L, Chloride 100, Carbon Dioxide 25.0, Anion Gap 11, BUN 6 L, Creatinine 0.88, Estim Creat Clear Calc 80.65, Est GFR (MDRD) Af Amer 110, Est GFR (MDRD) Non-Af 91, BUN/Creatinine Ratio 6.8 L, Glucose 92, Calcium 9.7, Magnesium 1.5 L Micro: Microbiology 05/26/22 10:45 Blood Culture (Wb) - Right Wrist Blood Culture - Final No growth in 5 days. 05/26/22 10:30 Blood Culture (Wb) - Anticubital Left Blood Culture - Final No growth in 5 days. 05/25/22 08:10 Blood Culture (Wb) - Anticubital Right Blood Culture - Final No growth in 5 days. 05/25/22 08:10 Blood Culture (Wb) - Anticubital Left Blood Culture - Final No growth in 5 days. 05/26/22 11:30 Sputum, Induced/Lukens Gram Stain - Final 05/26/22 11:30 Sputum, Induced/Lukens Respiratory Culture - Final Raoultella ornithinolytica 05/25/22 08:42 Urine Catheter - Prakash Urine Culture - Final Culture exhibits no growth. 05/25/22 08:35 Sputum, Induced/Lukens Gram Stain - Final 05/25/22 08:35 Sputum, Induced/Lukens Respiratory Culture - Final Klebsiella oxytoca 05/25/22 08:42 Nasal Secretion SARS-CoV-2 & FLU Antigen (Rapid) - Final Rhythm Strip Rhythm Strip: Sinus Rhythm Rate: 92 Ectopy: None Physical Exam Narrative General: Alert, significant mumbled speech, Cooperative, No apparent distress HEENT: Atraumatic, PERRLA, EOMI, Normocephalic Oral: Moist Mucosa Neck: Supple, No JVD Lungs: Diminished, Normal air movement, No rhonchi, No wheeze, No rales Cardiovascular: Regular rate, Regular Rhythm, Normal S1, Normal S2, No murmurs Abdomen: Soft, Non Tender, Non-Distended, No Hepato-splenomegaly Extremities: No edema, Capillary Refill Less than 3 Seconds Skin: Incision right shoulder is clean dry and intact Musculoskeletal: No Tenderness to Palpation of Joints or Extremities Neurological: Moves all extremities, sensation intact Psych/Mental Status: Flat affect, Appropriate Assessment & Plan Assessment/Plan (1) Pneumonia: (2) Encephalopathy: (3) Acute encephalopathy: PLAN: Plan 1. Acute metabolic encephalopathy/acute debility status post right shoulder surgery ? He did answer questions appropriately today though he does have significantly mumbled speech ? He is currently on Seroquel ? Awaiting placement ? He will need to follow-up with orthopedic surgery as an outpatient for his right shoulder surgery that was performed on 05/16/2022 2. Acute hypoxic respiratory failure secondary to aspiration pneumonia with Klebsiella ? Keep did complete his antibiotic course and he is not requiring any oxygen 3. HTN ? Blood pressures are stable ? Resume Norvasc and lisinopril as well as metoprolol ? Hydrochlorothiazide was added secondary to elevated systolics 4. Chronic alcohol abuse ? Part of his encephalopathy could be due to long-term complications from alcohol abuse continue with his folate acid DVT: Lovenox Charges/Coding Visit Charges Inpatient E&M: 63031 Subs Hosp L2
[2022-06-15] MEDS: NYSTATIN 500,000 UNIT/5 ML UDC 250000 UNIT PO ×3 (08:54→21:37)
[2022-06-15 08:55] VITALS: PULSE 78
[2022-06-15] MEDS: hydroCHLOROthiazide 25 MG Tablet PO (08:55)
[2022-06-15] MEDS: Lisinopril 40 MG Tablet PO (08:55)
[2022-06-15] MEDS: Famotidine 20 MG Tablet PO (08:55)
[2022-06-15] MEDS: Metoprolol(XL)Succ 50 MG Tablet PO (08:55)
[2022-06-15] MEDS: Aspirin 81 MG TAB.CHEW PO ×2 (08:55→21:37)
[2022-06-15] MEDS: Folic Acid 1 MG Tablet PO (08:55)
[2022-06-15] MEDS: Enoxaparin 40 MG/0.4 ML Syringe SC (08:55)
[2022-06-15] MEDS: amLODIPine 10 MG Tablet PO (08:55)
[2022-06-15] MEDS: Cholecalciferol (VIT D3) 25 MCG TABLET (1,000 UNITS) 50 MCG PO (08:55)
[2022-06-15] MEDS: QUEtiapine 25 MG Tablet PO ×2 (08:56→21:37)
[2022-06-15] MEDS: Potassium Chloride Oral Tablet 20 MEQ 40 MEQ PO (09:00)
[2022-06-15 09:21] VITALS: BP 156/86; PULSE 78; RESP 18; TEMP 36.4; O2SAT 96
[2022-06-15] MEDS: Magnesium Sulfate 4gm/100mL 4 GM/100 ML IV.SOLN. IV (09:37)
--- NOTE | 2022-06-15 13:26 | CASEMGMT ---
Addendum entered by Kristin Norman 06/15/22 16:35: Phone call placed to Stacy at [facility] and left inquiring about precert. SW will await return call. ANA ROSA Montgomery Original Note: Social Work SW reached out to [facility] who is requesting updated notes stating they are still working on obtaining precert. Updates sent. [facility] notified that pt is medically ready for discharge. ANA ROSA Montgomery
--- NOTE | 2022-06-15 14:03 | CASEMGMT ---
Social Work SW is aware that pt would benefit from completing Advance Directives. Pt has not been oriented and able to complete documents at this time. SW will remain available to discuss with pt if he is able. ANA ROSA Montgomery
[2022-06-15] MEDS: 0.45% Normal Saline 1,000 ML 75 ML IV (14:24)
[2022-06-15 14:33] VITALS: BP 160/83; PULSE 65; RESP 18; TEMP 36.8; O2SAT 92
[2022-06-15 20:33] VITALS: BP 133/98; PULSE 75; RESP 16; TEMP 36.8; O2SAT 98
[2022-06-15 23:42] VITALS: BMI 23.1
[2022-06-15 23:57] VITALS: O2SAT 98
[2022-06-16] MEDS: 0.45% Normal Saline 1,000 ML 75 ML IV ×2 (03:49→16:10)
[2022-06-16 05:05] VITALS: BP 146/51; PULSE 62; RESP 16; TEMP 36.5; O2SAT 98
[2022-06-16] MEDS: Menthol/Lanolin/Calamine/Znox 113 GM Tube 1 APPLIC TOPICAL ×3 (05:17→20:39)
[2022-06-16 06:32] LABS: Absolute Lymphocyte Count 1.23 X10^3/uL (0.83-4.51); Absolute Neutrophil Count 3.8 X10^3/uL (2.0-7.7); Basophil# 0.05 X10^3/uL; Basophil% 0.7 % (0-1); Eosinophil# 0.67 X10^3/uL; Eosinophils% 9.9 % (0-5); Hematocrit 35.6 % (40-54); Hemoglobin 11.9 g/dL (13.0-16.5); Lymphocyte # 1.23 X10^3/ul (0.83-4.51); Lymphocyte % 18.2 % (19-41); Mean Corp Hgb Conc 33.4 g/dL (32-36); Mean Corpuscular Hgb 31.3 pg (27.0-32.0); Mean Corpuscular Volume 93.7 fL (80-94); Mean Platelet Vol. 12.8 fl (6.2-12.0); Monocyte# 0.97 X10^3/uL; Monocyte% 14.3 % (0-10); NRBC Flagged by Analyzer 0 % (0-5); Neutrophil # 3.83 X10^3/uL (2.7-7.7); Neutrophil % 56.6 % (47-70); Platelet Count 244 K/mm3 (150-450); RBC Distribution Width CV 14.5 % (11.6-14.6); RBC Distribution Width SD 49.5 fl (35.1-43.9); White Blood Count 6.8 K/mm3 (4.4-11.0)
[2022-06-16 06:48] LABS: Anion Gap 9 (5-15); BUN 9 mg/dL (7-18); BUN/Creat Ratio 9.1 RATIO (10-20); Calcium,Total 9.9 mg/dL (8.5-10.1); Chloride 102 mmol/L (98-107); Creatinine, Serum 0.99 mg/dL (0.70-1.30); EST Glomerular Filtration Rate 79 mL/min (>60); Est Glom Filt Rate - Afr Amer 96 mL/min (>60); Estimated Creatinine Clearance 71.69 ml/min; Glucose 99 mg/dL (74-106); Magnesium 1.7 mg/dL (1.6-2.6); Potassium 3.4 mmol/L (3.5-5.1); Sodium Level 135 mmol/L (136-145)
[2022-06-16] MEDS: Folic Acid 1 MG Tablet PO (09:14)
[2022-06-16] MEDS: Aspirin 81 MG TAB.CHEW PO ×2 (09:14→20:38)
[2022-06-16] MEDS: hydroCHLOROthiazide 25 MG Tablet PO (09:15)
[2022-06-16] MEDS: NYSTATIN 500,000 UNIT/5 ML UDC 250000 UNIT PO ×4 (09:15→20:37)
[2022-06-16] MEDS: amLODIPine 10 MG Tablet PO (09:15)
[2022-06-16] MEDS: Enoxaparin 40 MG/0.4 ML Syringe SC (09:15)
[2022-06-16 09:16] VITALS: PULSE 80
[2022-06-16] MEDS: Lisinopril 40 MG Tablet PO (09:16)
[2022-06-16] MEDS: Cholecalciferol (VIT D3) 25 MCG TABLET (1,000 UNITS) 50 MCG PO (09:16)
[2022-06-16] MEDS: QUEtiapine 25 MG Tablet PO ×2 (09:16→20:38)
[2022-06-16] MEDS: Metoprolol(XL)Succ 50 MG Tablet PO (09:16)
[2022-06-16] MEDS: Famotidine 20 MG Tablet PO (09:16)
[2022-06-16 10:39] VITALS: BP 134/77; PULSE 78; RESP 18; TEMP 36.7; O2SAT 96
[2022-06-16 10:41] VITALS: O2SAT 96
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
--- NOTE | 2022-06-16 13:02 | NURSING ---
pt cousin here visiting, pt refuses any po offerred, agitated, pushing away spoon
--- NOTE | 2022-06-16 13:14 | CASEMGMT ---
Addendum entered by Kristin Norman 06/16/22 15:51: Social Work Steffany states precert is still not back. AYUSH obtained PASRR from [facility] and sent to Steffany via [employer]. Steffany given phone number for nursing unit to call in the event precert is obtained over the weekend. Plan: [place],pending precert ANA ROSA Montgomery Original Note: Social work SW messaged Steffany at 0748 to check on precert. Response from [facility] at 1140 stating precert has not yet been obtained. Pt cousin Artie inquiring about discharge. AYUSH offered update. Discharge is pending insurance approval. ANA ROSA Hdez
[2022-06-16 16:19] VITALS: BP 128/67; PULSE 80; RESP 18; TEMP 36.7; O2SAT 97
[2022-06-16 20:34] VITALS: BP 124/68; PULSE 75; RESP 18; TEMP 36.6; O2SAT 95
[2022-06-17 06:00] VITALS: BMI 23.1
[2022-06-17 06:47] VITALS: BP 126/80; PULSE 67; RESP 16; TEMP 36.3; O2SAT 95
[2022-06-17] MEDS: 0.45% Normal Saline 1,000 ML 75 ML IV ×2 (06:48→20:03)
[2022-06-17] MEDS: Menthol/Lanolin/Calamine/Znox 113 GM Tube 1 APPLIC TOPICAL ×3 (06:49→21:47)
[2022-06-17] MEDS: Lisinopril 40 MG Tablet PO (10:34)
[2022-06-17] MEDS: QUEtiapine 25 MG Tablet PO ×2 (10:34→21:47)
[2022-06-17] MEDS: Cholecalciferol (VIT D3) 25 MCG TABLET (1,000 UNITS) 50 MCG PO (10:34)
[2022-06-17] MEDS: amLODIPine 10 MG Tablet PO (10:34)
[2022-06-17] MEDS: NYSTATIN 500,000 UNIT/5 ML UDC 250000 UNIT PO ×3 (10:34→21:47)
[2022-06-17] MEDS: Enoxaparin 40 MG/0.4 ML Syringe SC (10:35)
[2022-06-17] MEDS: Aspirin 81 MG TAB.CHEW PO ×2 (10:35→21:47)
[2022-06-17] MEDS: hydroCHLOROthiazide 25 MG Tablet PO (10:36)
[2022-06-17] MEDS: Folic Acid 1 MG Tablet PO (10:36)
[2022-06-17] MEDS: Famotidine 20 MG Tablet PO (10:36)
[2022-06-17 10:37] VITALS: PULSE 70
[2022-06-17] MEDS: Metoprolol(XL)Succ 50 MG Tablet PO (10:37)
[2022-06-17 11:45] VITALS: BP 129/73; PULSE 86; RESP 18; TEMP 36.6; O2SAT 95
[2022-06-17 14:30] VITALS: BP 142/64; PULSE 81; RESP 18; TEMP 36.7; O2SAT 93
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
--- NOTE | 2022-06-17 15:38 | VDLE_ITS ---
Reason For Study: Swelling RIGHT LEFT GSV is normal. GSV is normal. CFV is compressible, spontaneous, phasic, CFV is compressible, spontaneous, phasic, competent and demonstrates normal competent, and demonstrates normal augmentation. augmentation. FV is compressible, spontaneous, phasic, FV is compressible, spontaneous, phasic, competent and demonstrates normal competent and demonstrates normal augmentation. augmentation. POP V is compressible, spontaneous, phasic, POP V is compressible, spontaneous, phasic, competent and demonstrates normal competent and demonstrates normal augmentation. augmentation. T/P Trunk is compressible. T/P Trunk is compressible. PTV is compressible. LT PerV is compressible. RT PerV is compressible. Acute deep vein thrombosis is noted in the Procedure PTV distal and SoleusV. It is dilated and This is a venous duplex using B-mode, color NONCOMPRESSIBLE. flow and spectral Doppler. SoleusV thrombus extends into PTV distal. Exam performed portable in patient room. A preliminary report was called and/or faxed to [employer] representative. VL/Venous Duplex US - Swapnil Extrem Interpretation Summary There is no evidence of right lower extremity deep vein thrombosis. Acute deep venous thrombosis left posterior tibial and soleus veins Patent and compressible bilateral great saphenous veins Ordering Physician: Angus Booker Referring Physician: Artie Galvan Performed By: Suzan Hernandez RVT
[2022-06-17 20:00] VITALS: BP 121/68; PULSE 80; RESP 18; TEMP 36.9; O2SAT 93
[2022-06-17 20:14] VITALS: O2SAT 93
[2022-06-18 05:00] VITALS: BP 132/92; PULSE 70; RESP 18; TEMP 36.7; O2SAT 94
[2022-06-18] MEDS: Menthol/Lanolin/Calamine/Znox 113 GM Tube 1 APPLIC TOPICAL ×3 (05:17→20:52)
[2022-06-18 09:00] VITALS: BP 129/69; PULSE 74; RESP 18; TEMP 36.9; O2SAT 94
[2022-06-18 09:03] VITALS: PULSE 74
[2022-06-18] MEDS: Enoxaparin 40 MG/0.4 ML Syringe SC (09:03)
[2022-06-18] MEDS: hydroCHLOROthiazide 25 MG Tablet PO (09:03)
[2022-06-18] MEDS: NYSTATIN 500,000 UNIT/5 ML UDC 250000 UNIT PO ×4 (09:03→20:54)
[2022-06-18] MEDS: Lisinopril 40 MG Tablet PO (09:03)
[2022-06-18] MEDS: Cholecalciferol (VIT D3) 25 MCG TABLET (1,000 UNITS) 50 MCG PO (09:03)
[2022-06-18] MEDS: Folic Acid 1 MG Tablet PO (09:03)
[2022-06-18] MEDS: QUEtiapine 25 MG Tablet PO ×2 (09:03→20:51)
[2022-06-18] MEDS: Metoprolol(XL)Succ 50 MG Tablet PO (09:03)
[2022-06-18] MEDS: amLODIPine 10 MG Tablet PO (09:04)
[2022-06-18] MEDS: Famotidine 20 MG Tablet PO (09:04)
[2022-06-18] MEDS: Aspirin 81 MG TAB.CHEW PO ×2 (09:04→20:51)
[2022-06-18] MEDS: 0.45% Normal Saline 1,000 ML 75 ML IV ×2 (09:17→22:44)
[2022-06-18 09:21] VITALS: O2SAT 95
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
[2022-06-18 15:00] VITALS: BP 125/77; PULSE 84; RESP 18; TEMP 37.1; O2SAT 94
[2022-06-18 20:46] VITALS: BP 133/74; PULSE 95; RESP 18; TEMP 36.8; O2SAT 96
[2022-06-19 05:31] VITALS: BP 138/78; PULSE 60; RESP 18; TEMP 36.9; O2SAT 93
[2022-06-19] MEDS: Menthol/Lanolin/Calamine/Znox 113 GM Tube 1 APPLIC TOPICAL ×2 (05:47→15:38)
[2022-06-19 06:00] VITALS: BMI 22.6
[2022-06-19 09:13] VITALS: BP 97/66; PULSE 69; RESP 18; TEMP 37.6; O2SAT 95
[2022-06-19] MEDS: Cholecalciferol (VIT D3) 25 MCG TABLET (1,000 UNITS) 50 MCG PO (09:25)
[2022-06-19] MEDS: Aspirin 81 MG TAB.CHEW PO (09:26)
[2022-06-19] MEDS: Enoxaparin 40 MG/0.4 ML Syringe SC (09:26)
[2022-06-19] MEDS: Famotidine 20 MG Tablet PO (09:26)
[2022-06-19] MEDS: Folic Acid 1 MG Tablet PO (09:27)
[2022-06-19] MEDS: NYSTATIN 500,000 UNIT/5 ML UDC 250000 UNIT PO (09:27)
[2022-06-19] MEDS: QUEtiapine 25 MG Tablet PO (09:28)
--- NOTE | 2022-06-19 09:54 | CASEMGMT ---
SW reached out to [facility] and precert has not yet been obtained. SW will continue to follow for placement. Precert pending ANA ROSA Montgomery
--- NOTE | 2022-06-19 10:07 | WOUNDNOTE ---
wound photo: right shoulder
[2022-06-19 10:35] LABS: Absolute Lymphocyte Count 0.47 X10^3/uL (0.83-4.51); Absolute Neutrophil Count 3.1 X10^3/uL (2.0-7.7); Basophil# 0.03 X10^3/uL; Basophil% 0.6 % (0-1); Eosinophil# 0.43 X10^3/uL; Eosinophils% 8.5 % (0-5); Hematocrit 35.8 % (40-54); Hemoglobin 11.8 g/dL (13.0-16.5); Lymphocyte # 0.47 X10^3/ul (0.83-4.51); Lymphocyte % 9.3 % (19-41); Mean Corpuscular Hgb 30.3 pg (27.0-32.0); Mean Platelet Vol. 11.2 fl (6.2-12.0); Monocyte# 0.98 X10^3/uL; Monocyte% 19.4 % (0-10); NRBC Flagged by Analyzer 0 % (0-5); Neutrophil # 3.14 X10^3/uL (2.7-7.7); POSITIVE DIFFERENTIAL YES; Platelet Count 237 K/mm3 (150-450); RBC Distribution Width CV 14.3 % (11.6-14.6); RBC Distribution Width SD 47.8 fl (35.1-43.9); Red Blood Count 3.89 M/mm3 (4.6-6.2); White Blood Count 5.1 K/mm3 (4.4-11.0)
[2022-06-19 10:46] LABS: Anion Gap 7 (5-15); BUN 7 mg/dL (7-18); BUN/Creat Ratio 6.7 RATIO (10-20); Calcium,Total 9.6 mg/dL (8.5-10.1); Chloride 103 mmol/L (98-107); Creatinine, Serum 1.05 mg/dL (0.70-1.30); EST Glomerular Filtration Rate 74 mL/min (>60); Est Glom Filt Rate - Afr Amer 90 mL/min (>60); Estimated Creatinine Clearance 66.48 ml/min; Glucose 106 mg/dL (74-106); Potassium 3.4 mmol/L (3.5-5.1); Sodium Level 132 mmol/L (136-145)
[2022-06-19 10:49] LABS: Differential Indicated SCAN CRITERIA MET
--- NOTE | 2022-06-19 10:57 | TREXTCAR_ITS ---
Diet Diet Order/Speech Therapy: 06/02/22 12:34 Diet: Regular - General Food consistency:: Pureed Liquid Consistency:: Regular/Thin Type of Dietary Supplement:: Fortified Pud w/ L & D Is pt able to select menu?: Yes Diet Comments: ONLY IF FULLY ALERT/TOTAL FEED/1:1 SUP; 120ml Ensure+ 3x & Mcup 2x Routine Orders/Code Status Suppository Type: Dulcolax 10mg Suppository Frequency: Daily PRN Code Status: Full Code (Unverified) Wound(s) Right Shoulder: Wound Type: healed incision Left Bicep: Wound Type: Scabbed bilat buttocks: Wound Type: Pressure Injury Therapies Weight Bearing: Weight bearing as tolerated Extremity Affected:: Bilateral Lower Physical Therapy: Eval and Treat Occupational Therapy: Eval and Treat Speech Therapy: Eval and Treat Problem/Diagnosis (1) Pneumonia: Status: Acute Code(s): J18.9 - Pneumonia, unspecified organism (2) Encephalopathy: Status: Acute Code(s): G93.40 - Encephalopathy, unspecified (3) Acute encephalopathy: Status: Acute Code(s): G93.40 - Encephalopathy, unspecified Plan 1. Acute metabolic encephalopathy/acute debility status post right shoulder surgery ? For most part patient normal speech and hard to understand. ? He is currently on Seroquel ? Awaiting placement. 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 ? He will need to follow-up with orthopedic surgery as an outpatient for his right shoulder surgery that was performed on 05/16/202206/17: Patient mental status seems better today. Fluctuating delirium but he was following simple command. I felt bilateral lower extremity weakness, left more than right; hard to corroborate as patient has understanding problem therefore musculoskeletal and neuro exam is difficult. No obvious swelling. Venous duplex ordered. Multiple CT brain was reported no acute change. 06/18: Patient more confused encephalopathy and delirium. He has fluctuating level of delirium. 2. Acute hypoxic respiratory failure secondary to aspiration pneumonia with Klebsiella ? Patient completed his antibiotic course and he is not requiring any oxygen 3. HTN ? Blood pressures are stable ? Resume Norvasc and lisinopril as well as metoprolol ? Hydrochlorothiazide was added secondary to elevated systolics 4. Chronic alcohol abuse ? Part of his encephalopathy could be due to long-term complications from alcohol abuse continue with his folate acid 5. Acute DVT in the small soleal vein distal PTE. Patient was on enoxaparin 40 mill subcu daily during hospital course changed to Eliquis 5 mg twice daily. Allergies/Procedures Done in Hospital Allergies acetaminophen [From Percocet] Adverse Reaction (Verified 05/25/22 08:12) Nausea oxycodone [From Percocet] Adverse Reaction (Verified 05/25/22 08:12) Nausea Type of Care/Length of Stay Estimated LOS: Convalescent Care Less Than 30 days Type of Care Needed: Skilled Rehab Potential: Good Prognosis: Good Additional Orders/Day of Discharge Day of Discharge: 06/19/22 Dietary and Speech Recommendations Dietitian Recommendations/Changes: Continue Regular diet as tolerated with consistency/texture as per [employer]: currently pureed food/thin liquids; total feed at meals. Will continue fortified pudding BID w/ lunch an dinner. Will continue 120 ml ensure plus high protein TID w/ meals. Will try magic cup 2 times per day w/ meals. Consider enteral nutrition support to prevent further weight decline and pro/rosie depletion. Discharge Plan Admission Admit Date/Time: 05/25/22 11:18 Primary Reason for Your Visit: Acute fluctuating encephalopathy. Attending Provider: Angus Booker Primary Care Provider: Artie Galvan Consulting Providers: David Vega ; Scott Martin ; Jesus Quigley ; Idris Peralta ; Tomas Garcia ; Ana M Noble NP ; Terrance Bautista ; Jewel Robb ; Rubén Looney Discharge Orders/Prescriptions Prescriptions: New quetiapine 25 mg Tablet 25 mg PO BID Qty: 0 0RF metoprolol succinate 50 mg Tablet Extended Release 24 Hr 50 mg PO DAILY Qty: 0 0RF menthol-zinc oxide [Calmoseptine] 0.44-20.6 % Ointment 1 applic topical TID Qty: 0 0RF Protocol: *Topical Application Instructions APPLICATION INSTRUCTIONS: Coccyx acetaminophen 325 mg Tablet 650 mg PO Q4H PRN PRN (Reason: Pain 1-10 Or Fever) Qty: 0 0RF albuterol sulfate 2.5 mg /3 mL (0.083 %) Solution For Nebulization 2.5 mg inhalation Q4H PRN (Reason: SOB &/OR WHEEZING) Qty: 0 0RF amlodipine 10 mg Tablet 10 mg PO DAILY Qty: 0 0RF hydrochlorothiazide 25 mg Tablet 25 mg PO DAILY Qty: 0 0RF atropine 1 % Drops 2 drp PO Q3H PRN PRN (Reason: secretions) Qty: 0 0RF lisinopril 40 mg Tablet 40 mg PO DAILY Qty: 0 0RF Eliquis 5 mg Tablet 5 mg PO BID Qty: 0 0RF Rx Instructions: To continue for total of 3 months. Continued primidone 50 mg tablet 50 mg PO QHS famotidine 20 mg Tablet 20 mg PO DAILY ferrous sulfate [FeroSul] 325 mg (65 mg iron) tablet 325 mg PO DAILY folic acid 1 mg tablet 1 mg PO DAILY primidone 50 mg Tablet 100 mg PO DAILY docusate sodium 100 mg Tablet 100 mg PO BID cholecalciferol (vitamin D3) [Vitamin D3] 50 mcg (2,000 unit) Capsule 50 mcg PO DAILY Changed aspirin 81 mg Tablet,Chewable 81 mg PO DAILY 30 Days Qty: 0 0RF Discontinued lisinopril [Zestril] 20 MG tablet 40 mg PO DAILY amlodipine 10 MG tablet 10 mg PO DAILY metoprolol succinate 25 mg tablet extended release 24 hr 25 mg PO DAILY acetaminophen [Acetaminophen Extra Strength] 500 mg Tablet 1,000 mg PO TID lorazepam 0.5 mg Tablet 0.5 mg PO Q8H PRN (Reason: ALCOHOL WITHDRAWAL ) chlordiazepoxide HCl 25 mg Capsule 50 mg PO Q8H PRN (Reason: ANXIETY ) chlordiazepoxide HCl 25 mg Capsule 50 mg PO Q8H PRN (Reason: ALCOHOL WITHDRAWAL ) oxycodone 5 mg Tablet 5 mg PO Q8H PRN (Reason: PAIN ) Referrals / Follow Up: Artie Galvan MD [Primary Care Provider] - Within 2 Weeks Idris Peralta MD [Med Staff - Active Staff] - Within 2 Weeks (Hypoxia acute hypoxic dilatory failure clinic disease.) Disposition Disposition (needs filled in before D/C Order can be placed): Senior Living Facility
[2022-06-19 11:07] LABS: Differential Comment SCANNED
--- NOTE | 2022-06-19 12:39 | CASEMGMT ---
Addendum entered by Kristin Norman 06/19/22 14:37: Discharge orders, PASRR from [facility] and covid results sent to [facility] via [facility]. Transportation arranged by community recreation coordinator for 4pm pickle processor by [facility] via [facility] Nursing and [place] notified of time of discharge. Plan: [place], skilled level of care ANA ROSA Lopez Original Note: Social Work SW received message from [facility] and precert has been obtained. Physician updated. Phone call to pt sister Bhargavi and information relayed. Plan: [place], skilled level of care ANA ROSA [place]
--- NOTE | 2022-06-19 13:09 | PCM.DC.SUM ---
Providers Date of Admission: 05/25/22 Date of Discharge: 06/19/22 Primary Care Physician: Dr. Artie Galvan MD Consultations 05/25/22 12:02 Consult: Entrepreneurial Finance Professor / Pulmonary Medicine Routine Consulting Provider: Pulmonary Medicine zaki Montes Reason for Consult: ventilator mgmt. EMERGENT Consult: No MD Notified: Yes Date Notified: 05/25/22 Time Notified: 12:02 Method of Notification: Text Reason For Visit: HYPOXIC RESP FAILURE ENCEPHALOPATHY Diagnosis Discharge Diagnosis (1) Pneumonia: Status: Acute Code(s): J18.9 - Pneumonia, unspecified organism (2) Encephalopathy: Status: Acute Code(s): G93.40 - Encephalopathy, unspecified (3) Acute encephalopathy: Status: Acute Code(s): G93.40 - Encephalopathy, unspecified Plan This is 72-year-old gentleman was admitted to ER with progressive confusion, had right shoulder replacement on May 16, [address] [facility]. Patient history of heavy alcohol drinking with recently 1/5 of whiskey as well as beer. 1. Acute metabolic encephalopathy/acute debility status post right shoulder surgery ? 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 ? He will need to follow-up with orthopedic surgery as an outpatient for his right shoulder surgery that was performed on 05/16/202206/17: Patient mental status seems better today. Fluctuating delirium but he was following simple command. I felt bilateral lower extremity weakness, left more than right; hard to corroborate as patient has understanding problem therefore musculoskeletal and neuro exam is difficult. No obvious swelling. Venous duplex ordered. Multiple CT brain was reported no acute change. 06/18: Patient more confused encephalopathy and delirium. He has fluctuating level of delirium. 06/19: Confusion and encephalopathy looks better but it fluctuates over the day. 2. Acute hypoxic respiratory failure secondary to aspiration pneumonia with Klebsiella ? Patient completed his antibiotic course and he is not requiring any oxygen 06/19: Follow-up in pulmonary clinic with Dr. Peralta. 3. HTN ? Blood pressures are stable ? Resume Norvasc and lisinopril as well as metoprolol ? Hydrochlorothiazide was added secondary to elevated systolics 4. Chronic alcohol abuse ? Part of his encephalopathy could be due to long-term complications from alcohol abuse continue with his folate acid 5. Acute DVT in the small soleal vein distal PTE. Patient was on enoxaparin 40 mill subcu daily during hospital course changed to Eliquis 5 mg twice daily. Discharge medication reconciliation done. Discharge follow-up instructions completed. Discharge process discussed with the patient and all questions were answered to patient's satisfaction. Patient is being discharged to SNF Total time spent, exact 35 minutes on discharge meds reconciliation, examination, coordination of care with nurses and ancillary staff, review of imaging and blood test and discussion with the patient on follow-up instructions. Medications at Discharge Home Medications cholecalciferol (vitamin D3) 50 mcg (2,000 unit) capsule (Vitamin D3) 50 mcg PO DAILY SUPPLEMENT 05/25/22 docusate sodium 100 mg tablet 100 mg PO BID CONSTIPATION 05/25/22 famotidine 20 mg tablet 20 mg PO DAILY ACID REFLUX 05/25/22 ferrous sulfate 325 mg (65 mg iron) tablet (FeroSul) 325 mg PO DAILY SUPPLEMENT 05/25/22 folic acid 1 mg tablet 1 mg PO DAILY SUPPLEMENT 05/25/22 primidone 50 mg tablet 50 mg PO QHS SEIZURES 05/25/22 primidone 50 mg tablet 100 mg PO DAILY SEIZURES 05/25/22 acetaminophen 325 mg tablet 650 mg PO Q4H PRN PRN Pain 1-10 Or Fever #0 tabs 06/19/22 albuterol sulfate 2.5 mg/3 mL (0.083 %) solution for nebulization 2.5 mg (3 mL) inhalation Q4H PRN SOB &/OR WHEEZING #0 mL 06/19/22 amlodipine 10 mg tablet 10 mg PO DAILY #0 tabs 06/19/22 apixaban 5 mg tablet (Eliquis) 5 mg PO BID #0 tabs 06/19/22 aspirin 81 mg chewable tablet 81 mg PO DAILY HEART HEALTH 30 days #0 tabs 06/19/22 atropine 1 % eye drops 2 drp PO Q3H PRN PRN secretions #0 mL 06/19/22 hydrochlorothiazide 25 mg tablet 25 mg PO DAILY #0 tabs 06/19/22 lisinopril 40 mg tablet 40 mg PO DAILY #0 tabs 06/19/22 menthol 0.44 %-zinc oxide 20.6 % topical ointment (Calmoseptine) 1 applic topical TID #0 grams 06/19/22 metoprolol succinate 50 mg tablet,extended release 24 hr 50 mg PO DAILY #0 tabs 06/19/22 quetiapine 25 mg tablet 25 mg PO BID #0 tabs 06/19/22 Physical Exam Narrative Seen and examined Physical exam General: Awake, oriented x3. Fluctuating level of delirium. Looks good today HEENT: Atraumatic, PERRLA, EOMI, Normocephalic Oral: Oral mucosa moist. No Gingival or Mucosal Lesions/ Ulcerations Neck: Supple, No JVD, Negative Carotid Bruits Lungs: Air entry diminished in bilateral lung bases. No crepitation/rhonchi Cardiovascular: Regular rate, Regular Rhythm, Normal S1, Normal S2, No murmurs Abdomen: Bowel Sounds Present, Soft, Non Tender, Non-Distended : No renal angle tenderness. No suprapubic tenderness. Extremities: No edema, Capillary Refill Less than 3 Seconds Skin: No rashes, No breakdown Musculoskeletal: No Tenderness to Palpation of Joints or Extremities. ROM full. Mild weakness of left lower extremity and right lower extremity. Neurological: Delirium is better. Nonfocal exam. No acute focal neurological deficit. Psych/Mental Status: Anxious and delirium. Medical Records Data Medical Nutrition Assessment Dietitian: Malnutrition Criteria Met Start: 06/19/22 11:39 Freq: Status: Active Protocol: Document 06/19/22 11:39 RMA (Rec: 06/19/22 11:39 RMA [id number]) Nutrition Malnutrition Evidence of Malnutrition Exists Yes Malnutrition (severe): Acute Illness/Injury Evidenced By Suboptimal Energy Intake ( Severe),Weight Loss (Severe) Intake Problem Inadequate Oral Intake Etiology related to swallowing difficulty/failed dysphagia screening Signs/Symptoms as evidenced by NPO status Status Resolved Problem Clinical Problem Acute Disease or Injury Related Malnutrition Etiology Severe protein-calorie malnutrition in the context of acute disease related to inadequate oral intake and difficulty chewing/swallowing Signs/Symptoms as evidenced by 8.5% wt loss x 6 days, PO~50% of meals at best, oral intake meeting less than 50% estimated nutrition needs x past 2-3 weeks. Status Active Problem Unintended Weight Loss Etiology related to swallowing difficulty, inadequate oral intake and dependent/total feed at meals Signs/Symptoms as evidenced by ~6.7 Kg (8.5%) wt loss since last review about 6 days ago Status Active Problem Recommendation Dietitian Recommendations/Changes Continue Regular diet as tolerated with consistency/ texture as per HOME PERFORMANCE LABORER: currently pureed food/thin liquids; total feed at meals. Will continue fortified pudding BID w/ lunch an dinner . Will continue 120 ml ensure plus high protein TID w/ meals . Will try magic cup 2 times per day w/ meals. Consider enteral nutrition support to prevent further weight decline and pro/rosie depletion. Weight / BMI Weight Weight: 158 lb 4.67 oz Body Mass Index (BMI) 22.6 ABG / Lab / Microbiology Data Result Diagrams: 06/19/22 10:25 06/19/22 10:25 Laboratory: Laboratory Results - last 24 hr 06/19/22 10:25: WBC 5.1, RBC 3.89 L, Hgb 11.8 L, Hct 35.8 L, MCV 92.0, MCH 30.3, MCHC 33.0, RDW Std Deviation 47.8 H, RDW Coeff of Jeorme 14.3, Plt Count 237, MPV 11.2, Immature Gran % (Auto) 0.200, Neut % (Auto) 62.0, Lymph % (Auto) 9.3 L, Harlan % (Auto) 19.4 H, Eos % (Auto) 8.5 H, Baso % (Auto) 0.6, Absolute Neuts (auto) 3.1, Absolute Lymphs (auto) 0.47 L, Nucleated RBC % 0, Differential Comment SCANNED 06/19/22 10:25: Sodium 132 L, Potassium 3.4 L, Chloride 103, Carbon Dioxide 22.0, Anion Gap 7, BUN 7, Creatinine 1.05, Estim Creat Clear Calc 66.48, Est GFR (MDRD) Af Amer 90, Est GFR (MDRD) Non-Af 74, BUN/Creatinine Ratio 6.7 L, Glucose 106, Calcium 9.6 Microbiology: Microbiology 05/26/22 10:45 Blood Culture (Wb) - Right Wrist Blood Culture - Final No growth in 5 days. 05/26/22 10:30 Blood Culture (Wb) - Anticubital Left Blood Culture - Final No growth in 5 days. 05/25/22 08:10 Blood Culture (Wb) - Anticubital Right Blood Culture - Final No growth in 5 days. 05/25/22 08:10 Blood Culture (Wb) - Anticubital Left Blood Culture - Final No growth in 5 days. 05/26/22 11:30 Sputum, Induced/Lukens Gram Stain - Final 05/26/22 11:30 Sputum, Induced/Lukens Respiratory Culture - Final Raoultella ornithinolytica 05/25/22 08:42 Urine Catheter - Prakash Urine Culture - Final Culture exhibits no growth. 05/25/22 08:35 Sputum, Induced/Lukens Gram Stain - Final 05/25/22 08:35 Sputum, Induced/Lukens Respiratory Culture - Final Klebsiella oxytoca 05/25/22 08:42 Nasal Secretion SARS-CoV-2 & FLU Antigen (Rapid) - Final Radiography Diagnostic Testing: Radiology Impression Venous Doppler Study 06/17/22 15:38 Interpretation Summary There is no evidence of right lower extremity deep vein thrombosis. Acute deep venous thrombosis left posterior tibial and soleus veins Patent and compressible bilateral great saphenous veins Ordering Physician: Angus Booker Referring Physician: Artie Galvan Performed By: Suzan Hernandez RVT Meaningful Use Info Meaningful Use Diagnoses (Choose all that apply): None applicable Discharge Plan Admission Admit Date/Time: 05/25/22 11:18 Primary Reason for Your Visit: Acute fluctuating encephalopathy. Attending Provider: Angus Booker Primary Care Provider: Artie Galvan Consulting Providers: David Vega ; Scott Martin ; Jesus Quigley ; Idris Peralta ; Tomas Garcia ; Ana M Noble NP ; Terrance Bautista ; Jewel Robb ; Rubén Looney Discharge Orders/Prescriptions Prescriptions: New quetiapine 25 mg Tablet 25 mg PO BID Qty: 0 0RF metoprolol succinate 50 mg Tablet Extended Release 24 Hr 50 mg PO DAILY Qty: 0 0RF menthol-zinc oxide [Calmoseptine] 0.44-20.6 % Ointment 1 applic topical TID Qty: 0 0RF Protocol: *Topical Application Instructions APPLICATION INSTRUCTIONS: Coccyx acetaminophen 325 mg Tablet 650 mg PO Q4H PRN PRN (Reason: Pain 1-10 Or Fever) Qty: 0 0RF albuterol sulfate 2.5 mg /3 mL (0.083 %) Solution For Nebulization 2.5 mg inhalation Q4H PRN (Reason: SOB &/OR WHEEZING) Qty: 0 0RF amlodipine 10 mg Tablet 10 mg PO DAILY Qty: 0 0RF hydrochlorothiazide 25 mg Tablet 25 mg PO DAILY Qty: 0 0RF atropine 1 % Drops 2 drp PO Q3H PRN PRN (Reason: secretions) Qty: 0 0RF lisinopril 40 mg Tablet 40 mg PO DAILY Qty: 0 0RF Eliquis 5 mg Tablet 5 mg PO BID Qty: 0 0RF Rx Instructions: To continue for total of 3 months. Continued primidone 50 mg tablet 50 mg PO QHS famotidine 20 mg Tablet 20 mg PO DAILY ferrous sulfate [FeroSul] 325 mg (65 mg iron) tablet 325 mg PO DAILY folic acid 1 mg tablet 1 mg PO DAILY primidone 50 mg Tablet 100 mg PO DAILY docusate sodium 100 mg Tablet 100 mg PO BID cholecalciferol (vitamin D3) [Vitamin D3] 50 mcg (2,000 unit) Capsule 50 mcg PO DAILY Changed aspirin 81 mg Tablet,Chewable 81 mg PO DAILY 30 Days Qty: 0 0RF Discontinued lisinopril [Zestril] 20 MG tablet 40 mg PO DAILY amlodipine 10 MG tablet 10 mg PO DAILY metoprolol succinate 25 mg tablet extended release 24 hr 25 mg PO DAILY acetaminophen [Acetaminophen Extra Strength] 500 mg Tablet 1,000 mg PO TID lorazepam 0.5 mg Tablet 0.5 mg PO Q8H PRN (Reason: ALCOHOL WITHDRAWAL ) chlordiazepoxide HCl 25 mg Capsule 50 mg PO Q8H PRN (Reason: ANXIETY ) chlordiazepoxide HCl 25 mg Capsule 50 mg PO Q8H PRN (Reason: ALCOHOL WITHDRAWAL ) oxycodone 5 mg Tablet 5 mg PO Q8H PRN (Reason: PAIN ) Referrals / Follow Up: Artie Galvan MD [Primary Care Provider] - Within 2 Weeks Idris Peralta MD [Med Staff - Active Staff] - Within 2 Weeks (Hypoxia acute hypoxic dilatory failure clinic disease.) Disposition Disposition (needs filled in before D/C Order can be placed): Alf Facility Charges/Coding Visit Charges Inpatient E&M: 23467 Disch Hosp >30min
--- NOTE | 2022-06-19 15:11 | PHA.DC.MR ---
Pharmacy Service has performed discharge medication reconciliation for this patient. The patient's discharge medication list was reviewed for discrepancies and discrepancies were resolved. Home Medications cholecalciferol (vitamin D3) 50 mcg (2,000 unit) capsule (Vitamin D3) 50 mcg PO DAILY SUPPLEMENT 05/25/22 docusate sodium 100 mg tablet 100 mg PO BID CONSTIPATION 05/25/22 famotidine 20 mg tablet 20 mg PO DAILY ACID REFLUX 05/25/22 ferrous sulfate 325 mg (65 mg iron) tablet (FeroSul) 325 mg PO DAILY SUPPLEMENT 05/25/22 folic acid 1 mg tablet 1 mg PO DAILY SUPPLEMENT 05/25/22 primidone 50 mg tablet 50 mg PO QHS SEIZURES 05/25/22 primidone 50 mg tablet 100 mg PO DAILY SEIZURES 05/25/22 acetaminophen 325 mg tablet 650 mg PO Q4H PRN PRN Pain 1-10 Or Fever #0 tabs 06/19/22 albuterol sulfate 2.5 mg/3 mL (0.083 %) solution for nebulization 2.5 mg (3 mL) inhalation Q4H PRN SOB &/OR WHEEZING #0 mL 06/19/22 amlodipine 10 mg tablet 10 mg PO DAILY #0 tabs 06/19/22 apixaban 5 mg tablet (Eliquis) 5 mg PO BID #0 tabs 06/19/22 aspirin 81 mg chewable tablet 81 mg PO DAILY HEART HEALTH 30 days #0 tabs 06/19/22 atropine 1 % eye drops 2 drp PO Q3H PRN PRN secretions #0 mL 06/19/22 hydrochlorothiazide 25 mg tablet 25 mg PO DAILY #0 tabs 06/19/22 lisinopril 40 mg tablet 40 mg PO DAILY #0 tabs 06/19/22 menthol 0.44 %-zinc oxide 20.6 % topical ointment (Calmoseptine) 1 applic topical TID #0 grams 06/19/22 metoprolol succinate 50 mg tablet,extended release 24 hr 50 mg PO DAILY #0 tabs 06/19/22 quetiapine 25 mg tablet 25 mg PO BID #0 tabs 06/19/22
[2022-06-19 15:44] VITALS: BP 136/77; PULSE 86; RESP 18; TEMP 37.2; O2SAT 96
--- NOTE | 2022-06-19 16:06 | NURSING ---
Report given to Sapphire SALAZAR at [place] at this time.
== END 2022-06-19 15:50 | DRG 208 ==
LOC: ED 08:40 → ICU 11:23 → PCU 05-29 11:49 → MS3 06-12 15:02
PROVIDERS: Family Medicine; Internal Medicine; Emergency Provider Emergency Medicine; PCP Family Medicine; Visit Provider Internal Medicine
DX: J69.0 Pneumonitis due to inhalation of food and vomit (principal); J96.01 Acute respiratory failure with hypoxia; G93.41 Metabolic encephalopathy; F10.131 Alcohol abuse with withdrawal delirium; N17.9 Acute kidney failure, unspecified; J44.0 Chronic obstructive pulmonary disease with (acute) lower respiratory infection; E87.3 Alkalosis; E87.1 Hypo-osmolality and hyponatremia; J98.11 Atelectasis; R44.3 Hallucinations, unspecified; J15.0 Pneumonia due to Klebsiella pneumoniae; I11.0 Hypertensive heart disease with heart failure; I50.9 Heart failure, unspecified; I82.462 Acute embolism and thrombosis of left calf muscular vein; F17.210 Nicotine dependence, cigarettes, uncomplicated; K76.9 Liver disease, unspecified; Z96.611 Presence of right artificial shoulder joint; Z79.82 Long term (current) use of aspirin; Y90.9 Presence of alcohol in blood, level not specified
CPT/HCPCS: 31500; 31720; 36415; 36600; 51702; 70450; 71045; 74018; 74230; 80048; 80053; 81001; 82077; 82140; 82550; 82607; 82746; 82803; 82962; 83605; 83735; 84100; 84443; 84478; 84484; 85025; 85610; 85730; 87040; 87070; 87077; 87086; 87186; 87205; 87426; 87428; 92507; 92526; 92610; 92611; 93005; 93970; 94002; 94003; 94640; 94660; 94667; 94668; 94762; 97110; 97162; 97166; 97530; 97535; 97802; 97803; 99252; 99285; J2185; J7030; J7040; J7050; A4216; G0463

== ENCOUNTER → 2022-07-13 | Outpatient (CLI) | payer MEDICARE, SELFPAY ==
--- NOTE | 2022-07-13 11:52 | EKG12_ITS ---
Test Reason : ROUTINE Blood Pressure : / mmHG Vent. Rate : 083 BPM Atrial Rate : 083 BPM P-R Int : 128 ms QRS Dur : 094 ms QT Int : 388 ms P-R-T Axes : 067 071 068 degrees QTc Int : 455 ms Sinus rhythm with occasional Premature ventricular complexes Otherwise normal ECG Confirmed by RONN BARBA, BRAXTON ([id number]), yeast culture developer MARC KING ([id number]) on 07/17/2022 2:23:48 PM Referred By: Idris Peralta Confirmed By:ISIS BRODY MD
== END | disposition home or self-care (01) ==
PROVIDERS: PCP Family Medicine; Referring Provider Internal Medicine; Visit Provider Internal Medicine
DX: I82.90 Acute embolism and thrombosis of unspecified vein (principal)
CPT/HCPCS: 93005

== ENCOUNTER → 2023-11-27 | Outpatient (CLI) | payer MEDICARE, SELFPAY ==
[2023-11-27 10:48] LABS: Anion Gap 7 (5-15); BUN 32 mg/dL (7-18); Calcium,Total 10.3 mg/dL (8.5-10.1); Chloride 101 mmol/L (98-107); Creatinine, Serum 1.78 mg/dL (0.70-1.30); EST Glomerular Filtration Rate 40 mL/min (>60); Est Glom Filt Rate - Afr Amer 49 mL/min (>60); Glucose 99 mg/dL (74-106); Potassium 5.4 mmol/L (3.5-5.1); Sodium Level 133 mmol/L (136-145)
== END | disposition home or self-care (01) ==
LOC: POLAB3 09:34
PROVIDERS: PCP Family Medicine; Visit Provider Internal Medicine Nephrology
DX: E87.5 Hyperkalemia (principal)
CPT/HCPCS: 36415; 80048